=== PATIENT | female | born 1975 | race Caucasian/White ===

== ENCOUNTER → 2016-06-07 | Outpatient (CLI) | payer OTHER ==
[2016-06-07 11:27] LABS: ALBUMIN 3.3 GM/DL (3.2-5.2); ALBUMIN/GLOBULIN RATIO 1.03 (1.00-1.93); ALKALINE PHOSPHATASE 63 U/L (45-117); ALT/SGPT 15 U/L (12-78); ANION GAP 10 MEQ/L (8-16); AST/SGOT 20 U/L (15-37); BILIRUBIN,TOTAL 0.4 MG/DL (0.2-1.0); BLOOD UREA NITROGEN 15 MG/DL (7-18); CALCIUM LEVEL 8.7 MG/DL (8.5-10.1); CARBON DIOXIDE LEVEL 22 MEQ/L (21-32); CHLORIDE LEVEL 110 MEQ/L (98-107); CHOLESTEROL LEVEL 212 MG/DL (<200); CREATININE FOR GFR 0.92 MG/DL (0.55-1.02); GLOMERULAR FILTRATION RATE > 60.0 (>58); GLUCOSE, FASTING 99 MG/DL (70-105); POTASSIUM SERUM 4.9 MEQ/L (3.5-5.1); SODIUM LEVEL 142 MEQ/L (136-145); TOTAL PROTEIN 6.5 GM/DL (6.4-8.2); TRIGLYCERIDES LEVEL 185 MG/DL (<150)
== END ==
LOC: M LAB 10:14
PROVIDERS: ATTEND Physician Assistant Medical
DX: E78.00 Pure hypercholesterolemia, unspecified (principal)

== ENCOUNTER → 2016-08-30 | Outpatient (CLI) | payer MEDICAID, OTHER ==
[2016-08-30 10:00] LABS: BASO % 0.4 % (0.0-1.0); EOS # 0.3 K/mm3 (0.0-0.50); LYMPH % 39.4 % (24.0-44.0); MEAN CORPUSCULAR HEMOGLOBIN 29.1 pg (27.0-33.0); MEAN CORPUSCULAR HGB CONC 32.1 g/dl (32.0-36.5); MEAN CORPUSCULAR VOLUME 90.8 fl (80.0-96.0); MONO # 0.5 K/mm3 (0.0-0.8); MONO % 5.5 % (0.0-5.0); NEUTROPHILS # 4.9 K/mm3 (1.8-7.7); NEUTROPHILS % 50.3 % (36.0-66.0); RED CELL DISTRIBUTION WIDTH 13.4 % (11.5-14.5); WHITE BLOOD COUNT 9.7 K/mm3 (4.0-10.0)
[2016-08-30 10:20] LABS: ALBUMIN 3.7 GM/DL (3.2-5.2); ALBUMIN/GLOBULIN RATIO 1.19 (1.00-1.93); ALKALINE PHOSPHATASE 60 U/L (45-117); ALT/SGPT 12 U/L (12-78); ANION GAP 7 MEQ/L (8-16); AST/SGOT 7 U/L (15-37); BILIRUBIN,TOTAL 0.2 MG/DL (0.2-1.0); BLOOD UREA NITROGEN 12 MG/DL (7-18); CARBON DIOXIDE LEVEL 25 MEQ/L (21-32); CHLORIDE LEVEL 108 MEQ/L (98-107); CHOLESTEROL LEVEL 163 MG/DL (<200); CREATININE FOR GFR 0.95 MG/DL (0.55-1.02); GLOMERULAR FILTRATION RATE > 60.0 (>58); GLUCOSE, FASTING 94 MG/DL (70-105); SODIUM LEVEL 140 MEQ/L (136-145); TOTAL PROTEIN 6.8 GM/DL (6.4-8.2); TRIGLYCERIDES LEVEL 74 MG/DL (<150)
== END ==
LOC: M LAB 09:17
PROVIDERS: ATTEND Physician Assistant Medical
DX: E78.2 Mixed hyperlipidemia (principal); E55.9 Vitamin D deficiency, unspecified

== ENCOUNTER → 2016-11-30 | Outpatient (CLI) | payer OTHER ==
[~2016-11-30] MED LIST: DRIS50002 PO; NAPR500T3 PO; NORCOTAB PO; OXYB10TA PO; ROBA500T PO; ROSU40TA PO
[2016-11-30 12:37] LABS: ALBUMIN 3.8 GM/DL (3.2-5.2); ALBUMIN/GLOBULIN RATIO 1.03 (1.00-1.93); ALKALINE PHOSPHATASE 68 U/L (45-117); ALT/SGPT 17 U/L (12-78); ANION GAP 6 MEQ/L (8-16); AST/SGOT 12 U/L (15-37); BILIRUBIN,TOTAL 0.4 MG/DL (0.2-1.0); BLOOD UREA NITROGEN 12 MG/DL (7-18); CALCIUM LEVEL 9.2 MG/DL (8.5-10.1); CARBON DIOXIDE LEVEL 28 MEQ/L (21-32); CHLORIDE LEVEL 109 MEQ/L (98-107); CHOLESTEROL LEVEL 192 MG/DL (<200); CREATININE FOR GFR 0.97 MG/DL (0.55-1.02); GLOMERULAR FILTRATION RATE > 60.0 (>58); GLUCOSE, FASTING 65 MG/DL (70-105); POTASSIUM SERUM 4.2 MEQ/L (3.5-5.1); SODIUM LEVEL 143 MEQ/L (136-145); TOTAL PROTEIN 7.5 GM/DL (6.4-8.2); TRIGLYCERIDES LEVEL 206 MG/DL (<150)
== END ==
LOC: M LAB 11:05
PROVIDERS: ATTEND Physician Assistant Medical
DX: E78.2 Mixed hyperlipidemia (principal)

== ENCOUNTER → 2016-12-31 | Outpatient (CLI) | payer OTHER ==
[2016-12-31 15:50] LABS: MEAN CORPUSCULAR HEMOGLOBIN 30.8 pg (27.0-33.0); MEAN CORPUSCULAR HGB CONC 33.2 g/dl (32.0-36.5); MEAN CORPUSCULAR VOLUME 92.6 fl (80.0-96.0); RED CELL DISTRIBUTION WIDTH 13.3 % (11.5-14.5); WHITE BLOOD COUNT 8.6 K/mm3 (4.0-10.0)
[2016-12-31 16:16] LABS: ALBUMIN 3.9 GM/DL (3.2-5.2); ALBUMIN/GLOBULIN RATIO 1.22 (1.00-1.93); ALKALINE PHOSPHATASE 66 U/L (45-117); ALT/SGPT 15 U/L (12-78); ANION GAP 11 MEQ/L (8-16); AST/SGOT 10 U/L (15-37); BILIRUBIN,TOTAL 0.4 MG/DL (0.2-1.0); BLOOD UREA NITROGEN 10 MG/DL (7-18); CALCIUM LEVEL 8.7 MG/DL (8.5-10.1); CARBON DIOXIDE LEVEL 22 MEQ/L (21-32); CHLORIDE LEVEL 108 MEQ/L (98-107); CREATININE FOR GFR 0.96 MG/DL (0.55-1.02); GLOMERULAR FILTRATION RATE > 60.0 (>58); GLUCOSE, FASTING 99 MG/DL (70-105); POTASSIUM SERUM 4.2 MEQ/L (3.5-5.1); SODIUM LEVEL 141 MEQ/L (136-145); TOTAL PROTEIN 7.1 GM/DL (6.4-8.2)
== END ==
LOC: M LAB 15:03
PROVIDERS: ATTEND Specialist
DX: Z01.818 Encounter for other preprocedural examination (principal); N39.3 Stress incontinence (female) (male)

== ENCOUNTER 2017-01-05 06:11 | Day surgery (SDC) | payer OTHER ==
[~2017-01-05] VITALS: Ht 160 cm; Wt 65.8 kg
[~2017-01-05 06:11] MED LIST changes: -NORCOTAB PO; -ROBA500T PO
[2017-01-05] MEDS ORDERED: BOTULINUM INJ 100 UNITS (J0585) INJ ONE (07:00)
[2017-01-05] MEDS ORDERED: fentaNYL 100 MCG/2 ML INJECTION (J3010) As Ordered ONE ×2 (07:06→07:48)
[2017-01-05] MEDS ORDERED: MIDAZOLAM INJ 2 MG/2 ML VIAL (J2250) As Ordered ONE (07:06)
[2017-01-05] MEDS ORDERED: ONDANSETRON 4MG/2ML VIAL (J2405) As Ordered ONE (07:11)
[2017-01-05] MEDS ORDERED: PROPOFOL 200 MG/20 ML VIAL As Ordered ONE (07:11)
[2017-01-05] MEDS ORDERED: KETOROLAC 60 MG/2 ML VIAL (J1885) As Ordered ONE (07:11)
[2017-01-05] MEDS ORDERED: LIDOCAINE 2% INJ 100 MG/5 ML SDV (FOR ANES.) As Ordered ONE (07:11)
[2017-01-05] MEDS ORDERED: dexameTHASONE 4 MG/ML 1ML VIAL (J1100) As Ordered ONE (07:11)
[2017-01-05] MEDS ORDERED: BOTULINUM INJ 100 UNITS (J0585) As Ordered ONE (07:22)
[2017-01-05] MEDS ORDERED: LR 1,000 ML IV SCH ×2 (07:30→08:30)
[2017-01-05] MEDS ORDERED: ePHEDrine SULFATE 25 MG/5 ML(5MG/ML) SYRINGE As Ordered ONE (07:57)
[2017-01-05] MEDS ORDERED: LIDOCAINE 2% 5ML JELLY UROJET As Ordered ONE (08:03)
[2017-01-05] MEDS ORDERED: ONDANSETRON 4MG/2ML VIAL (J2405) IV PRN (08:30)
[2017-01-05] MEDS ORDERED: fentaNYL 100 MCG/2 ML INJECTION (J3010) IV PRN (08:30)
[2017-01-05 10:09] VITALS: BP 108/58
--- NOTE | 2017-01-05 21:29 | RO ---
DATE OF PROCEDURE: 01/05/2017 PREOPERATIVE DIAGNOSIS: Urinary urgency, frequency, urge incontinence, and mixed urinary incontinence. POSTOPERATIVE DIAGNOSIS: Urinary urgency, frequency, urge incontinence, and mixed urinary incontinence. PROCEDURE: Cystoscopy, hydrodistention, random bladder biopsies, and intravesical Botox with 100 units. SURGEON: Dr. Lizbeth Hanley [employer] INSTALLER: ANESTHESIA: General. MEDICATIONS: Ancef 2 grams preoperatively. SPECIMENS: Random bladder biopsies. COMPLICATIONS: None. DESCRIPTION OF PROCEDURE: Junie is bothered by significant urinary urgency, urge incontinence, and mixed urinary incontinence despite treatment with both Enablex and oxybutynin extended release 10 mg, which she felt did not work well at all. Both urodynamic studies and cystoscopy were done. Urodynamic study (UDS) on 06/13/2016 showed her first sensation at only 50 mL with urgency at 222 mL. We discussed placement of the mid urethral sling for her stress component, but she said she was more bothered by the urge component, so it was decided to try to address this first. After discussing all different options, alternatives, risks, and benefits, it was decided to bring the patient to the operating room for cystoscopy, hydrodistention, possible random bladder biopsies, and intravesical Botox. Informed consent was obtained in both verbal and written form. DESCRIPTION OF PROCEDURE: The patient was brought into the operating room. Sequential compression devices were in place and preoperative antibiotics had been given. General anesthesia was induced. The patient was then placed in the lithotomy position and careful attention was paid that her pressure points were well padded and protected. She was next prepped and draped in the usual fashion. A #21-Romanian cystoscope was inserted and the bladder was emptied. Then, it was refilled using normal saline under gravity drainage. There was no evidence of stones, erythematous patches, lesions, or abnormalities. The patient's bladder was filled to a little less than 1 liter and left distended for a total of 10 minutes. Upon emptying the bladder, there were glomerulations throughout but no evidence of ulcerations and the glomerulations were minimal. Random biopsies were taken. Next, 100 units of Botox was injected in 10 different sites throughout the bladder after being reconstituted with 10 mL of injectable saline. I did place 10 units at the base of the bladder and the trigone and the rest were randomly throughout the bladder. The water source was then changed to sterile water, then the Bugbee was used for areas that appeared that they may bleed post procedurally. The patient tolerated the procedure well and was returned to the recovery room in stable condition.
== END 2017-01-05 10:42 | disposition home or self-care (01) ==
LOC: M SDC 06:11
PROVIDERS: ATTEND Specialist
DX: N39.41 Urge incontinence (principal); R35.0 Frequency of micturition; R39.15 Urgency of urination; E78.5 Hyperlipidemia, unspecified; Z79.899 Other long term (current) drug therapy; Z88.8 Allergy status to other drugs, medicaments and biological substances
CPT/HCPCS: 52204; 52260; 52287; 88305; L8606

== ENCOUNTER 2017-02-13 14:45 | Emergency (ER) | payer OTHER ==
[~2017-02-13] VITALS: Ht 157.5 cm; Wt 59.1 kg
[2017-02-13] MEDS ORDERED: ROBA500T PO (19:11)
[2017-02-13] MEDS ORDERED: NORCOTAB PO (19:11)
[2017-02-13] MEDS ORDERED: METHOCARBAMOL 500 MG TAB PO ONE (19:15)
[2017-02-13] MEDS ORDERED: KETOROLAC 60 MG/2 ML VIAL (J1885) IM ONE (19:15)
[2017-02-13 19:18] VITALS: BP 128/72
== END 2017-02-13 19:19 | disposition home or self-care (01) ==
LOC: M ED 14:45
DX: S39.012A Strain of muscle, fascia and tendon of lower back, initial encounter (principal); X50.9XXA Other and unspecified overexertion or strenuous movements or postures, initial encounter; Y92.89 Other specified places as the place of occurrence of the external cause; Y93.89 Activity, other specified; Y99.8 Other external cause status; M62.830 Muscle spasm of back; F17.210 Nicotine dependence, cigarettes, uncomplicated; Z79.899 Other long term (current) drug therapy; Z88.8 Allergy status to other drugs, medicaments and biological substances
CPT/HCPCS: 96372; 99282; J1885

== ENCOUNTER → 2017-02-15 | Outpatient (CLI) | payer OTHER ==
[~2017-02-15] MED LIST changes: +NORCOTAB PO; +ROBA500T PO
[2017-02-15 15:39] LABS: ALBUMIN 3.7 GM/DL (3.2-5.2); ALBUMIN/GLOBULIN RATIO 1.23 (1.00-1.93); ALKALINE PHOSPHATASE 61 U/L (45-117); ALT/SGPT 14 U/L (12-78); ANION GAP 8 MEQ/L (8-16); AST/SGOT 8 U/L (15-37); BILIRUBIN,TOTAL 0.5 MG/DL (0.2-1.0); BLOOD UREA NITROGEN 11 MG/DL (7-18); CALCIUM LEVEL 8.9 MG/DL (8.5-10.1); CARBON DIOXIDE LEVEL 24 MEQ/L (21-32); CHLORIDE LEVEL 112 MEQ/L (98-107); CHOLESTEROL LEVEL 165 MG/DL (<200); GLOMERULAR FILTRATION RATE > 60.0 (>58); GLUCOSE, FASTING 76 MG/DL (70-105); POTASSIUM SERUM 4.5 MEQ/L (3.5-5.1); SODIUM LEVEL 144 MEQ/L (136-145); TOTAL PROTEIN 6.7 GM/DL (6.4-8.2); TRIGLYCERIDES LEVEL 155 MG/DL (<150)
== END ==
LOC: M LAB 12:08
PROVIDERS: ATTEND Physician Assistant Medical
DX: E78.2 Mixed hyperlipidemia (principal); E55.9 Vitamin D deficiency, unspecified

== ENCOUNTER 2017-06-25 19:27 | Emergency (ER) | payer OTHER ==
[2017-06-25 19:56] LABS: HEMATOCRIT 47.6 % (36.0-47.0); HEMOGLOBIN 15.5 g/dl (12.0-16.0); MEAN CORPUSCULAR HEMOGLOBIN 29.4 pg (27.0-33.0); MEAN CORPUSCULAR HGB CONC 32.6 g/dl (32.0-36.5); MEAN CORPUSCULAR VOLUME 90.3 fl (80.0-96.0); PLATELET COUNT, AUTOMATED 305 10^3/uL (150-450); RED BLOOD COUNT 5.27 10^6/uL (4.00-5.40); RED CELL DISTRIBUTION WIDTH 14.3 % (11.5-14.5); WHITE BLOOD COUNT 10.9 10^3/uL (4.0-10.0)
[2017-06-25 20:07] LABS: ANION GAP 7 MEQ/L (8-16); BLOOD UREA NITROGEN 15 MG/DL (7-18); CALCIUM LEVEL 9.4 MG/DL (8.5-10.1); CARBON DIOXIDE LEVEL 25 MEQ/L (21-32); CHLORIDE LEVEL 108 MEQ/L (98-107); CREATININE FOR GFR 0.88 MG/DL (0.55-1.02); ETHYL ALCOHOL (ETHANOL) < 0.003 % (0.000-0.010); GLOMERULAR FILTRATION RATE > 60.0 (>58); GLUCOSE, FASTING 87 MG/DL (70-100); POTASSIUM SERUM 4.1 MEQ/L (3.5-5.1); SODIUM LEVEL 140 MEQ/L (136-145)
[2017-06-25 20:10] LABS: ADD MANUAL DIFFER YES; DIFF SLIDE NUMBER 147; POSITIVE DIFF POS FLAG
[2017-06-25 20:32] LABS: AMPHETAMINES LEVEL URINE NEGATIVE (NEGATIVE); BARBITURATES URINE NEGATIVE (NEGATIVE); BENZODIAZEPINES URINE NEGATIVE (NEGATIVE); CANNABINOIDS URINE NEGATIVE (NEGATIVE); COCAINE METABOLITE URINE NEGATIVE (NEGATIVE); METHADONE URINE NEGATIVE (NEGATIVE); OPIATES URINE NEGATIVE (NEGATIVE); PHENCYCLIDINE URINE NEGATIVE (NEGATIVE)
[2017-06-25 20:36] LABS: ATYPICAL LYMPH 2 % (0-5); EOSINOPHILS 2 % (0-5); LYMPHOCYTES 36 % (16-52); MONOCYTES 10 % (0-8); NEUTROPHILS 50 % (35-75); PLATELET ESTIMATE NORMAL (NORMAL)
== END 2017-06-25 20:52 | disposition home or self-care (01) ==
LOC: M ED 19:27
DX: F10.10 Alcohol abuse, uncomplicated (principal); E78.5 Hyperlipidemia, unspecified; F17.200 Nicotine dependence, unspecified, uncomplicated; Z79.899 Other long term (current) drug therapy; Z88.8 Allergy status to other drugs, medicaments and biological substances
CPT/HCPCS: 80320

== ENCOUNTER → 2018-02-12 | Outpatient (CLI) | payer OTHER | LOC: M CARPUL 12:32 | DX: R06.00 Dyspnea, unspecified (principal) | CPT/HCPCS: 94060 ==

== ENCOUNTER 2018-05-31 23:51 | Emergency (ER) | payer SELFPAY ==
[~2018-05-31] VITALS: Ht 157.5 cm; Wt 64.1 kg
[~2018-05-31 23:51] MED LIST changes: -DRIS50002 PO; +DRIS50003 PO; +FLUT11IN INH; +NAPR-885 PO; -NAPR500T3 PO; +PRED20TA PO; +PROAAER10 INH; -ROSU40TA PO; +ROSU40TA3 PO
[2018-06-01 00:21] LABS: BASO % 0.4 % (0.0-1.0); EOS # 0.2 10^3/uL (0.0-0.50); EOS % 2.9 % (0.0-3.0); HEMATOCRIT 42.3 % (36.0-47.0); LYMPH # 3.7 10^3/uL (1.5-4.5); LYMPH % 44.8 % (24.0-44.0); MEAN CORPUSCULAR HEMOGLOBIN 29.3 pg (27.0-33.0); MEAN CORPUSCULAR HGB CONC 33.1 g/dl (32.0-36.5); MEAN CORPUSCULAR VOLUME 88.5 fl (80.0-96.0); MONO # 0.7 10^3/uL (0.0-0.8); MONO % 8.4 % (0.0-5.0); NEUTROPHILS # 3.6 10^3/uL (1.8-7.7); NEUTROPHILS % 43.3 % (36.0-66.0); PLATELET COUNT, AUTOMATED 233 10^3/uL (150-450); RED BLOOD COUNT 4.78 10^6/uL (4.00-5.40); WHITE BLOOD COUNT 8.3 10^3/uL (4.0-10.0)
[2018-06-01 00:50] LABS: BLOOD UREA NITROGEN 15 MG/DL (7-18); CALCIUM LEVEL 8.9 MG/DL (8.5-10.1); CARBON DIOXIDE LEVEL 22 MEQ/L (21-32); CHLORIDE LEVEL 105 MEQ/L (98-107); CK-MB VALUE MASS < 1.0 NG/ML (<3.6); CPK CREATINE PHOSPHOKINASE 69 U/L (26-192); CREATININE FOR GFR 1.13 MG/DL (0.55-1.30); GLOMERULAR FILTRATION RATE 55.4 (>58); GLUCOSE, FASTING 93 MG/DL (70-100); MB/CK RELATIVE INDEX 1.45 (< OR =4); POTASSIUM SERUM 3.4 MEQ/L (3.5-5.1); SODIUM LEVEL 138 MEQ/L (136-145); TROPONIN I < 0.02 NG/ML (< 0.10)
[2018-06-01] MEDS ORDERED: IPRATROPIUM 0.5MG/ALBUTEROL 2.5MG INH SOL UD 3ML (DUONEB)(J7620) NEB ONE (02:00)
[2018-06-01 02:52] LABS: INFLUENZA A AMPLIFICATION NEGATIVE (NEGATIVE); INFLUENZA B AMPLIFICATION NEGATIVE (NEGATIVE)
[2018-06-01 03:30] VITALS: BP 97/56
--- NOTE | 2018-06-01 07:24 | REP ---
Clinical: Acute chest pain . Comparison: 05/25/2018 . Findings: The mediastinum and cardiac silhouette are stable and within normal limits for portable technique. The lung mejia are clear without acute consolidation, effusion, or pneumothorax. Skeletal structures are intact. Impression: No acute cardiopulmonary process appreciated. Electronically Signed by Jordon Bertrand MD 06/01/2018 07:15 A
--- NOTE | 2018-06-01 09:26 | ECGEPIP ---
Stationary ECG Study [facility] - ED Test Date: 2018-06-01 Pat Name: EMERSON BOYER Department: Room: - Gender: F Medical Secretary: gt : 1975 Requested By: K[facility] Bro Order Number: [id number] Reading MD: Iman Bishop Measurements Intervals [place] Rate: 74 P: 47 WA: 117 QRS: 37 QRSD: 96 T: 43 QT: 403 QTc: 448 Interpretive Statements SINUS RHYTHM WITH SHORT WA INTERVAL POSSIBLE RIGHT VENTRICULAR CONDUCTION DELAY NO PRIOR FOR COMPARISON Electronically Signed On 06-01-2018 9:26:33 EST by Iman Bishop
== END 2018-06-01 03:45 | disposition home or self-care (01) ==
LOC: EDBD 23:51 → M ED 23:51
DX: J44.9 Chronic obstructive pulmonary disease, unspecified (principal); Z87.891 Personal history of nicotine dependence; Z79.899 Other long term (current) drug therapy; Z88.8 Allergy status to other drugs, medicaments and biological substances

== ENCOUNTER → 2018-10-02 | Outpatient (CLI) | payer OTHER ==
[~2018-10-02] MED LIST changes: +HYDR-3715 PO; -NORCOTAB PO
--- NOTE | 2018-10-02 17:45 | REP ---
Left elbow series: Four views. History: Left elbow pain. Findings: Four views of the left elbow show normal bones, joints, and soft tissues. No fracture or subluxation is seen. Impression: Negative left elbow radiographs. Electronically Signed by Cleveland Valdez MD 10/02/2018 05:37 P
== END ==
LOC: M RAD 16:59
PROVIDERS: ATTEND Physician Assistant Medical
DX: M25.522 Pain in left elbow (principal)

== ENCOUNTER → 2019-02-20 | Outpatient (CLI) | payer OTHER ==
[~2019-02-20] MED LIST changes: -OXYB10TA PO; +OXYB10TA2 PO; -ROSU40TA3 PO; +ROSU40TA4 PO
--- NOTE | 2019-02-21 05:22 | REP ---
Clinical: Follow up abnormal findings. Technique: Axial noncontrast images from the thoracic inlet to the upper abdomen with coronal and sagittal re-formations. Comparison: 05/17/2018. Findings: Stable moderate emphysematous changes are again appreciated along with scattered bullae and bronchiectasis. No acute consolidation, significant nodule or mass lesion appreciated. No pleural effusion. No pneumothorax. Tracheobronchial tree appears patent. No obvious adenopathy. Mediastinum appears normal for noncontrast evaluation. Surrounding musculoskeletal structures are intact without focal osseous abnormality. Impression: 1. Stable mild/moderate emphysematous changes with bronchiectasis and scattered bullae. 2. No acute mediastinal or pleuroparenchymal process appreciated. Electronically Signed by Jordon Bertrand MD 02/21/2019 05:13 A
== END ==
LOC: M RAD 15:44
PROVIDERS: ATTEND Nurse Practitioner Family
DX: R91.8 Other nonspecific abnormal finding of lung field (principal); J43.9 Emphysema, unspecified

== ENCOUNTER → 2019-02-28 | Outpatient (CLI) | payer OTHER ==
--- NOTE | 2019-02-28 15:32 | PFTRPT ---
Height: 63.00 Inches Weight: 145.00 Lbs BSA: 1.69 Diagnosis: R05 DATE OF PROCEDURE: 02/28/2019 ORDERED BY: SIMEON Anguiano Spirometry: Pre and post bronchodilator study of excellent technical quality. Forced vital capacity normal. FEV1 out of proportion. Obstructive index is, therefore, reduced. Flow Volume Loop: Expiratory limb of the flow volume loop consistent with flow rate limitation. Favorable bronchodilator response is identified. Lung Volumes: Total lung capacity elevated. Residual volume consistent with air trapping. Diffusing Capacity: Diffusing capacity is reduced and does not correct for alveolar volume. Hemoglobin: Hemoglobin acceptable at 12.7. Airway Mechanics: Airway resistance and conductance are normal. IMPRESSION: Moderate obstructive ventilatory impairment with underlying air trapping and diffusing capacity impairment. Favorable bronchodilator response. MTDD
== END ==
LOC: M CARPUL 14:51
PROVIDERS: ATTEND Nurse Practitioner Family
DX: R05 Cough (principal)

== ENCOUNTER → 2019-06-06 | Outpatient (CLI) | payer OTHER ==
[2019-06-06 13:15] LABS: BLOOD UREA NITROGEN 13 MG/DL (7-18); CALCIUM LEVEL 9.6 MG/DL (8.5-10.1); CARBON DIOXIDE LEVEL 26 MEQ/L (21-32); CHLORIDE LEVEL 106 MEQ/L (98-107); GLOMERULAR FILTRATION RATE > 60.0 (>58); GLUCOSE, FASTING 74 MG/DL (70-100); POTASSIUM SERUM 4.3 MEQ/L (3.5-5.1); SODIUM LEVEL 138 MEQ/L (136-145)
== END ==
LOC: M LAB 11:28
PROVIDERS: ATTEND Internal Medicine Pulmonary Disease
DX: R06.00 Dyspnea, unspecified (principal)

== ENCOUNTER → 2019-06-07 | Outpatient (CLI) | payer OTHER ==
[~2019-06-07] MED LIST changes: -OXYB10TA2 PO; +OXYB10TA23 PO
--- NOTE | 2019-06-07 10:21 | REP ---
CT ANGIOGRAM CHEST: COMPARISON: 05/17/2018 and 02/20/2019. Once again there are mild scattered interstitial fibrotic changes as well as scattered emphysematous changes. These are stable. Mild bullous changes are seen medially in the left upper lobe as well as medial right upper lobe, unchanged. No new infiltrate or suspicious parenchymal opacities are seen. There is no evidence of mediastinal, hilar or chest wall lymphadenopathy. There is no pleural or pericardial effusion. Heart is normal in size. Thoracic aorta is normal in caliber with no aneurysm or dissection. In the visualized upper abdomen note is again made of a stable left adrenal adenoma measuring approximately 1.8 cm in diameter. There are mild degenerative changes of the spine. IMPRESSION: Stable chronic findings. No acute abnormalities as discussed in detail above. Electronically Signed by Kelvin Torres MD 06/08/2019 03:12 P
== END ==
LOC: M RAD 07:50
PROVIDERS: ATTEND Nurse Practitioner Family
DX: R91.8 Other nonspecific abnormal finding of lung field (principal)

== ENCOUNTER 2019-08-01 18:00 | Emergency (ER) | payer OTHER ==
[~2019-08-01] VITALS: Ht 160 cm; Wt 66.3 kg
[2019-08-01] MEDS ORDERED: methocarbamoL 750 MG TAB PO ONE (21:45)
[2019-08-01] MEDS ORDERED: LIDOCAINE 5% (LIDODERM) PATCH TD ONE (21:45)
[2019-08-01] MEDS ORDERED: KETOROLAC 60 MG/2 ML VIAL (J1885) IM ONE (21:45)
[2019-08-01 22:25] VITALS: BP 141/72
--- NOTE | 2019-08-01 22:25 | REPVR ---
PROCEDURE INFORMATION: Exam: CT Lumbar Spine Without Contrast Exam date and time: 08/01/2019 10:01 PM Age: 44 years old Clinical indication: Low back pain; Additional info: PT tender, R low back pain, 1 mo, no kirstin TECHNIQUE: Imaging protocol: Computed tomography images of the lumbar spine without contrast. Radiation optimization: All CT scans at this facility use at least one of these dose optimization techniques: automated exposure control; mA and/or kV adjustment per patient size (includes targeted exams where dose is matched to clinical indication); or iterative reconstruction. COMPARISON: No relevant prior studies available. FINDINGS: Vertebrae: No acute fracture. Normal alignment. Discs/Spinal canal/Neural foramina: No disc herniations. No spinal canal stenosis. No neural foraminal narrowing. Vasculature: The aorta demonstrates mild atherosclerotic calcification. Soft tissues: There is a focal hypodense mass in the left adrenal gland measuring 1.4 x 2.3 cm., and on the right measuring 1 x 1.6 cm both consistent in appearance and density with a benign adrenal adenomas. IMPRESSION: 1. Bilateral adrenal adenomas. 2. Unremarkable CT lumbar spine. COMMENTS: Consistent with the [employer]'s Incidental Findings Committee white paper (J Am Alcides Radiol 2017): For any incidental adrenal lesion greater than 1.0 cm but less than 4.0 cm classified in this report as benign or likely benign (including classification as an adenoma or myelolipoma), no follow-up imaging is recommended per consensus recommendations based on imaging criteria. Further lab evaluation could be pursued if warranted based on clinical findings. Electronically signed by: Ryan Jarquin On 08/01/2019 22:24:49 PM
[2019-08-01] MEDS ORDERED: ROBA750T4 PO (22:35)
[2019-08-01] MEDS ORDERED: NAPR-837 PO (22:35)
--- NOTE | 2019-08-02 14:33 | ED PDOC ---
Post-Departure Follow-Up dayan parmar faxed formal report of ct ls spine for fu Reggie Cedillo MD Aug 02, 2019 14:33
[2019-08-02] MEDS ORDERED: **NOTE PATIENT COMMENT** MISC XX SCH (21:00)
== END 2019-08-01 22:42 | disposition home or self-care (01) ==
LOC: M ED 18:00
DX: M54.5 Low back pain (principal); D35.00 Benign neoplasm of unspecified adrenal gland; R56.9 Unspecified convulsions; J44.9 Chronic obstructive pulmonary disease, unspecified; F17.210 Nicotine dependence, cigarettes, uncomplicated; Z88.8 Allergy status to other drugs, medicaments and biological substances; Z79.51 Long term (current) use of inhaled steroids; Z79.899 Other long term (current) drug therapy
CPT/HCPCS: 72131; 96372; 99283; J1885

== ENCOUNTER 2021-05-01 21:05 | Emergency (ER) | payer OTHER ==
[~2021-05-01] VITALS: Ht 160 cm; Wt 65.9 kg
[~2021-05-01 21:05] MED LIST changes: +NAPR-837 PO; +ROBA750T4 PO
--- OUTSIDE RECORDS SUMMARY | 2021-05-01 21:09 | CCD | Summary of Care ---
Author Author [facility] Organization [facility] Address Unknown Phone Unavailable Care Team Providers Care Field Spec Name Role Phone Lexi Luna H[employer] GR[employer]ER PCP Reason for Visit * Reason Comments Procedure Encounter Details Care Team Description Date Type Department Ritchie Hicks MD [facility] [place] [address] [email or web address] MS (multiple sclerosis) (Primary Dx) 04/01/2021 Procedure visit [facility] Neurology a [facility] [address], [address] [place] [address] Allergies Comments Active Allergy Reactions Severity Noted Date Carbamazepine Anaphylaxis High 05/11/2020 documented as of this encounter (statuses as of 04/27/2021) Medications End Date Status Medication Sig Dispensed Refills Start Date Active Baclofen 10 MG Oral Take 10 mg by 0 Tablet (LIORESAL) mouth Three times daily Active HYDROcodone-Acetaminophen Take 1 tablet 0 5-325 MG Oral Tablet by mouth (LORTAB) every 6 (six) hours as needed for Pain Active Naproxen 500 MG Oral Take 500 mg 0 Tablet (NAPROSYN) by mouth as needed Active Cholecalciferol 125 MCG Take 5,000 90 tablet 2 (5000 UT) Oral Tablet Int'l Units 1 by mouth daily Active Vitamin D Take 1 12 capsule 1 (Ergocalciferol) 1.25 MG capsule by 1 (55891 UT) Oral Capsule mouth every 7 (ERGOCALCIFEROL)Indicatio (seven) days ns: Vitamin D deficiency 09/22/2021 Active Gilenya 0.5 MG Oral TAKE 1 30 capsule 5 Capsule CAPSULE BY 1 (fingolimod)Indications: MOUTH EVERY Multiple sclerosis DAY documented as of this encounter (statuses as of 04/27/2021) Active Problems Problem Noted Date Vitamin D deficiency 07/16/2020 Tobacco use 05/13/2020 Multiple sclerosis 05/11/2020 Asthma 05/11/2020 COPD (chronic obstructive pulmonary disease) 020 Depression 05/11/2020 documented as of this encounter (statuses as of 04/27/2021) Social History Date Tobacco Use Types Packs/Day Years Used Current Every Day Smoker 0.5 Smokeless Tobacco: Never Used Comments: In the process of quitting Comments Alcohol Use Standard Drinks/Week Not Currently 0 (1 standard drink = 0.6 o z pure alcohol) Sex Assigned at Date Recorded Not on file Date Recorded COVID-19 Exposure Response 03/31/2021 3:47 PM EDT In the last month, have you been in contact with No / Unsure someone who was confirmed or suspected to have Coronavirus / COVID-19? documented as of this encounter Last Filed Vital Signs Not on filedocumented in this encounter Progress Notes * Ritchie Hicks MD - 03/31/2021 4:20 PM EDT Neuro-Ophthalmology Procedure Note Pertinent History: Junie Noland a 46 y.o. female with history of multiple scl erosis, who came in for diagnostic testing as ordered by Lizbeth Sweet NP. Optical coherence tomography (OCT) was performed in both eyes using the [employer]. The retinal nerve fiber layer (RNFL) thickness analysis revealed that in the OD there was normal thickness in all quadrants with a normal average thickn ess of 88. In the OS, there was normal thickness in all quadrants with a normal average thickness of 83. The signal strength was 8/10 OD and 8/10 OS. The retina l ganglion cell layer (RGC) analysis in the OD was normal in all sectors with av erage thickness of 75, and in the OS was normal thickness in most sectors with a couple with borderline thinning with average thickness of 73. The signal streng th was 8 OD and 7 OS. The macular thickness analysis revealed that in the OD the re was normal thickness in all sectors and a normal cube average thickness of 28 2; and in the OS there was normal thickness in all sectors and a normal cube ave rage thickness of 281. The signal strength was 8/10 OD and 7/10 OS. A 5-line shree ter through both macular areas appeared unremarkable. Impression: Junie Ayoub has normal thickness of the RNFL, RGC and macular area s by OCT in the setting of multiple sclerosis. When compared to the previous joelle dy from 11/06/20 there is no interval change. Clinical correlation is advice. She will return to Lizbeth Sweet NP for further care. documented in this encounter Plan of Treatment Care Team Description Date Type Specialty Lizbeth Sweet NP [address] [place] [address] [address] [place] [address] [email or web address] 08/06/2021 Office Visit Neurology Health Maintenance Due Date Last Done Comments MMR Vaccines (1 of 1 - 1974 Standard series) Varicella Vaccines (1 of 1974 2 - 2-dose childhood series) COVID-19 Vaccine (1) 1978 Pneumococcal Vaccine: 1979 Pediatrics (0 to 5 Years) and At-Risk Patients (6 to 64 Years) (1 of 2 - PPSV23) DTaP,Tdap,and Td Vaccines 1980 (1 - Tdap) Cervical Cancer Screening 1994 5 years Influenza Vaccine 02/26/2021 03/01/2019 HIV Screening Completed 05/14/2020 HIB Vaccines Aged Out No longer eligible based on patient's age to complete this topic Hepatitis A Vaccines Aged Out No longer eligibl e based on patient's age to complete this topic Hepatitis B Vaccines Aged Out No longer eligibl e based on patient's age to complete this topic IPV Vaccines Aged Out No longer eligible based on patient's age to complete this topic documented as of this encounter Results Not on filedocumented in this encounter Visit Diagnoses Diagnosis MS (multiple sclerosis) - Primary Multiple sclerosis documented in this encounter Care Teams Start Date End Date Field Spec Relationship Specialty 05/13/20 Lexi Luna NP PCP - General [address] [id number] documented as of this encounter
--- OUTSIDE RECORDS SUMMARY | 2021-05-01 21:10 | CCD ---
Author Author [facility] Organization [facility] Address Unknown Phone Unavailable Care Team Providers Care Mixing Machine Operator Name Role Phone Anirudh FRIEDMAN MD Unavailable Unavailable Anirudh FRIEDMAN MD Unavailable Unavailable Anirudh FRIEDMAN MD Unavailable Unavailable Anirudh FRIEDMAN MD Unavailable Unavailable Anirudh FRIEDMAN MD Unavailable Unavailable Anirudh FRIEDMAN MD Unavailable Unavailable Anirudh FRIEDMAN MD Unavailable Unavailable Ocsar GARCIA Unavailable Unavailable AVERSHansa, A NEENA Unavailable Unavailable Lucy Anand MD Unavailable Unavailable Lucy Anand MD Unavailable Unavailable Lucy Anand MD Unavailable Unavailable Hansa Singer MD Unavailable Shahrzad MD, A Alvarez Unavailable Shahrzad MD, A Alvarez Unavailable Shahrzad MD, A Alvarez Unavailable Shahrzad MD, A Alvarez Unavailable Shahrzad MD, A Alvarez Unavailable Shahrzad MD, A Alvarez Unavailable Shahrzad MD, A Alvarez Unavailable Shahrzad MD, A Alvarez Unavailable Shahrzad MD, A Alvarez Unavailable Shahrzad MD, A Alvarez Unavailable Shahrzad MD, A Alvarez Unavailable Shahrzad MD, A Alvarez Unavailable Shahrzad MD, A Alvarez Unavailable Shahrzad MD, A Alvarez Unavailable Shahrzad MD, A Alvarez Unavailable Shahrzad MD, A Alvarez Unavailable Shahrzad MD, A Alvarez Unavailable Shahrzad MD, A Alvarez Unavailable Shahrzad MD, A Alvarez Unavailable Shahrzad MD, A Alvarez Unavailable Shahrzad MD, A Alvarez Unavailable Shahrzad MD, A Alvarez Unavailable Shahrzad MD, A Alvarez Unavailable Shahrzad MD, A Alvarez Unavailable Shahrzad MD, A Alvarez Unavailable Shahrzad MD, A Alvarez Unavailable Shahrzad MD, A Alvarez Unavailable Shahrzad LYNN, A Alvarez Unavailable Shahrzad MD, A Alvarez Unavailable Shahrzad MD, A Alvarez Unavailable Shahrzad MD, A Alvarez Unavailable Shahrzad MD, A Alvarez Unavailable Shahrzad MD, A Alvarez Unavailable Shahrzad MD, A Alvarez Unavailable Shahrzad MD, A Alvarez Unavailable Shahrzad MD, A Alvarez Unavailable Shahrzad MD, A Alvarez Unavailable Shahrzad MD, A Alvarez Unavailable Shahrzad MD, A Alvarez Unavailable Shahrzad MD, A Alvarez Unavailable Shahrzad MD, A Alvarez Unavailable Shahrzad MD, A Alvarez Unavailable Shahrzad MD, A Alvarez Unavailable Shahrzad MD, A Alvarez Unavailable Shahrzad MD, A Alvarez Unavailable Shahrzad MD, A Alvarez Unavailable Shahrzad MD, A Alvarez Unavailable Hemant Buckley DO Unavailable Unavailable KAILA YANG Unavailable Unavailable Jackie ESPINOZA JR, MD Unavailable Unavailable Jackie ESPINOZA JR, MD Unavailable Unavailable Jackie ESPINOZA JR, MD Unavailable Unavailable Jackie ESPINOZA JR, MD Unavailable Unavailable Jackie ESPINOZA JR, MD Unavailable Unavailable Jackie ESPINOZA JR, MD Unavailable Unavailable Jackie ESPINOZA JR, MD Unavailable Unavailable Jackie ESPINOZA JR, MD Unavailable Unavailable Jackie ESPINOZA JR, MD Unavailable Unavailable CARSTEPHYT Jackie GROVE MD Unavailable Unavailable CARSTEPHYT Jackie GROVE MD Unavailable Unavailable CARHART Jackie GROVE MD Unavailable Unavailable CARHART Jackie GROVE MD Unavailable Unavailable CARHART Jackie GROVE MD Unavailable Unavailable CARHART Jackie GROVE MD Unavailable Unavailable CARHART Jackie GROVE MD Unavailable Unavailable CARSTEPHYT Jackie GROVE MD Unavailable Unavailable CARSTEPHYT Jackie GROVE MD Unavailable Unavailable CARSTEPHYT Jackie GROVE MD Unavailable Unavailable CARSTEPHYT Jackie GROVE MD Unavailable Unavailable CARSTEPHYT Jackie GROVE MD Unavailable Unavailable CARSTEPHYT Jackie GROVE MD Unavailable Unavailable CARJackie BLACK JR, MD Unavailable Unavailable CARJackie BLACK JR, MD Unavailable Unavailable CARJackie BLACK JR, MD Unavailable Unavailable CARJackie BLACK JR, MD Unavailable Unavailable CARJackie BLACK JR, MD Unavailable Unavailable CARJackie BLACK JR, MD Unavailable Unavailable CARJackie BLACK JR, MD Unavailable Unavailable CARJackie BLACK JR, MD Unavailable Unavailable CARJackie BLACK JR, MD Unavailable Unavailable CARJackie BLACK JR, MD Unavailable Unavailable CARJackie BLACK JR, MD Unavailable Unavailable CARJackie BLACK JR, MD Unavailable Unavailable CARJackie BLACK JR, MD Unavailable Unavailable CARJackie BLACK JR, MD Unavailable Unavailable CARJackie BLACK JR, MD Unavailable Unavailable CARJackie BLACK JR, MD Unavailable Unavailable CARJackie BLACK JR, MD Unavailable Unavailable CARJackie BLACK JR, MD Unavailable Unavailable CARJackie BLACK JR, MD Unavailable Unavailable CARJackie BLACK JR, MD Unavailable Unavailable CARJackie BLACK JR, MD Unavailable Unavailable CARJackie BLACK JR, MD Unavailable Unavailable CARJackie BLACK JR, MD Unavailable Unavailable CARJackie BLACK JR, MD Unavailable Unavailable CARJackie BLACK JR, MD Unavailable Unavailable CARJackie BLACK JR, MD Unavailable Unavailable CARJackie BLACK JR, MD Unavailable Unavailable CARJackie BLACK JR, MD Unavailable Unavailable CARJackie BLACK JR, MD Unavailable Unavailable CARSTEPHYT Jackie GROVE MD Unavailable Unavailable CARJackie BLACK JR, MD Unavailable Unavailable CARJackie BLACK JR, MD Unavailable Unavailable CARJackie BLACK JR, MD Unavailable Unavailable CARJackie BLACK JR, MD Unavailable Unavailable CARJackie BLACK JR, MD Unavailable Unavailable CARJackie BLACK JR, MD Unavailable Unavailable CARJackie BLACK JR, MD Unavailable Unavailable CARHART JRJackie MD Unavailable Unavailable CARHART Jackie GROVE MD Unavailable Unavailable CARHART JRJackie MD Unavailable Unavailable CARHART JRJackie MD Unavailable Unavailable CARHART JRJackie MD Unavailable Unavailable CARHART JRJackie MD Unavailable Unavailable CARHART JRJackie MD Unavailable Unavailable CARHART JRJackie MD Unavailable Unavailable CARHART JR, Jackie MADRIGAL MD Unavailable Unavailable CARHART JRJackie MD Unavailable Unavailable CARHART JRJackie MD Unavailable Unavailable CARHART JRJackie MD Unavailable Unavailable CARHART JRJackie MD Unavailable Unavailable CARHART JRJackie MD Unavailable Unavailable CARHART JR, Jackie MADRIGAL MD Unavailable Unavailable CARHART JR, Jackie MADRIGAL MD Unavailable Unavailable CARHART JRJackie MD Unavailable Unavailable CARHART Jackie GROVE MD Unavailable Unavailable CARHART Jackie GROVE MD Unavailable Unavailable CARHART Jackie GROVE MD Unavailable Unavailable CARHART Jackie GROVE MD Unavailable Unavailable CARHART Jackie GROVE MD Unavailable Unavailable CARHART Jackie GROVE MD Unavailable Unavailable CARHART Jackie GROVE MD Unavailable Unavailable CARHART Jackie GROVE MD Unavailable Unavailable CARHART Jackie GROVE MD Unavailable Unavailable CARHART Jackie GROVE MD Unavailable Unavailable CARHART Jackie GROVE MD Unavailable Unavailable CARHART Jackie GROVE MD Unavailable Unavailable SAWANT, Hansa HINDS MD Unavailable Unavailable SAWANT, Hansa HINDS MD Unavailable Unavailable SAWANT, Hansa CAMILOLIZET Unavailable Unavailable SAWANT, Hansa HINDS MD Unavailable Unavailable SAWANT, Hansa HINDS MD Unavailable Unavailable SAWANT, Hansa HINDS MD Unavailable Unavailable SAWANT, Hansa HINDS MD Unavailable Unavailable SAWANT, Hansa HINDS MD Unavailable Unavailable SAWANT, Hansa HINDS MD Unavailable Unavailable SAWANT, Hansa LIZET MD Unavailable Unavailable SAWANT, Hansa HINDS MD Unavailable Unavailable SAWANT, Hansa LIZET Unavailable Unavailable SAWANT, Hansa LIZET Unavailable Unavailable SAWANT, Hansa HINDS MD Unavailable Unavailable SAWANT, Hansa LIZET Unavailable Unavailable SAWANT, Hansa HINDS MD Unavailable Unavailable SAWANT, Hansa HINDS MD Unavailable Unavailable SAWANT, Hansa HINDS MD Unavailable Unavailable SAWANT, Hansa HINDS MD Unavailable Unavailable SAWANT, Hansa HINDS MD Unavailable Unavailable SAWANT, Hansa HINDS MD Unavailable Unavailable SAWANT, Hansa HINDS MD Unavailable Unavailable SAWANT, Hansa LIZET Unavailable Unavailable SAWANT, Hansa LIZET Unavailable Unavailable Hansa SAWANT MD Unavailable Unavailable Hansa SAWANT MD Unavailable Unavailable Hansa SAWANT MD Unavailable Unavailable Hansa SAWANT MD Unavailable Unavailable Hansa SAWANT MD Unavailable Unavailable Hansa SAWANT MD Unavailable Unavailable [place], Lizbeth AUTO BODY TECHNICIAN Unavailable Unavailable Kee, Lizbeth AUTO BODY TECHNICIAN Unavailable Unavailable [place], Lizbeth AUTO BODY TECHNICIAN Unavailable Unavailable [place], Lizbeth AUTO BODY TECHNICIAN Unavailable Unavailable [place], Lizbeth AUTO BODY TECHNICIAN Unavailable Unavailable [place], Lizbeth AUTO BODY TECHNICIAN Unavailable Unavailable [place], Lizbeth AUTO BODY TECHNICIAN Unavailable Unavailable Kee, Lizbeth AUTO BODY TECHNICIAN Unavailable Unavailable [place], Lizbeth AUTO BODY TECHNICIAN Unavailable Unavailable Kee, Lizbeth AUTO BODY TECHNICIAN Unavailable Unavailable Kee, Lizbeth AUTO BODY TECHNICIAN Unavailable Unavailable [place], Lizbeth AUTO BODY TECHNICIAN Unavailable Unavailable [place], Lizbeth AUTO BODY TECHNICIAN Unavailable Unavailable Kee, Lizbeth AUTO BODY TECHNICIAN Unavailable Unavailable [place], Lizbeth AUTO BODY TECHNICIAN Unavailable Unavailable [place], Lizbeth AUTO BODY TECHNICIAN Unavailable Unavailable [place], Lizbeth AUTO BODY TECHNICIAN Unavailable Unavailable [place], Lizbeth AUTO BODY TECHNICIAN Unavailable Unavailable [place], Lizbeth AUTO BODY TECHNICIAN Unavailable Unavailable [place], Lizbeth AUTO BODY TECHNICIAN Unavailable Unavailable Kee, Lizbeth AUTO BODY TECHNICIAN Unavailable Unavailable Kee, Lizbeth AUTO BODY TECHNICIAN Unavailable Unavailable [place], Lizbeth AUTO BODY TECHNICIAN Unavailable Unavailable Kee, Lizbeth AUTO BODY TECHNICIAN Unavailable Unavailable Kee, Lizbeth AUTO BODY TECHNICIAN Unavailable Unavailable [place], Lizbeth AUTO BODY TECHNICIAN Unavailable Unavailable [place], Lizbeth AUTO BODY TECHNICIAN Unavailable Unavailable Kee, Lizbeth AUTO BODY TECHNICIAN Unavailable Unavailable Kee, Lizbeth AUTO BODY TECHNICIAN Unavailable Unavailable [place], Lizbeth AUTO BODY TECHNICIAN Unavailable Unavailable Kee, Lizbeth AUTO BODY TECHNICIAN Unavailable Unavailable [place], Lizbeth AUTO BODY TECHNICIAN Unavailable Unavailable [place], Lizbeth AUTO BODY TECHNICIAN Unavailable Unavailable Kee, Lizbeth AUTO BODY TECHNICIAN Unavailable Unavailable Kee, Lizbeth AUTO BODY TECHNICIAN Unavailable Unavailable Anirudh RIBEIRO MD Unavailable Unavailable Anirudh RIBEIRO MD Unavailable Unavailable Anirudh RIBEIRO MD Unavailable Unavailable Anirudh RIBEIRO MD Unavailable Unavailable Anirudh RIBEIRO MD Unavailable Unavailable Anirudh RIBEIRO MD Unavailable Unavailable Anirudh RIBEIRO MD Unavailable Unavailable Anirudh RIBEIRO MD Unavailable Unavailable Anirudh RIBEIRO MD Unavailable Unavailable MEAnirudh MARTINEZ MD Unavailable Unavailable MEAnirudh MARTINEZ MD Unavailable Unavailable MEAnirudh MARTINEZ MD Unavailable Unavailable MEAnirudh MARTINEZ MD Unavailable Unavailable MEJIAnirudh PHELAN MD Unavailable Unavailable MEAnirudh MARTINEZ MD Unavailable Unavailable MEJIAnirudh PHELAN MD Unavailable Unavailable MEAnirudh MARTINEZ MD Unavailable Unavailable MEJIAnirudh PHELAN MD Unavailable Unavailable MEAnirudh MARTINEZ MD Unavailable Unavailable MEJIAnirudh PHELAN MD Unavailable Unavailable MEJIAnirudh PHELAN MD Unavailable Unavailable MEJIAnirudh PHELAN MD Unavailable Unavailable MEAnirudh MARTINEZ MD Unavailable Unavailable MEAnirudh MARTINEZ MD Unavailable Unavailable MEAnirudh MARTINEZ MD Unavailable Unavailable MEAnirudh MARTINEZ MD Unavailable Unavailable MEAnirudh MARTINEZ MD Unavailable Unavailable MEAnirudh MARTINEZ MD Unavailable Unavailable MEAnirudh MARTINEZ MD Unavailable Unavailable MEAnirudh MARTINEZ MD Unavailable Unavailable MEAnirudh MARTINEZ MD Unavailable Unavailable MEAnirudh MARTINEZ MD Unavailable Unavailable MEAnirudh MARTINEZ MD Unavailable Unavailable MEAnirudh MARTINEZ MD Unavailable Unavailable MEAnirudh MARTINEZ MD Unavailable Unavailable MEAnirudh MARTINEZ MD Unavailable Unavailable MEAinrudh MARTINEZ MD Unavailable Unavailable MEAnirudh MARTINEZ MD Unavailable Unavailable MEAnirudh MARTINEZ MD Unavailable Unavailable MEAnirudh MARTINEZ MD Unavailable Unavailable MEAnirudh MARTINEZ MD Unavailable Unavailable MEAnirudh MARTINEZ MD Unavailable Unavailable MEAnirudh MARTINEZ MD Unavailable Unavailable Anirudh RIBEIRO MD Unavailable Unavailable Anirudh RIBEIRO MD Unavailable Unavailable MEAnirudh MARTINEZ MD Unavailable Unavailable MEAnirudh MARTINEZ MD Unavailable Unavailable MEAnirudh MARTINEZ MD Unavailable Unavailable MEAnirudh MARTINEZ MD Unavailable Unavailable Anirudh RIBEIRO MD Unavailable Unavailable Anirudh RIBEIRO MD Unavailable Unavailable MEAnirudh MARTINEZ MD Unavailable Unavailable MEAnirudh MARTINEZ MD Unavailable Unavailable MEAnirudh MARTINEZ MD Unavailable Unavailable MEAnirudh MARTINEZ MD Unavailable Unavailable MEAnirudh MARTINEZ MD Unavailable Unavailable MEAnirudh MARTINEZ MD Unavailable Unavailable MEAnirudh MARTINEZ MD Unavailable Unavailable MEAnirudh MARTINEZ MD Unavailable Unavailable MEJICO, Anirudh MELO MD Unavailable Unavailable MEJICO, Anirudh MELO MD Unavailable Unavailable MEJICO, Anirudh MELO MD Unavailable Unavailable MEJICO, Anirudh MELO MD Unavailable Unavailable MEJICO, Anirudh MELO MD Unavailable Unavailable MEJICO, Anirudh MELO MD Unavailable Unavailable MEJICO, Anirudh MELO MD Unavailable Unavailable MEJICO, Anirudh MELO MD Unavailable Unavailable MEJICO, Anirudh MELO MD Unavailable Unavailable MEJICO, Anirudh MELO MD Unavailable Unavailable MEJICO, Anirudh MELO MD Unavailable Unavailable MEJICO, Anirudh MELO MD Unavailable Unavailable Shahrzad LYNN, A Alvarez Unavailable Shahrzad LYNN, A Alvarez Unavailable Shahrzad LYNN, A Alvarez Unavailable Shahrazd LYNN, A Alvarez Unavailable Shahrzad LYNN, A Alvarez Unavailable Shahrzad LYNN, A Alvarez Unavailable Shahrzad LYNN, A Alvarez Unavailable Shahrzad MD, A Alvarez Unavailable Shahrzad MD, A Alvarez Unavailable Shahrzad LYNN, A Alvarez Unavailable Shahrzad MD, A Alvarez Unavailable Shahrzad LYNN, A Alvarez Unavailable Shahrzad LYNN, A Alvarez Unavailable Shahrzad LYNN, A Alvarez Unavailable Shahrzad LYNN, A Alvarez Unavailable Shahrzad LYNN, A Alvarez Unavailable Shahrzad LYNN, A Alvarez Unavailable Shahrzad LYNN, A Alvarez Unavailable Shahrzad LYNN, A Alvarez Unavailable Shahrzad LYNN, A Alvarez Unavailable Shahrzad MD, A Alvarez Unavailable Shahrzad MD, A Lavarez Unavailable Shahrzad MD, A Alvarez Unavailable Shahrzad MD, A Alvarez Unavailable Shahrzad MD, A Alvarez Unavailable Shahrzad MD, A Alvarez Unavailable Shahrzad MD, A Alvarez Unavailable Shahrzad MD, A Alvarez Unavailable Shahrzad MD, A Alvarez Unavailable Shahrzad MD, A Alvarez Unavailable Shahrzad MD, A Alvarez Unavailable Shahrzad MD, A Alvarez Unavailable Shahrzad MD, A Alvarez Unavailable Shahrzad MD, A Alvarez Unavailable Shahrzad MD, A Alvarez Unavailable Shahrzad MD, A Alvarez Unavailable Shahrzad MD, A Alvarez Unavailable Shahrzad MD, A Alvarez Unavailable Shahrzad MD, A Alvarez Unavailable Shahrzad MD, A Alvarez Unavailable Shahrzad MD, A Alvarez Unavailable Shahrzad MD, A Alvarez Unavailable Shahrzad MD, A Alvarez Unavailable Shahrzad MD, A Alvarez Unavailable Shahrzad MD, A Alvarez Unavailable Shahrzad MD, A Alvarez Unavailable Shahrzad MD, A Alvarez Unavailable Shahrzad LYNN, A Alvarez Unavailable Hansa FORD Unavailable Unavailable DiBella, P Ray LYNN Unavailable Unavailable DiBella, P Ray LYNN Unavailable Unavailable DiBella, P Ray LYNN Unavailable Unavailable DiBella, P Ray LYNN Unavailable Unavailable DiBella, P Ray LYNN Unavailable Unavailable DiBella, P Ray LYNN Unavailable Unavailable DiBella, P Ray LYNN Unavailable Unavailable DiBella, P Ray LYNN Unavailable Unavailable Almazan, M Wild PA-C Unavailable Unavailable Almazan, M Wild PA-C Unavailable Unavailable Seigers, A Sandor MD Unavailable Unavailable Seigers, A Sandor MD Unavailable Unavailable Seigers, A Sandor MD Unavailable Unavailable Seigers, A Sandor MD Unavailable Unavailable Seigers, A Sandor MD Unavailable Unavailable Seigers, A Sandor MD Unavailable Unavailable Seigers, A Sandor MD Unavailable Unavailable Seigers, A Sandor MD Unavailable Unavailable Seigers, A Sandor MD Unavailable Unavailable Seigers, A Sandor MD Unavailable Unavailable Seigers, A Sandor MD Unavailable Unavailable Seigers, A Sandor MD Unavailable Unavailable Seigers, A Sandor MD Unavailable Unavailable Seigers, A Sandor MD Unavailable Unavailable Seigers, A Sandor MD Unavailable Unavailable Seigers, A Sandor MD Unavailable Unavailable Seigers, A Sandor MD Unavailable Unavailable Seigers, A Sandor MD Unavailable Unavailable Seigers, A Sandor MD Unavailable Unavailable Seigers, A Sandor MD Unavailable Unavailable Seigers, A Sandor MD Unavailable Unavailable Seigers, A Sandor MD Unavailable Unavailable Seigers, A Sandor MD Unavailable Unavailable Seigers, A Sandor MD Unavailable Unavailable Seigers, A Sandor MD Unavailable Unavailable Seigers, A Sandor MD Unavailable Unavailable Seigers, A Sandor MD Unavailable Unavailable Seigers, A Sandor MD Unavailable Unavailable Seigers, A Sandor MD Unavailable Unavailable Seigers, A Sandor MD Unavailable Unavailable Seigers, A Sandor MD Unavailable Unavailable Seigers, A Sandor MD Unavailable Unavailable Seigers, A Sandor MD Unavailable Unavailable Seigers, A Sandor MD Unavailable Unavailable Seigers, A Sandor MD Unavailable Unavailable Seigers, A Sandor MD Unavailable Unavailable Seigers, A Sandor MD Unavailable Unavailable Seigers, A Sandor MD Unavailable Unavailable Seigers, A Sandor MD Unavailable Unavailable Seigers, A Sandor MD Unavailable Unavailable Seigers, A Sandor MD Unavailable Unavailable Seigers, A Sandor MD Unavailable Unavailable Seigers, A Sandor MD Unavailable Unavailable Seigers, A Sandor MD Unavailable Unavailable Seigers, A Sandor MD Unavailable Unavailable Seigers, A Sandor MD Unavailable Unavailable Seigers, A Sandor MD Unavailable Unavailable Seigers, A Sandor MD Unavailable Unavailable Seigers, A Sandor MD Unavailable Unavailable Seigers, A Sandor MD Unavailable Unavailable Seigers, A Sandor MD Unavailable Unavailable Seigers, A Sandor MD Unavailable Unavailable Seigers, A Sandor MD Unavailable Unavailable Seigers, A Sandor MD Unavailable Unavailable Seigers, A Sandor MD Unavailable Unavailable Seigers, A Sandor MD Unavailable Unavailable Seigers, A Sandor MD Unavailable Unavailable Seigers, A Sandor MD Unavailable Unavailable Seigers, A Sandor MD Unavailable Unavailable Seigers, A Sandor MD Unavailable Unavailable Seigers, A Sandor MD Unavailable Unavailable Seigers, A Sandor MD Unavailable Unavailable Seigers, A Sandor MD Unavailable Unavailable Seigers, A Sandor MD Unavailable Unavailable Seigers, A Sandor MD Unavailable Unavailable Seigers, A Sandor MD Unavailable Unavailable Seigers, A Sandor MD Unavailable Unavailable Seigers, A Sandor MD Unavailable Unavailable Seigers, A Sadnor MD Unavailable Unavailable Seigers, A Sandor MD Unavailable Unavailable Leuenberger, R Power DO Unavailable Unavailable Leuenberger, R Power DO Unavailable Unavailable Leuenberger, R Pwoer DO Unavailable Unavailable Leuenberger, R Power DO Unavailable Unavailable Leuenberger, R Power DO Unavailable Unavailable Leuenberger, R Power DO Unavailable Unavailable Leuenberger, R Power DO Unavailable Unavailable Leuenberger, R Power DO Unavailable Unavailable Leuenberger, R Opwer DO Unavailable Unavailable Leuenberger, R Power DO Unavailable Unavailable Leuenberger, R Power DO Unavailable Unavailable Leuenberger, R Power DO Unavailable Unavailable Leuenberger, R Power DO Unavailable Unavailable Leuenberger, R Power DO Unavailable Unavailable Leuenberger, R Power DO Unavailable Unavailable Leuenberger, R Power DO Unavailable Unavailable Leuenberger, R Power DO Unavailable Unavailable Leuenberger, R Power DO Unavailable Unavailable Leuenberger, R Power DO Unavailable Unavailable Leuenberger, R Power DO Unavailable Unavailable Leuenberger, R Power DO Unavailable Unavailable Leuenberger, R Power DO Unavailable Unavailable Leuenberger, R Power DO Unavailable Unavailable Leuenberger, R Power DO Unavailable Unavailable Leuenberger, R Power DO Unavailable Unavailable Leuenberger, R Power DO Unavailable Unavailable Leuenberger, R Power DO Unavailable Unavailable Leuenberger, R Power DO Unavailable Unavailable Leuenberger, R Power DO Unavailable Unavailable Leuenberger, R Power DO Unavailable Unavailable Leuenberger, R Power DO Unavailable Unavailable Leuenberger, R Power DO Unavailable Unavailable Leuenberger, R Power DO Unavailable Unavailable Leuenberger, R Power DO Unavailable Unavailable Leuenberger, R Power DO Unavailable Unavailable Leuenberger, R Power DO Unavailable Unavailable Leuenberger, R Power DO Unavailable Unavailable Leuenberger, R Power DO Unavailable Unavailable Leuenberger, R Power DO Unavailable Unavailable Leuenberger, R Power DO Unavailable Unavailable Leuenberger, R Power DO Unavailable Unavailable Leuenberger, R Power DO Unavailable Unavailable Leuenberger, R Power DO Unavailable Unavailable Leuenberger, R Power DO Unavailable Unavailable Leuenberger, R Power DO Unavailable Unavailable Leuenberger, R Power DO Unavailable Unavailable Leuenberger, R Power DO Unavailable Unavailable Leuenberger, R Power DO Unavailable Unavailable Leuenberger, R Power DO Unavailable Unavailable Leuenberger, R Power DO Unavailable Unavailable Leuenberger, R Power DO Unavailable Unavailable Leuenberger, R Power DO Unavailable Unavailable Leuenberger, R Power DO Unavailable Unavailable Leuenberger, R Power DO Unavailable Unavailable Leuenberger, R Power DO Unavailable Unavailable Leuenberger, R Power DO Unavailable Unavailable Leuenberger, R Power DO Unavailable Unavailable Leuenberger, R Power DO Unavailable Unavailable Leuenberger, R Power DO Unavailable Unavailable Leuenberger, R Power DO Unavailable Unavailable Leuenberger, R Power DO Unavailable Unavailable Leuenberger, R Power DO Unavailable Unavailable Leuenberger, R Power DO Unavailable Unavailable Leuenberger, R Power DO Unavailable Unavailable Leuenberger, R Power DO Unavailable Unavailable Leuenberger, R Power DO Unavailable Unavailable Leuenberger, R Power DO Unavailable Unavailable Leuenberger, R Power DO Unavailable Unavailable Leuenberger, R Power DO Unavailable Unavailable Leuenberger, R Power DO Unavailable Unavailable Leuenberger, R Power DO Unavailable Unavailable Leuenberger, R Power DO Unavailable Unavailable VIVEKTOLew MCKEON Unavailable Unavailable Jeremy, Lexi TRACTION POWER ENGINEER Unavailable Unavailable Re-disclosure Warning The records that you are about to access may contain information from federally-assisted alcohol or drug abuse programs. If such information is present, then the following federally mandated warning applies: This information has been disclosed to you from records protected by federal confidentiality rules (42 CFR part 2). The federal rules prohibit you from making any further disclosure of this information unless further disclosure is expressly permitted by the written consent of the person to whom it pertains or as otherwise permitted by 42 CFR part 2. A general authorization for the release of medical or other information is NOT sufficient for this purpose. The Federal rules restrict any use of the information to criminally investigate or prosecute any alcohol or drug abuse patient.The records that you are about to access may contain highly sensitive health information, the redisclosure of which is protected by Article 27-F of the [facility] Public Health law. If you continue you may have access to information: Regarding HIV / AIDS; Provided by facilities licensed or operated by the [facility] Office of Mental Health; or Provided by the [facility] Office for People With Developmental Disabilities. If such information is present, then the following [facility] mandated warning applies: This information has been disclosed to you from confidential records which are protected by state law. State law prohibits you from making any further disclosure of this information without the specific written consent of the person to whom it pertains, or as otherwise permitted by law. Any unauthorized further disclosure in violation of state law may result in a fine or [place] [facility] [place] sentence or both. A general authorization for the release of medical or other information is NOT sufficient authorization for further disc losure. Allergies and Adverse Reactions Type Description Substance Reaction Status Data Source(s ) Drug allergy carbamazepine carbamazepine Anaphylaxis SV L [facility] Propensity to adverse reactions CARBAMAZEPINE CARBAMAZEPINE Anaphylax is [facility] Family History Family Member Name Family Member Gender Family Member Status Date o f Status Description Data Source(s) Unknown Male Problem MEDENT ([facility]) Unknown Female Problem MEDENT ([facility]) Unknown Female Problem MEDENT ([facility]) Encounters Encounter Providers Location Date Indications Data Source(s ) Outpatient Attender: Lizbeth HENDRIX 08/06/2021 12:00: [address] [facility] Outpatient Attender: LORIE RIBEIRO MD [id number] 03/31/2021 12:00:[address] [facility] Outpatient Attender: KAILA YANG 07/2020 12:00:00 AM [facility] 03/31/2021 04:02:[address] [facility] Outpatient Attender: Lizbeth HENDRIX [id number] 12:00:00 AM EDT - 03/31/2021 03:20:50 PM EDT [facility] Emergency Attender: Wild Almazan PA-C 05/2020 07:14:00 PM EDT - 03/29/2021 10:32:00 PM EDT [facility] Patient discharged. Outpatient Attender: Lizbeth Kee GUTIERREZP 03/29/2021 12:00: 00 AM EDT [facility] Outpatient Attender: Lizbethferoz Galvangerman GUTIERREZP 03/22/2021 12:00: 00 AM EDT [facility] Outpatient Attender: Sandor Obando MDReferrer: Lexi bryant TRACTION POWER ENGINEER 02/24/2021 03:11:00 PM EDT - 02/24/2021 03:53:00 PM EDT [facility] Outpatient Attender: Lizbeth Galvanford AUTO BODY TECHNICIAN 02/18/2021 12:00: 00 AM EDT [facility] Outpatient Attender: Lizbeth Kee GUTIERREZP 02/12/2021 12:00: 00 AM EDT [facility] Outpatient Attender: Lexi Luna NPReferrer: Lexi mahan TRACTION POWER ENGINEER 01/12/2021 12:35:00 PM EDT - 01/12/2021 01:32:00 PM EDT [facility] Outpatient Attender: Lexi Luna NP 12/29/2020 05 :09:00 PM EDT NECK PAIN,HEADACHES [facility] NECK PAIN,HEADACHES Outpatient Attender: Lizbeth Sweet FNPReferrer: Ron Sweet [facility] [id number] 12/20/2020 09:57:34 PM EDT [facility] Outpatient Attender: Lexi Luna NP 12/18/2020 01 :34:00 PM EDT SHORTNESS OF BREATH; CERVICAL DISC DISEASE [facility] SHORTNESS OF BREATH; CERVICAL DISC DISEA SE Outpatient Attender: Lizbeth Kee FNPReferrer: Anirudh Viramontes DO [id number] 12/17/2020 12:00:00 AM EDT - 12/17/2020 02:27:[address] [facility] Outpatient Attender: NEENA Mellorer: KAITLIN Soares 12/17/2020 12:00:[address] [facility] Outpatient Attender: Lexi Luna NPReferrer: Lexi mahan TRACTION POWER ENGINEER 12/03/2020 01:14:00 PM EDT - 12/03/2020 01:57:00 PM EDT [facility] Outpatient 12/03/2020 12:00:[address] [facility] Outpatient Attender: Lizbeth Sweet AUTO BODY TECHNICIAN 12/03/2020 12:00: [address] [facility] Outpatient Attender: Lexi Luna TRACTION POWER ENGINEER 11/19/2020 04:30:00 PM EDT R35.0 [facility] R35.0 Outpatient Attender: Lexi Luna NPReferrer: Lexi mahan TRACTION POWER ENGINEER 11/19/2020 11:17:00 AM EDT - 11/19/2020 12:02:00 PM EDT [facility] Outpatient Attender: Lizbeth GUTIERREZ PAttender: Alvarez Singer MDReferrer: Power Viramontes DO [id number] 11/06/2020 01:26:26 PM EDT - 11/06/2020 02:45:37 PM EDT [facility] Multiple sclerosis Outpatient Attender: KAILA YANG 10/27 12:00:00 AM EDT - 11/06/2020 03:47:28 PM EDT [facility] Multiple sclerosis Outpatient Attender: LORIE RIBEIRO MD [id number] 11/06/2020 12:00:[address] [facility] Outpatient Attender: WILLIAN FORD 11/07/19 12:00:00 AM EDT - 11/06/2020 03:08:52 PM EDT [facility] Multiple sclerosis Outpatient Attender: Lexi Luna NPReferrer: Lexi mahan TRACTION POWER ENGINEER 10/13/2020 03:04:00 PM EDT - 10/13/2020 04:26:00 PM EDT [facility] Outpatient Attender: Lexi Luna NP 10/13/2020 02:59:00 PM EDT M54.9 [facility] M54.9 Outpatient Attender: Lexi Luna NPReferrer: Lexi mahan NP 09/24/2020 08:56:00 AM EDT - 09/24/2020 09:34:00 AM EDT [facility] Emergency Attender: LIZET SAWANT MD 08/27 02:12:00 PM EDT - 09/12/2020 05:01:00 PM EDT SHOULDER PAIN,SWELLING [facility] SHOULDER PAIN,SWELLING Patient discharged. Outpatient Attender: Alvarez Singer MD [id number] 2020 12:00:00 AM EST - 07/16/2020 11:23:41 AM EST [facility] Multiple sclerosis Emergency Attender: Lucy Anand MD 07/04 12:54:00 AM EST - 07/04/2020 06:47:00 AM EST LEG PAIN [facility] LEG PAIN Patient discharged. Outpatient Attender: Alvarez Singer MD 06/23/2020 09:51:00 A [facility] MS [facility] MS Outpatient Attender: LEBRON REYES [id number] 05/20/2020 10:44:[address] [facility] Outpatient Attender: Lexi Luna NP 05/15/2020 10:35:00 AM EST [facility] Outpatient Attender: Lexi Luna NPReferrer: Lexi mahan NP 05/15/2020 09:40:00 AM EST - 05/15/2020 10:50:00 AM EST [facility] Outpatient Attender: Alvarez Singer MDReferrer: Alvarez Singer MD [id number] 05/14/2020 07:28:33 AM EST - 05/14/2020 10:47:09 AM EST [facility] Multiple sclerosis Outpatient Attender: LORIE RIBEIRO MD [id number] 05/14/2020 12:00:00 A [facility] Outpatient Attender: Alvarez Singer MDReferrer: Alvarez Singer MD 05/14/2020 12:00:00 AM EST - 05/15/2020 12:00:00 AM [facility] sclerosis [facility] Multiple sclerosis Outpatient 05/14/2020 12:00:[address] [facility] Outpatient Attender: GAURAV Thompson: Alvarez Singer MD 05/14/2020 12:00:[address] [facility] Emergency Attender: RAY FRIEDMAN MDAttender: Hemant Buckley DO 03/13/2020 06:08:00 PM EDT - 03/13/2020 08:34:00 PM EDT EYE RE-CHECK [facility] EYE RE-CHECK Patient discharged. Emergency Attender: Ray Osorio MD 07:58:00 PM EDT - 03/11/2020 08:56:00 PM EDT SWELLING ABOVE EYE [facility] SWELLING ABOVE EYE Patient discharged. Medications Medication Brand Name Start Date Product Form Dose Route Admi nistrative Instructions Pharmacy Instructions Status Indications Reaction Description Data Source(s) fingolimod 0.5 MG Oral Capsule [Gilenya] Gilenya 0.5 MG Oral Capsule (fingolimod) Gilenya 0.5 MG Oral Capsule (fingolimod) 03/26/2021 12 :00:00 AM EDT active Multiple sclerosis TAKE 1 CAPSULE BY MOUTH EVERY DAY [facility] Multiple sclerosis tramadol hydrochloride 50 MG Oral Tablet Tramadol Tramadol 11/19/2020 02:44:00 PM EDT 50 MG [facility] fingolimod 0.5 MG Oral Capsule Fingolimod (Gilenya) 0. 5 mg capsule Fingolimod (Gilenya) 0.5 mg capsule 11/19/2020 11:38:48 AM EDT 0.5 MG [facility] Ergocalciferol 91687 UNT Oral Capsule Ergocalciferol ( Vitamin D2) Ergocalciferol (Vitamin D2) 11/19/2020 11:36:07 AM EDT 1250 MCG [facility] 50 mg 11/19/2020 12:00:00 AM EDT tablet 14 TAKE ONE TABLET BY MOUTH TWICE A DAY FOR 15 DAYS NEEDED FOR PAIN MAXIMUM DAILY DOSE = 2 TABLETS TAKE ONE TABLET BY MOUTH TWICE A DAY FOR 15 DAYS NEEDED FOR PAIN MAXIMUM DAILY DOSE = 2 TABLETS SOLD: 11/19/2020 [facility] 50 mg 11/19/2020 12:00:00 AM EDT tablet 14 TAKE ONE TABLET BY MOUTH TWICE A DAY FOR 15 DAYS NEEDED FOR PAIN MAXIMUM DAILY DOSE = 2 TABLETS TAKE ONE TABLET BY MOUTH TWICE A DAY FOR 15 DAYS NEEDED FOR PAIN MAXIMUM DAILY DOSE = 2 TABLETS SOLD: 12/28/2020 [facility] Ergocalciferol 44273 UNT Oral Capsule Vi tamin D (Ergocalciferol) 1.25 MG (35230 UT) Oral Capsule (ERGOCALCIFEROL) Vitamin D (Ergocalciferol) 1.25 MG (5000 0 UT) Oral Capsule (ERGOCALCIFEROL) 11/06/2020 12:00:00 AM EDT 61345 U Ora l active Vitamin D deficiency Take 1 capsule by mouth kennedy ry 7 (seven) days [facility] Vitamin D deficiency NITROFURANTOIN, MACROCRYSTALS 100 MG Oral Capsule Nitr ofurantoin Macrocrystal Nitrofurantoin Macrocrystal 10/15/2020 07:37:27 AM EDT 100 MG completed [facility] Prednisone 10 MG Oral Tablet Prednisone 09/24/2020 12:24:39 PM EDT 10 MG completed [facility] Prednisone 20 MG Oral Tablet Prednisone 09/12/2020 04:31:31 PM EDT 20 MG completed [facility] Prednisone 20 MG Oral Tablet Prednisone 09/12/2020 04:31:31 PM EDT 20 MG active [facility] Cholecalciferol 5000 UNT Oral Tablet Cho lecalciferol 125 MCG (5000 UT) Oral Tablet Cholecalciferol 125 MCG (5000 UT) Oral Tablet 07/16/2020 12: 00:00 AM EST 5000 [iU] Oral active Take 5,000 Int 'l Units by mouth daily [facility] fingolimod 0.5 MG Oral Capsule [Gilenya] Gilenya 0.5 MG Oral Capsule (fingolimod) Gilenya 0.5 MG Oral Capsule (fingolimod) 07/16/2020 12 :00:00 AM EST 0.5 mg Oral active Take 1 c apsule by mouth daily Please do not dispense until cleared by [facility] 24 HR Nicotine 0.875 MG/HR Transdermal Patch Nicotine 05/15/2020 10:06:37 AM EST 1 PATCH active [facility] 24 HR Nicotine 0.875 MG/HR Transdermal Patch Nicotine 05/15/2020 10:06:37 AM EST 1 PATCH completed [facility] 24 HR Nicotine 0.875 MG/HR Transdermal Patch Nicotine 05/15/2020 10:06:37 AM EST 1 PATCH completed [facility] 24 HR Nicotine 0.875 MG/HR Transdermal Patch Nicotine 05/15/2020 10:06:37 AM EST 1 PATCH completed [facility] 21 mg/24 hr 05/15/2020 12:00:00 AM EST patch 24 hour 28 APPLY ONE PATCH TO THE SKIN EVERY 24 HOURS APPLY ONE PATCH TO THE SKIN EVERY 24 HOURS SOLD: 06/01/2020 [facility] 24 HR Nicotine 0.875 MG/HR Transdermal P atch Nicotine 21 MG/24HR Transdermal Patch 24 Hour (NICODERM CQ) Nicotine 21 MG/24HR Transdermal Patch 24 Hour (NICODERM CQ) 05/14/2020 12:00:00 AM EST 1 {patch} Transdermal active Place 1 patch onto the skin every 24 (twenty-four) hours [facility] Nicotine 21-14-7 MG/24HR Transdermal Kit 19228-764-59 05/14/2020 12:00:00 AM EST active Use as instructed [facility] Sulfamethoxazole 800 MG / Trimethoprim 1 60 MG Oral Tablet Sulfamethoxazole- Trimethoprim (Bactrim Ds) 800-160 mg tablet Sulfamethoxazole-Trimethoprim (Bactrim Ds) 800-160 mg tablet 03/11/2020 08:36:48 PM EDT 1 TAB completed [facility] Sulfamethoxazole 800 MG / Trimethoprim 1 60 MG Oral Tablet Sulfamethoxazole- Trimethoprim (Bactrim Ds) 800-160 mg tablet Sulfamethoxazole-Trimethoprim (Bactrim Ds) 800-160 mg tablet 03/11/2020 08:36:48 PM EDT 1 TAB completed [facility] Sulfamethoxazole 800 MG / Trimethoprim 1 60 MG Oral Tablet Sulfamethoxazole- Trimethoprim (Bactrim Ds) 800-160 mg tablet Sulfamethoxazole-Trimethoprim (Bactrim Ds) 800-160 mg tablet 03/11/2020 08:36:48 PM EDT 1 TAB active [facility] Sulfamethoxazole 800 MG / Trimethoprim 1 60 MG Oral Tablet Sulfamethoxazole- Trimethoprim (Bactrim Ds) 800-160 mg tablet Sulfamethoxazole-Trimethoprim (Bactrim Ds) 800-160 mg tablet 03/11/2020 08:36:48 PM EDT 1 TAB active [facility] Sulfamethoxazole 800 MG / Trimethoprim 1 60 MG Oral Tablet Sulfamethoxazole- Trimethoprim (Bactrim Ds) 800-160 mg tablet Sulfamethoxazole-Trimethoprim (Bactrim Ds) 800-160 mg tablet 03/11/2020 08:36:48 PM EDT 1 TAB completed [facility] Sulfamethoxazole 800 MG / Trimethoprim 1 60 MG Oral Tablet Sulfamethoxazole- Trimethoprim (Bactrim Ds) 800-160 mg tablet Sulfamethoxazole-Trimethoprim (Bactrim Ds) 800-160 mg tablet 03/11/2020 08:36:48 PM EDT 1 TAB completed [facility] Acetaminophen 325 MG / Hydrocodone Lesli trate 7.5 MG Oral Tablet Hydrocodone- Acetaminophen (Dolliver) 7.5-325 mg tablet Hydrocodone-Acetaminophen (Dolliver) 7.5- 325 mg tablet 01/28/2020 02:09:32 AM EDT 1 TAB completed [facility] Acetaminophen 325 MG / Hydrocodone Lesli trate 7.5 MG Oral Tablet Hydrocodone- Acetaminophen (Dolliver) 7.5-325 mg tablet Hydrocodone-Acetaminophen (Dolliver) 7.5- 325 mg tablet 01/28/2020 02:09:32 AM EDT 1 TAB completed [facility] 1 ML glatiramer acetate 40 MG/ML Prefilled Syringe Glatirame r Glatiramer 01/27/2020 10:53:33 PM EDT 0 completed [facility] Insurance Providers Payer name Policy type / Coverage type Policy ID Covered constitution party ID Covered constitution party's relationship to mandujano Policy Mandujano Plan Information [employer] [facility] [id number] SELF [id number] [facility] COMMUNITY PLAN [id number] SELF [id number] i FHP-(DO Not Use) Medigap Part B [id number] Self [facility] Community Plan Commercial [id number] Self Managed Care - [facility] P [id number] S [id number] Medicaid S [id number] S [id number] Managed Care - [facility] P [id number] S [id number] [facility] Comm Plan Medicaid F [id number] SELF [id number] [place] () Workers Compensation [id number] Self [facility] COMMUNITY PLAN MCDO [id number] SP [id number] Managed Care - [facility] P [id number] S [id number] [facility] COMMUNITY PLAN [facility] [id number] SP [id number] Medicaid S [id number] S [id number] [place] Medig[place] Part B [id number] Self [id number] [place] B [id number] Self [id number] [facility] Commercial [id number] Self [id number] [facility] Commercial [id number] Self [id number] [facility] COMMUNITY PLAN [facility] [id number] SP [id number] Managed Care - [facility] P [id number] S [id number] Medicaid S [id number] S [id number] [facility] [id number] Self [id number] [facility] [id number] xxxxxxxxx [id number] [facility] [id number] Self [id number] Managed Care - [facility] P [id number] S [id number] Managed Care - [facility] Community Plan P [id number] S [id number] [facility] MEDICAID [id number] Self [id number] Medicaid S [id number] S [id number] [facility] I [id number] Self [id number] [facility] I [id number] Self [id number] UNITED [id number] Self [id number] [facility](MCAID) O [id number] S [id number] [facility]-Community Plan-[facility] Commercial [id number] Self [id number] [facility]-Community Plan-[facility] Commercial [id number] Self [id number] Self Pay P [id number] S [id number] SELF PAY ONLY [id number] SP [id number] O UNAVAILABLE UNAVAILA BLE Managed Care - [facility] P [id number] S [id number] [employer]HC COMMUNITY PLAN XIX [id number] 18 [id number] UNHC COMMUNITY PLAN MCDHMO [id number] SP [id number] MEDICAID [id number] SP [id number] [facility] Hmo Commercial [id number] Self Managed Care - [facility] P [id number] S [id number] [place] [id number] [place] Part B [id number] Self HMO BLUE [id number] SP [id number] [facility](MCAID) P [id number] S [id number] HMO BLUE [id number] SP [id number] UN COMMUNITY PLAN [facility] [id number] SP [id number] Problems, Conditions, and Diagnoses Code Display Name Description Problem Type Effective Dates Data Source(s) R32 Unspecified urinary incontinence Unspecified urinary i ncontinence Diagnosis 11/06/2020 01:26:26 PM EDT [facility] E55.9 Vitamin D deficiency, unspecified Vitamin D defi ciency, unspecified Diagnosis 07/16/2020 11:17:[address] [facility] Z72.0 Tobacco use Tobacco use Diagnosis 05/13/2020 08:46:[address] [facility] G35 Multiple sclerosis Multiple sclerosis Diagnosis 0 10:44:[address] [facility] Surgeries/Procedures Procedure Description Date Indications Data Source(s) MRI Cervical without contrast 12/29/2020 05:40:00 PM E DT [facility] Echocardiography (procedure) 12/18/2020 02:02:00 PM ED T [facility] EKG 12-LEAD <td>EKG 12-LEAD</td><td>Rout ine</td><td>11/06/2020 3:04 PM EDT</td><td></td><td></td> 11/06/2020 03:04:43 PM EDT [facility] EKG 12-LEAD - CMAXX REPORT <td>EKG 12-LEAD - CMAXX REPORT</td><td></td><td>11/06/2020 3:04 PM EDT</td><td></td><td></td> 11/06/2020 03:04:[address] [facility] Urine culture (procedure) 10/13/2020 12:00:00 AM [facility] Xray Shoulder complete LT [facility]12[facility] 09/12/2020 03:31:00 PM [facility] Plain chest X-ray (procedure) 09/12/2020 03:30:00 PM E [facility] CT C-Spine without contrast 09/12[facility]2020 [facility] 09/12/2020 03:30:00 PM E [facility] CT C-Spine without contrast 09/12/2020 03:30:00 PM [facility] Ultrasound scan of lower limb veins (procedure) 2020 03:53:00 AM [facility] Ultrasound scan of lower limb veins (procedure) 2020 03:53:00 AM [facility] Ultrasound scan of lower limb veins (procedure) 2020 03:53:00 AM [facility] Magnetic resonance imaging of thoracic spine (procedure) 06/23/2020 12:51:00 PM [facility] Magnetic resonance imaging of cervical spine with contrast ( procedure) 06/23/2020 12:51:00 PM [facility] Magnetic resonance imaging of thoracic spine (procedure) 06/23/2020 12:51:00 PM [facility] Magnetic resonance imaging of cervical spine with contrast ( procedure) 06/23/2020 12:51:00 PM [facility] Magnetic resonance imaging of thoracic spine (procedure) 06/23/2020 12:51:00 PM [facility] Magnetic resonance imaging of cervical spine with contrast ( procedure) 06/23/2020 12:51:00 PM [facility] Wet Prep 05/15/2020 12:00:[address] [facility] Wet Prep 05/15/2020 12:00:[address] [facility] Wet Prep 05/15/2020 12:00:00 AM EST L [facility] SYPHILIS IGG/IGM SCREEN W/REFLEX TO RPR <td>SYPHILIS I GG/IGM SCREEN W/REFLEX TO RPR</td><td>Routine</td><td>05/14/2020 12:10 PM EST</td><td> Multiple sclerosis</td><td> </td> 05/14/2020 12:10:00 PM EST [facility] Multiple sclerosis GAMMAGLOBULIN IGA IGD IGG IGM EACH <td>IMMUNOGLOBULIN ASSAY</td><td>Routine</td><td>05/14/2020 12:10 PM EST</td><td> Multiple sclerosis</td><td> </td> 05/14/2020 12:10:00 PM EST [facility] Multiple sclerosis THROMBOPLASTIN TIME PARTIAL PLASMA/WHOLE BLOOD <td>PAR TIAL THROMBOPLASTIN TIME (PTT)</td><td>Routine</td><td>05/14/2020 12:10 PM EST</td><td> Multiple sclerosis</td><td> </td> 05/14/2020 12:10:00 PM EST [facility] Multiple sclerosis BETA 2 GLYCOPROTEIN I ANTIBODY EACH <td>B2 GLYCOPROTEI N IGG/IGM</td><td>Routine</td><td>05/14/2020 12:10 PM EST</td><td> Multiple sclerosis</td><td> </td> 05/14/2020 12:10:00 PM EST [facility] Multiple sclerosis IAAD EIA HIV-1 AG W/HIV-1&HIV-2 ANTBDY SINGLE <td>HIV AG AB COMBO SCREEN</td><td>Routine</td><td>05/14/2020 12:10 PM EST</td><td> Multiple sclerosis</td><td> </td> 05/14/2020 12:10:00 PM EST [facility] Multiple sclerosis ACUTE HEPATITIS PANEL <td>HEPATITIS PANEL, ACUTE</td><td>Routine</td><td>05/14/2020 12:10 PM EST</td><td> Multiple sclerosis</td><td> </td> 05/14/2020 12:10:00 PM EST [facility] Multiple sclerosis 25 HYDROXY INCLUDES FRACTIONS IF PERFORMED <td>VITAMIN D 25 HYDROXY, TOTAL</td><td>Routine</td><td>05/14/2020 12:10 PM EST</td><td> Multiple sclerosis</td><td> </td> 05/14/2020 12:10:00 PM EST [facility] Multiple sclerosis HEPATITIS B SURF ANTIBODY HBSAB <td>HEPATITIS B SURFAC E ANTIBODY</td><td>Routine</td><td>05/14/2020 12:10 PM EST</td><td> Multiple sclerosis</td><td> </td> 05/14/2020 12:10:00 PM EST [facility] Multiple sclerosis CARDIOLIPIN ANTIBODY EACH IG CLASS <td>CARDIOLIPIN IGG /IGM AB</td><td>Routine</td><td>05/14/2020 12:10 PM EST</td><td> Multiple sclerosis</td><td> </td> 05/14/2020 12:10:00 PM EST [facility] Multiple sclerosis SEDIMENTATION RATE RBC AUTOMATED <td>SEDIMENTATION RAT E, AUTOMATED</td><td>Routine</td><td>05/14/2020 12:10 PM EST</td><td> Multiple sclerosis</td><td> </td> 05/14/2020 12:10:00 PM EST [facility] Multiple sclerosis PROTHROMBIN TIME <td>PROTIME INR</td><td>Rout ine</td><td>05/14/2020 12:10 PM EST</td><td> Multiple sclerosis</td><td> </td> 05/14/2020 12:10:00 PM EST [facility] Multiple sclerosis BLOOD COUNT COMPLETE AUTO&AUTO DIFRNTL WBC COUNT <td>C BC AND DIFFERENTIAL</td><td>Routine</td><td>05/14/2020 12:10 PM EST</td><td> Multiple sclerosis</td><td> </td> 05/14/2020 12:10:00 PM EST [facility] Multiple sclerosis RHEUMATOID FACTOR QUANTITATIVE <td>RHEUMATOID FACTOR</td><td>Routine</td><td>05/14/2020 12:10 PM EST</td><td> Multiple sclerosis</td><td> </td> 05/14/2020 12:10:00 PM EST [facility] Multiple sclerosis THYROID STIMULATING HORMONE TSH <td>TSH</td><td>Routin e</td><td>05/14/2020 12:10 PM EST</td><td> Multiple sclerosis</td><td> </td> 05/14/2020 12:10:00 PM EST [facility] Multiple sclerosis HOMOCYSTEINE <td>HOMOCYSTEINE, SERUM</td> <td>Routine</td><td>05/14/2020 12:10 PM EST</td><td> Multiple sclerosis</td><td> </td> 05/14/2020 12:10:00 PM EST [facility] Multiple sclerosis HEMOGLOBIN GLYCOSYLATED A1C <td>HEMOGLOBIN A1C</td><td>Routine</td><td>05/14/2020 12:10 PM EST</td><td> Multiple sclerosis</td><td> </td> 05/14/2020 12:10:00 PM EST [facility] Multiple sclerosis FOLIC ACID SERUM <td>FOLATE</td><td>Routine</ td><td>05/14/2020 12:10 PM EST</td><td> Multiple sclerosis</td><td> </td> 05/14/2020 12:10:00 PM EST [facility] Multiple sclerosis CYANOCOBALAMIN VITAMIN B-12 <td>VITAMIN B12</td><td>Ro utine</td><td>05/14/2020 12:10 PM EST</td><td> Multiple sclerosis</td><td> </td> 05/14/2020 12:10:00 PM EST [facility] Multiple sclerosis HEPATIC FUNCTION PANEL <td>HEPATIC FUNCTION PANEL A</td><td>Routine</td><td>05/14/2020 12:10 PM EST</td><td> Multiple sclerosis</td><td> </td> 05/14/2020 12:10:00 PM EST [facility] Multiple sclerosis BASIC METABOLIC PANEL CALCIUM TOTAL <td>BASIC METABOLI C PANEL</td><td>Routine</td><td>05/14/2020 12:10 PM EST</td><td> Multiple sclerosis</td><td> </td> 05/14/2020 12:10:00 PM EST [facility] Multiple sclerosis PROTEIN XCPT REFRACTOMETRY SERUM PLASMA/WHL BLD <td>RI OTEIN ELECTROPHORESIS WITH SERUM TOTAL PROTEIN</td><td>Routine</td><td>05/14/2020 11:53 AM EST</td><td> Multiple sclerosis</td><td></td> 05/14/2020 11:53:00 AM EST [facility] Multiple sclerosis EKG 12-LEAD <td>EKG 12-LEAD</td><td>Rout ine</td><td>05/14/2020 11:42 AM EST</td><td></td><td></td> 05/14/2020 11:42:09 AM EST [facility] Results ID Date Data Source [id number] 04/27/2021 08:50:30 AM EST [facility] Name Value Range Interpretation Code Description Data Mary rce(s) Supporting Document(s) Progress Note [facility] [id number]/VVOikXMAde2XfJGzaTEr7PJhlEIGbH2PoCPN7tK1lNRB2HBoIAxUgHzVvDXPd lbm [file] [id number]= ID Date Data Source [id number] 03/31/2021 07:33:31 PM EDT [facility] Name Value Range Interpretation Code Description Data Mary rce(s) Supporting Document(s) Albumin [Mass/volume] in Serum or Plasma by Bromocresol green (BCG) dye binding method 4.3 g/dL 3.5-5.2 [facility] al Bilirubin.total [Mass/volume] in Serum or Plasma 0.3 mg/dL <1.2 [facility] Bilirubin.direct [Mass/volume] in Serum or Plasma <0.3 [facility] Alkaline phosphatase [Enzymatic activity/volume] in Serum or Plasma 60 U/L 35-104 [facility] Aspartate aminotransferase [Enzymatic activity/volume] in Serum or Plasma 12 U/L <32 [facility] Alanine aminotransferase [Enzymatic activity/volume] in Seru m or Plasma 9 U/L <33 [facility] Protein [Mass/volume] in Serum or Plasma 7.2 g/dL 6.4-8.3 [facility] ID Date Data Source [id number] 03/31/2021 07:35:01 PM EDT [facility] Name Value Range Interpretation Code Description Data Mary rce(s) Supporting Document(s) Leukocytes [#/volume] in Blood by Automated count 5.0 10*3/uL 4-10 [facility] Erythrocytes [#/volume] in Blood by Automated count 4.79 10*6/uL 4.1- 5.3 [facility] Hemoglobin [Mass/volume] in Blood 14.2 g/dL 11.5-15.5 [facility] Hematocrit [Volume Fraction] of Blood by Automated count 43.2 % 3 6-45 [facility] Erythrocyte mean corpuscular volume [Entitic volume] by Auto mated count 90.1 fL 80-96 [facility] Erythrocyte mean corpuscular hemoglobin [Entitic mass] by Automated count 29.7 pg 27-33 [facility] Erythrocyte mean corpuscular hemoglobin concentration [Mass/volume] by Automated count 33.0 g/dL 32.0-36.0 [facility] E[facility]th[facility] distribution width [Ratio] by Automated count 14.3 % 11.5-14.5 [facility] Platelets [#/volume] in Blood by Automated count 266 10*3/uL 150-400 [facility] Differential cell count method - Blood [facility] Neutrophils/100 leukocytes in Blood by Automated count 66 % [facility] Lymphocytes/100 leukocytes in Blood by Automated count 21 % [facility] Monocytes/100 leukocytes in Blood by Automated count 10 % [facility] Eosinophils/100 leukocytes in Blood by Automated count 3 % [facility] Basophils/100 leukocytes in Blood by Automated count 0 % [facility] Neutrophils [#/volume] in Blood by Automated count 3.30 10*3/uL 1.8-7 .0 [facility] Lymphocytes [#/volume] in Blood by Automated count 1.05 10*3/uL 1.2-4 .0 L [facility] Monocytes [#/volume] in Blood by Automated count 0.52 10*3/uL 0-0.8 [facility] Eosinophils [#/volume] in Blood by Automated count 0.15 10*3/uL 0-0.5 [facility] Basophils [#/volume] in Blood by Automated count 0.02 10*3/uL 0-0.2 [facility] Nucleated erythrocytes/100 leukocytes [Ratio] in Blood by Automated count 0 /100{WBCs} 0-0 [facility] ID Date Data Source [id number] 03/31/2021 03:20:19 PM EDT [facility] Name Value Range Interpretation Code Description Data Mary rce(s) Supporting Document(s) Progress Note [facility] VDOLEv2mAoGCIsRu54/GFPisKTKfa1VyWHyyVNn1ZIpmQMIvP1IvKRX8jU8fVLE7GCpYSaPdDqZcJJFt [facility] [file] Carmella/q7CwLIb5xldcLBJ0YxDnrIDf4ULqxvABCX1kSeePXvJUO+TavEGDOaJyP0uLBxiBhPHcRtjrLEIF N+qZeXmDt6e4R1IhuxMfavBpQQ/NwEHOEOPFEPAEsILgJwoJ8VUh1HV2MkDzeuCeBO6MpQ4/nQjCI3Tl X8XeN2EcgHGDgeRW757pBbliptAggeLkn8ZlP2RvzS sUDMJGxFwCMRl3HKtQyeodG7LOmRcKB30DR6QKx3Z5XadM7FEfDjCHE6ziWwqJ9KYG5em9PrQFdtBPYf ID2nfg1GSWO9VY5PNMDqAV9WuKMmP0NeV4AKAcSqPQUuGCZyMA73RATlDSMYEInqVTLoM3Bwn194twEn roTqFJFpFw5NXESrLC9VEWUbQQLxiZLnJRUiFUTeJy H2CGSpZFpzQODrX6JwcmLdatPdVWFjJLXzMf9YISQmZU3Xwb47uCS3YMZdMeCnKOSpmyScJRAmcpG9XT 2TJsDpSCW6lGWjGakFLJ2HKXWoxTXmKU7JIMLzsNBkDJ3+DQogID4+PGblbdZjPvlBDnUfFWKrr9DlOX pbYIb2A9HqjGSuimYeJvktqATNYGMtSAHuS2axvjc4 gAN2SGc3On1BEiBla1IjXMZbCOyCeiToi0IlgoU75co+Q22jV2WWhC30ldz6OkvIwA0tKZpnax2CXtrt G27BZo3vy2++NC1rXdE7VnzCdDUfHuBwuFgBQjy2KnWzLUhrV/+EWamELHrR42//I0Vn5gPv+utfouGw LO0PG/60Dhr+5zx46tjUU9qv9Oyy918nJcSo9/lJ9K +9o9XVv/eObq/ty34hF5lV2Bbuyzp6bDiu3w6Kc/nsZL7+4qla0HwznXY3ynDQsp2+gold layer/7/hJIqH2Ly [file] AgICAgICAgICAgICAgICAgICAgICAgICAgICAgICAg ICAgICAgICAgICAgICAgICAgICAgICAgICAgICAgICAgICAgICAgICAgICAgICAgICAgICAgICAgICAg ICANCiAgICAgICAgICAgICAgICAgICAgICAgICAgICAgICAgICAgICAgICAgICAgICAgICAgICAgICAg ICAgICAgICAgICAgICAgICAgICAgICAgICAgICAgIC AgICAgICAgICAgICANCiAgICAgICAgICAgICAgICAgICAgICAgICAgICAgICAgICAgICAgICAgICAgIC AgICAgICAgICAgICAgICAgICAgICAgICAgICAgICAgICAgICAgICAgICAgICAgICAgICAgICANCiAgIC AgICAgICAgICAgICAgICAgICAgICAgICAgICAgICAg ICAgICAgICAgICAgICAgICAgICAgICAgICAgICAgICAgICAgICAgICAgICAgICAgICAgICAgICAgICAg ICAgICANCiAgICAgICAgICAgICAgICAgICAgICAgICAgICAgICAgICAgICAgICAgICAgICAgICAgICAg ICAgICAgICAgICAgICAgICAgICAgICAgICAgICAgIC AgICAgICAgICAgICAgICANCiAgICAgICAgICAgICAgICAgICAgICAgICAgICAgICAgICAgICAgICAgIC AgICAgICAgICAgICAgICAgICAgICAgICAgICAgICAgICAgICAgICAgICAgICAgICAgICAgICAgICANCi AgICAgICAgICAgICAgICAgICAgICAgICAgICAgICAg ICAgICAgICAgICAgICAgICAgICAgICAgICAgICAgICAgICAgICAgICAgICAgICAgICAgICAgICAgICAg ICAgICAgICANCiAgICAgICAgICAgICAgICAgICAgICAgICAgICAgICAgICAgICAgICAgICAgICAgICAg ICAgICAgICAgICAgICAgICAgICAgICAgICAgICAgIC AgICAgICAgICAgICAgICAgICANCiAgICAgICAgICAgICAgICAgICAgICAgICAgICAgICAgICAgICAgIC AgICAgICAgICAgICAgICAgICAgICAgICAgICAgICAgICAgICAgICAgICAgICAgICAgICAgICAgICAgIC ANCiAgICAgICAgICAgICAgICAgICAgICAgICAgICAg ICAgICAgICAgICAgICAgICAgICAgICAgICAgICAgICAgICAgICAgICAgICAgICAgICAgICAgICAgICAg ICAgICAgICAgICANCjw/eHBkX3xghOSdmwD8X9czGj7JYc8UYY8vd4UbGTMxHZflwqElBsdAWjLsVQYs EfhVGkf0BCkfYL5XyOZkZ0DbL3MjLNoxNN4GFFAfXC YltEDvZEFuQVYeCwY0NWJhMGirTB6WvHQsZJpgBABtUIJqFhNfJPLyLSKoLBJcKBKpMSRVEZNeWDTwRy RjQSXyNMHzHAnvFBVOURU8TUOnRiWyALBuCSHvDpGcCUBXCUQ4WNKpClAyJjVdNNHaGK8NIBGmS100cy QgMTINCj4+IAamkrDyOmnOPcF8ALCzi9IzRKv9PM8T MNPoYbnrh3KjEPYoFFJKCLrrFQ9DDDA9KPW2YLGdRh2MOCAuE656qdYzZD1UMv7RYmJgWB3hdw6FADBi IBLpQpkZEca6YNxaPP0IeVHmXUxAdq2uwnPkzrJXt4LrnmEylOLGKXIldfGkJCfxEtTaAq5gGOwrYuHj ZFYvYSHrBj5yFFJbXMCdMmUyPWELNJ4WMLEdJZLhrR NvCYVaGZNHJS6RSAbaUDV4RHSpvoPwdFPmAWmsTU7FJLBwxeVuXVRkXOQRISa+Ix9MLD6kd9OqBUp5Ho IoMJ2uab9XKPnNUqOmB1Q4nDTqG0P4MMneGn1CMYVkDISpBFUvRTPDVBhqPH6DWN4hswS5NR6LuVMaAR UcGJCmbBWcLFu7N66hwOCdYOaxWK1KSGA+Izabella+Pg0K GRZjGIDkMMSfLhKnLAPNQbGuI2SqC0BGh9CiJ5WwFR84mVcedtNqZFucPD8LBR5lIDOyWMMIOL7KsQAg eI0gedN0ZVYmFGSHMuFkY36zwZNnNPVqKXQgOVKxGk9YYOZnV2EallKwfTofpmHdDTPpKYWSHE8RKWij hgTxwRCmuIzdBL58rZghQC5NIg8REiFiTX2tif4EbJ SlPd6YRWK6Vh1VLSMgHMOyIPVqTVT3PSXbUaEsNRyjZJCvIPRnIYM5ZYOlTRHqSN9FJdAxKHAsFMY9XP nfHNUvMKObdx9JMZJrGND4SkA5TjJcVNMbLGGjNWdsFHIqEMPmHUY5XQIwGLKuIQ1OXdDhDDEoWJY3MY AyVIGbTMHosb6PRVQyKSWcKCOrGjDmTXNwWFIgRZvo YVZbHKH9XkQ4FMQnMTXhHV1NZoDyECGtBUw6DIttAUPnQJNppo1TIMVwXJTuBIG6SmIzGXEjJYVtEUtn WNJjSFO9HyIdKURmQQWsLZ5KIiQiEIRcEUL6OANnZICjDJGjxx6MGVSlLKZuTrQfItLgSWDmFZDiKTtt HAXrUEK7AAE9RDDsKXOyBY2ADeYtTUKiTIRuRDMiFW KbTWJgpq5SQJRtLUSpVyV1TcEbCRNvIKMdIZlfLYSaVQT8JeQiHQRdPICzBI9JNuYfYOLfSMi1TsbySB DiGFCeyo3JVXVaXORoRMbeIZBnLROqVSXqUQgcOPZuHAGmRWU1QRSmHUDaWG9GKiZvDXCgRcAbGGFeKZ LiYOWumc6HOMFcTABlYSQ0VuDrCOKgRZDrWHbxTEGb MBP2JEIpJAFjGDJiAQ6ZKtXnEHKfAfi7GIFfHWLrHHFnvi8VUIMkMPVdIGk9QfTlXVFnMXEnNWelKPSj QQWyLAenQTIkCNOcCM4YZnUqTDUtDjYvFkkwVKZcHIVuuc2QANRcPPBoCCOsSSTvVKSkJRBuVZnxDDUx GJM4CqM5JCJbYZVsBT4NHgNkSOEqEdErHQsoMEYxOC Tyar2SHQFeIYBxDcE4PYXbZDZoTZApIUjeXYYrWDX4LpV2YRBhPOEfAN4RFmEiJMCxIka6PnCtYPBhLD Taxk8MCUYqKDWjChqlJXRxYZRyYLBsJVvgIUDqGIJ7MEQ2VHPyLJUpNE3TWxHuVGIkXSf6PEVuNERvVO Rcsh3FIXNmAJH8IYl1RGZyAEJyYZYkMWfoJARvSLN4 UQrnKSOxTNZnQJ0HMeLdYYQpYCGhWrZdHQAtISCzww7UONKtDAG6DNM3UiVdQTPbHCNcWChyPYRnQPYt EzVyEYPiIUEwUW4CNmWkDOJkTHY1NLmmSGDiGSAeqi4DWJDsVKW7DEL1DjWnVDEfMPSrOXwuDFUnCHQg GHZlRPJjKBRcKQ2MTpIeXMVyTEV5YUyfSOYeYICmfa 3OZMCcHPC9ZfW4SUXeWIBrZKCwBLenKVAuIJQdTXKcHOQzSUQbNA6CDzKyUQyhZOYSGnm8PUyxC8h0AS U7Cx7NX8Noq2NuUBFtEYCDGZbyLA8ogaEuALSwHy6WL9jQVct9CUU3UDB3XPLsNhJhXJt3ZMH1YKMgCn Z4X6V5TNN6PD9oDZg1Xfb6WfG4LfYbUoDjQZJ5Tnmh IsMoAqSuWDu4CNQjNzHiHA6SAt6PIlC6EVR1aZLdUf4RECQfTAWWGdPcWI2AWDu= ID Date Data Source [id number] 03/29/2021 10:18:00 PM EDT [facility] ED Physician Documentation NAME: EMERSON BOYER : 1975 AGE: 46 MR#: [id number] SERVICE DATE: 03/29/[address]: Wild Almazan MD PRIMARY CARE DR: No Family PHYS Provided ROOM#: Musculoskeletal General Chief Complaint: Musculoskeletal Stated Complaint: LOWER BACK PAIN Time Seen by Provider: 03/29/21 19:59 History of present illness HPI Narrative:: 46-year-old white female history of MS now with few day history of acute on chronic low back pain with some radiation down her right greater than left leg all increased with any movement. No recent falls or reason traumatically speaking why this has occurred currently. No fevers chills orgeneral illness or urinary frequency burning or flank pain. Patient has had some low back pain and issues over the years and past CAT scans for the LS spine as noted. Has no new focal weakness or sensory disturbance or any bowel or bladder control loss ROS otherwise acutely noncontributory at this time PMH is extensive and is appreciated via EMR data , , Location of complaint:: lower back Mechanism of injury:: History of MS Redness?: No Deformity?: No Swelling?: No Ecchymosis?: No Shortening of limb?: No Distal CMS intact?: Yes Open Fracture?: No Ambulation Assistive Devices: Cane Gait steady?: Yes Weight Bearing Status: Full Weight Bearing Limited ROM?: No Numbness or tingling?: Yes Allergies/Home Meds Allergies Allergy/AdvReac Type Severity Reaction Status Date / Time carbamazepine [From Tegretol] Allergy Severe Anaphylaxis Verified 01/12/21 13:43 Home Medications Medication Instructions Recorded Confirmed Last Taken Type naproxen 500 mg tablet 500 mg PO QMWF tab 09/30/19 01/12/21 09/12/20 History baclofen 10 mg tablet 10 mg PO TID PRN #14 tab 01/28/20 01/12/21 09/12/20 Rx ergocalciferol (vitamin D2) 1,250 1,250 mcg PO QWEEK 11/19/20 01/12/21 Unknown History mcg (50,000 unit) capsule fingolimod 0.5 mg capsule (Gilenya) 0.5 mg PO QDAY 11/19/20 01/12/21 Unknown History tramadol 50 mg tablet 50 mg PO BID PRN 15 Days #30 tab 11/19/20 01/12/21 Unknown Rx MDD two cane #1 ea 02/09/21 Unknown Rx oxycodone-acetaminophen 5 mg-325 1 tab PO Q6HR PRN #10 tab 03/29/21 Unknown Rx mg tablet (Percocet) PMH (from Triage) Patient Medical History PMH Reviewed/Updated as Needed: Yes PMH/PSH from Triage: Medical History (Updated 12/03/20 @ 16:06 by Lexi Luna NP) Annual physical exam (Medical) Z00.00 Anxiety (Medical) F41.9 Asthma (Medical) J45.909 Cervical spinal stenosis (Medical) M48.02 COPD (chronic obstructive pulmonary disease) (Medical) J44.9 Depression (Medical) F32.9 Exertional shortness of breath (Medical) R06.02 Headache (Medical) R51.9 Hx of bladder repair surgery (Medical) Z98.890 Hx of tubal ligation (Medical) Z98.51 Multiple sclerosis (Medical) G35 Routine gynecological examination (Medical) Z01.419 Tobacco abuse (Medical) Z72.0 Urge incontinence (Medical) N39.41 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 White matter changes (Medical) Surgical History (Updated 07/17/19 @ 10:49 by Courtney Sutherland RN) Hx of bladder repair surgery (Surgical) Z98.890 Hx of tubal ligation (Surgical) Z98.51 Female History : No Hx Drug Resistant Infections Hx Other Resistant Infection?: No Isolation: Standard precautions Hx Recent Travel Out of the country within 10 days (where): No Hx Fever with a rash?: No Nurse screening for coronavirus: Recent Travel outside the No country (where) Has patient experienced No coronavirus symptoms Social History Are you in a relationship with/Does anyone hit you, yell/swear at you, steal from you?: No Substance Use Second Hand Smoke Exposure: Yes Smoking Status: Current every day smoker Tobacco Use Tobacco Products:: Cigarettes 1/2 PPD Years smoked:: 27 Hx Chewing Tobacco Use: No Vaccination History Hx/Date of Tetanus, Diphtheria Vaccination: Yes Hx/Date of Influenza Vaccination: Yes Hx/Date of Pneumococcal Vaccination: No ROS Review of Systems ROS Narrative: ROS data limited to that of the pertinent data of the HPI section only. Otherwise acutely noncontributory and/or negative at this time in its entirety [facility] Medical History Annual physical exam Anxiety Asthma Cervical spinal stenosis COPD (chronic obstructive pulmonary disease) Depression Exertional shortness of breath Headache Multiple sclerosis Routine gynecological examination Tobacco abuse Urge incontinence Vitreous floaters of both eyes White matter changes Surgical History Hx of bladder repair surgery Hx of tubal ligation Social History (Updated 03/29/21 @ 19:51 by Kandy Starks RN) Does the Patient have a Healthcare Proxy: No Does Patient have a DNR?: No Does Patient have a Living Will?: No caregiver/support person: Yes (Jessica Rodriguez) Hx Recent Travel (where): No sexually active: Yes caffeine: Yes Type: coffee Smoking Status: Current every day smoker tobacco type: cigarettes passive smoking exposure: Yes Smoking risk assessment performed?: Yes counseling given: provider counseling, support medications,support program, counseling >3 minutes and patient declined Physical Exam General Limitations: no limitations General appearance: alert, anxious and in distress Head Head exam: Present atraumatic, normocephalic and normal inspection Eye Eye exam: Present normal apperance, PERRL and EOMI; Absent scleral icterus or conjunctival injection Pupils: Present normal accommodation ENT ENT exam: Present normal exam, normal orophraynx, mucous membranes moist and normal external ear exam Neck Neck exam: Present normal inspection, tenderness, full ROM and supple; Absent meningismus or lymphadenopathy Respiratory Respiratory exam: Present normal lung sounds bilaterally and chest wall tenderness; Absent respiratory distress, accessory muscle use, decreased breath sounds or prolonged expiratory Cardiovascular Cardiovascular Exam: Present regular rate, normal rhythm, normal heart sounds and no murmur; Absent rubs, gallop, clicks, JVD, S3 or S4 GI/Abdominal GI/Abdominal exam: Present Abd soft, bowel sounds present all quadrents, soft and normal bowel sounds; Absent distended, tenderness, guarding, rebound, rigid, organomegaly or hernia Rectal Rectal exam: Present deferred and normal rectal tone (per pt) Extremities Exam Extremities exam: Absent tenderness, pedal edema, joint swelling or calf tenderness Back Exam Back exam: Present tenderness (PtT L1-S4 R > L SIJ + R SLR 35* L at 50*) Neurological Exam Neurological exam: Present alert, oriented X3, CN II- XII intact and reflexes normal; Absent motor sensory deficit Psychiatric Psychiatric exam: Present normal affect, normal mood and anxious Skin Skin exam: Present warm, dry and intact; Absent rash or petechiae Vital Signs Vital Signs: Vital Signs 03/29/21 19:14 Temperature 97.6 F Pulse Rate 79 Respiratory Rate 20 Blood Pressure 138/78 O2 Sat by Pulse Oximetry 99 MDM (comprehensive) Radiology Data Radiology impressions: CT L/S = wnl NO injury seen Medical Decision Making Free Text/Narative:: + improved s/p toradol vss Plan Plan Plan: per above DC data Visit Medication s Administered ED medications:: Medications Discontinued Medications Generic Name Dose Route Start Last Admin Trade Name Freq PRN Reason Stop Dose Admin Ketorolac Tromethamine 60 mg 03/29/21 20:10 03/29/21 20:27 Ketorolac Tromethamine 60 Mg/2 Ml Sdv IM 03/29/21 20:11 60 mg 1T ONE Administration Oxycodone/Acetaminophen 4 tab 03/29/21 22:11 03/29/21 22:27 Oxycodone/Acetaminophen (5/325) 1 Tab PO 03/29/21 22:12 4 tab TO GO ONE Administration Discharge Plan Admission/Discharge Dx Primary DC Diagnosis: A/C LBP HX MS ED Provider: Wild Almazan ED Status: Discharged Time Seen by Provider: 03/29/21 19:59 Triaged At: 03/29/21 19:14 Condition Condition: Improved Discharge Detail Disposition: Home, Self-Care Med Rec New Prescriptions: New oxycodone-acetaminophen [Percocet] 5-325 mg tablet 1 tab PO Q6HR PRN (Reason: pain) Qty: 10 0RF No Action naproxen 500 mg tablet 500 mg PO QMWF 0RF Label Comments: TAKE 1 TABLET BY MOUTH TWO TIMES A DAY FOR PAIN ergocalciferol (vitamin D2) 1,250 mcg (50,000 unit) capsule 1,250 mcg PO QWEEK 0RF Gilenya 0.5 mg capsule 0.5 mg PO QDAY 0RF tramadol 50 mg tablet 50 mg PO BID MDD two PRN (Reason: pain) 15 Days Qty: 30 0RF baclofen 10 mg tablet 10 mg PO TID PRN (Reason: back pain) Qty: 14 0RF (DME) cane Device See Rx Instructions .Route Qty: 1 0RF Rx Instructions: Use daily Follow Up Visit/Referrals: Adryan Royal MD [PHYSICIAN] - Medications Medication reconciliation performed by provider at discharge: Yes Follow Up Care/Instructions Diet/Activity/Wound Care..: see DX see RX ( pt not using Ultram anymore) see pcp in 3 d see ortho md in 3 d RTED if sx increase or any new ssx or weakness or loss of control of bowel or bladder function , , , *Discharge Patient* Discharge Orders: Discharge Order (Routine); Ordered 03/29/21 Ordered By: Wild Almazan Discharge Date/Time: 03/29/21 22:32 Interventions Interventions: ED Discharge Instructions Last Done: 03/29/21 22:33 ED Musculoskeletal Last Done: 03/29/21 19:19 Report Signers: <Electronically signed by Wild Almazan MD> Wild Almazan MD 03/30/21 0046 Wild Almazan MD SIGNATURE DA Report Cosigners: D: TARIQ 03/29/212217 T: TARIQ 03/29/212217 CC: No Family PHYS Provided Name Value Range Interpretation Code Description Data Mary rce(s) Supporting Document(s) ID Date Data Source [id number] 03/29/2021 09:21:00 PM EDT [facility] [address] [place] [id number] [phone] NAME SEX PT STATUS ACCOUNT NUMBER EMERSON BOYER REG ER [id number] ORDERING PHYSICIAN LOCATION MEDICAL RECORD NO. Wild Almazan MD ER [id number] ATTENDING PHYSICIAN DATE OF DATE OF EXAM/TIME Doctor Provided,No Family 1975 03/29/212009 TYPE / EXAM CT L-Spine without contrast REASON FOR EXAM LBP x 2 d Hx MS Clinical History/Indication for Exam: LBP x [address] LUMBAR SPINE WITHOUT INTRAVENOUS CONTRAST INDICATION: LBP x 2 d Hx MS TECHNIQUE: Axial computed tomography images of the lumbar spine without intravenous co ntrast. Sagittal and coronal reformatted images were created and reviewed. This CT exam was performed usingone or more of the following dose reduction techniques: automated exposure control, adjustment of the mA and/or kV according to patient size, and/or use of iterative reconstruction technique. COMPARISON: No relevant prior studies available. FINDINGS: Vertebrae: Unremarkable. No acute fracture. Discs/spinal canal/neural foramina: No acute findings. No spinal canal stenosis. Soft tissues: Unremarkable. IMPRESSION: Normal lumbar spine CT. Au tomatic exposure control was used as a dose lowering technique. REPORT SIGNATURE ON FILE 03/29/2021 (: Time ) Signed by: Kelvin Saldaña M.D. Reported By Kelvin Saldaña MD on 03/29/212120 Signed By Kelvin Saldaña MD on 03/29/212120 Date Time CC: Kelvin Saldaña MD; No Family PHYS Provided Techn: BAIAB Trans Dt/Tm: Trans by: DT Prt Dt/Tm: 1101- 0011: Total DLP = 390.00 mGy-cm 0464-1237: Total Radiation Dose = 5.8500 mSv Lifetime Dose: 16.3839 mSv Name Value Range Interpretation Code Description Data Mary rce(s) Supporting Document(s) ID Date Data Source [id number] 02/24/2021 03:10:00 PM EDT [facility] Patient Name: EMERSON BOYER : 1975 Sex: F Pt Unit #: [id number] Location:[facility] Provider: Visit Date/Time: 02/24/21 Primary Insurance: [facility] Secondary Insurance: Self Pay Intake Vital Signs 02/24/21 15:10 Current Height 5 ft 3 in Current Weight 148 lb Weight Measurement Method Standing Scale BMI 26.2 BP 132/80 Blood Pressure Location Lt brachial Position Sitting Respiration 16 Pulse 92 Pulse Strength Normal Pulse Source Palpation Temp 97.8 F Temp Source Tympanic Pulse Oximetry (%) 97 Oxygen Delivery Method room air Intake Visit Reasons: Multiple sclerosis Nurse Note: Pt here for disability paperwork to be filled out. Health Center Assistant Required: No Is patient in pain?: Yes Allergies carbamazepine [From Tegretol] Allergy (Severe, Verified 01/12/21 13:43) Anaphylaxis Fall Risk History of falls: No Ambulatory Aid:: None Gait/Transferring:: Normal HIV Testing Offer - ages 13-64 HIV testing Offer: Yes Requirement for HIV testing offer been met?: Patient reports past refusal SBIRT Annual Questionnaire Are you currently in recovery for alcohol or substance use?: No Coronavirus Screening Screening Are you currently positive or on isolation for COVID ?: No Do you have any NEW signs of one or more of the following?: no symptoms Do you have NEW signs of at least two of the following?: no symptoms HPI Additional HPI HPI Details: 45-year-old here today for the diagnosis of multiple sclerosis. She reports that she has disabilitypaperwork completed. She is applying for disability times third time. The first time she was declined. Her disability form is upcoming. She did contact her neurologist and asked them to complete the paperwork but they declined. Otherwise, patient generally otherwise feels in her usualstate of health. Time spent in discussion of the disability paperwork process. Questions answered regarding this and as it applies to her multiple sclerosis. Total time spent 30 minutes. [facility] Medical History Annual physical exam Anxiety Asthma Cervical spinal stenosis COPD (chronic obstructive pulmonary disease) Depression Exertional shortness of breath Headache Multiple sclerosis Routine gynecological examination Tobacco abuse Urge incontinence Vitreous floaters of both eyes White matter changes Surgical History Hx of bladder repair surgery Hx of tubal ligation Social History Does the Patient have a Healthcare Proxy: No Does Patient have a DNR?: No Does Patient have a Living Will?: No Hx Recent Travel (where): No sexually act jaziel: Yes Smoking Status: Never smoker Smoking risk assessment performed?: Yes counseling given: provider counseling, support medications,support program, counseling >3 minutes and patient declined Review of Systems Const All systems reviewed are unremarkable except as noted in HPI and below Assessment Plan Assessment Plan (1) Multiple sclerosis: Status: Acute Code(s): G35 - Multiple sclerosis SNOMED Code(s): 23058816 Category: Medical Plan: Patient not reexamined today. Paperwork process discussed. She is walking with a cane today. Recommended further discussion with neurology. Coding Level of Care Code 91227 Est Pt Extended Comp Diagnoses Multiple sclerosis G35 Additional Codes Intake - Is patient in pain?: Yes (1125F) <Electronically signed by Zach Obando MD> 02/24/21 1554 Name Value Range Interpretation Code Description Data Mary rce(s) Supporting Document(s) ID Date Data Source [id number] 01/12/2021 01:01:00 PM EDT [facility] Patient Name: EMERSON BOYER : 1975 Sex: F Pt Unit #: [id number] Location:[facility] Provider: Visit Date/Time: 01/12/21 Primary Insurance: [facility] Secondary Insurance: Self Pay Intake Vital Signs 01/12/21 13:01 Current Height 5 ft 3 in Current Weight 148 lb Weight Measurement Method Standing Scale BMI 26.2 BP 124/80 Blood Pressure Location Lt brachial Position Sitting Respiration 16 Pulse 72 Pulse Strength Normal Pulse Source Palpation Temp 96.0 F L Temp Source Tympanic Intake Visit Reasons: Neck pain Nurse Note: Pt states that she is here to f/u on MRI of neck. Health Center Assistant Required: No Accompanied by: Is patient in pain?: Yes (neck) Allergies carbamazepine [From Tegretol] Allergy (Severe, Verified 01/12/21 13:43) Anaphylaxis Me dications - Last Reconciled 01/12/21 by Lexi Luna NP baclofen 10 mg PO TID PRN ergocalciferol (vitamin D2) 1,250 mcg PO QWEEK fingolimod (Gilenya) 0.5 mg PO QDAY naproxen 500 mg PO QMWF tramadol 50 mg PO BID 15 days PRN MDD two Vision Wearing glasses?: No Fall Risk History of falls: No Ambulatory Aid:: Crutches Cane or Walker (Uses cane) Gait/Transferring:: Normal HIV Testing Offer - ages 13-64 HIV testing Offer: Yes Requirement for HIV testing offer been met?: Patient reports past refusal SBIRT Annual Questionnaire Are you currently in recovery for alcohol or substance use?: No Do you need a note to return Do you need a note to return to daycare/school/sports/work: No Coronavirus Screening Screening Are you currently positive or on isolation for COVID ?: No Do you have any NEW signs of one or more of the following?: no symptoms Do you have NEW signs of at least two of the following?: no symptoms HPI Additional HPI HPI Details: 45 year old female presents for follow up. Emerson has MS and follows with neurology in [place] and started Gilenya on 12/17/2020. In regards to her MS, her symptoms are about the same. She is finding it hard to do most things and has lost some strength in her legs and on her right side in general. She is still trying to get out and try to do things. She did a lot of walking over the weekend and felt pretty good which I think is an improvement because last month she had reportedthat she could not wash dishes or mop the floors. She is now ambulating with a cane all the time because her balance seems to be worsening. Her ne urologist is hopeful the new medication will help. She is using naproxen as needed for pain, this helps. I did give her tramadol to help with her more severe pain she gets occasionally. She thinks this seems to be helping as well. She completed echocardiogram which was normal. She states her breathing has been much better in the past few weeks. She was told she has COPD but has never completed PFTs. She denies wheezing, cough, fevers. She denies chest pain, palpitations, dizziness. She also mentions that she is having posterior neck pain that starts in the middle, base of the neck and radiates up the left side of her neck and into the back of her head, this causes headaches. She did tell her neurologist about this a few weeks ago and they told her it was part of the MS. She does still get some mild pain and numbness in her upper extremities. She completed an MRI of the neck last week which showed DDD in the neck, mild disc protrusion, andnarrowing. She does not want to do PT. No other concerns today. [facility] Medical History Annual physical exam Anxiety Asthma Cervical spinal stenosis COPD (chronic obstructive pulmonary disease) Depression Exertional shortness of breath Headache Multiple sclerosis Routine gynecological examination Tobacco abuse Urge incontinence Vitreous floaters of both eyes White matter changes Surgical History Hx of bladder repair surgery Hx of tubal ligation Social History Does the Patient have a Healthcare Proxy: No Does Patient have a DNR?: No Does Patient have a Living Will?: No Hx Recent Travel (where): No sexually active: Yes Smoking Status: Never smoker Smoking risk assessment performed?: Yes counseling given: provider counseling, support medications,support program, counseling >3 minutes and patient declined Review of Systems Const All systems reviewed are unremarkable except as noted in HPI and below ENT Reports neck pain Musc Reports neck pain Exam Const General: cooperative, healthy appearing, comfortable, no acute distress, well developed and well [facility] Nutritional Appearance: average body habitus Orientation: alert, awake and oriented x3 Resp Effort Inspection: normal respiratory effort GI Inspection: Yes normal to inspection Palpation: soft and nontender Auscultation: normal bowel sounds General: No CVA tenderness Skin Lesions: no lesions Rashes: no rashes Neuro General: patient alert, patient awake and patient oriented x3 Gait: gait assisted (cane ) Extrem General: no clubbing, cyanosis or edema Psych Appearance: grossly normal Quality Reporting Adult ([facility] 138/2/22/69/61/64/165) Smoking risk assessment performe d?: Yes Counseling given: provider counseling, support medications, support program, counseling >3 minutes and patient declined Assessment Plan Assessment Plan (1) Neck pain: Code(s): M54.2 - Cervicalgia Plan: Reviewed results of MRI. Encouraged her to get in to physical therapy, but she declines. She tells me she will think about it. Suggest supportive care including rest, ice/heat, and NSAIDs as needed. (2) Multiple sclerosis: Status: Acute Code(s): G35 - Multiple sclerosis SNOMED Code(s): 04881037 Category: Medical (3) Tobacco abuse: Status: Acute Code(s): Z72.0 - Tobacco use SNOMED Code(s): 831457111 Category: Medical Plan: I counseled the patient on the dangers of tobacco use for at least 3 minutes. The patient was advised to quit tobacco use altogether. I reviewed the various strategies to maximize success with the patient. These include removing cigarettes and smoking materials from the environment. I also reviewed stress management and support of family/friends. I advised the patient of the various health risks of smoking as well as its financial impact. Orders Follow Up: 4 Months (MS, neck pain) Counseling Smoking risk assessment performed?: Yes Counseling Given: provider counseling, support medications, support program, counseling >3 minutes and patient declined Time spent Total time spent on medical discussion: 30 C[place] [address] Est Pt Extended Comp Patient Type Established Diagnoses Neck pain M54.2 Multiple sclerosis G35 Tobacco abuse Z72.0 Time Spent (min) 30 <Electronically signed by Lexi Luna NP> 01/12/21 1349 Name Value Range Interpretation Code Description Data Mary rce(s) Supporting Document(s) ID Date Data Source [id number] 01/04/2021 09:53:00 AM EDT [facility] [address] [place] [address] [phone] NAME SEX PT STATUS ACCOUNT NUMBER EMERSON BOYER REG REF [id number] ORDERING PHYSICIAN LOCATION MEDICAL RECORD NO. Lexi Luna MRI [id number] ATTENDING PHYSICIAN DATE OF DATE OF EXAM/TIME Lexi Luna NP 1975 12/29/201739 TYPE / EXAM MRI Cervical without contrast REASON FOR EXAM neck pain, headaches Clinical History/Indication for Exam: neck pain, headaches MR CERVICAL SPINE WITHOUT INTRAVENOUS CONTRAST INDICATION: neck pain, headaches TECHNIQUE: Magnetic resonance images of the cervical spine without intravenous contrast in multiple planes. COMPARISON: CT cervical spine dated September 12, 2020. FINDINGS: Vertebrae: The cervical vertebral column is well aligned. Atlantoaxial relationship is unremarkable. The facets of the cervical spine demonstrate mild arthritis bilaterally. No acute fracture. Marrow: The bone marrow signal is normal. Spinal cord: The signal of the cervical cord is normal. Soft tissues: Unremarkable. DISCS/SPINAL CANAL/NEURAL FORAMINA: C2- C3: Unremarkable. No significant disc disease. No stenosis. C3-C4: Unremarkable. No significant disc disease. No stenosis. C4-C5: C4-C5 disc level shows 2 mm central dorsal annular bulge. No stenosis. C5-C6: C5-C6 disc level shows moderate loss of height. 3 mm diffuse dorsal annular bulging with osteophyte complex. Mild central canal stenosis. Mild stenosis of the bilateral neural foramina. C6-C7: Unremarkable. No significant disc disease. No stenosis. C7-T1: Unremarkable. No significant disc disease. No stenosis. IMPRESSION: 1. C5-C6 disc level shows moderate loss of height. 3 mm diffuse dorsal annular bulging with osteophyte complex. Mild central canal stenosis. Mild stenosis of the bilateral neural foramina. 2. No MRI evidence of cervical cord myelopathy. No mass. REPORT SIGNATURE ON FILE 01/04/2021 (09:53 Eastern Time ) Signed by: Jeanette Hurt M.D. Reported By Jeanette Hurt MD on 01/04/21952 Signed By Jeanette Hurt MD on 01/04/21952 Date Time CC: Jeanette Hurt MD; Lexi Luna Techn: SYDNEY Trans Dt/Tm: Trans by: DT Prt Dt/Tm: : Total DLP = 0.00 mGy-cm : Total Radiation Dose = 0.0000 mSv Lifetime Dose: 10.5339 mSv Name Value Range Interpretation Code Description Data Mary rce(s) Supporting Document(s) ID Date Data Source [id number] 12/20/2020 09:57:34 PM [facility] Name Value Range Interpretation Code Description Data Mary rce(s) Supporting Document(s) [facility] [id number]tz1N6Z0wYJmK9UemKEdn7jbB3CjK0ZjDEBlCWKZTF8YiCKt jb2 [file] [id number] ID Date Data Source [id number] 12/18/2020 03:38:00 PM EDT [address] [id number] [phone] NAME SEX PT STATUS ACCOUNT NUMBER EMERSON BOYER REG REF [id number] ORDERING PHYSICIAN LOCATION MEDICAL RECORD NO. Lexi Luna [id number] ATTENDING PHYSICIAN DATE OF DATE OF EXAM/TIME Lexi Luna NP 1975 12/18/201401 TYPE / EXAM US Echo complete REASON FOR EXAM exertional sob, smoker DIAGNOSIS: Shortness of breath. MEASUREMENTS: Left atrium 2.4, aortic root 2.8, left ventricle in diastole 3.1 and systole 2.1. FINDINGS: 1. Normal aortic root size. Normal left atrial and ventricular size. 2. Normal mitral, aortic and tricuspid valves. 3. Normal left ventricular systolic function, ejection fraction 60%. IVC 1.0 cm. 4. No pericardial effusion noted. 5. Color flow and spectral Doppler examination reveals no significant abnormality. Diastolic function was normal. CONCLUSION: 1. Normal left ventricular systolic function. 2. No significant Doppler abnormality. Reported By Tobi Cannon MD on 12/18/20 1538 Signed By Tobi Cannon MD on 12/23/20 1400 <<Signature on File>> Date Time CC: Lexi Luna; Tobi Cannon M.D. Techn: FREST Trans Dt/Tm: 12/19/20 0939 Trans by: MB Prt Dt/Tm: : Total DLP = 0.00 mGy-cm : Total Radiation Dose = 0.0000 mSv Lifetime Dose: 10.5339 mSv Name Value Range Interpretation Code Description Data Mary rce(s) Supporting Document(s) ID Date Data Source [id number] 12/17/2020 02:27:20 PM [facility] Name Value Range Interpretation Code Description Data Mary rce(s) Supporting Document(s) Progress Note [facility] CDNCPi7yIjBNNuCb40/KMPzwNFDmy6RjAYtkBKs1RPgaDWKbM1SlIYL2hO2mWWY5NIiGTiGnSnZzMxGp lbm JbBgaHDqLkQLUoTqjTBiOxCQlvWefzwTQhWK2OuRF7IEUhB60eUFBjIJNyF0MgGBL0TWy+Tr2PYJMnrG PoEU7UEksQ6M5mp2t9XZ6nOS1NItqC5acqCoC0xzHH+TV8cCPR7iJSQq2wuPFAck4B1nPk7s3hryU0ny iWk04DHCr2LzCS5LafRj7GWXYsQA1uN8UEbBGlipD/ 3wkgagY3Bg30Q4ISx5K3qQaAYQLDJHf9spkJ1abG/vKBFxNx+TRSNLJvmSy4f0Amr+S0DCytHf9m+VRM /h2tsrf1spvgdxcU8CabnjzDamensK6acsIOpbumMzMtpdXg9GFu33TNs3YAxXslJluPoEQ0uSOejZaY ysHeqXhslalbsgwe6kHIEMrO4fZFr/Pcjtwwuyrb9c [file] [id number] ID Date Data Source [id number] 12/03/2020 01:19:00 PM EDT [facility] Patient Name: EMERSON BOYRE : 1975 Sex: F Pt Unit #: [id number] Location:[facility] Provider: Visit Date/Time: 12/03/20 Primary Insurance: [facility] Secondary Insurance: Self Pay Intake Vital Signs 12/03/20 13:19 Current Height 5 ft 3 in Current Weight 146 lb Weight Measurement Method Standing Scale BMI 25.8 BP 124/70 Blood Pressure Location Lt brachial Position Sitting Respiration 16 Pulse 72 Pulse Strength Normal Pulse Source Palpation Temp 97.9 F Temp Source Tympanic Pulse Oximetry (%) 98 Oxygen Delivery Method room air Intake Visit Reasons: COPD Nurse Note: PT here for routine f/u. She c/o increase in breathing difficulty with humidity the past3-4 days. She also c/o pain in her right leg from hip to toes, and the left side of her neck. Health Center Assistant Required: No Accompanied by: Life Partner Is patient in pain?: Yes (right leg) Pain scale (1-10): 9 Allergies carbamazepine [From Tegretol] Allergy (Severe, Verified 12/04/20 08:44) Anaphylaxis Medications - Last Reconciled 12/04/20 by Lexi Luna NP baclofen 10 mg PO TID PRN ergocalciferol (vitamin D2) 1,250 mcg PO QWEEK fingolimod (Gilenya) 0.5 mg PO QDAY naproxen 500 mg PO QMWF tramadol 50 mg PO BID 15 days PRN MDD two Is last menstrual period known: Yes Last menstrual period: 11/04/20 Post menopausal: No Patient : No Vision Wearing glasses?: No Fall Risk History of falls: No Ambulatory Aid:: Crutches Cane or Walker Gait/Transferring:: Normal PHQ-2/9 Over the last 2 weeks, how often have you been bothered by any of the following problems? 1. Little interest or pleasure in doing things: several days 2. Feeling down, depressed, or hopeless: several days Total score: 2 HIV Testing Offer - ages 13-64 HIV testing Offer: Yes Requirement for HIV testing offer been met?: Patient reports past refusal SBIRT Annual Questionnaire Are you currently in recovery for alcohol or substance use?: No Do you need a note to return Do you need a note to return to daycare/school/sports/work: No Coronavirus Screening Screening Are you currently positive or on isolation for COVID ?: No Do you have any NEW signs of one or more of the following?: no symptoms Do you have NEW signs of at least two of the following?: no symptoms HPI Additional HPI HPI Details: 45 year old female presents for follow up. She was supposed to start Gilenya for her MS in [place] yesterday, but her car broke down so this has been rescheduled for 12/17/2020. In regards toher MS, her symptoms are about the same. She is finding it hard to do most things and has lost some strength in her legs and on her right side in general. She is still trying to get out and try things. She cannot wash dishes or mop the floors. She plans to get next month. She is now ambulating with a cane all the time because her balance seems to be worsening. Her neurologist is hopeful the new medication will help. She is using naproxen as needed for pain, this helps. I did give her tramadol to help with her more severe pain she gets occasionally. She thinks this seems to be helping. She wants to get a dog and has brought paperwork for companionship pet for her housing. She does mention that she is still having some difficulty on and off with her breathing. She was told she has COPD but has never completed PFTs. She did get prescribed inhalers in the past- she thinks Advair- and this did not help. She states she cannot do much activity without feeling short of breath and tired. It was worse this week and she thinks because of the humidity. She denies wheezing, cough, fevers. She denies chest pain, palpitations, dizziness. She also mentions that she is having posterior neck pain that starts in the middle, base of the neck and radiates up the left side of her neck and into the back of her head, this causes headaches. She did tell her neurologist about this a few weeks ago and they told her it was part of the MS. She does still get some mild pain and numbness in her upper extremities. No other concerns today. COPD Pulmonary Results: No Data to Display [facility] Medical History Annual physical exam Anxiety Asthma Cervical spinal stenosis COPD (chronic obstructive pulmonary disease) Depression Exertional shortness of breath Headache Multiple sclerosis Routine gynecological examination Tobacco abuse Urge incontinence Vitreous floaters of both eyes White matter changes Surgical History Hx of bladder repair surgery Hx of tubal ligation Social History Does the Patient have a Healthcare Proxy: No Does Patient have a DNR?: No Does Patient have a Living Will?: No Hx Recent Travel (where): No sexually active: Yes Smoking Status: Never smoker Smoking risk assessment performed?: Yes counseling given: provider counseling, support medications,support program, counseling >3 minutes and patient declined Female Reproductive History Menstrual Date of last menstrual period: 11/04/20 Review of Systems Const All systems reviewed are unremarkable except as noted in HPI and below Exam Const General: cooperative, healthy appearing, comfortable, no acute distress, well developed and well groomed Nutritional Appearance: average body habitus Orientation: alert, awake and oriented x3 Resp Effort Inspection: normal respiratory effort GI Inspection: Yes normal to inspection Palpation: soft and nontender Auscultation: normal bowel sounds General: No CVA tenderness Skin Lesions: no lesions Rashes: no rashes Neuro General: patient alert, patient awake and patient oriented x3 Gait: gait assisted (cane ) Extrem General: no clubbing, cyanosis or edema Psych Appearance: grossly normal Assessment Plan Assessment Plan (1) COPD (chronic obstructive pulmonary disease): Status: Acute Code(s): J44.9 - Chronic obstructive pulmonary disease, unspecified SNOMED Code(s): 38297531 Category: Medical Plan: Smoking cessation recommended, consider PFTs. Recommend using rescue inhaler as needed. (2) Multiple sclerosis: Status: Acute Code(s): G35 - Multiple sclerosis SNOMED Code(s): 63352432 Category: Medical Plan: Continued follow ups with neurolgy as scheduled and plan to start Gilyena as scheduled later this month. She can continue tramadol as needed for severe pain, otherwise use naproxen. I recommend she consider physical therapy for strength and mobility. I ordered an MRI of the c-spine to evaluate her neck pain and headaches. (3) Exertional shortness of breath: Status: Acute Code(s): R06.02 - Shortness of breath SNOMED Code(s): 12185002 Category: Medical Plan: Will get echocardiogram and stress test. (4) Tobacco abuse: Status: Acute Code(s): Z72.0 - Tobacco use SNOMED Code(s): 111969202 Category: Medical Plan: I counseled the patient on the dangers of t obacco use for at least 3 minutes. The patient was advised to quit tobacco use altogether. I reviewed the various strategies to maximize success with thepatient. These include removing cigarettes and smoking materials from the environment. I also reviewed stress management and support of family/friends. I advised the patient of the various health risks of smoking as well as its financial impact. Orders: Orders Stress Test 12/03/20 R06.02 - Shortness of breath, Z72.0 - Tobacco use MRI Cervical without contrast 12/03/20 G35 - Multiple sclerosis, M48.02 - Spinal stenosis, cervical region, M50.90 - Cervical disc disorder, unspecified, unspecified cervical region, R51.9 - Headache,unspecified US Echo complete 12/03/20 R06.02 - Shortness of breath, Z72.0 - Tobacco use Orders Follow Up: 1 Month (SOB, MS ) Time spent Total time spent on medical discussion: 30 Coding [place] [address] Est Pt Extended Comp Patient Type Established Exam Problem Focused Diagnoses COPD (chronic obstructive pulmonary disease) J44.9 Multiple sclerosis G35 Exertional shortness of breath R06.02 Tobacco abuse Z72.0 Time Spent (min) 30 <Electronically signed by Lexi Luna TRACTION POWER ENGINEER> 12/04/20 0847 Name Value Range Interpretation Code Description Data Mary rce(s) Supporting Document(s) ID Date Data Source [id number] 11/19/2020 04:55:00 PM [facility] Name Value Range Interpretation Code Description Data Mary rce(s) Supporting Document(s) Color of Urine [facility] Appearance of Urine CLEAR [facility] pH of Urine by Test strip 6.5 5-8 [facility] Specific gravity of Urine by Refractometry 1.015 1.005-1.030 [facility] Leukocyte esterase [Presence] in Urine by Test strip NEGAT JAZIEL [facility] Nitrite [Presence] in Urine by Test strip NEGATIVE [facility] Protein [Presence] in Urine by Test strip NEGATIVE [facility] Glucose [Mass/volume] in Urine by Automated test strip NEGATIVE NEG ATIVE [facility] Ketones [Presence] in Urine by Test strip NEGATIVE [facility] Urobilinogen [Presence] in Urine 0.2-1 EU/dl [facility] Bilirubin.total [Presence] in Urine by Automated test strip NEGATIVE [facility] Erythrocytes [#/volume] in Urine by Test strip NEGATIVE NEGATIVE [facility] ID Date Data Source [id number] 11/19/2020 11:30:00 AM EDT [facility] Patient Name: EMERSON BOYER : 1975 Sex: F Pt Unit #: [id number] Location:[facility] Provider: Visit Date/Time: 11/19/20 Primary Insurance: [facility] Secondary Insurance: Self Pay Intake Vital Signs 11/19/20 11:30 Current Height 5 ft 3 in Current Weight 147 lb 4 oz Weight Measurement Method Standing Scale BMI 26.1 BP 128/76 Blood Pressure Location Lt brachial Position Sitting Respiration 17 Pulse 68 Pulse Strength Normal Pulse Source Palpation Temp 96.6 F L Temp Source Tympanic Intake Visit Reasons: COPD Health Center Assistant Required: No Accompanied by: Self / Same as Patient Is patient in pain?: Yes (8.5) Pain scale (1-10): 8 Allergies carbamazepine [From Tegretol] Allergy (Severe, Verified 11/19/20 14:36) Anaphylaxis Medications - Last Reconciled 11/19/20 by Lexi Luna NP baclofen 10 mg PO TID PRN ergocalciferol (vitamin D2) 1,250 mcg PO QWEEK fingolimod (Gilenya) 0.5 mg PO QDAY naproxen 500 mg PO QMWF nitrofurantoin macrocrystal 100 mg PO BID 7 days Is last menstrual period known: Yes Last menstrual period: 11/11/20 Vision Wearing glasses?: No Fall Risk History of falls: No Ambulatory Aid:: Crutches Cane or Walker (uses cane) Gait/Transferring:: Weak PHQ-2/9 Over the last 2 weeks, how often have you been bothered by any of the following problems? 1. Little interest or pleasure in doing things: not at all 2. Feeling down, depressed, or hopeless: not at all Total score: 0 HIV Testing Offer - ages 13-64 HIV testing Offer: Yes Requirement for HIV testing offer been met?: Patient reports past refusal SBIRT Annual Questionnaire Are you currently in recovery for alcohol or substance use?: No Do you need a note to return Do you need a note to return to daycare/school/sports/work: No Coronavirus Screening Screening Are you currently positive or on isolation for COVID ?: No Do you have any NEW signs of one or more of the following?: no symptoms Do you have NEW signs of at least two of the following?: no symptoms HPI Additional HPI HPI Details: 45 year old female with MS presents for follow up. She recently saw her neurologist in [place] who recommended starting her on Gilenya daily for break through disease. She has an appointment there on 12/03/2020 to start therapy and will have a 6-hour FDO. She already completed eyeexamination, LFTs/CBC, and EKG. She is wondering about the side effects of the medication. She did have a urinary tract infection last visit and was treated but did not complete follow up urine sample. She thinks her symptoms are about the same. She is finding it hard to do most things and haslost some strength in her legs and on her right side in general. She is still trying to get out and try things. She cannot wash dishes or mop the floors. She plans to get next month. She is now ambulating with a cane all the time because her balance seems to be worsening. Her neurologist is hopeful the new medication will help. She is using naproxen as needed for pain, this helps. Sometimes she gets more intense pains and it does not help completely, she is wondering if she couldget something for times of more severe pain. No other concerns today. COPD Pulmonary Results: No Data to Display [facility] Medical History Annual physical exam Anxiety Asthma Cervical spinal stenosis COPD (chronic obstructive pulmonary disease) Depression Multiple sclerosis Routine gynecological examination Tobacco abuse Urge incontinence Vitreous floaters of both eyes White matter changes Surgical History ( Reviewed 11/19/20 @ 14:36 by Lexi Luna NP) Hx of bladder repair surgery Hx of tubal ligation Social History Does the Patient have a Healthcare Proxy: No Does Patient have a DNR?: No Does Patient have a Living Will?: No Hx Recent Travel (where): No sexually active: Yes Smoking Status: Never smoker Smoking risk assessment performed?: Yes counseling given: provider counseling, support medications,support program, counseling >3 minutes and patient declined Female Reproductive History Menstrual Date of last menstrual period: 11/11/20 Review of Systems Const All systems reviewed are unremarkable except as noted in HPI and below Exam Const General: cooperative, healthy appearing, comfortable, no acute distress, well developed and well groomed Nutritional Appearance: average body habitus Orientation: alert, awake and oriented x3 Resp Effort Inspection: normal respiratory effort GI Inspection: Yes normal to inspection Palpation: soft and nontender Auscultation: normal bowel sounds General: No CVA tenderness Skin Lesions: no lesions Rashes: no rashes Neuro General: patient alert, patient awake and patient oriented x3 Gait: gait assisted (cane ) Extrem General: no clubbing, cyanosis or edema Psych Appearance: grossly normal Quality Reporting Adult ([facility] 138/2/22/69/61/64/165) Smoking risk assessment performed?: Yes Counseling given: provider counseling, support medications, support program, counseling >3 minutes and patient declined Assessment Plan Assessment Plan (1) Multiple sclerosis: Status: Acute Code(s): G35 - Multiple sclerosis SNOMED Code(s): 54124103 Category: Medical Plan: We reviewed [place] in detail together and discussed side effects. I have strongly encouraged her togive the medication a try. She is aware that if she does not do some type of therapy her condition will continue to decline. I have suggested we recheck her urine today to ensure the urinary tract infection she had a month ago did resolve because the [place] can suppress the immune system and shewould not want to start it with an active infection. Urine was sent to the lab. I did send her some tramadol to help with more severe pain, otherwise she will continue naproxen as needed. I recommend she consider physical therapy for strength and mobility. (2) Tobacco abuse: Status: Acute Code(s): Z72.0 - Tobacco use SNOMED Code(s): 281031056 Category: Medical Plan: I counseled the patient on the dangers of tobacco use for at least 3 minutes. The patient was advised to quit tobacco use altogether. I reviewed the various strategies to maximize success with the patient. These include removing cigarettes and smoking materials from the environment. I also reviewed stress management and support of family/friends. I advised the patient of the various health risks of smoking as well as its financial impact. Medications: New tramadol 50 mg PO BID 15 days PRN 30 tabs 0RF pain MDD two Discontinued nitrofurantoin macrocrystal must administer with a meal/food Discontinued Reason: Order already completed 100 mg PO BID 7 days 14 caps 0RF Orders Follow Up: 1 Month (MS ) Counseling Smoking risk assessment performed?: Yes Counseling Given: provider counseling, support medications, support program, counseling >3 minutes and patient declined [place] [address] Est Pt Extended Comp Patient Type Established Diagnoses Multiple sclerosis G35 Tobacco abuse Z72.0 Time Spent (min) 30 <Electronically signed by Lexi Luna TRACTION POWER ENGINEER> 11/19/20 1445 Name Value Range Interpretation Code Description Data Mary rce(s) Supporting Document(s) ID Date Data Source [id number] 11/11/2020 08:23:42 AM EDT [facility] Name Value Range Interpretation Code Description Data Mary rce(s) Supporting Document(s) Progress Note [facility] [id number] lbm [file] YNCg== ID Date Data Source [id number] 11/09/2020 07:58:59 AM EDT [facility] Name Value Range Interpretation Code Description Data Mary rce(s) Supporting Document(s) [facility] [id number] jb2 [file] [id number]== ID Date Data Source [id number] 11/06/2020 07:04:44 PM EDT [facility] Name Value Range Interpretation Code Description Data Mary rce(s) Supporting Document(s) Calcidiol [Mass/volume] in Serum or Plasma 21 ng/mL >30 L [facility] ID Date Data Source [id number] 11/06/2020 06:28:01 PM EDT [facility] Name Value Range Interpretation Code Description Data Mary rce(s) Supporting Document(s) Leukocytes [#/volume] in Blood by Automated count 10.9 10*3/uL 4-10 H [facility] Erythrocytes [#/volume] in Blood by Automated count 4.75 10*6/uL 4.1- 5.3 [facility] Hemoglobin [Mass/volume] in Blood 14.5 g/dL 11.5-15.5 [facility] Hematocrit [Volume Fraction] of Blood by Automated count 42.2 % 3 6-45 [facility] Erythrocyte mean corpuscular volume [Entitic volume] by Auto mated count 88.9 fL 80-96 [facility] Erythrocyte mean corpuscular hemoglobin [Entitic mass] by Automated count 30.6 pg 27-33 [facility] Erythrocyte mean corpuscular hemoglobin concentration [Mass/volume] by Automated count 34.5 g/dL 32.0-36.0 [facility] E[facility] distribution width [Ratio] by Automated count 14.5 % 11.5-14.5 [facility] Platelets [#/volume] in Blood by Automated count 282 10*3/uL 150-400 [facility] Differential cell count method - Blood [facility] Neutrophils/100 leukocytes in Blood by Automated count 57 % [facility] Lymphocytes/100 leukocytes in Blood by Automated count 35 % [facility] Monocytes/100 leukocytes in Blood by Automated count 7 % [facility] Eosinophils/100 leukocytes in Blood by Automated count 1 % [facility] Basophils/100 leukocytes in Blood by Automated count 0 % [facility] Neutrophils [#/volume] in Blood by Automated count 6.12 10*3/uL 1.8-7 .0 [facility] Lymphocytes [#/volume] in Blood by Automated count 3.87 10*3/uL 1.2-4 .0 [facility] Monocytes [#/volume] in Blood by Automated count 0.75 10*3/uL 0-0.8 [facility] Eosinophils [#/volume] in Blood by Automated count 0.15 10*3/uL 0-0.5 [facility] Basophils [#/volume] in Blood by Automated count 0.03 10*3/uL 0-0.2 [facility] Nucleated erythrocytes/100 leukocytes [Ratio] in Blood by Automated count 0 /100{WBCs} 0-0 [facility] ID Date Data Source [id number] 11/06/2020 06:45:47 PM T [facility] Name Value Range Interpretation Code Description Data Mary rce(s) Supporting Document(s) Albumin [Mass/volume] in Serum or Plasma by Bromocresol green (BCG) dye binding method 4.2 g/dL 3.5-5.2 [facility] Bilirubin.total [Mass/volume] in Serum or Plasma 0.5 mg/dL <1.2 [facility] Bilirubin.direct [Mass/volume] in Serum or Plasma <0.3 [facility] Alkaline phosphatase [Enzymatic activity/volume] in Serum or Plasma 64 U/L 35-104 [facility] Aspartate aminotransferase [Enzymatic activity/volume] in Serum or Plasma 12 U/L <32 [facility] Alanine aminotransferase [Enzymatic activity/volume] in Seru m or Plasma 9 U/L <33 [facility] Protein [Mass/volume] in Serum or Plasma 7.4 g/dL 6.4-8.3 [facility] ID Date Data Source [id number] 11/06/2020 02:49:28 PM EDT [facility] Name Value Range Interpretation Code Description Data Mary rce(s) Supporting Document(s) Progress Note [facility] [id number] lbm [file] AgICAgICAgICAgICAgICAgICAgICAgICAgICAgICAgICAgICAgICAgICAgICAgICAgICAgICAgICAgIC AgICAgICAgICAgICAgICAgICAgICAgICAgICAgICAgDQogICAgICAgICAgICAgICAgICAgICAgICAgIC AgICAgICAgICAgICAgICAgICAgICAgICAgICAgICAg ICAgICAgICAgICAgICAgICAgICAgICAgICAgICAgICAgICAgICAgICAgDQogICAgICAgICAgICAgICAg ICAgICAgICAgICAgICAgICAgICAgICAgICAgICAgICAgICAgICAgICAgICAgICAgICAgICAgICAgICAg ICAgICAgICAgICAgICAgICAgICAgICAgDQogICAgIC AgICAgICAgICAgICAgICAgICAgICAgICAgICAgICAgICAgICAgICAgICAgICAgICAgICAgICAgICAgIC AgICAgICAgICAgICAgICAgICAgICAgICAgICAgICAgICAgDQogICAgICAgICAgICAgICAgICAgICAgIC AgICAgICAgICAgICAgICAgICAgICAgICAgICAgICAg ICAgICAgICAgICAgICAgICAgICAgICAgICAgICAgICAgICAgICAgICAgICAgDQogICAgICAgICAgICAg ICAgICAgICAgICAgICAgICAgICAgICAgICAgICAgICAgICAgICAgICAgICAgICAgICAgICAgICAgICAg ICAgICAgICAgICAgICAgICAgICAgICAgICAgDQogIC AgICAgICAgICAgICAgICAgICAgICAgICAgICAgICAgICAgICAgICAgICAgICAgICAgICAgICAgICAgIC AgICAgICAgICAgICAgICAgICAgICAgICAgICAgICAgICAgICAgDQogICAgICAgICAgICAgICAgICAgIC AgICAgICAgICAgICAgICAgICAgICAgICAgICAgICAg ICAgICAgICAgICAgICAgICAgICAgICAgICAgICAgICAgICAgICAgICAgICAgICAgDQogICAgICAgICAg ICAgICAgICAgICAgICAgICAgICAgICAgICAgICAgICAgICAgICAgICAgICAgICAgICAgICAgICAgICAg ICAgICAgICAgICAgICAgICAgICAgICAgICAgICAgDQ ogICAgICAgICAgICAgICAgICAgICAgICAgICAgICAgICAgICAgICAgICAgICAgICAgICAgICAgICAgIC BxXQSmDCVkGVZzTKZcEZQxUCWgYKFeOHLfDMCcBTXeYWReQRFsWCRkPJs8F4hlIPKkCYXuIF0sFRc8Rb 8+PXjVUnPyRRL1keDibD0VQV4bt7VkYRytETIhm9Hv RFa7LN3JLWZzXVrlVT3QXFzzuy1ITCTkQXSiaJHCa9asUjLyWSP7CMOuDlliVI8OASYtS8tqavAwKCJo WESRQLufRFOHBHmoECNVURToLGBbHkDkSoPnMWJvAGWsZQWNROI0GSEvElAyPLVaQZCjFuVqYTNCIVAz WWLsRaXfEIMbYMQnPT0TXPWsC211gdXxHXHIKq2+DQ jigpNrQauCXwSqAXWni8TvWSi1XB1YHUKwGfzrd8FkESHjXTQEQCvfBV3EYXY2ATTjPPPuUj5HJNJcX0 27mlWnCK6EBy2XUpLyLC5qut7RSQXxEPIlCreQQkb1FZfrZX1McXGcMFxNrv9fuuFgcgZBc5JpssFeqL IKVTKhgeFsBPwtWoWtBt6oUJtrVkQmARIjMs1kME7q UIEzEWFdKoFkAQTZDF0OGRBsBVThaKDhCOSxCCKSJX1IBSrdGBZ8CKRtopGfeIBfYOfsJE5GPNTmktQk NDIgMCBSDQo+Eq0IAF3aa6SkQVo9JMExOD0omf5KSVbCIjYjB4G9dHLgE9E7WDcqQt0UCTXzFIWcSVMn SIHYEZtxUJ6HGC7zreQ4IS2JwVKfDYYiXSRrkPCwBA f9F89kqTYeOXaeLU2BBRL+Izabella+Qv6TLTGaFEHsKCKnFwFcXCWBWpYjV0HdP1CZb4MpX6DhGZ09wIdecx ZyDZwjNB1KHX6nMBPiQZZPFO5RpSRqzJ4ddlM7BmUnQVMFQhDhD60ghSFkJKQoRCNwIDVhJw3JNHClO9 CskfKvnWeowzWsYSOpGNUYLU8GTTewguOnmNBsoXpw NT96vShyDA5UIh7GMvJtSZ3fsr8UwHRrWx0ZUZD2DT2QCEWoORDdKPDiLPM3BCEuNiJyDOhmICUhUNHs MXG9ETXnNPZpGA1FTuKjWKUoJOgeOgCiFFZoMVGusw8IKDOqGUF6DDe3XcBrGCEwDLMfFKzmAEAbHDDc DHT1LFYlTOCuZC7MAsLnEVGuXLL8KBfmKIRkJZWgpz 7RTXGrPRWfNgsoLGYwDUYeFLFnMOypCQTfNZP9FYC1EHTyQJHtCW2YPmTqOQXfLKrzBoEpNIEqMNVamu 0JZKStPBQbNUd9FKExMKXcHSEvASnuPBPiHYY7OPQgRXTgGJGoNH1PCvNcUANnKAPzUIGlZSMpGRMhdm 2KTVCdTWZaVRCkShCpEQBfHPNfWPgzDIGnMRLeAlt3 NGMgFVHyDR4SErWuESTpGFW2REXkPYYkSYCzfi3TJWSpYLVzOfJnSMWwLXLxJJCjTUlbKOMyGGH7EcCf CCImSRHdXA4DFfAwNJBeRUjeHQEtQXJwYZIdik4DWYDnSAAzMKJ9NUTsOOUwTDWjESawLEXlBDWqOiQ7 ADCrRMAfTV7QQrKxFUWdCtT9QARsILDySWXvkj0FOJ InHQTiEsw8NEZxTZNeDPDkUNmnBWWfLKR5JRa8PCIyRSGpSC8DQzBlMCQyVtZnYpGoRFZrGHJzwz4KMS JiVSHxZSFaWPDoFGXcIYAjSOanBKWnHJHrXKq4RDSmBPSiCB1XOnNjKMRyMpV0HQKgSJGsTJVpxs3BGB GcYJKuGip6OPApBCYsNYMeJSptIERxIBNaHPJ1ZXUb ETWtIA9JCpQlHSPpQmRfHiJdHKNkAYInxt2UIYBgCUPlKRQ1MWZwRPUdWNMtDCrzTNUpGRI2ClllHDJp UIKlIZ1NHzFdIFCeMbW8FoHwEMJqPHXaor9DZXFuWNV1XjhjFSPyLLEpGYFhJVglOYDpMDU1OoM3CNWj HEXuHH6AMrCiLEIvEXh0KgMbOQQmZGKjlc6ROOHeDN L7McZ9NQWpCJBoNQLyVIhlESLoDCT0BQPnRLJyGBWcWA7NOiYpZFSbZKe9CcBuLMBbNXGgsw6XKSEmDQ Z9LAy5VaYiRBGuQBRtRXcmBORrYOX1SAVzTDLyODAkZL8XSvZoOMTuDMk3QWiqOYSdUWLorh3XOLDqDN G4NEA3BFXbLOEfIFKvTDeyANVcSGDiQYD3TSMzWVMd CE2GXzJcPPOzGPTlBZiuPRGhCRGgks3GoURohXsqts7HYOhQDj1OaWvnLBP3BXqoZc8xrPZ0POAjFVSJ Uf0FdyBgIPBdVWTSYFcqBUTvDFSsEOliTdDiBaAgBGZsPZZyMOguM2XyELKpKTW1TVziGtQ4FfJpOLBx W7B5I1TzDUQfYJWdYEB5STX6WIYeEOh6RnP+IF0g DQo+Xd3Zr1UpcjN2enVhPAr0NFPhYU9YQBALG0QYYd== ID Date Data Source [id number] 10/13/2020 03:43:00 PM EDT [facility] Patient Name: EMERSON BOYER : 1975 Sex: F Pt Unit #: [id number] Location:[facility] Provider: Visit Date/Time: 10/13/20 Primary Insurance: [facility] Secondary Insurance: Self Pay Intake Vital Signs 10/13/20 15:43 Current Height 5 ft 3 in Current Weight 147 lb 8 oz Weight Measurement Method Standing Scale BMI 26.1 BP 120/80 Blood Pressure Location Lt brachial Position Sitting Respiration 17 Pulse 80 Pulse Strength Normal Pulse Source Palpation Temp 96.7 F L Temp Source Tympanic Intake Visit Reasons: Leg Pain/injury Nurse Note: Pt presents for paper work for parking permits. Health Center Assistant Required: No Accompanied by: Is patient in pain?: Yes Pain scale (1-10): 7 Allergies carbamazepine [From Tegretol] Allergy (Severe, Verified 09/24/20 12:18) Anaphylaxis Medications - Last Reconciled 10/14/20 by Lexi Luna NP baclofen 10 mg PO TID PRN glatiramer 40 mg subcutaneously 3 times a week. naproxen 500 mg PO QMWF Vision Wearing glasses?: No Fall Risk History of falls: No Ambulatory Aid:: Crutches Cane or Walker (uses cane) Gait/Transferring:: Impaired PHQ-2/9 Over the last 2 weeks, how often have you been bothered by any of the following problems? 1. Little interest or pleasure in doing things: not at all 2. Feeling down, depressed, or hopeless: not at all Total score: 0 HIV Testing Offer - ages 13-64 HIV testing Offer: Yes Requirement for HIV testing offer been met?: Patient reports past refusal SBIRT Annual Questionnaire Are you currently in recovery for alcohol or substance use?: No Do you need a note to return Do you need a note to return to daycare/school/sports/work: No Coronavirus Screening Screening Are you currently positive or on isolation for COVID ?: No Do you have any NEW signs of one or more of the following?: no symptoms Do you have NEW signs of at least two of the following?: no symptoms HPI Additional HPI HPI Details: 45 year old female with multiple sclerosis presents requesting paperwork for housing and handicap parking. She states that she lives in a housing complex/apartment complex and often she hasto park several yards away from her door because other people take the front parking spots. There are no designated handicap parking spots near her apartment door. She has discussed this with her manager scheduling and has brought paperwork for me to complete today to ensure she can park closer as walking long distances is difficult for her. She uses a cane to ambulate. She is also requesting a handicap placard. She mentions also that for the past two months she is noticing increased urinary frequency and urgency. She states that usually she has such urgency that she leaks some urine before she gets to the bathroom. She denies complete incontinence. She has frequency during the day but does not get upat night to urinate. She denies any burning or pain with urination. She is voiding small amounts butfeels that she empties out. She denies any back or flank pain. She denies abdominal pain, n/v/d/c. She denies fevers or chills. She denies vaginal symptoms. She has history of bladder mesh/sling. Sheis not currently following with urology. No additional co mplaints today. [facility] Medical History (Updated 10/14/20 @ 06:57 by Lexi Luna NP) Annual physical exam Anxiety Asthma Cervical spinal stenosis COPD (chronic obstructive pulmonary disease) Depression Multiple sclerosis Routine gynecological examination Tobacco abuse Urge incontinence Vitreous floaters of both eyes White matter changes Surgical History Hx of bladder repair surgery Hx of tubal ligation Social History Does the Patient have a Healthcare Proxy: No Does Patient have a DNR?: No Does Patient have a Living Will?: No Hx Recent Travel (where): No sexually active: Yes Smoking Status: Never smoker Smoking risk assessment performed?: Yes counseling given: provider counseling, support medications,support program, counseling >3 minutes and patient declined Review of Systems Const All systems reviewed are unremarkable except as noted in HPI and below Exam Const General: cooperative, healthy appearing, comfortable, no acute distress, well developed and well groomed Nutritional Appearance: average body habitus Orientation: alert, awake and oriented x3 Resp Effort Inspection: normal respiratory effort GI Inspection: Yes normal to inspection Palpation: soft and nontender Auscultation: normal bowel sounds General: No CVA tenderness Skin Lesions: no lesions Rashes: no rashes Neuro General: patient alert, patient awake and patient oriented x3 Gait: gait assisted (cane ) Extrem General: no clubbing, cyanosis or edema Psych Appearance: grossly normal Results Urinalysis (DipStick) Urine Specific [place] 1.020 Last Edit by Cecilia Shah on 10/13/20 16:35 Urine PH 5 Last Edit by Cecilia Shah on 10/13/20 16:35 Urine Leukocytes LARGE Last Edit by Cecilia Shah on 10/13/20 16:35 Urine Nitrates NEGATIVE Last Edit by Cecilia Shah on 10/13/20 16:35 Urine Protein NEGATIVE Last Edit by Cecilia Shah on 10/13/20 16:35 Urine Ketones NEG mg/dl Last Edit by Cecilia Shah on 10/13/20 16:35 Urine Urobilinogen NORMAL Last Edit by Cecilia Shah on 10/13/20 16:35 Urine Blood about 50 [place]/ul Last Edit by Cecilia Shah on 10/13/20 16:35 Urine Hemoglobin NEGATIVE Last Edit by Cecilia Shah on 10/13/20 16:35 Urine Glucose NORMAL Last Edit by Cecilia Shah on 10/13/20 16:35 Urine Bilirubin NORMAL Last Edit by Cecilia Shah on 10/13/20 16:35 Ua sent for culture Assessment Plan Assessment Plan (1) Multiple sclerosis: Status: Acute Code(s): G35 - Multiple sclerosis SNOMED Code(s): 03457712 Category: Medical Plan: Paperwork completed, I agree that she needs a closer parking spot to ensure that she maintains her functional capability, she will continue to use her cane. Handicap sticker application completed andgiven to patient. She will continue follow ups with neurology. (2) Tobacco abuse: Status: Acute Code(s): Z72.0 - Tobacco use SNOMED Code(s): 820789253 Category: Medical (3) Urge incontinence: Status: Acute Code(s): N39.41 - Urge incontinence SNOMED Code(s): 55971953 Category: Medical Plan: Udip in the office today shows leuks and blood, I have requested a culture on this. I will let her know if the culture indicates need for treatment for urinary tract infection. I did encourage her tomention her urinary symptoms to her neurologist at her upcoming. Encouraged plenty of water. Orders: Orders URINALYSIS W/O MICROSCOPIC 10/13/20 M54.9 - Dorsalgia, unspecified UA W/ CULTURE IF ABNORMAL 10/13/20 M54.9 - Dorsalgia, unspecified Orders Follow Up: PRN Coding [place] [address] Est Pt Extended Comp Patient Type Established Diagnoses Multiple sclerosis G35 Tobacco abuse Z72.0 Urge incontinence N39.41 Time Spent (min) 30 <Electronically signed by Lexi Luna TRACTION POWER ENGINEER> 10/14/20 0703 Name Value Range Interpretation Code Description Data Mary rce(s) Supporting Document(s) ID Date Data Source [id number] 09/24/2020 09:09:00 AM EDT [facility] Patient Name: EMERSON BOYER : 1975 Sex: F Pt Unit #: [id number] Location:[facility] Provider: Visit Date/Time: 09/24/20 Primary Insurance: [facility] Secondary Insurance: Self Pay Intake Vital Signs 09/24/20 09:09 Current Height 5 ft 3 in Current Weight 150 lb 4 oz Weight Measurement Method Standing Scale BMI 26.6 BP 138/78 Blood Pressure Location Lt brachial Position Sitting Respiration 16 Pulse 100 Pulse Strength Normal Pulse Source Palpation Temp 96.5 F L Temp Source Tympanic Intake Visit Reasons: ER Follow-up (Adult) Nurse Note: Pt was seen in ER for left arm/neck pain. Dx'd with spinal stenosis, given Prednisone, Pt states that she feels better. C/O bladder leakage, has started wearing depends. Health Center Assistant Required: No Accompanied by: Self / Same as Patient Is patient in pain?: Yes Pain scale (1-10): 8 Allergies carbamazepine [From Tegretol] Allergy (Severe, Verified 09/24/20 12:18) Anaphylaxis Medications - Last Reconciled 09/24/20 by Lexi Luna NP baclofen 10 mg PO TID PRN glatiramer 40 mg subcutaneously 3 times a week. naproxen 500 mg PO QMWF prednisone 20 mg PO BID Is last menstrual period known: Yes Last menstrual period: 09/21/20 Vision Wearing glasses?: No Fall Risk History of falls: No Ambulatory Aid:: Crutches Cane or Walker (uses cane) Gait/Transferring:: Normal HIV Testing Offer - ages 13-64 HIV testing Offer: Yes Requirement for HIV testing offer been met?: Patient reports past refusal SBIRT Annual Questionnaire Are you currently in recovery for alcohol or substance use?: No Do you need a note to return Do you need a note to return to daycare/school/sports/work: No Coronavirus Screening Screening Are you currently positive or on isolation for COVID ?: No Do you have any NEW signs of one or more of the following?: no symptoms Do you have NEW signs of at least two of the following?: no symptoms HPI Additional HPI HPI Details: 45 year old female presents for [facility] ER follow up from 09/12/2020 for left shoulder pain. She states she had some mild pain in her left shoulder for a couple of days, but woke up a couple ofweeks ago and had severe pain and her hand and arm were swollen and tingling. Her boyfriend took herto the ED and she had a cervical spine CT that showed spinal stenosis and she was treated with prednisone. Her symptoms have improved but she is still experiencing achiness and limited range of motion secondary to pain. The swelling resolved and the tingling is almost completely gone. She is not sure if it was related to her MS. She has an appointment with neurology in a couple of weeks. She denies any recent falls or injuries. No additional concerns. [facility] Medical History (Updated 09/24/20 @ 12:22 by Lexi Luna NP) Annual physical exam Anxiety Asthma Cervical spinal stenosis COPD (chronic obstructive pulmonary disease) Depression Multiple sclerosis Routine gynecological examination Tobacco abuse Vitreous floaters of both eyes White matter changes Surgical History Hx of bladder repair surgery Hx of tubal ligation Social History Does the Patient have a Healthcare Proxy: No Does Patient have a DNR?: No Does Patient have a Living Will?: No Hx Recent Travel (where): No sexually active: Yes Smoking Status: Never smoker Smoking risk assessment performed?: Yes counseling given: provider counseling, support medications,support program, counseling >3 minutes and patient declined Female Reproductive History Menstrual Date of last menstrual period: 09/21/20 Review of Systems Const All systems reviewed are unremarkable except as noted in HPI and below Musc Reports other (Has MS, hurts all the time) Exam Const General: cooperative, healthy appearing, comfortable and no acute distress Eyes Conjunctivae: conjunctivae normal Sclera: sclerae normal Pupils: PERRL EOM: EOM intact bilaterally Neck Neck: full ROM and no lymphadenopathy Neck mass: No Resp Effort Inspection: normal respiratory effort Auscultation: clear to auscultation bilaterally Cardio Rate: regular rate Rhythm: regular rhythm Heart Sounds: S1 normal and S2 normal [facility] [place] Cervical Spine: normal cervical lordosis, cervical ROM normal, cervical muscular tenderness (left) and no cervical spinal tenderness Extrem General: normal to inspection, capillary refill normal and no clubbing, cyanosis or edema Other: Negative can test right arm. Slight limitation in overhead motion of the left arm just above height of the shoulder. No obvious deformity, swelling, ecchymosis, warmth, or erythema. No AC tenderness. Neurovascular examination is intact. Assessment Plan Assessment Plan (1) Cervical spinal stenosis: Status: Acute Code(s): M48.02 - Spinal stenosis, cervical region SNOMED Code(s): 57952112 Category: Medical Plan - Lexi Luna NP: Recommend follow up with neurology as scheduled in a couple of weeks. May consider MRI or EMG if neurology agrees. I have prescribed her a low dose of prednisone to take daily until she can be seenby neurology and she can use her baclofen as needed. She will return here if she has increased symptoms or any additional concerns. Orders Other Med ications: New: prednisone 10 mg PO QDAY 14 tabs 0RF Discontinued: prednisone Discontinued Reason: Order 20 mg PO BID 10 tabs 0RF Follow Up: PRN Coding [place] [address] Est Pt Extended Comp Patient Type Established Exam Expanded Problem Focused Diagnoses Cervical spinal stenosis M48.02 CPT Codes TRANS CARE MGMT 14 DAY DISCH - 87034 (34900) Time Spent (min) 20 <Electronically signed by Lexi Luna TRACTION POWER ENGINEER> 09/24/20 1225 Name Value Range Interpretation Code Description Data Mary rce(s) Supporting Document(s) ID Date Data Source [id number] 09/12/2020 04:19:00 PM EDT [facility] [address] [place] [address] [phone] NAME SEX PT STATUS ACCOUNT NUMBER EMERSON BOYER [facility] ER [id number] ORDERING PHYSICIAN LOCATION MEDICAL RECORD NO. Lizet Sawant MD ER [id number] ATTENDING PHYSICIAN DATE OF DATE OF EXAM/TIME Lexi Luna NP 1975 09/12/20 / 0 TYPE / EXAM CT C-Spine without contrast REASON FOR EXAM r/o c5 significant nerve impingement left Clinical History/Indication for Exam: r/o c5 significant nerve impingement left CT CERVICAL SPINE WITHOUT INTRAVENOUS CONTRAST INDICATION: r/o c5 significant nerve impingement left TECHNIQUE: Axial computed tomography images of the cervical spine without intravenous contrast. Sagittal and coronal reformatted images were created and reviewed. This CT exam was performed using one or more of the following dose reduction techniques: automated exposure control, adjustment of the mA and/or kV according to patient size, and/or use of iterative reconstruction technique. COMPARISON: June 23, 2020 MRI. FINDINGS: Vertebrae: Straightening of cervical lordosis. Cervical spine is normal in height and alignment. Moderate spondylosis at C5-C6. Discs/spinal canal/neural foramina: Mild spinal canal stenosis at C5-C6. Moderate right and mild left neuroforaminal stenosis at C5-C6. Soft tissues: No prevertebral soft tissue thickening. Paraspinous soft tissues ar e unremarkable. Lung apices: Clear. IMPRESSION: Spondylosis with spinal canal and neural foraminal stenosis at C5-C6 as above. Stable compared to recent MRI from May 2020. Automatic exposure control was used as a dose lowering technique. REPORT SIGNATURE ON FILE 09/12/2020 (16:19 Eastern Time ) Signed by: Zack Flores MD, PhD. Reported By Zack Flores MD on 09/12/201618 Signed By Zack Flores MD on 09/12/201618 Date Time CC: Lexi Luna; Zack Flores MD Techn: MORSA Trans Dt/Tm: Trans by: DT Prt Dt/Tm: : Total DLP = 343.00 mGy-cm : Total Radiation Dose = 0.0000 mSv Lifetime Dose: 10.5339 mSv Name Value Range Interpretation Code Description Data Mary rce(s) Supporting Document(s) ID Date Data Source [id number] 09/12/2020 04:15:00 PM EDT [facility] ED Physician Documentation NAME: EMERSON BOYER : 1975 AGE: 45 MR#: [id number] SERVICE DATE: 09/12/[address]: Lizet Sawant MD PRIMARY CARE DR: Lexi Luna NP ROOM#: Musculoskeletal General Chief Complaint: Musculoskeletal Stated Complaint: SHOULDER PAIN,SWELLING Time Seen by Provider: 09/12/20 14:13 Source: patient History of present illness HPI Narrative:: Patient presents here with a chief complaint of left shoulder pain and swollen fingers. She has no idea what the inciting agent is. She has multiple sclerosis and family membersdo not allow her to do much lifting. She apparently woke up this way. She does not know what provoked it. When she states her whole arm is numb she cannot really tell me which fingers are morenumb than others. She is holding her wrist with her contralateral side. She can turn her head right and left without any discomfort. She has minimal tender to palpation over the deltoid muscle and symptoms do get better with better posturing but not enough to say that this is thoracic outlet syndrome. She has never had anything like this before. She is a former smoker. She admits to having had neck problems in the past. Location of complaint:: LUE Mechanism of injury:: no known Redness?: No Deformity?: No Swelling?: Yes Ecchymosis?: No Shortening of limb?: No Distal Rotation:: No rotation Distal CMS intact?: Yes Open Fracture?: No Ambulation Assistive Devices: None Gait steady?: Yes Weight Bearing Status: Full Weight Bearing Limited ROM?: Yes Numbness or tingling?: Yes (tingling in fingers) Allergies/Home Meds Allergies Allergy/AdvReac Type Severity Reaction Status Date / Time carbamazepine [From Tegretol] Allergy Severe Anaphylaxis Verified 09/12/20 14:24 Home Medications Medication Instructions Recorded Confirmed Last Taken Type naproxen 500 mg tablet 500 mg PO QMWF tab 09/30/19 09/12/20 09/12/20 History glatiramer See Rx Instructions .ROUTE .COMPLEX 01/27/20 09/12/20 09/12/20 History baclofen 10 mg PO TID PRN #14 tab 01/28/20 09/12/20 09/12/20 Rx prednisone 20 mg PO BID #10 tab 09/12/20 Unknown Rx PMH (from Triage) Patient Medical History PMH Reviewed/Updated as Needed: Yes PMH/PSH from Triage: Medical History (Updated 05/15/20 @ 11:36 by Lexi Luna NP) Annual physical exam (Medical) Z00.00 Anxiety (Medical) F41.9 Asthma (Medical) J45.909 COPD (chronic obstructive pulmonary disease) (Medical) J44.9 Depression (Medical) F32.9 Multiple sclerosis (Medical) G35 Routine gynecological examination (Medical) Z01.419 Tobacco abuse (Medical) Z72.0 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 White matter changes (Medical) Surgical History (Updated 07/17/19 @ 10:49 by Courtney Sutherland RN) Hx of bladder repair surgery (Surgical) Z98.890 Hx of tubal ligation (Surgical) Z98.51 Female History LMP:: 1 week ago : No Hx Drug Resistant Infections Hx Other Resistant Infection?: No Isolation: Standard precautions Hx Recent Travel Out of the country within 10 days (where): No Hx Fever with a rash?: No Nurse screening for coronavirus: Recent Travel outside the No country (where) Has patient experienced No coronavirus symptoms Social History Are you in a relationship with/Does anyone hit you, yell/swear at you, steal from you?: No Substance Use Second Hand Smoke Exposure: No Smoking Status: Never smoker Tobacco Use Hx Chewing Tobacco Use: No Vaccination History Hx/Date of Tetanus, Diphtheria Vaccination: Yes Hx/Date of Influenza Vaccination: Yes Hx/Date of Pneumococcal Vaccination: No Immunizations Up to Date: Yes ROS Review of Systems Constitutional: Denies fever and chills Eyes: Denies vision change and eye discharge/drng ENT: Denies mouth pain and mouth swelling Respiratory: Denies cough and sputum Cardiovascular: Denies dyspnea on exertion Gastrointestinal: Reports No Symptoms/Complaints Genitourinary-Female: Denies dysuria Musculoskeletal: Reports neck pain and shoulder pain; Denies muscle weakness Skin/Breasts: Denies rash Neurologic: Reports numbness; Denies weakness Psychiatric: Reports No Symptoms/Complaints Endocrine: Reports No Sy mptoms/Complaints Allergic/Immunologic: Reports No Symptoms/Complaints [facility] Medical History Annual physical exam Anxiety Asthma COPD (chronic obstructive pulmonary disease) Depression Multiple sclerosis Routine gynecological examination Tobacco abuse Vitreous floaters of both eyes White matter changes Surgical History Hx of bladder repair surgery Hx of tubal ligation Social History Does the Patient have a Healthcare Proxy: No Does Patient have a DNR?: No Does Patient have a Living Will?: No Hx Recent Travel (where): No sexually active: Yes Smoking Status: Never smoker Smoking risk assessment performed?: Yes counseling given: provider counseling, support medications,support program, counseling >3 minutes and patient declined Physical Exam General Physical Exam Narrative: Patient has pain out of proportion to exam. She has some tenderness over the lateral deltoid subacromial space but not enough to say she has bursitis. Biceps tendon palpates to be normal. Pulses do abolish at extreme abduction but her symptoms do not go away completely with maneuvers to open the thoracic outlet. They do somewhat worsen with compression of the thoracic outlet but again not to allow the diagnosis definitively. She does have some numbness on palpation and compression of the pectoralis minor tendon. No Tinel's sign at the elbow or the wrist. Pulses are intact otherwise. Limitations: no limit ations Head Head exam: Present atraumatic, normocephalic and normal inspection Eye Eye exam: Present normal apperance, PERRL and EOMI; Absent scleral icterus ENT ENT exam: Present normal exam and normal orophraynx Neck Neck exam: Present normal inspection; Absent tenderness Respiratory Respiratory exam: Present normal lung sounds bilaterally and respiratory distress Cardiovascular Cardiovascular Exam: Present regular rate, normal rhythm and no murmur GI/Abdominal GI/Abdominal exam: Present Abd soft, bowel sounds present all quadrents and distended Rectal Rectal exam: Absent deferred Extremities Exam Extremities exam: Present normal inspection, Full ROM without tenderness, capillary refill brisk andtenderness (Tenderness over the lateral deltoid but not enough to make the diagnosis of bursitis. Biceps tendon palpates normally. Notes as above.) Back Exam Back exam: Present normal inspection Neurological Exam Neurological exam: Present alert, oriented X3 and motor sensory deficit (Minor subjective numbness probably in the distribution of C5-6 although the patient cannot be exact.) Skin Skin exam: Present warm and other (No evidence for shingles or other herpetic lesions.) Vital Signs Vital Signs: Vital Signs 09/12/20 14:13 Temperature 97.3 F L Pulse Rate 74 Respiratory Rate 16 Blood Pressure 129/75 O2 Sat by Pulse Oximetry 99 MDM (comprehensive) Lab Data Labs: 09/12/20 15:15 09/12/20 15:15 Laboratory Results Last 24 hours 09/12/20 15:15: WBC 8.8, RBC 4.67, Hgb 13.7, Hct 41.9, MCV 90, MCH 29, MCHC 33, RDW 15, Plt Count 281, MPV 9.1, Immature Gran % (Auto) 0.3, Neut % (Auto) 47.8, Lymph % (Auto) 41.7, [place] % (Auto) 7.3, Eos % (Auto) 2.3, Baso % (Auto) 0.6, Lymph # (Auto) 3.7, Abs Immat Gran (auto) 0.0, Add Manual Diff No, Absolute Neutrophils 4.2, Monocytes # 0.6, Absolute Eosinophils 0.2, Absolute Basophils 0.1 09/12/20 15:15: D-Dimer 0.24 09/12/20 15:15: Sodium 139, Potassium 4.1, Chloride 110 H, Carbon Dioxide 24, Anion Gap 9, BUN 13, Creatinine 0.8, GFR Calculation Greater than 60, Glucose 85, Calcium 9.0, Total Bilirubin 0.5, AST 7, ALT 13, Alkaline Phosphatase 67, Serum Total Protein 7.7, Albumin 3.7 Medical Decision Making Free Text/Narative:: She has multiple sclerosis. I do not think this is a manifestation of that. Also I do not think there is enough evidence to say that this is thoracic outlet syndrome or subacromial bursitis. CT scan of her neck demonstrates C5-6 foraminal stenosis which was expected. Her D-dimer is negative. I think she can be safely managed with a course of steroids for cervical radiculopathy. The likely etiology of this is she slept wrong and has some edema at the foramina that is causing her radiculopathy. Differential Diagnosis Differential Diagnosis: Coast tumor cervical stenosis thoracic outlet syndrome subacromial bursitis Plan Visit Medications Administered ED medications:: Medications Discontinued Medications Generic Name Dose Route Start Last Admin Trade Name Freq PRN Reason Stop Dose Admin Prednisone 40 mg 09/12/20 16:30 09/12/20 16:33 Prednisone 20 Mg Tablet PO 09/12/20 16:31 40 mg 1T ONE Administration Other Medications: New: prednisone 20 mg PO BID 10 tabs 0RF Discontinued: hydrocodone-acetaminophen 7.5-325 mg Discontinued Reason: Patient Reported 1 tab PO Q6HR PRN 6 tabs 0RF pain Discharge Plan Admission/Discharge Dx Primary DC Diagnosis: Cervical radiculopathy ED Provider: Lizet Sawant ED Status: Ready for Discharge Time Seen by Provider: 09/12/20 14:13 Triaged At: 09/12/20 14:13 Discharge Detail Disposition: Home, Self-Care Med Rec New Prescriptions: New prednisone 20 mg tablet 20 mg PO BID Qty: 10 RF: 0 No Action naproxen 500 mg tablet 500 mg PO QMWF RF: 0 glatiramer 40 mg/mL syringe See Rx Instructions .ROUTE .COMPLEX RF: 0 baclofen 10 mg tablet 10 mg PO TID PRN (Reason: back pain) Qty: 14 RF: 0 Discharge Education Printouts: Cervical Spinal Stenosis (ED), Cervical Radiculopathy (ED) Follow Up Care/Instructions Diet/Activity/Wound Care..: Your CT scan shows some spinal stenosis that is affecting one of the nerves to goes to your hand. We will treat you with prednisone 20 mg twice a day for 5 days. This should relieve some of the swelling. I recommend you use a cervical collar especially during sleep. Heat or ice as you pleasemay also help. Follow-up as needed. *Discharge Patient* Discharge Orders: Discharge Order (Routine); Ordered 09/12/20 Ordered By: Lizet Sawant Interventions Interventions: ED Musculoskeletal Last Done: 09/12/20 14:22 Report Signers: <Electronically signed by Lizet Sawant MD> Lizet Sawant MD 09/12/20 1659 Lizet Sawant MD SIGNATURE DA Report Cosigners: D: GLENROY 09/12/20 161 T: GLENROY 09/12/20 161 CC: Lexi Luna Name Value Range Interpretation Code Description Data Mary rce(s) Supporting Document(s) ID Date Data Source [id number] 09/12/2020 03:57:00 PM EDT [facility] [address] [id number] [phone] NAME SEX PT STATUS ACCOUNT NUMBER EMERSON BOYER [facility] ER [id number] ORDERING PHYSICIAN LOCATION MEDICAL RECORD NO. Lizet aSwant MD ER [id number] ATTENDING PHYSICIAN DATE OF DATE OF EXAM/TIME Lexi Luna NP 1975 09/12/201530 TYPE / EXAM Xray Shoulder complete LT REASON FOR EXAM severe left sholder pain Clinical History/Indication for Exam: severe left sholder pain RADIOGRAPHS OF THE LEFT SHOULDER COMPLETE 2 OR MORE VIEWS INDICATION: severe left sholder pain COMPARISON: No relevant prior studies available. FINDINGS: Bones/joints: Unremarkable. No acute fracture. No dislocation. Soft tissues: Unremarkable. IMPRESSION: Normal left shoulder radiographs. No bony abnormality. I would recommend follow-up MRI examination. REPORT SIGNATURE ON FILE 09/12/2020 (15:57 Eastern Time ) Signed by: Deonte Malin M.D. Reported By Deonte Malin MD on 09/12/201556 Signed By Deonte Malin MD on 09/12/201556 Date Time CC: Lexi Luna; Deonte Malin MD Techn: MORSA Trans Dt/Tm: Trans by: DT Prt Dt/Tm: 2854-1146: Total DLP = 0.00 mGy-cm Fluoroscopy Time (in secs): Name Value Range Interpretation Code Description Data Mary rce(s) Supporting Document(s) ID Date Data Source [id number] 09/12/2020 03:56:00 PM EDT [facility] [address] [place] [address] [phone] NAME SEX PT STATUS ACCOUNT NUMBER EMERSON BOYER [facility] ER [id number] ORDERING PHYSICIAN LOCATION MEDICAL RECORD NO. Lizet Sawant MD ER [id number] ATTENDING PHYSICIAN DATE OF DATE OF EXAM/TIME Lexi Luna NP 1975 09/12/201529 TYPE / EXAM Xray Chest One View REASON FOR EXAM left shoulder pain Clinical History/Indication for Exam: left shoulder pain RADIOGRAPH OF THE CHEST 1 VIEW INDICATION: left shoulder pain COMPARISON: 07/17/2019. FINDINGS: Lungs: Unremarkable. No consolidation. Pleural space: Unremarkable. No pneumothorax. Heart: Unremarkable. No cardiomegaly. Mediastinum: Unremarkable. Bones/joints: Unremarkable. IMPRESSION: No acute cardiopulmonary disease. REPORT SIGNATURE ON FILE 09/12/2020 (15:56 Eastern Time ) Signed by: Tj Ni M.D. Reported By Tj Ni MD on 09/12/201555 Signed By Tj Ni MD on 09/12/201555 Date Time CC: Lexi Luna; Tj Ni MD Techn: BECKI Trans Dt/Tm: Trans by: DT Prt Dt/Tm: 5001-8313: Total DLP = 0.00 mGy-cm Fluoroscopy Time (in secs): Name Value Range Interpretation Code Description Data Mary rce(s) Supporting Document(s) ID Date Data Source [id number] 09/12/2020 03:19:00 PM EDT [facility] Is test to R/O PE, DVT or VTE? Y Name Value Range Interpretation Code Description Data Mray rce(s) Supporting Document(s) Leukocytes [#/volume] in Blood by Automated count 8.8 10*3/uL 4.45-10 .71 N [facility] Erythrocytes [#/volume] in Blood by Automated count 4.67 10*6/uL 4.20 -5.40 N [facility] Hemoglobin [Moles/volume] in Blood 13.7 g/dL 10.7-15.4 N [facility] Hematocrit [Volume Fraction] of Blood by Automated count 41.9 % 3 7-47 N [facility] Erythrocyte mean corpuscular volume [Ent itic volume] in Cord blood by Automated count 90 fL 80-96 N [facility] ital Erythrocyte mean corpuscular hemoglobin [Entitic mass] by Au tomated count 29 pg 27-31 N [facility] Erythrocyte mean corpuscular hemoglobin concentration [Mass/volume] in Cord blood 33 g/dL 33-37 N [facility] ital Erythrocyte distribution width [Entitic volume] by Automated count 15 % 11-15 N [facility] Platelets [#/volume] in Blood by Automated count 281 10*3/uL 130-472 N [facility] Platelet mean volume [Entitic volume] in Blood 9.1 fL 9.1-13.1 N [facility] Neutrophils/100 leukocytes in Blood by Automated count 47.8 % 41- 77 N [facility] Neutrophils [#/volume] in Blood by Automated count 4.2 U 1.7-7.6 N [facility] Lymphocytes/100 leukocytes in Blood by Automated count 41.7 % 14- 46 N [facility] Lymphocytes [#/volume] in Blood by Automated count 3.7 U 0.6-4.6 N [facility] Monocytes/100 leukocytes in Blood by Automated count 7.3 % 4-12 N [facility] Monocytes [#/volume] in Blood by Automated count 0.6 U 0.2-1.2 N [facility] Eosinophils/100 leukocytes in Blood by Automated count 2.3 % 0-7 N [facility] Eosinophils [#/volume] in Blood by Automated count 0.2 U 0.0-0.5 N [facility] Basophils/100 leukocytes in Blood by Automated count 0.6 % 0.4-1 .3 N [facility] Basophils [#/volume] in Blood by Automated count 0.1 U 0.0-0.2 N [facility] NUCLEATED RED BLOOD CELL 0 % [facility] NUCLEATED RED BLOOD CELL# 0 U [facility] Immature granulocytes [Presence] in Blood by Automated count 0-2 N [facility] Immature granulocytes [#/volume] in Blood by Automated count 0.0 U 0-0.1 N [facility] Manual Differential panel - Blood NO [facility] ID Date Data Source [id number] 09/12/2020 03:38:00 PM EDT [facility] Is test to R/O PE, DVT or VTE? Y Name Value Range Interpretation Code Description Data Mary rce(s) Supporting Document(s) Fibrin D-dimer [Units/volume] in Platelet poor plasma 0.24 mg/L 0.0- 0.50 [facility] @ Has QC been run for this test today? YES AT 1510 TKHPLEASE NOTE: THIS TEST WAS PERFORMED USING A PARTICLE-ENHANCED, IMMUNOTURBIDIMETRIC ASSAY AND HAS A SINGLE,CLINICALLY DERIVED CUTOFF OF 0.50 MG/L. ID Date Data Source [id number] 09/12/2020 03:37:00 PM EDT [facility] Name Value Range Interpretation Code Description Data Mary rce(s) Supporting Document(s) Urea nitrogen [Mass/volume] in Serum or Plasma 13 mg/dL 9-23 N [facility] Sodium [Moles/volume] in Serum or Plasma 139 mmol/L 132-146 N [facility] Potassium [Moles/volume] in Serum or Plasma 4.1 mmol/L 3.5-5.5 N [facility] Chloride [Moles/volume] in Serum or Plasma 110 mmol/L 99-109 Above high normal [facility] Carbon dioxide, total [Moles/volume] in Serum or Plasma 24 mmol/L 20 -31 N [facility] Anion gap in Serum or Plasma 9 mmol/L 8-16 N [facility] Glucose [Mass/volume] in Serum or Plasma 85 mg/dL 74-106 N [facility] Creatinine 0.8 mg/dL 0.5-1.1 N [facility] Glomerular filtration rate/1.73 sq M.pre dicted [Volume Rate/Area] in Serum or Plasma Greater Than 60 ABOVE 60 [facility] Alanine aminotransferase [Enzymatic acti vity/volume] in Serum or Plasma by With P-5'-P 13 U/L 10-49 N [facility] ital Aspartate aminotransferase [Enzymatic ac tivity/volume] in Serum or Plasma by With P-5'-P 7 U/L 0-33 N [facility] pital Alkaline phosphatase [Enzymatic activity/volume] in Serum or Plasma 67 U/L 45-129 N [facility] Calcium [Mass/volume] in Serum or Plasma 9.0 mg/dL 8.5-10.1 [facility] Bilirubin.total [Mass/volume] in Serum or Plasma 0.5 mg/dL 0.3-1.2 [facility] Albumin [Mass/volume] in Serum or Plasma by Bromocresol purple (BCP) dye binding method 3.7 g/dL 3.2-4.8 [facility] ital Protein [Mass/volume] in Serum or Plasma 7.7 g/dL 5.7-8.2 [facility] ID Date Data Source [id number] 07/16/2020 11:17:13 AM [facility] Name Value Range Interpretation Code Description Data Mary rce(s) Supporting Document(s) Progress Note [facility] LLAVBf6vLfKUFwJg73/ZZAasSEYuw0DjSSdgQVz4ZWngWPVuV0TyXJF9jZ2aYCH4AJyDMuTaMfAbOoE9 lbm [file] ICAgICAgICAgICAgICAgICAgICAgICAgICAgICAgIC AgICAgICAgICAgICAgICAgICAgICAgICAgICAgICAgICAgICAgICAgICAgICAgICAgICAgICAgICAgIC AgICAgDQogICAgICAgICAgICAgICAgICAgICAgICAgICAgICAgICAgICAgICAgICAgICAgICAgICAgIC AgICAgICAgICAgICAgICAgICAgICAgICAgICAgICAg ICAgICAgICAgICAgICAgDQogICAgICAgICAgICAgICAgICAgICAgICAgICAgICAgICAgICAgICAgICAg ICAgICAgICAgICAgICAgICAgICAgICAgICAgICAgICAgICAgICAgICAgICAgICAgICAgICAgICAgDQog ICAgICAgICAgICAgICAgICAgICAgICAgICAgICAgIC AgICAgICAgICAgICAgICAgICAgICAgICAgICAgICAgICAgICAgICAgICAgICAgICAgICAgICAgICAgIC AgICAgICAgDQogICAgICAgICAgICAgICAgICAgICAgICAgICAgICAgICAgICAgICAgICAgICAgICAgIC AgICAgICAgICAgICAgICAgICAgICAgICAgICAgICAg ICAgICAgICAgICAgICAgICAgDQogICAgICAgICAgICAgICAgICAgICAgICAgICAgICAgICAgICAgICAg ICAgICAgICAgICAgICAgICAgICAgICAgICAgICAgICAgICAgICAgICAgICAgICAgICAgICAgICAgICAg DQogICAgICAgICAgICAgICAgICAgICAgICAgICAgIC AgICAgICAgICAgICAgICAgICAgICAgICAgICAgICAgICAgICAgICAgICAgICAgICAgICAgICAgICAgIC AgICAgICAgICAgDQogICAgICAgICAgICAgICAgICAgICAgICAgICAgICAgICAgICAgICAgICAgICAgIC AgICAgICAgICAgICAgICAgICAgICAgICAgICAgICAg ICAgICAgICAgICAgICAgICAgICAgDQogICAgICAgICAgICAgICAgICAgICAgICAgICAgICAgICAgICAg ICAgICAgICAgICAgICAgICAgICAgICAgICAgICAgICAgICAgICAgICAgICAgICAgICAgICAgICAgICAg ICAgDQogICAgICAgICAgICAgICAgICAgICAgICAgIC AgICAgICAgICAgICAgICAgICAgICAgICAgICAgICAgICAgICAgICAgICAgICAgICAgICAgICAgICAgIC TkBWXuBHYdTHFuCBBgZJm4E7jjLAJiYWQgLK0xZLf0Bn4+XRnSGjJlYNQ2emEnbR7HHI9dy8IkRFrpVV Ixf9QkABc3VP2DIMJsDWbaNG2EDVdtgn1REUItTSVf sLGHs8riUwJqZDS8BBYiMwerLC0QFKNxI9teehFtBOGbSBASGQnzWXFEDPdrKKWDTRPvAZEkZhNkYgDm UOFqBPXjWVLFURE5JPGlDbKyCUXrLTApUlWwGHVVLRZuYVOmIdPcNLaiAF9Eo7ZtqKKbWR7GKt2FToDy XB5mzd3YXRQrDXTuKneFJgk6TZmpUQ9QlNLhxUC6HH AkEGDMGjXmE5wbq5YqVGPbNTTNGIozRD4Li0TzaJBlMXx+Pk1IPF8yu4KzVUj4EKDeBJ4pbp7CEQgACb QtH7ZcdIpcZDQme4hqUMGfES8moSAmKIY5PRMrviE1BXSaQSPYzvJ5AEBMSFWtbDYjVuO8OhDxHqSuPF K7PfPdVA5rTWcyER8RWXZ2BIcqPOFuWKRmA6lARhJv WQHmXgVlpUiePM1FYbVxO3RcgaLhxFG2SIEzYZJQMd4+TZciixWkFykGAkLnIRVaq2EwINo6WC8JNBHv BUkfSF3EEFQqxD0qBLltKK8ZEgBqFKEiPAQVIxKaU80txRCrGVv2S7NaToZyVDSwBylvNMWmHAaeCcAc ZXMgWyBdDQogID4+ID4+YKqtGU9TQKeqzkLaBHTqFn 4BWVSoGDWmJS8zIURxZRTeL2C5vDhpGCDPEtTkY0moswomXA2cSREnM534vSvkpuJgKHGxFWQhZb5HKT DoYJE4CYXvwUUmYzfpWAOKTCvtMO1OuQRgPWO3lF8wESuyTGRbOYUvO8nUOiAfqZjlBT19dTekoqLkiB BdDQo+Bn0DMJ1fm8RmZXz9iaCiZLczWTYtHCxpTGMc UFTvVIIpHNE7HTF3SRJMIeRuGSHjIYRvMCtoHXOsUCWnhj2ELPUmDGF8HNy7DkCwMFLxEOQeSZprIUFd CAPcSDe6WRTzFDMtQE4FKxNlLUHxMJLsWEwwQIUdGIGnce4OPERvEKJaJzPzLSBlNDEoNLNiYFwuXVSd TVXkXiJ4QYLxDVXaXW8PXlIaETCnNWR0KYplDSFlOL Pnjf0VCHMoANFmKjU7NqMhNHFlICKtHKdyOTMiYWV7PQIyKHQgUGCeMR1DFnCaZVHuYFk9TynrTWVhYT Mtij0OXRKpPCMfSRkmDMEvHNTpYODoFNrwTUCyFBFvOEEaRZHkQYRzOM6RTxYoKGAoFKLjDQAdUEIwIB Nfzu1SVUFiUEVoEzC6QFInSLRcVJFmOLwnPMEfTKC7 WMv0YHKqKXDrCG1KWlDsKVTrOYL1EJLtWFGiWMGnhc7BHKSbIAGfBvh9JfHdHXXyKCPmMNrrJBUpRXG2 QHyhIEPyYTVoCC3KAvUsAHTuPlN8ZVYjUFXhLLBlgk6LLBDuXXFbFVu3CzLrXXOhDGUdPGyhSBDuGOGu ZVNnAEIiRDKfIH8GHjZnAYVnCkVhMCPtEYSaUBTjhi 9RJAToLMYiMBR1LpCxAAQoXDOiDIhyOOMtINY9UMxvBFLbYVJuFY4XLuEuSIRjHlU8SJJyMJWkVBXnjp 1XIVVfMQCaMiQoCYZoPGYjYRIlYDllXMPmEGG2BGKgNNWgVQFwVY7EFdWaYDMtEkq5IOCaVGRvWKMoff 1REXMwHQFlWqs5OrBdYQKuBZJdACduIBTmMVH3GVfb KXGqPVYcJJ5PJtKvJGKxIxy7VNVvNZHjZUDrem3ECEXwUEMpYGxdJmDzYXIcVFHfKDieGHFpMLJxBNA7 QDZqQTPiFP0XRoYiJWFdPWBxLWGvAJUjCFCzlf3MQHRqWFD3XSUzVYZjGVHyMPXwCGloBKAiTKBjNQc3 HJThLXLvMR3MQdZzHSPpNUU3MuGvYADgTVWyii7NAR BzGMT6AIp2OGRpOSQtNYWkAYinJHDrBAOiAoW4UCNrGLHtID8FPfWkFLMvYSP3MHmbRQVzGQHpwl5NNF FsNYY9AfbgWQJhNSGkTDYqGYcxLHXwXSHxCJg6YHAyNHBkWT0IXwAhVLutABYKQvn0EOmuW0t1VOZ5Ce 5FK7Lpm6DlWINfEZYEIIrhQL6tkvMbOBUfWx6ZL0tP Egh9OPIiAXVfQUTrOQO5QTGoDgYxJAP0PsAtX2G5CGNyXE3jFWIhAyH2LKC6AIL4NzU4RySlDdNdWBBk KVJfFuVnKsR8LsWcTT0KBl5KIcB0TME2yVMiTt7SXSGcZaJQQkIdHJ8YUEj= ID Date Data Source [id number] 07/04/2020 03:34:00 AM EST [facility] [address] [place] [address] [phone] NAME SEX PT STATUS ACCOUNT NUMBER EMERSON BOYER [facility] ER [id number] ORDERING PHYSICIAN LOCATION MEDICAL RECORD NO. Bennett Anand MD ER [id number] ATTENDING PHYSICIAN DATE OF DATE OF EXAM/TIME Lexi Luna NP 1975 07/04/20352 TYPE / EXAM US VENOUS LEG RIGHT REASON FOR EXAM R calf pain Clinical History/Indication for Exam: R calf pain US DUPLEX RIGHT LOWER EXTREMITY VEINS INDICATION: Right calf pain TECHNIQUE: Real-time duplex ultrasound scan of the right lower extremity veins integrating B-mode two-dimensional vascular structure, Doppler spectral analysis, color flow Doppler imaging and compression. COMPARISON: No relevant prior studies available. FINDINGS: Deep veins: Unremarkable. No DVT in the visualized common femoral, femoral, proximal deep femoral or popliteal veins. The veins demonstrate normal color flow, are normally compressible, with normal phasic flow and/or augmentation response. Superficial veins: Unremarkable. No thrombus in the visualized great saphenous vein. Soft tissues: No acute findings. No popliteal cyst. IMPRESSION: Normal right lower extremity duplex venous ultrasound. REPORT SIGNATURE ON FILE 07/04/2020 (03:34 Eastern Time ) Signed by: Fransisco Reeves M.D. Reported By Fransisco Reeves MD on 07/04/20333 Signed By Fransisco Reeves MD on 07/04/20333 Date Time CC: Lexi Luna; Fransisco Reeves MD Techn: TABSA Trans Dt/Tm: Trans by: DT Prt Dt/Tm: : Total DLP = 0.00 mGy-cm 4918-8214: Total Radiation Dose = 0.0000 mSv Lifetime Dose: 10.5339 mSv Name Value Range Interpretation Code Description Data Mary rce(s) Supporting Document(s) ID Date Data Source [id number] 07/04/2020 02:24:00 AM [facility] Is test to R/O PE, DVT or VTE? Y Name Value Range Interpretation Code Description Data Mary rce(s) Supporting Document(s) Leukocytes [#/volume] in Blood by Automated count 13.3 10*3/uL 4.45-10.71 Above high normal [facility] Erythrocytes [#/volume] in Blood by Automated count 4.74 10*6/uL 4.20 -5.40 N [facility] Hemoglobin [Moles/volume] in Blood 13.8 g/dL 10.7-15.4 N [facility] Hematocrit [Volume Fraction] of Blood by Automated count 43.1 % 3 7-47 N [facility] Erythrocyte mean corpuscular volume [Ent itic volume] in Cord blood by Automated count 90.9 fL 80-[address] [facility] Erythrocyte mean corpuscular hemoglobin [Entitic mass] by Automated count 29.1 pg 27-31 N [facility] Erythrocyte mean corpuscular hemoglobin concentration [Mass/volume] in Cord blood 32.0 g/dL 33-37 Below low normal [facility] Erythrocyte distribution width [Entitic volume] by Automated count 14 % 11-15 N [facility] Platelets [#/volume] in Blood by Automated count 246 10*3/uL 130-472 [facility] Platelet mean volume [Entitic volume] in Blood 9.2 fL 9.1-13.1 N [facility] Neutrophils/100 leukocytes in Blood by Automated count 61.6 % 41- 77 [facility] Neutrophils [#/volume] in Blood by Automated count 8.2 U 1.7-7.6 Above high normal [facility] Lymphocytes/100 leukocytes in Blood by Automated count 30.1 % 14- 46 N [facility] Lymphocytes [#/volume] in Blood by Automated count 4.0 U 0.6-4.6 N [facility] Monocytes/100 leukocytes in Blood by Automated count 5.9 % 4-12 N [facility] Monocytes [#/volume] in Blood by Automated count 0.8 U 0.2-1.2 N [facility] Eosinophils/100 leukocytes in Blood by Automated count 1.7 % 0-7 N [facility] Eosinophils [#/volume] in Blood by Automated count 0.2 U 0.0-0.5 N [facility] Basophils/100 leukocytes in Blood by Automated count 0.4 % 0.4-1 .3 N [facility] Basophils [#/volume] in Blood by Automated count 0.1 U 0.0-0.2 N [facility] NUCLEATED RED BLOOD CELL 0 % [facility] NUCLEATED RED BLOOD CELL# 0 U [facility] Immature granulocytes [Presence] in Blood by Automated count 0-2 N [facility] Immature granulocytes [#/volume] in Blood by Automated count 0.0 U 0-0.1 N [facility] Manual Differential panel - Blood NO [facility] ID Date Data Source [id number] 07/04/2020 02:48:00 AM EST [facility] Is test to R/O PE, DVT or VTE? Y Name Value Range Interpretation Code Description Data Mary rce(s) Supporting Document(s) Urea nitrogen [Mass/volume] in Serum or Plasma 20 mg/dL 9-23 N [facility] Sodium [Moles/volume] in Serum or Plasma 140 mmol/L 132-146 [facility] Potassium [Moles/volume] in Serum or Plasma 3.8 mmol/L 3.5-5.5 [facility] Chloride [Moles/volume] in Serum or Plasma 109 mmol/L 99-109 [facility] Carbon dioxide, total [Moles/volume] in Serum or Plasma 26 mmol/L 20 -31 N [facility] Anion gap in Serum or Plasma 9 mmol/L 8-16 N [facility] Glucose [Mass/volume] in Serum or Plasma 92 mg/dL 74-106 N [facility] Creatinine 0.8 mg/dL 0.5-1.1 [facility] Glomerular filtration rate/1.73 sq M.pre dicted [Volume Rate/Area] in Serum or Plasma Greater Than 60 ABOVE 60 [facility] Alanine aminotransferase [Enzymatic acti vity/volume] in Serum or Plasma by With P-5'-P 17 U/L 10-49 N [facility] ital Aspartate aminotransferase [Enzymatic ac tivity/volume] in Serum or Plasma by With P-5'-P 7 U/L 0-33 N [facility] pital Alkaline phosphatase [Enzymatic activity/volume] in Serum or Plasma 64 U/L 45-129 [facility] Calcium [Mass/volume] in Serum or Plasma 9.0 mg/dL 8.5-10.1 [facility] Bilirubin.total [Mass/volume] in Serum or Plasma 0.2 mg/dL 0.3-1.2 Below low normal [facility] Albumin [Mass/volume] in Serum or Plasma by Bromocresol purple (BCP) dye binding method 3.7 g/dL 3.2-4.8 [facility] ital Protein [Mass/volume] in Serum or Plasma 7.5 g/dL 5.7-8.2 [facility] ID Date Data Source [id number] 07/04/2020 02:48:00 AM [facility] Is test to R/O PE, DVT or VTE? Y Name Value Range Interpretation Code Description Data Mary rce(s) Supporting Document(s) Fibrin D-dimer [Units/volume] in Platelet poor plasma 0.31 mg/L 0.0- 0.50 [facility] @ Has QC been run for this test today?PL EASE NOTE: THIS TEST WAS PERFORMED USING A PARTICLE-ENHANCED, IMMUNOTURBIDIMETRIC ASSAY AND HAS A SINGLE,CLINICALLY DERIVED CUTOFF OF 0.50 MG/L. ID Date Data Source [id number] 07/04/2020 01:59:00 AM [facility] ED Physician Documentation NAME: EMERSON BOYER : 1975 AGE: 45 MR#: [id number] SERVICE DATE: 07/04/[address]: Bennett Anand MD PRIMARY CARE DR: Lexi Luna NP ROOM#: HPI (Adult, General) General Chief Complaint: Musculoskeletal Stated Complaint: LEG PAIN Time Seen by Provider: 07/04/20 01:49 History of Present Illness Narrative: 1:45AM: C : R calf pain X 3 days. Patient is a 45-year-old female who states 2019 she developed "numbness" in her extremities and abnormal gait. PMD ordered cranial MRI which was abnormal, pt was [place] to [place]ist [place]. Pt has not yet started treatment for MS. Then, 07/01/2020 patient experienced insidious onset of pain right calf "numb", "sleepy". Right calf pain waxes and wanes but never goes away, and interfered with sleep this morning precipitating this ED visit. Friend drove patient to ED. Patient did not take anything for this right calf pain. Patient denies associated precipitating trauma. Allergies/Home Meds Allergies Allergy/AdvReac Type Severity Reaction Status Date / Time carbamazepine [From Tegretol] Allergy Severe Anaphylaxis Verified 07/04/20 01:33 Home Medications Medication Instructions Recorded Confirmed Last Taken Type naproxen 500 mg tablet 500 mg PO QMWF tab 09/30/19 07/04/20 07/03/20 History glatiramer See Rx Instructions .ROUTE .COMPLEX 01/27/20 07/04/20 07/03/20 History baclofen 10 mg PO TID PRN #14 tab 01/28/20 07/04/20 07/03/20 Rx hydrocodone-acetaminophen [Dolliver] 1 tab PO Q6HR PRN #6 tab 01/28/20 07/04/20 03/12/20 Rx nicotine 21 mg/24 hr daily 1 patch TOPICAL Q24H ea 05/15/20 07/04/20 06/29/20 History transdermal patch PMH (from Triage) Patient Medical History PMH Reviewed/Updated as Needed: Yes PMH/PSH from Triage: Medical History (Updated 05/15/20 @ 11:36 by Lexi Luna NP) Annual physical exam (Medical) Z00.00 Anxiety (Medical) F41.9 Asthma (Medical) J45.909 COPD (chronic obstructive pulmonary disease) (Medical) J44.9 Depression (Medical) F32.9 Multiple sclerosis (Medical) G35 Routine gynecological examination (Medical) Z01.419 Tobacco abuse (Medical) Z72.0 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 White matter changes (Medical) Surgical History (Updated 07/17/19 @ 10:49 by Courtney davalos RN) Hx of bladder repair surgery (Surgical) Z98.890 Hx of tubal ligation (Surgical) Z98.51 Female History LMP:: 2 weeks ago : No Hx Drug Resistant Infections Hx Other Resistant Infection?: No Isolation: Standard precautions Hx Recent Travel Out of the country within 10 days (where): No Hx Fever with a rash?: No Nurse screening for coronavirus: Recent Travel outside the No country (where) Has patient experienced No coronavirus symptoms Social History Are you in a relationship with/Does anyone hit you, yell/swear at you, steal from you?: No Substance Use Smoking Status: Current every day smoker Tobacco Use Tobacco Products:: Cigarettes 1/2 PPD Hx Chewing Tobacco Use: No Vaccination History Hx/Date of Tetanus, Diphtheria Vaccination: Yes Hx/Date of Influenza Vaccination: Yes (2019) Hx/Date of Pneumococcal Vaccination: No PFSH Medical History Annual physical exam Anxiety Asthma COPD (chronic obstructive pulmonary disease) Depression Multiple sclerosis Routine gynecological examination Tobacco abuse Vitreous floaters of both eyes White matter changes Surgical History Hx of bladder repair surgery Hx of tubal ligation Social History Does the Patient have a Healthcare Proxy: No Does Patient have a DNR?: No Does Patient have a Living Will?: No Hx Recent Travel (where): No sexually active: Yes Smoking Status: Current every day smoker tobacco type: cigarettes Smoking risk assessment performed?: Yes counseling given: provider counseling, support medications, support program, counseling >3 minutes and patient declined ROS Review of Systems Constitutional: Reports malaise; Denies fever, chills, sweats and weakness Eyes: Denies vision change, eye discharge/drng, redness and eye pain ENT: Denies nasal pain, nasal discharge, nasal congestion, post nasal drip, epistaxis, throat pain and throat swelling Respiratory: Denies cough and SOB Cardiovascular: Denies chest pain, palpitations, orthopnea, hypertension, paroxysmal noc dyspnea, light headedness, dyspnea on exertion and syncope Gastrointestinal: Denies vomiting, abdominal pain, diarrhea, constipation, black tarry stools and hematochezia Genitourinary-Female: Denies dysuria, frequency and hematuria Musculoskeletal: Reports leg pain (+ R calf pain.); Denies neck pain and back pain Skin/Breasts: Denies rash Neurologic: Reports numbness, abnormal gait, paresthesias and other (+ R calf pain.); Denies weakness, headache, incoordination, change in speech, confusion, dizziness, vertigo, lightheadedness and loss of consciousness Endocrine: Denies Polydipsia and Polyuria Physical Exam General General appearance: other (WDWN middle-aged white female NAD. No pallor, cyanosis, icterus, or diaphoresis. Alert. [place] x3.) Head Head exam: Present atraumatic and normocephalic Eye Eye exam: Present PERRL and EOMI; Absent scleral icterus, conjunctival injection, nystagmus, periorbital swelling and periorbital tenderness ENT ENT exam: Present other (Posterior pharyngeal moyer pink without exudate. Oral mucosa moist without ulcer. Edentulous. Jewelry piercings tongue.) Neck Neck exam: Present supple; Absent tenderness, meningismus, lymphadenopathy and thyromegaly Respiratory Respiratory exam: Present normal lung sounds bilaterally; Absent respiratory distress, wheezes, rales and rhonchi Cardiovascular Cardiovascular Exam: Present regular rate and no murmur; Absent rubs, gallop and JVD GI/Abdominal GI/Abdominal exam: Present Abd soft, bowel sounds present all quadrents and other (Flat. Striae.); Absent tenderness, organomegaly and mass Extremities Exam Extremities exam: Present other (On examination of the left lower extremity there are tattoos left leg. No left lower extremity erythema, ecchymosis, swelling, or tenderness. All 5 toes on the left foot are pink, warm, with good capillary refill. (Continued)) Vital Signs Vital Signs: Vital Signs 07/04/20 01:26 07/04/20 05:56 Temperature 97.7 F 98.1 F Pulse Rate 88 63 Respiratory Rate 16 16 Blood Pressure 138/61 123/68 O2 Sat by Pulse Oximetry 98 98 MDM (comprehensive) Lab Data Labs: 07/04/20 02:10 07/04/20 02:10 Laboratory Results Last 24 hours 07/04/20 02:10: WBC 13.3 H, RBC 4.74, Hgb 13.8, Hct 43.1, MCV 90.9, MCH 29.1, MCHC 32.0 L, RDW 14, Plt Count 246, MPV 9.2, Immature Gran % (Auto) 0.3, Neut % (Auto) 61.6, Lymph % (Auto) 30.1, [place] % (Auto) 5.9, Eos % (Auto) 1.7, Baso % (Auto) 0.4, Lymph # (Auto) 4.0, Abs Immat Gran (auto) 0.0, Add Manual Diff No, Absolute Neutrophils 8.2 H, Monocytes # 0.8, Absolute Eosinophils 0.2, Absolute Basophils 0.1 07/04/20 02:10: D-Dimer 0.31 07/04/20 02:10: Sodium 140, Potassium 3.8, Chloride 109, Carbon Dioxide 26, Anion Gap 9, BUN 20, Creatinine 0.8, GFR Calculation Greater than 60, Glucose 92, Calcium 9.0, Total Bilirubin 0.2 L, AST 7, ALT 17, Alkaline Phosphatase 64, Serum Total Protein 7.5, Albumin 3.7 Medical Decision Making Free Text/Narative:: (Continuation of physical examination) On examination of the right lower extremity there are tattoos over the right leg right thigh. No erythema, ecchymosis, swelling, or tenderness anywhere over the right lower extremity. All 5 toes on the right foot are pink, warm, with good capillary refill. Popliteal, dorsalis pedis, and posterior tibial pulses are +2/4 bilaterally. Neurologic: No ptosis. No facial motor paresis. Tongue midline. No diplopia or tremor. Motor: Power all 4 extre mities +5/5. No arm drift. No leg drift. Sensory: Light touch sensation all 4 extremities WNL except decreased sensation to light touch over both feet R>L. DTRs: Biceps +1/4 bilateral. Triceps absent bilaterally. Patellar +2/4 bilaterally. Achilles +1/4 bilaterally. Babinski's negative bilaterally. This is a 45-year-old female w C: R calf pain. CMP WNL. WBC 13,300 with 61 polys, 30 lymphs, 5 monos. Hemoglobin 13.8. Doppler ultrasound right lower extremity is negative for DVT. D-dimer = 0.31. Gait: No ataxia or foot drag. Right calf pain seems worse when walking. My working diagnosis: Right calf pain. Rx: Patient describes the right calf pain as "numb", "sleepy", which seems more like dysesthesias rather than nociceptive pain. Patient states she has appointment with her Neurologist later this month. Trial ibuprofen or naproxen. If this particular type of calf pain persists unrelieved by rest, NSAID, consider w/u Back, CT /or MRI of lumbar spine. Patient states she feels ready for discharge. Plan Visit Medications Administered ED medications:: Medications Generic Name Dose Route Start Last Admin Trade Name Freq PRN Reason Stop Dose Admin Sodium Chloride 500 mls @ 100 mls/hr 07/04/20 01:59 07/04/20 06:03 Ns 0.9% IV 07/04/20 06:58 Infused .Q5H ONE Infusion Discharge Plan Admission/Discharge Dx Primary DC Diagnosis: Right calf pain ED Provider: Lucy Anand ED Status: Ready for Discharge Time Seen by Provider: 07/04/20 01:49 Triaged At: 07/04/20 00:55 Discharge Detail Disposition: Home, Self-Care Med Rec New Prescriptions: No Action naproxen 500 mg tablet 500 mg PO QMWF RF: 0 nicotine 21 mg/24 hr patch 24 hour 1 patch topical Q24H RF: 0 glatiramer 40 mg/mL syringe See Rx Instructions .ROUTE .COMPLEX RF: 0 baclofen 10 mg tablet 10 mg PO TID PRN (Reason: back pain) Qty: 14 RF: 0 hydrocodone-acetaminophen [Dolliver] 7.5-325 mg tablet 1 tab PO Q6HR PRN (Reason: pain) Qty: 6 RF: 0 Follow Up Care/Instructions Diet/Activity/Wound Care..: Rest. Take ibuprofen 600 mg (3, 200 mg [id number]-klhceyu ibuprofen tablets) with food every 8 hours OR zidt-fhn-dqzbvio Aleve 220 mg with food every 12 hours. Do not take ibuprofen and Aleve within 48 hours of each other. Keep your already scheduled appointment with your neurologist later this month. If any new or worsening interim symptom occurs seek medical attention immediately. *Discharge Patient* Discharge Orders: Discharge Order (Routine); Ordered 07/04/20 Ordered By: Lucy Anand Report Signers: <Electronically signed by Lucy Anand MD> Lucy Anand MD 07/04/20 0638 Lucy Anand MD SIGNATURE DA Report Cosigners: D: XAVIER 07/04/20158 T: XAVIER 07/04/20158 CC: Lexi BARAKAT Jeremy Name Value Range Interpretation Code Description Data Mary rce(s) Supporting Document(s) ID Date Data Source [id number] 06/23/2020 01:34:00 PM [facility] [address] [place] [address] [phone] NAME SEX PT STATUS ACCOUNT NUMBER EMERSON BOYER REG REF [id number] ORDERING PHYSICIAN LOCATION MEDICAL RECORD NO. ALVAREZ SINGER MD MRI [id number] ATTENDING PHYSICIAN DATE OF DATE OF EXAM/TIME Lexi Luna NP 1975 06/23/201250 TYPE / EXAM MRI Thoracic w/ w/o contrast REASON FOR EXAM MULTIPLE SCIEROSIS Clinical History/Indication for Exam: MULTIPLE SCIEROSIS MR THORACIC SPINE WITHOUT AND WITH INTRAVENOUS CONTRAST INDICATION: MULTIPLE SCIEROSIS TECHNIQUE: Magnetic resonance images of the thoracic spine without and with intravenous contrast in multiple planes. COMPARISON: No relevant prior studies available. FINDINGS: Vertebrae: The thoracic vertebral column is well aligned. Marrow: The bone marrow signal of the thoracic spine is within normal limits. Discs/spinal canal/neural foramina: T10-T11 disc level shows small central dorsal annular bulge which causes mild central canal stenosis. Disc degeneration is seen throughout the entire thoracic spine with disc desiccation and trace dorsal annular bulges without central canal stenosis or foraminal stenosis. Spinal cord: The thoracic cord demonstrates no signal alteration. No pathological enhancement of the thoracic cord. Soft tissues: The paraspinal soft tissues demonstrate no significant findings. IMPRESSION: 1. No MRI evidence of thoracic cord myelopathy. No mass. No evidence of demyelination process involving the thoracic cord. 2. Mild degenerative changes are seen. 3. T10-T11 disc level shows small central dorsal annular bulge which causes mild central canal stenosis. Contrast Type: gadavist. Contrast Volume: 7.5 ml REPORT SIGNATURE ON FILE 06/23/2020 (13:34 Eastern Time ) Signed by: Jeanette Hurt M.D. Reported By Jeanette Hurt MD on 06/23/201333 Signed By Jeanette Hurt MD on 06/23/201333 Date Time CC: Jeanette Hurt MD; Lexi Luna Techn: HANJU Trans Dt/Tm: Trans by: DT Prt Dt/Tm: : Total DLP = 0.00 mGy-cm : Total Radiation Dose = 0.0000 mSv Lifetime Dose: 10.5339 mSv Name Value Range Interpretation Code Description Data Mary rce(s) Supporting Document(s) ID Date Data Source [id number] 06/23/2020 01:30:00 PM [facility] [address] [place] [address] [phone] NAME SEX PT STATUS ACCOUNT NUMBER EMERSON BOYER REG REF [id number] ORDERING PHYSICIAN LOCATION MEDICAL RECORD NO. ALVAREZ SINGER MD MRI [id number] ATTENDING PHYSICIAN DATE OF DATE OF EXAM/TIME Lexi Luna NP 1975 06/23/20 / 1250 TYPE / EXAM MRI Cervical w/ w/o contrast REASON FOR EXAM MULTIPLE SCIEROSIS Clinical History/Indication for Exam: MULTIPLE SCIEROSIS MR CERVICAL SPINE WITHOUT AND WITH INTRAVENOUS CONTRAST INDICATION: MULTIPLE SCIEROSIS TECHNIQUE: Magnetic resonance images of the cervical spine without and with i ntravenous contrast in multiple planes. COMPARISON: No relevant prior studies available. FINDINGS: Vertebrae: Mild grade 1 degenerative retrolisthesis of C5 on C6. Atlantoaxial relationship is within normal limits. Mild arthritis of the bilateral facets of the cervical spine. Marrow: The bone marrow of the cervical spine is within normal limits. Spinal cord: The cervical cord demonstrates no signal alteration or mass. Soft tissues: The paraspinal soft issues are unremarkable. DISCS/SPINAL CANAL/NEURAL FORAMINA: C2-C3: Unremarkable. No significant disc disease. No stenosis. C3-C4: Unremarkable. No significant disc disease. No stenosis. C4-C5: C4-C5 level shows mild 2 mm central dorsal annular bulge with small central dorsal annular tear. Borderline central canal stenosis. Patent neural foramina. C5-C6: C5-C6 disc level shows moderate loss of height. 3 mm diffuse dorsal annular bulging causing moderate central canal stenosis. Patent bilateral neural foramina. C6-C7: Unremarkable. No significant disc disease. No stenosis. C7-T1: Unremarkable. No significant disc disease. No stenosis. Other findings: No pathological enhancement is identified following the IV administration of gadolinium. IMPRESSION: 1. C5-C6 disc level shows moderate loss of height. 3 mm diffuse dorsal annular bulging causing moderate central canal stenosis. Patent bilateral neural foramina. 2. Multilevel degenerative changes are seen and described in the body of the report. 3. No MRI evidence of cervical cord myelopathy. No evidence of demyelination plaques involving the cervical cord. No mass. Contrast Type: GADAVIST. Contrast Volume: 7.5ML REPORT SIGNATURE ON FILE 06/23/2020 (13:30 Eastern Time ) Signed by: Jeanette Hurt M.D. Reported By Jeanette Hurt MD on 06/23/201329 Signed By Jeanette Hurt MD on 06/23/201329 Date Time CC: Jeanette Hurt MD; Lexi Luna Techn: SYDNEY Trans Dt/Tm: Trans by: DT Prt Dt/Tm: : Total DLP = 0.00 mGy-cm : Total Radiation Dose = 0.0000 mSv Lifetime Dose: 10.5339 mSv Name Value Range Interpretation Code Description Data Mary rce(s) Supporting Document(s) ID Date Data Source [id number] 06/02/2020 09:57:20 AM [facility] Name Value Range Interpretation Code Description Data Mary rce(s) Supporting Document(s) Progress Note [facility] [id number]NBeC1ZhIFM2mZ7mQES0AYvVPeQfPfVdVME8 lbm [file] [id number] ID Date Data Source [id number] 05/20/2020 12:14:33 PM [facility] Name Value Range Interpretation Code Description Data Mary rce(s) Supporting Document(s) Progress Note [facility] [id number]/QURaxTQJfo7UvNYjaAZo6MMwgBLHpX8MsZUR7pT5wWMU5FMdNFkAvGsPpHlAv lbm [file] IzYzA+[id number]0JHRCPQ3RIDr== ID Date Data Source [id number] 05/20/2020 10:45:11 AM EST [facility] Name Value Range Interpretation Code Description Data Mary rce(s) Supporting Document(s) Progress Note [facility] [id number]/[id number] lbm [file] [id number]+[id number]+nQq6fMIS9Qnh+hotel front desk clerk [file] [facility]/[id number] [file] [id number]= ID Date Data Source [id number] 05/17/2020 05:01:14 PM [facility] Name Value Range Interpretation Code Description Data Mary rce(s) Supporting Document(s) [facility] [id number]RLO6IhVEb jb2 [file] [id number]IJGQ2S= ID Date Data Source [id number] 05/15/2020 03:29:00 PM [facility] Name Value Range Interpretation Code Description Data Mary rce(s) Supporting Document(s) Triglycerides 226 mg/dL 0-150 Above high normal [facility] Cholesterol 248 mg/dL 120-200 Above high normal [facility] HDL Cholesterol 37 mg/dL [facility] HDL Less than 40 mg/dL: Major risk for CHDHDL Greater than 59 mg/dL: Low risk for CHD LDL Cholesterol, Calc 166 mg/dL 0-100 Above high normal [facility] ID Date Data Source [id number] 05/21/2020 07:20:00 AM [facility] [id number] MENSTRUAL PERIOD naCollec tion Technique: BRUSH-ALONEPATIENT INFORMATION: [id number]-GCTSLJUWIYZ CYTOLOGY: NEGATIVEPREVIOUS TREATMENT: NONEBody Site: ENDOCERVIX Name Value Range Interpretation Code Description Data Mary rce(s) Supporting Document(s) Microscopic observation [Identifier] in Vaginal fluid by Cyt o stain.thin prep [facility] ID Date Data Source [id number] 05/15/2020 05:07:00 PM [facility] No yeast like or trichomonas seenLong ro ds notedFEW Squamous cellsNO Short rods seenNO Clue cells presentFEW WBCs seen Name Value Range Interpretation Code Description Data Mary rce(s) Supporting Document(s) Wet mount for Trichomonas Negative for Trichomonas vaginalis [facility] ID Date Data Source [id number] 05/15/2020 10:05:00 AM [facility] Patient Name: EMERSON BOYER : 1975 Sex: F Pt Unit #: [id number] Location[facility] Provider: Visit Date/Time: 05/15/20 Primary Insurance: [facility] Secondary Insurance: Self Pay Intake Vital Signs 05/15/20 10:10 Current Height 5 ft 2 in Current Weight 151 lb Weight Measurement Method Standing Scale BMI 27.6 BP 122/84 Blood Pressure Location Lt brachial Position Sitting Respiration 16 Pulse 64 Pulse Strength Normal Pulse Source Palpation Temp 97.5 F L Temp Source Tympanic Intake Visit Reasons: Multiple sclerosis Nurse Note: Pt. notes that she seen neurologist in [place] yesterday had EKG, eye exam labwk done there. Health Center Assistant Required: No Accompanied by: Life Partner Is patient in pain?: No Allergies carbamazepine [From Tegretol] Allergy (Severe, Verified 03/13/20 18:56) Anaphylaxis Medications - Last Reconciled 05/15/20 by Lexi Luna NP baclofen 10 mg PO TID PRN glatiramer 40 mg subcutaneously 3 times a week. hydrocodone-acetaminophen 7.5- 325 mg (Dolliver) 1 tab PO Q6HR PRN naproxen 500 mg PO BID nicotine 1 patch topical Q24H Is last menstrual period known: Yes Last menstrual period: 05/11/20 Patient : No Vision Wearing glasses?: No Fall Risk History of falls: No Ambulatory Aid:: None Gait/Transferring:: Normal Medications:: No High Risk Medications PHQ-2/9 Over the last 2 weeks, how often have you been bothered by any of the following problems? 1. Little interest or pleasure in doing things: not at all 2. Feeling down, depressed, or hopeless: not at all Total score: 0 HIV Testing Offer - ages 13-64 Requirement for HIV testing offer been met?: Declines today. Pretest education received and acknowledged SBIRT Annual Questionnaire Are you currently in recovery for alcohol or sub stance use?: No Do you need a note to return Do you need a note to return to daycare/school/sports/work: No Coronavirus Screening Screening Have you traveled outside of [facility] or [facility] in the last 14 days.: Yes Has patient experienced coronavirus symptoms: No [facility] Medical History Annual physical exam Anxiety Asthma COPD (chronic obstructive pulmonary disease) Depression Multiple sclerosis Routine gynecological examination Tobacco abuse Vitreous floaters of both eyes White matter changes Surgical History Hx of bladder repair surgery Hx of tubal ligation Social History Does the Patient have a Healthcare Proxy: No Does Patient have a DNR?: No Does Patient have a Living Will?: No Hx Recent Travel (where): No sexually active: Yes Smoking Status: Current every day smoker tobacco type: cigarettes Smoking risk assessment performed?: Yes counseling given: provider counseling, support medications,support program, counseling >3 minutes and patient declined Female Reproductive History Menstrual Date of last menstrual period: 05/11/20 HPI Additional HPI HPI Details: 45 year old female presents for annual physical examination. She denies any recent hospitalizations, ER or urgent care visits, injuries, or MVCs. She is feeling well. She has no concerns today. She did see Dr. Clayton at [facility] yesterday and had labs, eye examination performed. She was told she needs glasses. She does not have an eye doctor currently. Her lab results are pending. She was seeing Dr. Alejandre, but is no longer seeing her. Dr. Alejandre had her on glatiramer injections 3 times per week. She admittedly was missing a lot of doses because she could not tolerate giving herself a shot and her boyfriend could not do it. We did set her up for nurse visits here three times a week to give her the injections, and she never showed up. As far as preventative care, she is overdue for mammogram and PAP smear. She is agreeable to having PAP smear today. She also wants to have a mammogram. She declines any and all age appropriate vaccinations. Review of Systems Const All systems reviewed are unremarkable except as noted in HPI and below Exam Const General: cooperative, no acute distress, well developed and well groomed Nutritional Appearance: average body habitus Orientation: alert, awake and oriented x3 Eyes General: appearance normal, both eyes and all related structures Periorbital: periorbital findings normal Eyelids: eyelids normal Conjunctivae: conjunctivae normal Sclera: sclerae normal Pupils: PERRL EOM: EOM intact bilaterally Direct ophthalmoscopy: normal light reflex Neck Neck: normal visual inspection and no lymphadenopathy Thyroid: thyroid normal Carotids: normal carotid upstroke Resp Effort Inspection: normal respiratory effort Auscultation: clear to auscultation bilaterally Cardio Rate: regular rate Rhythm: regular rhythm Heart Sounds: S1 normal, S2 normal and no murmurs Pulses: normal peripheral pulses Neuro General: patient alert, patient awake, patient oriented x3, gait normal, moves all extremities and deep tendon reflexes 2+ bilaterally Cranial Nerves: PERRL, EOM intact bilaterally and facial strength normal Cognition: normal cognition Speech: speech normal Gait: normal gait Motor: strength abnormal DTR's: Rt Patellar: 2+ and Lt Patellar: 2+ Psych Appearance: grossly normal Quality Reporting Adult ([facility] 138/2/22/69/61/64/165) Smoking risk assessment performed?: Yes Smoking Status: Current every day smoker Counseling given: provider counseling, support medications, support program, counseling >3 minutes and patient declined Cessation counseling not done: No Pharmacotherapy not ordered: Yes Medical reason: other Depression screening performed: Yes Screen Results: Yes Negative screen Recommended changes: lifestyle, weight reduction, dietary, physical activity and alcohol moderation Systolic BP not done?: No Diastolic BP not done?: No BMI Screening: Yes BMI within normal limits LDL testing done: Yes Sexual Activity Screening ([facility] 153) Sexually active?: Yes Immunizations ([facility] 147, 117) Annual Influenza Vaccine: No Flu Vaccine not done: patient reason Assessment Plan Assessment Plan (1) Multiple sclerosis: Status: Acute Code(s): G35 - Multiple sclerosis SNOMED Code(s): 99457324 Category: Medical Plan - Lexi Luna NP: Continued follow ups with [facility] neurology. I did recommend considering PT but she declines for now (2) Annual physical exam: Status: Acute Code(s): Z00.00 - Encounter for general adult medical examination without abnormal findings SNOMED Code(s): 283804640 Category: Medical Plan - Lexi Luna NP: She had a lot of bloodwork done yesterday, I will work on getting those results. We did check a lipid panel today. Preventative care was discussed. I have requested a mammogram. Encouraged monthlyself breast examinations. PAP was performed today. She declines flu and pneumonia vaccinations. Nutrition and exercise counseling completed. Recommend routine eye and dental care. Make eye appointment. (3) Routine gynecological examination: Status: Acute Code(s): Z01.419 - Encounter for gynecological examination (general) (routine) without abnormal findings SNOMED Code(s): 174436079 Category: Medical Plan - Lexi Luna TRACTION POWER ENGINEER: PAP and wet prep obtained today, will call her within the week with all results. (4) Tobacco abuse: Status: Acute Code(s): Z72.0 - Tobacco use SNOMED Code(s): 883289841 Category: Medical Plan - Lexi Luna TRACTION POWER ENGINEER: I counseled the patient on the dangers of tobacco use for at least 3 minutes. The patient was advised to quit tobacco use altogether. I reviewed the various strategies to maximize success with the patient. These include removing cigarettes and smoking materials from the environment. I also reviewed stress management and support of family/friends. I advised the patient of the various health risks of smoking as well as its financial impact. Orders Other Orders: Orders: LIPID PANEL Today Z13.220 3D DIG MAMMO SCREEN BILAT Today Z12.39 Thinprep w/HPV if ASCUS Today Z12.4 Wet Prep Today Z12.4 Counseling Counseling on all vaccine components completed: Yes Smoking risk assessment performed?: Yes Counseling Given: provider counseling, support medications, support program, counseling >3 minutes and patient declined Coding [place] [address] Well 40-64 (Est) Patient Type Established Diagnoses Multiple sclerosis G35 Annual physical exam Z00.00 Routine gynecological examination Z01.419 Tobacco abuse Z72.0 Time Spent (min) 30 <Electronically signed by Lexi Luna TRACTION POWER ENGINEER> 05/15/20 1144 Name Value Range Interpretation Code Description Data Mary rce(s) Supporting Document(s) ID Date Data Source [id number] 05/14/2020 04:54:15 PM [facility] Name Value Range Interpretation Code Description Data Mary rce(s) Supporting Document(s) Progress Note [facility] [id number] lbm [file] [id number] ID Date Data Source [id number] 05/15/2020 02:07:38 PM [facility] Name Value Range Interpretation Code Description Data Mary rce(s) Supporting Document(s) Angiotensin converting enzyme [Enzymatic activity/volu me] in Serum or Plasma 39 U/L 14-82 [facility] (NOTE)Performed At: RN [facility] [address] [id number] Bro MD Ph:[phone] ID Date Data Source [id number] 05/19/2020 05:07:34 AM [facility] Name Value Range Interpretation Code Description Data Mary rce(s) Supporting Document(s) Aquaporin 4 receptor IgG Ab [Presence] in Serum or Plasma Negative [facility] (NOTE)Recommend repeat testing in 6 ruben hs if clinical suspicion is high. Negative result can occur in the setting of immunosuppression. ADDITIONAL INFORMATION This test was developed and its performance characteristics determined by [facility] in a manner consistent with CLIA requirements. This test has not been cleared or approved by the U.S. Food and Drug Administration.Test Performed by:[address] [address]Rri Director: Steve Elena M.D. Ph.D.; CLIA# [id number] ID Date Data Source [id number] 05/20/2020 07:34:24 AM [facility] Name Value Range Interpretation Code Description Data Mary rce(s) Supporting Document(s) Myelin Oligod Glycoprot Negative [facility] (NOTE)No informative autoantibodies were detected in this evaluation. A negative result does not preclude a diagnosis of an inflammatory TRACK REPAIR WORKER demyelinating disorder. ADDITIONAL INFORMATION This test was developed and its performance characteristics determined by [facility] in a manner consistent with CLIA requirements. This test has not been cleared or approved by the U.S. Food and Drug Administration.Test Performed by:[address] [address]Phe Director: Steve Elena M.D. Ph.D.; CLIA# [id number] ID Date Data Source [id number] 05/27/2020 08:08:29 AM [facility] Value Range Interpretation Code Description Data Mary rce(s) Supporting Document(s) Index Value 1.84 [facility] Positive(NOTE)Index interpretive criteri a: <0.20 negative 0.20-0.40 indeterminate >0.40 positiveTesting not performedComment(NOTE)Positive: Antibodies to MIGUELITO virus (JCV) detected indicating the patient has been exposed to JCV at an undetermined timeNegative: Antibodies to JCV not detectedPerformed At: NI [facility] [place] [id number] UJAREZ Sorto [id number] Jon M MD Ph:[phone] At: CHRISTINA [facility] [address] [place], [place] [id number] Bro MD Ph:[phone](NOTE)Negative: Antibodies to JCV not detected.Inde terminate: Low level reactivity detected, see Inhibition Assay result to follow for the final antibody result.Positive: Antibodies to MIGUELITO virus (JCV) detected indicating the patient has been exposed to JCV at an undetermined time.The STRATIFY JCV Antibody Test is an enzyme- linkedimmunosorbent assay (MARK) designed to detect JCV antibodiesto help identify individuals who have been exposed to thevirus. Samples with low level reactivity in the detectionassay are retested in a confirmation (inhibition) assay toconfirm presence or absence of JCV-specific antibodies.Retrospective analyses of post marketing data from varioussources, including observational studies and spontaneousreports obtained worldwide, suggest that the risk ofdeveloping PML may be associated with relative levels ofserum anti-JCV antibody as measured by anti-JCV antibodyindex.1 .1TYSABRI (natalizumab) [place] Prescribing Information. ID Date Data Source 05/14/2020 01:33:05 PM [facility] Name Value Range Interpretation Code Description Data Mary rce(s) Supporting Document(s) Folate [Mass/volume] in Serum or Plasma 9.21 ng/mL >4.77 [facility] ID Date Data Source 05/14/2020 01:33:05 PM [facility] Value Range Interpretation Code Description Data Mary rce(s) Supporting Document(s) Calcidiol [Mass/volume] in Serum or Plasma 17 ng/mL >30 L [facility] ID Date Data Source 05/14/2020 01:36:54 PM [facility] Value Range Interpretation Code Description Data Mary rce(s) Supporting Document(s) Hepatitis B virus surface Ab [Units/volume] in Serum or Plas ma by Immunoassay >11.4 L [facility] Non ReactiveNo active or previous infect ion. Susceptible to infection. ID Date Data Source 05/14/2020 03:04:16 PM [facility] Value Range Interpretation Code Description Data Mary rce(s) Supporting Document(s) Cardiolipin IgM Ab [Interpretation] in Serum 4.0 U/mL <20.0 [facility] Negative results do not rule out Antipho spholipid syndrome. Additional APL testing should be considered. Cardiolipin IgG Ab [Interpretation] in Serum 3.5 U/mL <20.0 [facility] Negative results do not rule out Antipho spholipid syndrome. Additional APL testing should be considered. ID Date Data Source [id number] 05/14/2020 03:04:16 PM [facility] Value Range Interpretation Code Description Data Mary rce(s) Supporting Document(s) Beta 2 glycoprotein 1 IgM Ab [Units/volume] in Serum 1.9 U/mL <20.0 [facility] Negative results do not rule out Antipho spholipid syndrome. Other APL testing should be considered. Beta 2 glycoprotein 1 IgG Ab [Units/volume] in Serum <20.0 [facility] Negative results do not rule out Antipho spholipid syndrome. Other APL testing should be considered. ID Date Data Source [id number] 05/14/2020 03:46:52 PM [facility] Value Range Interpretation Code Description Data Mary rce(s) Supporting Document(s) Treponema pallidum Ab [Presence] in Serum Non Reactive [facility] ID Date Data Source [id number] 05/14/2020 03:46:52 PM [facility] Value Range Interpretation Code Description Data Mary rce(s) Supporting Document(s) Hepatitis A virus IgM Ab [Presence] in Serum or Plasma by Im munoassay Non Reactive [facility] No acute infection, susceptible to infec tion. Hepatitis B virus core IgM Ab [Presence] in Serum or Plasma by Immunoassay [facility] Reactive [facility] IgM antibodies to HBc were not detected, does not exclude the possibility of exposure to HBV. Hepatitis C virus Ab [Presence] in Serum or Plasma by Immuno assay Non Reactive [facility] No serological evidence of active infect ion. If recent exposure is suspected, test for HCV RNA. Hepatitis B virus surface Ag [Presence] in Serum or Plasma b y Immunoassay Non Reactive [facility] No active or previous infection. Suscept ible to infection. ID Date Data Source [id number] 05/15/2020 11:07:36 AM [facility] Value Range Interpretation Code Description Data Mary rce(s) Supporting Document(s) Sjogrens syndrome-A extractable nuclear Ab [Units/volume] in Serum by Immunofluorescence 19 [AU]/mL 0-99 [facility] Sjogrens syndrome-B extractable nuclear Ab [Units/volume] in Serum by Immunofluorescence 10 [AU]/mL 0-99 [facility] Boyer extractable nuclear Ab [Units/volume] in Serum b y Immunofluorescence 12 [AU]/mL [address] [place] [address] Ribonucleoprotein extractable nuclear Ab [Units/volume] in Serum by Immunofluorescence 20 U/ML [address] [place] [address] SCL-70 extractable nuclear Ab [Units/volume] in Serum 11 [AU]/mL [address] [place] [address] Manjula-1 extractable nuclear Ab [Units/volume] in Serum by Immunofluorescence 38 [AU]/mL [address] [place] [address] DNA double strand Ab [Units/volume] in Serum by Immunofluore scence 10 [IU]/mL [address] [place] [address] Centromere Ab [Units/volume] in Serum 23 [AU]/mL [address] [place] [address] Histone IgG Ab [Units/volume] in Serum 16 [AU]/mL [address] [place] [address] ID Date Data Source [id number] 05/15/2020 12:07:58 PM [facility] Name Value Range Interpretation Code Description Data Mary rce(s) Supporting Document(s) Nuclear Ab Pattern Homogenous [Titer] in Serum <80 [facility] Nuclear Ab pattern.speckled [Titer] in Serum <80 [facility] Nuclear Ab pattern.rim [Titer] in Serum <80 [facility] Nuclear Ab pattern.nucleolar [Titer] in Serum <80 [facility] ID Date Data Source [id number] 05/18/2020 02:50:36 PM [facility] Name Value Range Interpretation Code Description Data Mary rce(s) Supporting Document(s) Varicella zoster virus IgG Ab [Presence] in Serum by Immunoassay 6. 21 {ISR} [facility] PositiveIndicates presence of detectable IgGantibody to Varicella-Zoster Virus bythe MARK test. Indicative of current orprevious infection. ID Date Data Source [id number] 05/14/2020 12:58:03 PM [facility] Name Value Range Interpretation Code Description Data Mary rce(s) Supporting Document(s) Leukocytes [#/volume] in Blood by Automated count 12.0 10*3/uL 4-10 H [facility] Erythrocytes [#/volume] in Blood by Automated count 4.75 10*6/uL 4.1- 5.3 [facility] Hemoglobin [Mass/volume] in Blood 14.0 g/dL 11.5-15.5 [facility] Hematocrit [Volume Fraction] of Blood by Automated count 42.2 % 3 6-45 [facility] Erythrocyte mean corpuscular volume [Entitic volume] by Auto mated count 88.9 fL 80-96 [facility] Erythrocyte mean corpuscular hemoglobin [Entitic mass] by Automated count 29.4 pg 27-33 [facility] Erythrocyte mean corpuscular hemoglobin concentration [Mass/volume] by Automated count 33.1 g/dL 32.0-36.0 [facility] distribution width [Ratio] by Automated count 13.6 % 11.5-14.5 [facility] Platelets [#/volume] in Blood by Automated count 313 10*3/uL 150-400 [facility] Differential cell count method - Blood [facility] Neutrophils/100 leukocytes in Blood by Automated count 60 % [facility] Lymphocytes/100 leukocytes in Blood by Automated count 31 % [facility] Monocytes/100 leukocytes in Blood by Automated count 6 % [facility] Eosinophils/100 leukocytes in Blood by Automated count 3 % [facility] Basophils/100 leukocytes in Blood by Automated count 0 % [facility] Neutrophils [#/volume] in Blood by Automated count 7.22 10*3/uL 1.8-7 .0 H [facility] Lymphocytes [#/volume] in Blood by Automated count 3.68 10*3/uL 1.2-4 .0 [facility] Monocytes [#/volume] in Blood by Automated count 0.70 10*3/uL 0-0.8 [facility] Eosinophils [#/volume] in Blood by Automated count 0.42 10*3/uL 0-0.5 [facility] Basophils [#/volume] in Blood by Automated count 0.03 10*3/uL 0-0.2 [facility] Nucleated erythrocytes/100 leukocytes [Ratio] in Blood by Automated count 0 /100{WBCs} 0-0 [facility] ID Date Data Source [id number] 05/14/2020 01:03:14 PM [facility] Name Value Range Interpretation Code Description Data Mary rce(s) Supporting Document(s) Prothrombin time (PT) 13.6 s 12.5-14.9 [facility] INR in Platelet poor plasma by Coagulation assay 1.03 [facility] Routine intensity oral anticoagulation I NR is typically 2.0-3.0. Target INR must be clinically individualized. ID Date Data Source [id number] 05/14/2020 01:03:14 PM [facility] Value Range Interpretation Code Description Data Mary rce(s) Supporting Document(s) aPTT in Platelet poor plasma by Coagulation assay 33.3 s 24.0-33. 0 H [facility] ID Date Data Source [id number] 05/14/2020 01:30:35 PM [facility] Value Range Interpretation Code Description Data Mary rce(s) Supporting Document(s) Cobalamin (Vitamin B12) [Mass/volume] in Serum or Plasma 378 pg/ml 2 11-946 [facility] ID Date Data Source [id number] 05/14/2020 01:30:35 PM [facility] Value Range Interpretation Code Description Data Mary rce(s) Supporting Document(s) Albumin [Mass/volume] in Serum or Plasma by Bromocresol green (BCG) dye binding method 4.3 g/dL 3.5-5.2 [facility] al Bilirubin.total [Mass/volume] in Serum or Plasma 0.3 mg/dL <1.2 [facility] Bilirubin.direct [Mass/volume] in Serum or Plasma <0.3 [facility] Alkaline phosphatase [Enzymatic activity/volume] in Serum or Plasma 63 U/L 35-104 [facility] Aspartate aminotransferase [Enzymatic activity/volume] in Serum or Plasma 10 U/L <32 [facility] Alanine aminotransferase [Enzymatic activity/volume] in Seru m or Plasma 9 U/L <33 [facility] Protein [Mass/volume] in Serum or Plasma 7.6 g/dL 6.4-8.3 [facility] ID Date Data Source [id number] 05/14/2020 01:30:35 PM [facility] Value Range Interpretation Code Description Data Mary rce(s) Supporting Document(s) IgG [Mass/volume] in Serum or Plasma 1076 mg/dL 700-1600 [facility] IgA [Mass/volume] in Serum or Plasma 245 mg/dL 70-400 [facility] IgM [Mass/volume] in Serum or Plasma 118 mg/dL 30-230 [facility] ID Date Data Source [id number] 05/14/2020 01:30:35 PM [facility] Value Range Interpretation Code Description Data Mary rce(s) Supporting Document(s) Rheumatoid factor [Units/volume] in Serum or Plasma <14 [facility] ID Date Data Source [id number] 05/14/2020 01:30:35 PM [facility] Name Value Range Interpretation Code Description Data Mary rce(s) Supporting Document(s) Bicarbonate [Moles/volume] in Serum 23 mmol/L 22-29 [facility] Chloride [Moles/volume] in Serum or Plasma 105 mmol/L 98-107 [facility] Creatinine [Mass/volume] in Serum or Plasma 0.83 mg/dL 0.50-0.90 [facility] Glucose [Mass/volume] in Serum or Plasma 86 mg/dL 70-140 [facility] Potassium [Moles/volume] in Serum or Plasma 3.8 mmol/L 3.4-5.1 [facility] Sodium [Moles/volume] in Serum or Plasma 139 mmol/L 136-145 [facility] Urea nitrogen [Mass/volume] in Serum or Plasma 11 mg/dL 6-20 [facility] Anion gap 3 in Serum or Plasma 11 mmol/L 8-15 [facility] Osmolality of Serum or Plasma by calculation 287 mosm/kg 275-300 [facility] Creatinine/Urea nitrogen [Mass Ratio] in Serum or Plasma 13 [facility] Calcium [Mass/volume] in Serum or Plasma 9.3 mg/dL 8.6-10.0 [facility] Glomerular filtration rate/1.73 sq M pre dicted among non-blacks [Volume Rate/Area] in Serum or Plasma by Creatinine-based formula (MDRD) 83 mL/min/1.73m2 >60 [facility] Glomerular filtration rate/1.73 sq M pre dicted among blacks [Volume Rate/Area] in Serum or Plasma by Creatinine-based formula (MDRD) >60 [facility] ID Date Data Source [id number] 05/14/2020 01:30:35 PM [facility] Name Value Range Interpretation Code Description Data Mary rce(s) Supporting Document(s) Thyrotropin [Units/volume] in Serum or Plasma 1.000 u[IU]/mL 0.270-4. 200 [facility] ID Date Data Source [id number] 05/14/2020 01:32:17 PM [facility] Value Range Interpretation Code Description Data Mary rce(s) Supporting Document(s) Erythrocyte sedimentation rate 20 mm/hr <20 H [facility] ID Date Data Source [id number] 05/15/2020 10:39:14 AM [facility] Name Value Range Interpretation Code Description Data Mary rce(s) Supporting Document(s) Lupus anticoagulant neutralization plate let [Time] in Platelet poor plasma by Coagulation assay 9.2 sec <8.0 H [facility] ID Date Data Source [id number] 05/14/2020 01:42:44 PM [facility] Value Range Interpretation Code Description Data Mary rce(s) Supporting Document(s) HIV 1+2 Ab+HIV1 p24 Ag [Presence] in Serum or Plasma by Immu noassay Non Reactive [facility] Negative for HIV-1 p24 antigenand HIV-1/ HIV-2 antibodies. Nolaboratory evidence of HIVinfection. ID Date Data Source [id number] 05/14/2020 01:30:55 PM [facility] Value Range Interpretation Code Description Data Mary rce(s) Supporting Document(s) Hemoglobin A1c/Hemoglobin.total in Blood by HPLC 5.3 % 4.0-6.0 [facility] (NOTE)<5.7% Average risk of diabetes (ADA)5.7-6.4% Increased risk of diabetes(ADA)>/= 6.5% Diagnostic for diabetes(ADA) Glucose mean value [Mass/volume] in Blood Estimated fr om glycated hemoglobin 106 mg/dL <126 [facility] ID Date Data Source [id number] 05/14/2020 01:10:04 PM [facility] Value Range Interpretation Code Description Data Mary rce(s) Supporting Document(s) Homocysteine [Moles/volume] in Serum or Plasma 13.2 umol/L <15.0 [facility] ID Date Data Source [id number] 05/15/2020 01:23:52 PM [facility] Value Range Interpretation Code Description Data Mary rce(s) Supporting Document(s) Protein [Mass/volume] in Serum or Plasma 7.3 g/dL 6.4-8.3 [facility] Albumin [Mass/volume] in Serum or Plasma by Electrophoresis 4.61 g/dL 3.80-5.78 [facility] Alpha 1 globulin [Mass/volume] in Serum or Plasma by Electro phoresis 0.22 g/dL 0.08-0.23 [facility] Alpha 2 globulin [Mass/volume] in Serum or Plasma by Electro phoresis 0.78 g/dL 0.45-0.92 [facility] Beta globulin [Mass/volume] in Serum or Plasma by Electropho resis 0.85 g/dL 0.50-1.03 [facility] Gamma globulin [Mass/volume] in Serum or Plasma by Electroph oresis 0.85 g/dL 0.54-1.30 [facility] Protein.monoclonal [Mass/volume] in Serum or Plasma by Electrophoresi s 0 [facility] Normally migrating serum proteins. Pathologist name [facility] ID Date Data Source [id number] 03/13/2020 08:03:00 PM EDT [facility] ED Physician Documentation NAME: EMERSON BOYER : 1975 AGE: 44 MR#: [id number] SERVICE DATE: 03/13/[address]: Hemant Buckley DO PRIMARY CARE DR: Lexi Luna [employer] ROOM#: HPI (Adult, General) General Chief Complaint: Skin/integument Stated Complaint: EYE RE-CHECK Time Seen by Provider: 03/13/20 18:55 History of Present Illness Narrative: 44 yo F w/ CC of superior L eyelid swelling over last few daysseen here in ER started on bactrim and was supposed to call eye doc but did not, states she feels the redness and swelling surrounding affected area is somewhat better but the local lesion itself isnot shrinking. cristhian fever chills or change in vision. Allergies/Home Meds Allergies Allergy/AdvReac Type Severity Reaction Status Date / Time carbamazepine [From Tegretol] Allergy Severe Anaphylaxis Verified 03/13/20 18:56 Home Medications Medication Instructions Recorded Confirmed Last Taken Type naproxen 500 mg tablet 500 mg PO BID tab 09/30/19 03/13/20 03/12/20 History glatiramer See Rx Instructions .ROUTE .COMPLEX 01/27/20 03/13/20 03/12/20 History baclofen 10 mg PO TID PRN #14 tab 01/28/20 03/13/20 03/12/20 Rx hydrocodone- acetaminophen [Dolliver] 1 tab PO Q6HR PRN #6 tab 01/28/20 03/13/20 03/12/20 Rx sulfamethoxazole-trimethoprim 1 tab PO BID 7 Days #14 tab 03/11/20 03/13/20 03/12/20 Rx [Bactrim DS] PMH (from Triage) Patient Medical History PMH Reviewed/Updated as Needed: Yes PMH/PSH from Triage: Medical History (Updated 02/14/20 @ 12:51 by Lexi Luna NP) Anxiety (Medical) F41.9 Asthma (Medical) J45.909 COPD (chronic obstructive pulmonary disease) (Medical) J44.9 Depression (Medical) F32.9 Multiple sclerosis (Medical) G35 Tobacco abuse (Medical) Z72.0 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 White matter changes (Medical) Surgical History (Updated 07/17/19 @ 10:49 by Courtney Sutherland RN) Hx of bladder repair surgery ([facility]) Z98.890 Hx of tubal ligation (Surgical) Z98.51 Female History LMP:: 3 weeks ago : No Lactating mother:: No Hx Drug Resistant Infections Hx Other Resistant Infection?: No Isolation: Standard precautions Hx Recent Travel Out of the country within 10 days (where): No Hx Fever with a rash?: No Nurse screening for coronavirus: Recent Travel outside the No country (where) Social History Are you in a relationship with/Does anyone hit you, yell/swear at you, steal from you?: No Substance Use Second Hand Smoke Exposure: No Smoking Status: Current every day smoker Tobacco Use Hx Chewing Tobacco Use: No Vaccination History Hx/Date of Tetanus, Diphtheria Vaccination: Yes Hx/Date of Influenza Vaccination: Yes (2018) Hx/Date of Pneumococcal Vaccination: No Immunizations Up to Date: No PFSH Medical History A nxiety Asthma COPD (chronic obstructive pulmonary disease) Depression Multiple sclerosis Tobacco abuse Vitreous floaters of both eyes White matter changes Surgical History Hx of bladder repair surgery Hx of tubal ligation Social History Does the Patient have a Healthcare Proxy: No Does Patient have a DNR?: No Does Patient have a Living Will?: No Hx Recent Travel (where): No sexually active: Yes Smoking Status: Current every day smoker tobacco type: cigarettes Smoking risk assessment performed?: Yes counseling given: provider counseling, support medications,support program, counseling >3 minutes and patient declined ROS Review of Systems ROS Narrative: General: Denies fever, chills. Head: Denies headache, scalp tenderness. Eyes: Denies blurry vision, double vision. Ears: Denies earache, discharge. Nose: Denies nosebleeds, discharge. Neck: Denies pain, masses. Heart: Denies chest pain, palpitations. Lungs: Denies shortness of breath, orthopnea, cough. GI: Denies nausea, vomiting, diarrhea, constipation : Denies dysuria, hematuria. MUSK: Denies weakness, atrophy. Skin: Denies rash, itching. endorses lesion. Neurologic: Denies numbness, tingling. Psychiatric: Denies depression, anxiety. Physical Exam General Physical Exam Narrative: General: Patient is alert and oriented to person, place, and time. Appears in no acute distress. Head: Normocephalic and atraumatic. Eyes: Pupils equally round and react to light. Extraocular movements intact. Left superior eyelid notable for a 3 x 3 mm erythematous area w/ a central area of thinned skin w/ obvoius pus behind butnot leaking w/ a 8 x8 mm area of indurartion and mild fluctuance. no warmth and minimally tender. Ears: Gross hearing intact. External ears within normal limits. Nose: No septal deviation. Nasal passages clear. Throat: Moist oral mucosa. No erythema or exudate of the pharynx. Neck: Supple. Trachea midline. Heart: Regular, rate, and rhythm. Lungs: Clear to auscultation bilateral. Abd omen: Soft, non-tender, non-distended, and bowel sounds are present. Genitourinary: Deferred. Rectal: Deferred. Extremities: No cyanosis, clubbing, or edema. Skin: Warm and dry. as abive, Musculoskeletal: Deferred. Neurologic: Cranial nerves II through XII are grossly intact. Sensation to light touch is intact. Psychiatric: Judgment and insight are seemingly intact. Mood and affect are appropriate for the situation. Vital Signs Vital Signs: Vital Signs 03/13/20 18:43 03/13/20 20:39 Temperature 97.8 F 98 F Pulse Rate 95 72 Respiratory Rate 18 18 Blood Pressure 118/80 114/69 O2 Sat by Pulse Oximetry 98 97 [facility] (comprehensive) Medical Decision Making Free Text/Narative:: 44 yo F here for follow up on eyelid abscess for which she started bactrim a couple days ago, exam reassuring but notable for an abscess that was ready to incise, performed procedure without complications, obtained 2 ml of pus and thick white material w/. no bleeding afterwards, recommend she continue her abx and follow up with eye doc on monday if not continuing toimprove. if worse over wknd recommended she go to ER with ophtho food and nutrition services supervisor ([facility]?) procedure: injected 1 % lido into lesion , 2 ml with subsequent immediate rupture of the lesion and drainage of the lido + pus through the punctum, used 18 gauge needle to make hole in the tip of the area and manulally expressed pus, bandaged, left for 10 min, bleeding stopped, felt no more retainedfluctuance, band aid and f/u prn. Procedures (comprehensive) I D Site: L upper eyelid Betadine Prep: No (alcohol) Blade Size: 18 gauge needle Sterile Dressing Applied: Yes Sterile Drapes: No Wick Placed: No Discharge Plan Admission/Discharge Dx Primary DC Diagnosis: abscess of the left upper eyelid ED Provider: eHmant Buckley ED Status: Discharged Time Seen by Provider: 03/13/20 18:55 Triaged At: 03/13/20 18:11 Discharge Detail Disposition: Home, Self-Care Med Rec New Prescriptions: No Action naproxen 500 mg tablet 500 mg PO BID RF: 0 glatiramer 40 mg/mL syringe See Rx Instructions .ROUTE .COMPLEX RF: 0 baclofen 10 mg tablet 10 mg PO TID PRN (Reason: back pain) Qty: 14 RF: 0 hydrocodone-acetaminophen [Dolliver] 7.5-325 mg tablet 1 tab PO Q6HR PRN (Reason: pain) Qty: 6 RF: 0 sulfamethoxazole-trimethoprim [Bactrim DS] 800- 160 mg tablet 1 tab PO BID 7 Days Qty: 14 RF: 0 Follow Up Care/Instructions Diet/Activity/Wound Care..: if yo notice any worsening of your redness/swelling or any fevers develop return to a hospital that has food and nutrition services supervisor ophthalmology, such as [facility] or [facility]. if mild symptoms persist into next week follow up with a eye dr in their office. take abx until complete. *Discharge Patient* Discharge Orders: Discharge Order (Routine); Ordered 03/13/20 Ordered By: Hemant Buckley Discharge Date/Time: 03/13/20 20:34 Interventions Interventions: ED Discharge Instructions Last Done: 03/13/20 20:35 Report Signers: <Electronically signed by Heamnt Buckley DO> Hemant Buckley DO 03/13/20 2131 Hemant Buckley DO SIGNATURE DA Report Cosigners: D: RAVI 03/13/202002 T: RAVI 03/13/202002 CC: Lexi Luna Name Value Range Interpretation Code Description Data Mary rce(s) Supporting Document(s) ID Date Data Source [id number] 03/11/2020 08:31:00 PM EDT [facility] ED Physician Documentation NAME: EMERSON BOYER : 1975 AGE: 45 MR#: [id number] SERVICE DATE: 03/11/[address]: Ray Osorio MD PRIMARY CARE DR: Lexi Luna NP ROOM#: ADDENDUM Discharge Plan Admission/Discharge Dx Primary DC Diagnosis: Mass right upper eyelid ED Provider: Ray Osorio ED Status: Discharged Time Seen by Provider: 03/11/20 20:14 Triaged At: 03/11/20 19:59 Condition Condition: Stable Discharge Detail Disposition: Home, Self-Care Med Rec New Prescriptions: New sulfamethoxazole-trimethoprim [Bactrim DS] 800-160 mg tablet 1 tab PO BID 7 Days Qty: 14 RF: 0 No Action naproxen 500 mg tablet 500 mg PO BID RF: 0 glatiramer 40 mg/mL syringe See Rx Instructions .ROUTE .COMPLEX RF: 0 baclofen 10 mg tablet 10 mg PO TID PRN (Reason: back pain) Qty: 14 RF: 0 hydrocodone-acetaminophen [Dolliver] 7.5- 325 mg tablet 1 tab PO Q6HR PRN (Reason: pain) Qty: 6 RF: 0 Discharge Education Printouts: Cyst (ED) Medications Medication reconciliation perf ormed by provider at discharge: Yes Follow Up Care/Instructions Diet/Activity/Wound Care..: As we discussed you most likely have a cyst of your upper eyelid that is either inflamed or infected At this time is not mature enough to open Recommend warm compress every several hours for 5 minutes Take Bactrim 1 tablet every 12 hours as directed Call red leader tomorrow for evaluation and removal May take either Tylenol Advil as directed for pain *Discharge Patient* Discharge Orders: Discharge Order (Routine); Ordered 03/11/20 Ordered By: Ray Osorio Discharge Date/Time: 03/11/20 20:56 Interventions Interventions: ED Discharge Instructions Last Done: 03/11/20 20:56 Addendum Addendum Note: Addendum Eyelid is left upper eyelid Addended by: <Electronically signed by Ray Osorio MD> 04/08/20932 Addendum Cosigners: D: SARAH 04/08/20932 T: SARAH 04/08/20932 CC: Lexi Luna [facility] (Adult, General) General Chief Complaint: Skin/integument Stated Complaint: SWELLING ABOVE EYE Resident LT, travel outisde home, exposure to hot tubs:: No Time Seen by Provider: 03/11/20 20:14 Source: patient Exam Limitations: no limitations History of Present Illness Initial Comments: 44-year-old white female complaining of swelling above left eyelid for several days no drainage, pain on palpation. No history of fall or injury. No similar problems in the past. Denies any nausea ,vomiting , fever no chills. No change in vision. Does not wear glasses or contact lenses Past Medical History Past Medical History: Nursing Past Medical History Has Been Reviewed Allergies/Home Meds Allergies Allergy/AdvReac Type Severity Reaction Status Date / Time carbamazepine [From Tegretol] Allergy Severe Anaphylaxis Verified 03/11/20 20:29 Home Medications Medication Instructions Recorded Confirmed Last Taken Type naproxen 500 mg tablet 500 mg PO BID tab 09/30/19 02/14/20 11/07/19 History glatiramer See Rx Instructions .ROUTE .COMPLEX 01/27/20 02/14/20 01/27/20 History baclofen 10 mg PO TID PRN #14 tab 01/28/20 02/14/20 Unknown Rx hydrocodone-acetaminophen [Dolliver] 1 tab PO Q6HR PRN #6 tab 01/28/20 02/14/20 Unknown Rx sulfamethoxazole-trimethoprim 1 tab PO BID 7 Days #14 tab 03/11/20 Unknown Rx [Bactrim DS] Medication list updated and reviewed:: Yes Pain Assessment Pain Location: Above right eye lid Pain Description: Dull and Acute Pain Intensity: 3 Pain Scale Used: Numeric Scale Pain Radiation Location: None ER plan Plan of care and ER treatment: An ER treatment plan was discussed with patient and family, Patient encouraged to ask questions about plan and ER treatments and Patient agrees with ER plan of care PMH (from Triage) Patient Medical History PMH Reviewed/Updated as Needed: Yes PMH/PSH from Triage: Medical History (Updated 02/14/20 @ 12:51 by Lexi Luna NP) Anxiety (Medical) F41.9 Asthma (Medical) J45.909 COPD (chronic obstructive pulmonary disease) (Medical) J44.9 Depression (Medical) F32.9 Multiple sclerosis (Medical) G35 Tobacco abuse (Medical) Z72.0 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 White matter changes (Medical) Surgical History (Updated 07/17/19 @ 10:49 by Courtney Sutherland RN) Hx of bladder repair surgery (Surgical) Z98.890 Hx of tubal ligation (Surgical) Z98.51 Female History : No Lactating mother:: No Hx Drug Resistant Infections Hx Other Resistant Infection?: No Isolation: Standard precautions Hx Recent Travel Out of the country within 10 days (where): No Hx Fever with a rash?: No Nurse screening for coronavirus: Recent Travel outside the No country (where) Social History Are you in a relationship with/Does anyone hit you, yell/swear at you, steal from you?: No Substance Use Second Hand Smoke Exposure: Yes Smoking Status: Current every day smoker Tobacco Use Hx Chewing Tobacco Use: No Vaccination History Hx/Date of Tetanus, Diphtheria Vaccination: No Hx/Date of Influenza Vacci nation: No Hx/Date of Pneumococcal Vaccination: No PFSH Medical History Anxiety Asthma COPD (chronic obstructive pulmonary disease) Depression Multiple sclerosis Tobacco abuse Vitreous floaters of both eyes White matter changes Surgical History Hx of bladder repair surgery Hx of tubal ligation Social History Does the Patient have a Healthcare Proxy: No Does Patient have a DNR?: No Does Patient have a Living Will?: No Hx Recent Travel (where): No sexually active: Yes Smoking Status: Current every day smoker tobacco type: cigarettes Smoking risk assessment performed?: Yes counseling given: provider counseling, support medications,support program, counseling >3 minutes and patient declined ROS Review of Systems Constitutional: Denies fever and chills Eyes: Reports eyelid issues; Denies foreign body, r/t accident, contact lens user and wears glasses Gastrointestinal: Denies nausea and vomiting Neurologic: Denies headache Physical Exam General Physical Exam Narrative: White female no acute distress Limitations: no limitations General appearance: alert and in no apparent distress Head Head exam: Present atraumatic, normocephalic and normal inspection Eye Eye exam: Present PERRL, EOMI and other (Above right eyelid below right eyebrow is a raised mass about 4 mm , it is hard tender freely mobile nonfluctuant no drainage) Pupils: Present normal accommodation Neck Neck exam: Present normal inspection, full ROM and supple Respiratory Respiratory exam: Absent respiratory distress Neurological Exam Neurological exam: Present alert and oriented X3 Psychiatric Psychiatric exam: Present normal affect and normal mood Skin Skin exam: Present normal color Vital Signs Vital Signs: Vital Signs 03/11/20 20:01 Temperature 97.8 F Pulse Rate 80 Respiratory Rate 16 Blood Pressure 127/74 O2 Sat by Pulse Oximetry 99 [facility] (comprehensive) Medical Decision Making Free Text/Narative:: 44-year-old white female present with mass between upper eyelid and eyebrow appears to be cystic structure tender freely mobile no increased warmth no drainage nonfluctuant Explained to patient would call red leader for evaluation and removal will place on Bactrim Discharge Plan Admission/Discharge Dx Primary DC Diagnosis: Mass right upper eyelid ED Provider: Ray Osorio ED Status: Registered Time Seen by Provider: 03/11/20 20:14 Triaged At: 03/11/20 19:59 Condition Condition: Stable Discharge Detail Disposition: Home, Self-Care Med Rec New Prescriptions: New sulfamethoxazole- trimethoprim [Bactrim DS] 800-160 mg tablet 1 tab PO BID 7 Days Qty: 14 RF: 0 No Action naproxen 500 mg tablet 500 mg PO BID RF: 0 glatiramer 40 mg/mL syringe See Rx Instructions .ROUTE .COMPLEX RF: 0 baclofen 10 mg tablet 10 mg PO TID PRN (Reason: back pain) Qty: 14 RF: 0 hydrocodone-acetaminophen [Dolliver] 7.5-325 mg tablet 1 tab PO Q6HR PRN (Reason: pain) Qty: 6 RF: 0 Discharge Education Printouts: Cyst (ED) Medications Medication reconciliation performed by provider at discharge: Yes Follow Up Care/Instructions Diet/Activity/Wound Care..: As we discussed you most likely have a cyst of your upper eyelid that is either inflamed or infected At this time is not mature enough to open Recommend warm compress every several hours for 5 minutes Take Bactrim 1 tablet every 12 hours as directed Call red leader tomorrow for evaluation and removal May take either Tylenol Advil as directed for pain *Discharge Patient* Discharge Orders: Discharge Order (Routine); Ordered 03/11/20 Ordered By: Ray Osorio Report Signers: <Electronically signed by Ray Osorio MD> Ray Osorio MD 03/11/202047 Ray Osorio MD SIGNATURE DA Report Cosigners: D: DIBGLENDA 03/11/202030 T: LUDINMI 03/11/202030 CC: Lexi Luna Name Value Range Interpretation Code Description Data Mary rce(s) Supporting Document(s) Procedure Social History Code Duration Value Status Description Data Source(s ) Alcohol intake 03/31/2021 12:00:00 AM EDT Ex-drinker (finding) comp leted Ex- drinker (finding) [facility] Alcohol intake 12/17/2020 12:00:00 AM EDT Ex-drinker (finding) comp leted Ex- drinker (finding) [facility] 11/19/2020 12:03:00 PM EDT Never smoker completed Never s [facility] Smoking 11/19/2020 12:03:00 PM EDT Never smoker completed Never s [facility] 11/19/2020 12:03:00 PM EDT Never smoker completed Never [facility] Alcohol intake 11/06/2020 12:00:00 AM EDT Ex-drinker (finding) comp leted Ex- drinker (finding) [facility] 10/12/2020 11:09:00 AM EDT Never smoker completed Never [facility] Smoking 10/12/2020 11:09:00 AM EDT Never smoker completed Never [facility] 10/12/2020 11:09:00 AM EDT Never smoker completed Never [facility] 09/24/2020 08:55:00 AM EDT Never smoker completed Never [facility] Smoking 09/24/2020 08:55:00 AM EDT Never smoker completed Never [facility] 09/12/2020 04:19:18 PM EDT Never smoker completed Never [facility] Smoking 09/12/2020 04:19:00 PM EDT Never smoker completed Never [facility] Alcohol intake 07/16/2020 12:00:00 AM EST Ex-drinker (finding) comp leted Ex- drinker (finding) [facility] 07/04/2020 02:07:32 AM EST Current every day smoker co mpleted Current every day smoker [facility] Smoking 07/04/2020 02:07:00 AM EST Current every day smoker co mpleted Current every day smoker [facility] Tobacco use and exposure 05/14/2020 12:00:00 AM EST Smokeless to bacco non-user completed Smokeless tobacco non-user [facility] Cigarettes smoked current (pack per day) - Reported 05/14/20 12:00:00 AM EST UNK completed 0.5 [facility] Smoking 05/14/2020 12:00:00 AM EST Smokes tobacco daily comple ira Smokes tobacco daily [facility] Alcohol intake 05/14/2020 12:00:00 AM EST Ex-drinker (finding) comp leted Ex- drinker (finding) [facility] Smoking 03/13/2020 09:06:00 PM EDT Current every day smoker co mpleted Current every day smoker [facility] 03/13/2020 08:06:51 PM EDT Current every day smoker co mpleted Current every day smoker [facility] 03/13/2020 08:06:51 PM EDT Current every day smoker co mpleted Current every day smoker [facility] Smoking 03/13/2020 08:06:00 PM EDT Current every day smoker co mpleted Current every day smoker [facility] 03/11/2020 08:35:00 PM EDT Current every day smoker co mpleted Current every day smoker [facility] Smoking 03/11/2020 08:35:00 PM EDT Current every day smoker co mpleted Current every day smoker [facility] Vital Signs ID Date Data Source [id number] 11/09/2020 07:58:59 AM [facility] Name Value Range Interpretation Code Description Data Source(s) WEIGHT RECORDED 145.25 lb 145.25 lb [facility] Body height Measured 63 in 63 in [facility] ID Date Data Source [id number] 07/16/2020 11:23:55 AM [facility] Name Value Range Interpretation Code Description Data Source(s) WEIGHT RECORDED 145 lb 145 lb [facility] Body height Measured 63 in 63 in [facility] ID Date Data Source [id number] 07/03/2020 08:53:21 AM [facility] Name Value Range Interpretation Code Description Data Source(s) WEIGHT RECORDED 150 lb 150 lb [facility] Body height Measured 63 in 63 in [facility] Patient Treatment Plan of Care Planned Activity Planned Date Details Description Data Source (s) fingolimod 0.5 MG Oral Capsule [Gilenya] 03/26/2021 12:00:[address] [facility] Ergocalciferol 22725 UNT Oral Capsule 11/06/2020 12:00:[address] [facility] Cholecalciferol 5000 UNT Oral Tablet 07/16/2020 12:00:[address] [facility] fingolimod 0.5 MG Oral Capsule [Gilenya] 07/16/2020 12:00:[address] [facility] 24 HR Nicotine 0.875 MG/HR Transdermal Patch 05/14/2020 12:00:[address] [facility] Nicotine 21-14-7 MG/24HR Transdermal Kit 05/14/2020 12:00:[address] [facility]
[2021-05-01] MEDS ORDERED: ASPIRIN 81 MG CHEW TABLET PO ONE (21:20)
[2021-05-01 21:27] VITALS: BP 139/85
--- OUTSIDE RECORDS SUMMARY | 2021-05-01 22:04 | CCD ---
Author Author [facility] Organization [facility] Address Unknown Phone Unavailable Care Team Providers Care Crane Operator Name Role Phone Anirudh FRIEDMAN MD Unavailable Unavailable Anirudh FRIEDMAN MD Unavailable Unavailable Anirudh FRIEDMAN MD Unavailable Unavailable Anirudh FRIEDMAN MD Unavailable Unavailable Anirudh FRIEDMAN MD Unavailable Unavailable Anirudh FRIEDMAN MD Unavailable Unavailable Anirudh FRIEDMAN MD Unavailable Unavailable Oscar GARCIA Unavailable Unavailable AVERSA, A NEENA Unavailable Unavailable Lucy Anand MD [...] Alvarez Unavailable Shahrzad MD, A Alvarez Unavailable Sharhzad MD, A Alvarez Unavailable Shahrzad MD, A [...] Jackie ESPINOZA JR, MD Unavailable Unavailable Jackie ESPINZOA JR, MD Unavailable Unavailable CARSTEPHYT Jackie GROVE [...] Unavailable Unavailable Hansa SAWANT MD Unavailable Unavailable Britton, Lizbeth GROUNDS MANAGER Unavailable Unavailable Kee, Lizbeth GROUNDS MANAGER Unavailable Unavailable Britton, Lizbeth GROUNDS MANAGER Unavailable Unavailable Britton, Lizbeth GROUNDS MANAGER Unavailable Unavailable Britton, Lizbeth GROUNDS MANAGER Unavailable Unavailable Britton, Lizbeth GROUNDS MANAGER Unavailable Unavailable Britton, Lizbeth GROUNDS MANAGER Unavailable Unavailable Kee, Lizbeth GROUNDS MANAGER Unavailable Unavailable Britton, Lizbeth GROUNDS MANAGER Unavailable Unavailable Kee, Lizbeth GROUNDS MANAGER Unavailable Unavailable Kee, Lizbeth GROUNDS MANAGER Unavailable Unavailable Britton, Lizbeth GROUNDS MANAGER Unavailable Unavailable Britton, Lizbeth GROUNDS MANAGER Unavailable Unavailable Kee, Lizbeth GROUNDS MANAGER Unavailable Unavailable Britton, Lizbeth GROUNDS MANAGER Unavailable Unavailable Britton, Lizbeth GROUNDS MANAGER Unavailable Unavailable Britton, Lizbeth GROUNDS MANAGER Unavailable Unavailable Britton, Lizbeth GROUNDS MANAGER Unavailable Unavailable Britton, Lizbeth GROUNDS MANAGER Unavailable Unavailable Britton, Lizbeth GROUNDS MANAGER Unavailable Unavailable Kee, Lizbeth GROUNDS MANAGER Unavailable Unavailable Kee, Lizbeth GROUNDS MANAGER Unavailable Unavailable Britton, Lizbeth GROUNDS MANAGER Unavailable Unavailable Kee, Lizbeth GROUNDS MANAGER Unavailable Unavailable Kee, Lizbeth GROUNDS MANAGER Unavailable Unavailable Britton, Lizbeth GROUNDS MANAGER Unavailable Unavailable Britton, Lizbeth GROUNDS MANAGER Unavailable Unavailable Kee, Lizbeth GROUNDS MANAGER Unavailable Unavailable Kee, Lizbeth GROUNDS MANAGER Unavailable Unavailable Britton, Lizbeth GROUNDS MANAGER Unavailable Unavailable Kee, Lizbeth GROUNDS MANAGER Unavailable Unavailable Britton, Lizbeth GROUNDS MANAGER Unavailable Unavailable Britton, Lizbeth GROUNDS MANAGER Unavailable Unavailable Kee, Lizbeth GROUNDS MANAGER Unavailable Unavailable Kee, Lizbeth GROUNDS MANAGER Unavailable Unavailable Anirudh RIBEIRO MD Unavailable Unavailable [...] Unavailable MEAnirudh MARTINEZ MD Unavailable Unavailable MEJICO, Ainrudh MELO MD Unavailable Unavailable MEJICO, Anirudh MELO [...] Unavailable VIVEKTOLew MCKEON Unavailable Unavailable Jeremy, Lexi JAVA SYSTEMS ANALYST Unavailable Unavailable Re-disclosure Warning The records that [...] is protected by Article 27-F of the [facility] Public Health law. If you continue you may have access to information: Regarding HIV / AIDS; Provided by facilities licensed or operated by the [facility] Office of Mental Health; or Provided by the [facility] Office for People With Developmental Disabilities. If such information is present, then the following [facility] mandated warning applies: This information has been [...] law may result in a fine or detention sentence or both. A general authorization for the release of medical or other information is NOT sufficient authorization for further disc losure. Allergies and Adverse Reactions Type Description Substance Reaction Status Data Source(s ) Drug allergy carbamazepine carbamazepine Anaphylaxis [facility] Propensity to adverse reactions CARBAMAZEPINE CARBAMAZEPINE Anaphylax is [facility] Family History Family Member Name Family Member Gender Family Member Status Date o f Status Description Data Source(s) Unknown Male Problem MEDENT ([facility] Unknown Female Problem MEDENT ([facility]) Unknown Female Problem MEDENT ([facility]) Encounters Encounter Providers Location Date Indications Data Source(s ) Outpatient Attender: Lizbeth HENDRIX 08/06/2021 12:00: 00 AM [facility] Outpatient Attender: LORIE RIBEIRO MD [id number] 03/31/2021 12:00:[address] [facility] Outpatient Attender: KAILA YANG 07/2020 12:00:00 AM [facility] 03/31/2021 04:02:[address] [facility] Outpatient Attender: Lizbeth HENDRIX [id number] 12:00:00 AM EDT - 03/31/2021 03:20:50 PM EDT [facility] Emergency Attender: Wild Almazan PA-C 05/2020 07:14:00 PM EDT - 03/29/2021 10:32:00 PM EDT [facility] Patient discharged. Outpatient Attender: Lizbeth Kee GUTIERREZP 03/29/2021 12:00: 00 AM EDT [facility] Outpatient Attender: Lizbethferoz Galvangerman GUTIERREZP 03/22/2021 12:00: 00 AM EDT [facility] Outpatient Attender: Sandor Obando MDReferrer: Lexi bryant JAVA SYSTEMS ANALYST 02/24/2021 03:11:00 PM EDT - 02/24/2021 03:53:00 PM EDT [facility] Outpatient Attender: Lizbeth Galvanford GROUNDS MANAGER 02/18/2021 12:00: 00 AM EDT [facility] Outpatient Attender: Lizbeth Kee GUTIERREZP 02/12/2021 12:00: 00 AM EDT [facility] Outpatient Attender: Lexi Luna NPReferrer: Lexi mahan JAVA SYSTEMS ANALYST 01/12/2021 12:35:00 PM EDT - 01/12/2021 01:32:00 PM EDT [facility] Outpatient Attender: Lexi Luna NP 12/29/2020 05 :09:00 PM EDT NECK PAIN,HEADACHES [facility] NECK PAIN,HEADACHES Outpatient Attender: Lizbeth Sweet FNPReferrer: Ron Sweet [facility] [id number] 12/20/2020 09:57:34 PM EDT [facility] Outpatient Attender: Lexi Luna NP 12/18/2020 01 :34:00 PM EDT SHORTNESS OF BREATH; CERVICAL DISC DISEASE [facility] SHORTNESS OF BREATH; CERVICAL DISC DISEA SE Outpatient Attender: Lizbeth Kee FNPReferrer: Anirudh Viramontes DO [id number] 12/17/2020 12:00:00 AM EDT - 12/17/2020 02:27:[address] [facility] Outpatient Attender: NEENA Mellorer: KAITLIN Soares 12/17/2020 12:00:[address] [facility] Outpatient Attender: Lexi Luna NPReferrer: Lexi mahan JAVA SYSTEMS ANALYST 12/03/2020 01:14:00 PM EDT - 12/03/2020 01:57:00 PM EDT [facility] Outpatient 12/03/2020 12:00:[address] [facility] Outpatient Attender: Lizbeth Sweet GROUNDS MANAGER 12/03/2020 12:00: [address] [facility] Outpatient Attender: Lexi Luna JAVA SYSTEMS ANALYST 11/19/2020 04:30:00 PM EDT R35.0 [facility] R35.0 Outpatient Attender: Lexi Luna NPReferrer: Lexi mahan JAVA SYSTEMS ANALYST 11/19/2020 11:17:00 AM EDT - 11/19/2020 12:02:00 PM EDT [facility] Outpatient Attender: Lizbeth GUTIERREZ PAttender: Alvarez Singer MDReferrer: Power Viramontes DO [id number] 11/06/2020 01:26:26 PM EDT - 11/06/2020 02:45:37 PM EDT [facility] Multiple sclerosis Outpatient Attender: KAILA YANG 10/27 12:00:00 AM EDT - 11/06/2020 03:47:28 PM EDT [facility] Multiple sclerosis Outpatient Attender: LORIE RIBEIRO MD [id number] 11/06/2020 12:00:[address] [facility] Outpatient Attender: WILLIAN FORD 11/07/19 12:00:00 AM EDT - 11/06/2020 03:08:52 PM EDT [facility] Multiple sclerosis Outpatient Attender: Lexi Luna NPReferrer: Lexi mahan JAVA SYSTEMS ANALYST 10/13/2020 03:04:00 PM EDT - 10/13/2020 04:26:00 PM EDT [facility] Outpatient Attender: Lexi Luna NP 10/13/2020 02:59:00 PM EDT M54.9 [facility] M54.9 Outpatient Attender: Lexi Luna NPReferrer: Lexi mahan NP 09/24/2020 08:56:00 AM EDT - 09/24/2020 09:34:00 AM EDT [facility] Emergency Attender: LIZET SAWANT MD 08/27 02:12:00 PM EDT - 09/12/2020 05:01:00 PM EDT SHOULDER PAIN,SWELLING [facility] l SHOULDER PAIN,SWELLING Patient discharged. Outpatient Attender: Alvarez Singer MD [id number] 2020 12:00:00 AM EST - 07/16/2020 11:23:41 AM EST [facility] Multiple sclerosis Emergency Attender: Lucy Anand MD 07/04 12:54:00 AM EST - 07/04/2020 06:47:00 AM EST LEG PAIN [facility] l LEG PAIN Patient discharged. Outpatient Attender: Alvarez Singer MD 06/23/2020 09:51:00 A M [facility] MS [facility] MS Outpatient Attender: LEBRON REYES [id number] 05/20/2020 10:44:01 A M [facility] Outpatient Attender: Lexi Luna NP 05/15/2020 10:35:00 AM EST [facility] Outpatient Attender: Lexi Luna NPReferrer: Lexi mahan NP 05/15/2020 09:40:00 AM EST - 05/15/2020 10:50:00 AM EST [facility] Outpatient Attender: Alvarez Singer MDReferrer: Alvarez Singer MD [id number] 05/14/2020 07:28:33 AM EST - 05/14/2020 10:47:09 AM EST [facility] Multiple sclerosis Outpatient Attender: LORIE RIBEIRO MD [id number] 05/14/2020 12:00:00 A [facility] Outpatient Attender: Alvarez Singer MDReferrer: Alvarez Singer MD 05/14/2020 12:00:00 AM EST - 05/15/2020 12:00:00 AM [facility] sclerosis [facility] Multiple sclerosis Outpatient 05/14/2020 12:00:00 AM [facility] Outpatient Attender: GAURAV Thompson: Alvarez Singer MD 05/14/2020 12:00:00 AM [facility] Emergency Attender: RAY FRIEDMAN MDAttender: Hemant Buckley DO 03/13/2020 06:08:00 PM EDT - 03/13/2020 08:34:00 PM EDT EYE RE-CHECK [facility] EYE RE-CHECK Patient discharged. Emergency Attender: Ray Osorio MD 07:58:00 PM EDT - 03/11/2020 08:56:00 PM EDT SWELLING ABOVE EYE [facility] l SWELLING ABOVE EYE Patient discharged. Medications Medication Brand Name Start Date Product Form Dose Route Admi nistrative Instructions Pharmacy Instructions Status Indications Reaction Description Data Source(s) fingolimod 0.5 MG Oral Capsule [Gilenya] Gilenya 0.5 MG Oral Capsule (fingolimod) Gilenya 0.5 MG Oral Capsule (fingolimod) 03/26/2021 12 :00:00 AM EDT active Multiple sclerosis TAKE 1 CAPSULE BY MOUTH EVERY DAY [facility] Multiple sclerosis tramadol hydrochloride 50 MG Oral Tablet Tramadol Tramadol 11/19/2020 02:44:00 PM EDT 50 MG [facility] fingolimod 0.5 MG Oral Capsule Fingolimod (Gilenya) 0. 5 mg capsule Fingolimod (Gilenya) 0.5 mg capsule 11/19/2020 11:38:48 AM EDT 0.5 MG [facility] Ergocalciferol 88995 UNT Oral Capsule Ergocalciferol ( Vitamin D2) Ergocalciferol (Vitamin D2) 11/19/2020 11:36:07 AM EDT 1250 MCG [facility] 50 mg 11/19/2020 12:00:00 AM EDT [...] TABLETS SOLD: 12/28/2020 [facility] Ergocalciferol 61164 UNT Oral Capsule Vi tamin D (Ergocalciferol) 1.25 MG (30863 UT) Oral Capsule (ERGOCALCIFEROL) Vitamin D (Ergocalciferol) 1.25 MG (5000 0 UT) Oral Capsule (ERGOCALCIFEROL) 11/06/2020 12:00:00 AM EDT 35585 U Ora l active Vitamin D deficiency Take 1 capsule by mouth kennedy ry 7 (seven) days [facility] Vitamin D deficiency NITROFURANTOIN, MACROCRYSTALS 100 MG Oral Capsule Nitr ofurantoin Macrocrystal Nitrofurantoin Macrocrystal 10/15/2020 07:37:27 AM EDT 100 MG completed [facility] Prednisone 10 MG Oral Tablet Prednisone 09/24/2020 12:24:39 PM EDT 10 MG completed [facility] Prednisone 20 MG Oral Tablet Prednisone 09/12/2020 04:31:31 PM EDT 20 MG completed [facility] Prednisone 20 MG Oral Tablet Prednisone 09/12/2020 04:31:31 PM EDT 20 MG active [facility] Cholecalciferol 5000 UNT Oral Tablet [facility] lecalciferol 125 MCG (5000 UT) Oral Tablet Cholecalciferol 125 MCG (5000 UT) Oral Tablet 07/16/2020 12: 00:00 AM EST 5000 [iU] Oral active Take 5,000 Int 'l Units by mouth daily [facility] fingolimod 0.5 MG Oral Capsule [Gilenya] Gilenya 0.5 MG Oral Capsule (fingolimod) Gilenya 0.5 MG Oral Capsule (fingolimod) 07/16/2020 12 :00:00 AM EST 0.5 mg Oral active Take 1 c apsule by mouth daily Please do not dispense until cleared by [facility] 24 HR Nicotine 0.875 MG/HR Transdermal Patch Nicotine 05/15/2020 10:06:37 AM EST 1 PATCH active [facility] 24 HR Nicotine 0.875 MG/HR Transdermal Patch Nicotine 05/15/2020 10:06:37 AM EST 1 PATCH completed [facility] 24 HR Nicotine 0.875 MG/HR Transdermal Patch Nicotine 05/15/2020 10:06:37 AM EST 1 PATCH completed [facility] 24 HR Nicotine 0.875 MG/HR Transdermal Patch Nicotine 05/15/2020 10:06:37 AM EST 1 PATCH completed [facility] 21 mg/24 hr 05/15/2020 12:00:00 AM EST [...] onto the skin every 24 (twenty-four) hours [facility] Nicotine 21-14-7 MG/24HR Transdermal Kit [id number] 05/14/2020 12:00:00 AM EST active Use as instructed [facility] Sulfamethoxazole 800 MG / Trimethoprim 1 60 MG Oral Tablet Sulfamethoxazole- Trimethoprim (Bactrim Ds) 800-160 mg tablet Sulfamethoxazole-Trimethoprim (Bactrim Ds) 800-160 mg tablet 03/11/2020 08:36:48 PM EDT 1 TAB completed [facility] Sulfamethoxazole 800 MG / Trimethoprim 1 60 MG Oral Tablet Sulfamethoxazole- Trimethoprim (Bactrim Ds) 800-160 mg tablet Sulfamethoxazole-Trimethoprim (Bactrim Ds) 800-160 mg tablet 03/11/2020 08:36:48 PM EDT 1 TAB completed [facility] Sulfamethoxazole 800 MG / Trimethoprim 1 60 MG Oral Tablet Sulfamethoxazole- Trimethoprim (Bactrim Ds) 800-160 mg tablet Sulfamethoxazole-Trimethoprim (Bactrim Ds) 800-160 mg tablet 03/11/2020 08:36:48 PM EDT 1 TAB active [facility] Sulfamethoxazole 800 MG / Trimethoprim 1 60 MG Oral Tablet Sulfamethoxazole- Trimethoprim (Bactrim Ds) 800-160 mg tablet Sulfamethoxazole-Trimethoprim (Bactrim Ds) 800-160 mg tablet 03/11/2020 08:36:48 PM EDT 1 TAB active [facility] Sulfamethoxazole 800 MG / Trimethoprim 1 60 MG Oral Tablet Sulfamethoxazole- Trimethoprim (Bactrim Ds) 800-160 mg tablet Sulfamethoxazole-Trimethoprim (Bactrim Ds) 800-160 mg tablet 03/11/2020 08:36:48 PM EDT 1 TAB completed [facility] Sulfamethoxazole 800 MG / Trimethoprim 1 60 MG Oral Tablet Sulfamethoxazole- Trimethoprim (Bactrim Ds) 800-160 mg tablet Sulfamethoxazole-Trimethoprim (Bactrim Ds) 800-160 mg tablet 03/11/2020 08:36:48 PM EDT 1 TAB completed [facility] Acetaminophen 325 MG / Hydrocodone Lelsi trate 7.5 MG Oral Tablet Hydrocodone- Acetaminophen ([place]) 7.5-325 mg tablet Hydrocodone-Acetaminophen ([place]) 7.5- 325 mg tablet 01/28/2020 02:09:32 AM EDT 1 TAB completed [facility] Acetaminophen 325 MG / Hydrocodone Lesli trate 7.5 MG Oral Tablet Hydrocodone- Acetaminophen ([place]) 7.5-325 mg tablet Hydrocodone-Acetaminophen ([place]) 7.5- 325 mg tablet 01/28/2020 02:09:32 AM EDT 1 TAB completed [facility] 1 ML glatiramer acetate 40 MG/ML Prefilled Syringe Glatirame r Glatiramer 01/27/2020 10:53:33 PM EDT 0 completed [facility] Insurance Providers Payer name Policy type / Coverage type Policy ID Covered alliance party ID Covered alliance party's relationship to mandujano Policy Mandujano Plan Information COMPUTER SCIENCE ISABELA [facility] [id number] SELF [id number] [facility] PLUS [facility] COMMUNITY PLAN [id number] SELF [id number] i FHP-(DO Not Use) Medigap Part B [id number] Self [facility] Commercial [id number] Self Managed Care - [employer] P [id number] S [id number] Medicaid S [id number] S [id number] Managed Care - [employer] P [id number] S [id number] [facility] Comm Plan Medicaid F [id number] SELF [id number] [place] () Workers Compensation [id number] Self [facility] COMMUNITY PLAN MCDO [id number] SP [id number] Managed Care - [employer] P [id number] S [id number] [facility] COMMUNITY PLAN [facility] [id number] SP [id number] Medicaid S [id number] S [id number] [place] Medig[place] Part B [id number] Self [id number] [place] [id number] Self [id number] [facility] Commercial [id number] Self [id number] [facility] Commercial [id number] Self [id number] [facility] COMMUNITY PLAN [facility] [id number] SP [id number] Managed Care - [facility] P [id number] S [id number] Medicaid S [id number] S [id number] [facility] [id number] Self [id number] [facility] [id number] [id number] [facility] [id number] Self [id number] Managed Care - [facility] P [id number] S [id number] Managed Care - [facility] Community Plan P [id number] S [id number] [facility] MEDICAID [id number] Self [id number] Medicaid S [id number] S [id number] [facility] I [id number] Self [id number] [facility] I [id number] Self [id number] UNITED [id number] Self [id number] [facility](MCAID) O [id number] S [id number] [facility] Commercial [id number] Self [id number] [facility] Commercial [id number] Self [id number] Self Pay P [id number] S [id number] SELF PAY ONLY [id number] SP [id number] O UNAVAILABLE UNAVAILA BLE Managed Care - [facility] P [id number] S [id number] UNHC COMMUNITY PLAN XIX [id number] 18 [id number] UNHC COMMUNITY PLAN MCDHMO [id number] SP [id number] MEDICAID [id number] SP [id number] [facility] Hmo Commercial [id number] Self Managed Care - [facility] P [id number] S [id number] [place] B [id number] [place]ig[place] Part B [id number] Self HMO BLUE [id number] SP [id number] [facility](MCAID) P [id number] S [id number] HMO BLUE [id number] SP [id number] [facility]ITY PL[facility] [id number] SP [id number] Problems, Conditions, and Diagnoses Code Display Name Description Problem Type Effective Dates Data Source(s) R32 Unspecified urinary incontinence Unspecified urinary i ncontinence Diagnosis 11/06/2020 01:26:26 PM EDT [facility] E55.9 Vitamin D deficiency, unspecified Vitamin D defi ciency, unspecified Diagnosis 07/16/2020 11:17:29 AM [facility] Z72.0 Tobacco use Tobacco use Diagnosis 05/13/2020 08:46:38 PM [facility] G35 Multiple sclerosis Multiple sclerosis Diagnosis 0 10:44:49 AM [facility] Surgeries/Procedures Procedure Description Date Indications Data Source(s) MRI Cervical without contrast 12/29/2020 05:40:00 PM E DT [facility] Echocardiography (procedure) 12/18/2020 02:02:00 PM ED T [facility] EKG 12-LEAD <td>EKG 12-LEAD</td><td>Rout ine</td><td>11/06/2020 3:04 PM EDT</td><td></td><td></td> 11/06/2020 03:04:43 PM EDT [facility] EKG 12-LEAD - CMAXX REPORT <td>EKG 12-LEAD - CMAXX REPORT</td><td></td><td>11/06/2020 3:04 PM EDT</td><td></td><td></td> 11/06/2020 03:04:[address] [facility] Urine culture (procedure) 10/13/2020 12:00:00 AM [facility] Xray Shoulder [facility] 09/12/2020 03:31:00 PM [facility] Plain chest X-ray (procedure) 09/12/2020 03:30:[address] C-Spine without contrast [facility]/12[facility]procedure) 09/12/2020 03:30:[address] C-Spine without contrast 09/12/2020 03:30:00 PM [facility] Ultrasound scan of lower limb veins (procedure) 2020 03:53:00 AM [facility] Ultrasound scan of lower limb veins (procedure) 2020 03:53:00 AM [facility] Ultrasound scan of lower limb veins (procedure) 2020 03:53:00 AM [facility] Magnetic resonance imaging of thoracic spine (procedure) 06/23/2020 12:51:00 PM [facility] Magnetic resonance imaging of cervical spine with contrast ( procedure) 06/23/2020 12:51:00 PM [facility] Magnetic resonance imaging of thoracic spine (procedure) 06/23/2020 12:51:00 PM [facility] Magnetic resonance imaging of cervical spine with contrast ( procedure) 06/23/2020 12:51:00 PM [facility] Magnetic resonance imaging of thoracic spine (procedure) 06/23/2020 12:51:00 PM [facility] Magnetic resonance imaging of cervical spine with contrast ( procedure) 06/23/2020 12:51:00 PM [facility] Wet Prep 05/15/2020 12:00:00 AM [facility] Wet Prep 05/15/2020 12:00:00 AM [facility] Wet Prep 05/15/2020 12:00:00 AM EST L [facility] SYPHILIS IGG/IGM SCREEN W/REFLEX TO RPR <td>SYPHILIS I GG/IGM SCREEN W/REFLEX TO RPR</td><td>Routine</td><td>05/14/2020 12:10 PM EST</td><td> Multiple sclerosis</td><td> </td> 05/14/2020 12:10:00 PM EST [facility] Multiple sclerosis GAMMAGLOBULIN IGA IGD IGG IGM EACH <td>IMMUNOGLOBULIN ASSAY</td><td>Routine</td><td>05/14/2020 12:10 PM EST</td><td> Multiple sclerosis</td><td> </td> 05/14/2020 12:10:00 PM EST [facility] Multiple sclerosis THROMBOPLASTIN TIME PARTIAL PLASMA/WHOLE BLOOD <td>PAR TIAL THROMBOPLASTIN TIME (PTT)</td><td>Routine</td><td>05/14/2020 12:10 PM EST</td><td> Multiple sclerosis</td><td> </td> 05/14/2020 12:10:00 PM EST [facility] Multiple sclerosis BETA 2 GLYCOPROTEIN I ANTIBODY EACH <td>B2 GLYCOPROTEI N IGG/IGM</td><td>Routine</td><td>05/14/2020 12:10 PM EST</td><td> Multiple sclerosis</td><td> </td> 05/14/2020 12:10:00 PM EST [facility] Multiple sclerosis IAAD EIA HIV-1 AG W/HIV-1&HIV-2 ANTBDY SINGLE <td>HIV AG AB COMBO SCREEN</td><td>Routine</td><td>05/14/2020 12:10 PM EST</td><td> Multiple sclerosis</td><td> </td> 05/14/2020 12:10:00 PM EST [facility] Multiple sclerosis ACUTE HEPATITIS PANEL <td>HEPATITIS PANEL, ACUTE</td><td>Routine</td><td>05/14/2020 12:10 PM EST</td><td> Multiple sclerosis</td><td> </td> 05/14/2020 12:10:00 PM EST [facility] Multiple sclerosis 25 HYDROXY INCLUDES FRACTIONS IF PERFORMED <td>VITAMIN D 25 HYDROXY, TOTAL</td><td>Routine</td><td>05/14/2020 12:10 PM EST</td><td> Multiple sclerosis</td><td> </td> 05/14/2020 12:10:00 PM EST [facility] Multiple sclerosis HEPATITIS B SURF ANTIBODY HBSAB <td>HEPATITIS B SURFAC E ANTIBODY</td><td>Routine</td><td>05/14/2020 12:10 PM EST</td><td> Multiple sclerosis</td><td> </td> 05/14/2020 12:10:00 PM EST [facility] Multiple sclerosis CARDIOLIPIN ANTIBODY EACH IG CLASS <td>CARDIOLIPIN IGG /IGM AB</td><td>Routine</td><td>05/14/2020 12:10 PM EST</td><td> Multiple sclerosis</td><td> </td> 05/14/2020 12:10:00 PM EST [facility] Multiple sclerosis SEDIMENTATION RATE RBC AUTOMATED <td>SEDIMENTATION RAT E, AUTOMATED</td><td>Routine</td><td>05/14/2020 12:10 PM EST</td><td> Multiple sclerosis</td><td> </td> 05/14/2020 12:10:00 PM EST [facility] Multiple sclerosis PROTHROMBIN TIME <td>PROTIME INR</td><td>Rout ine</td><td>05/14/2020 12:10 PM EST</td><td> Multiple sclerosis</td><td> </td> 05/14/2020 12:10:00 PM EST [facility] Multiple sclerosis BLOOD COUNT COMPLETE AUTO&AUTO DIFRNTL WBC COUNT <td>C BC AND DIFFERENTIAL</td><td>Routine</td><td>05/14/2020 12:10 PM EST</td><td> Multiple sclerosis</td><td> </td> 05/14/2020 12:10:00 PM EST [facility] Multiple sclerosis RHEUMATOID FACTOR QUANTITATIVE <td>RHEUMATOID FACTOR</td><td>Routine</td><td>05/14/2020 12:10 PM EST</td><td> Multiple sclerosis</td><td> </td> 05/14/2020 12:10:00 PM EST [facility] Multiple sclerosis THYROID STIMULATING HORMONE TSH <td>TSH</td><td>Routin e</td><td>05/14/2020 12:10 PM EST</td><td> Multiple sclerosis</td><td> </td> 05/14/2020 12:10:00 PM EST [facility] Multiple sclerosis HOMOCYSTEINE <td>HOMOCYSTEINE, SERUM</td> <td>Routine</td><td>05/14/2020 12:10 PM EST</td><td> Multiple sclerosis</td><td> </td> 05/14/2020 12:10:00 PM EST [facility] Multiple sclerosis HEMOGLOBIN GLYCOSYLATED A1C <td>HEMOGLOBIN A1C</td><td>Routine</td><td>05/14/2020 12:10 PM EST</td><td> Multiple sclerosis</td><td> </td> 05/14/2020 12:10:00 PM EST [facility] Multiple sclerosis FOLIC ACID SERUM <td>FOLATE</td><td>Routine</ td><td>05/14/2020 12:10 PM EST</td><td> Multiple sclerosis</td><td> </td> 05/14/2020 12:10:00 PM EST [facility] Multiple sclerosis CYANOCOBALAMIN VITAMIN B-12 <td>VITAMIN B12</td><td>Ro utine</td><td>05/14/2020 12:10 PM EST</td><td> Multiple sclerosis</td><td> </td> 05/14/2020 12:10:00 PM EST [facility] Multiple sclerosis HEPATIC FUNCTION PANEL <td>HEPATIC FUNCTION PANEL A</td><td>Routine</td><td>05/14/2020 12:10 PM EST</td><td> Multiple sclerosis</td><td> </td> 05/14/2020 12:10:00 PM EST [facility] Multiple sclerosis BASIC METABOLIC PANEL CALCIUM TOTAL <td>BASIC METABOLI C PANEL</td><td>Routine</td><td>05/14/2020 12:10 PM EST</td><td> Multiple sclerosis</td><td> </td> 05/14/2020 12:10:00 PM EST [facility] Multiple sclerosis PROTEIN XCPT REFRACTOMETRY SERUM PLASMA/WHL BLD <td>WY OTEIN ELECTROPHORESIS WITH SERUM TOTAL PROTEIN</td><td>Routine</td><td>05/14/2020 11:53 AM EST</td><td> Multiple sclerosis</td><td></td> 05/14/2020 11:53:00 AM EST [facility] Multiple sclerosis EKG 12-LEAD <td>EKG 12-LEAD</td><td>Rout ine</td><td>05/14/2020 11:42 AM EST</td><td></td><td></td> 05/14/2020 11:42:09 AM EST [facility] Results ID Date Data Source [id number] 04/27/2021 08:50:30 AM EST [facility] Name Value Range Interpretation Code Description Data Mary rce(s) Supporting Document(s) Progress Note [facility] QCZQVa5hDiARUxRn52/AGKqmMEZzg9GvXZfaEQf5PReyRYKmB8SrYQI9dJ2aGRD8YUyGZbCfViYnDSBe lbm [file] [id number]= ID Date Data Source [id number] 03/31/2021 07:33:31 PM EDT [facility] Name Value Range Interpretation Code Description Data Mary rce(s) Supporting Document(s) Albumin [Mass/volume] in Serum or Plasma by Bromocresol green (BCG) dye binding method 4.3 g/dL 3.5-5.2 [facility] al Bilirubin.total [Mass/volume] in Serum or Plasma 0.3 mg/dL <1.2 [facility] Bilirubin.direct [Mass/volume] in Serum or Plasma <0.3 [facility] Alkaline phosphatase [Enzymatic activity/volume] in Serum or Plasma 60 U/L 35-104 [facility] Aspartate aminotransferase [Enzymatic activity/volume] in Serum or Plasma 12 U/L <32 [facility] Alanine aminotransferase [Enzymatic activity/volume] in Seru m or Plasma 9 U/L <33 [facility] Protein [Mass/volume] in Serum or Plasma 7.2 g/dL 6.4-8.3 [facility] ID Date Data Source [id number] 03/31/2021 07:35:01 PM EDT [facility] Name Value Range Interpretation Code Description Data Mary rce(s) Supporting Document(s) Leukocytes [#/volume] in Blood by Automated count 5.0 10*3/uL 4-10 [facility] Erythrocytes [#/volume] in Blood by Automated count 4.79 10*6/uL 4.1- 5.3 [facility] Hemoglobin [Mass/volume] in Blood 14.2 g/dL 11.5-15.5 [facility] Hematocrit [Volume Fraction] of Blood by Automated count 43.2 % 3 6-45 [facility] Erythrocyte mean corpuscular volume [Entitic volume] by Auto mated count 90.1 fL 80-96 [facility] Erythrocyte mean corpuscular hemoglobin [Entitic mass] by Automated count 29.7 pg 27-33 [facility] Erythrocyte mean corpuscular hemoglobin concentration [Mass/volume] by Automated count 33.0 g/dL 32.0-36.0 [facility] E[facility]throcyte distribution width [Ratio] by Automated count 14.3 % 11.5-14.5 [facility] Platelets [#/volume] in Blood by Automated count 266 10*3/uL 150-400 [facility] Differential cell count method - Blood [facility] Neutrophils/100 leukocytes in Blood by Automated count 66 % [facility] Lymphocytes/100 leukocytes in Blood by Automated count 21 % [facility] Monocytes/100 leukocytes in Blood by Automated count 10 % [facility] Eosinophils/100 leukocytes in Blood by Automated count 3 % [facility] Basophils/100 leukocytes in Blood by Automated count 0 % [facility] Neutrophils [#/volume] in Blood by Automated count 3.30 10*3/uL 1.8-7 .0 [facility] Lymphocytes [#/volume] in Blood by Automated count 1.05 10*3/uL 1.2-4 .0 L [facility] Monocytes [#/volume] in Blood by Automated count 0.52 10*3/uL 0-0.8 [facility] Eosinophils [#/volume] in Blood by Automated count 0.15 10*3/uL 0-0.5 [facility] Basophils [#/volume] in Blood by Automated count 0.02 10*3/uL 0-0.2 [facility] Nucleated erythrocytes/100 leukocytes [Ratio] in Blood by Automated count 0 /100{WBCs} 0-0 [facility] ID Date Data Source [id number] 03/31/2021 03:20:19 PM EDT [facility] Name Value Range Interpretation Code Description Data Mary rce(s) Supporting Document(s) Progress Note [facility] LSRSCc7eErDZXiFf68/CMUftNKQqw1AyHXioJHi8QYjmFKTxC5ZzXRT9pT9qBQP3KXnKRvFgSxHaOOGa [facility] [file] Carmelal/t0NpCIv6guydWCG0ZiIjjMGk6ETtmlBBBK7kPolTNhAZC+VubPPKVkZyA5fMZsfKuHWtQomfQZVV N+lZqApSa6y0K1GubsIobzIwYH/YkWKPDQIFPJVEuWOvKpeY4XKu7TS8EdNtawUgVW3DuC8/rYvCN5Is C7WuT7JvfPHWmySW040iMlvyovTpzxBbm4HwR3CuyL bJYIJPyCsXMHk6MNkHcfasX5IAmVyDJ07RY3QLk7B5OriP7YCtGoMIU6cvTkdD8HUR7lj7SgIMtaXAPi QW6xbk6UHFX4TU9WWGIqCK4YtRPqB0YuH2IPRoXaHLVrPPFkZG91MDZiSIEAZNyiJQOnF8Dfo415itXp oaFcWGNnFb9HZDLuLI5WEHDaKIOjxQFbDAQrWZCmMp R8ISPjVKyiSBGwS2WfwjWpluXwDGGiTUIaTy1UIFTaDK2Asv48jUA9MOSzDzArAITgkiMqFVTprqQ2KV 5BFfFcTUE8zCWlDerCDY8RTDWedGPwRB5DQCIcnPQzWX3+DQogID4+SPntabKaEgfCKtXeBPPvk0KcJZ haNDf1Z6RsmTCjplKhXahdoMSFRQYfXJHfQ8dyygt6 zRT9BVb0Uk0HNeQod3SfSBKnZSsRmuDun6RbhaO53iu+E00aB5GMfX07bmw0JnyTyK2uTFpjrh7XZwvv D99RFm2yu4++LZ1aZiA0BmoTrRFyQcZrdUbSWet8YnJiFVflL/+UPboWDZqS02//J4Mc8mOp+utfouGw LO0PG/60Dhr+7dp20wwOP6tl1Ijx531kKlSg7/lJ9K +9o9XVv/eObq/gw43jV7gU7Xuqcyk9lOut7g6Pb/nsZL7+8ljj4BnqyFK6ddHCvk8+ground crewman/7/wGPaI4Cw [file] AgICAgICAgICAgICAgICAgICAgICAgICAgICAgICAg ICAgICAgICAgICAgICAgICAgICAgICAgICAgICAgICAgICAgICAgICAgICAgICAgICAgICAgICAgICAg ICANCiAgICAgICAgICAgICAgICAgICAgICAgICAgICAgICAgICAgICAgICAgICAgICAgICAgICAgICAg ICAgICAgICAgICAgICAgICAgICAgICAgICAgICAgIC AgICAgICAgICAgICANCiAgICAgICAgICAgICAgICAgICAgICAgICAgICAgICAgICAgICAgICAgICAgIC AgICAgICAgICAgICAgICAgICAgICAgICAgICAgICAgICAgICAgICAgICAgICAgICAgICAgICANCiAgIC AgICAgICAgICAgICAgICAgICAgICAgICAgICAgICAg ICAgICAgICAgICAgICAgICAgICAgICAgICAgICAgICAgICAgICAgICAgICAgICAgICAgICAgICAgICAg ICAgICANCiAgICAgICAgICAgICAgICAgICAgICAgICAgICAgICAgICAgICAgICAgICAgICAgICAgICAg ICAgICAgICAgICAgICAgICAgICAgICAgICAgICAgIC AgICAgICAgICAgICAgICANCiAgICAgICAgICAgICAgICAgICAgICAgICAgICAgICAgICAgICAgICAgIC AgICAgICAgICAgICAgICAgICAgICAgICAgICAgICAgICAgICAgICAgICAgICAgICAgICAgICAgICANCi AgICAgICAgICAgICAgICAgICAgICAgICAgICAgICAg ICAgICAgICAgICAgICAgICAgICAgICAgICAgICAgICAgICAgICAgICAgICAgICAgICAgICAgICAgICAg ICAgICAgICANCiAgICAgICAgICAgICAgICAgICAgICAgICAgICAgICAgICAgICAgICAgICAgICAgICAg ICAgICAgICAgICAgICAgICAgICAgICAgICAgICAgIC AgICAgICAgICAgICAgICAgICANCiAgICAgICAgICAgICAgICAgICAgICAgICAgICAgICAgICAgICAgIC AgICAgICAgICAgICAgICAgICAgICAgICAgICAgICAgICAgICAgICAgICAgICAgICAgICAgICAgICAgIC ANCiAgICAgICAgICAgICAgICAgICAgICAgICAgICAg ICAgICAgICAgICAgICAgICAgICAgICAgICAgICAgICAgICAgICAgICAgICAgICAgICAgICAgICAgICAg ICAgICAgICAgICANCjw/bRHaH7ovlVMffrF7T6otVc0MDq4HEO3an1GhWGVnBFrteuUtXeiWKbYnSQGl ClsVQxj4YVjtNF9CaCWbR4OxT0EgFCvmAV2MEEWwLL PtuTIwGUOfUZAgQzE9HDSxCSrpPI7WrZXbFYleCUUtBGMvKmDdTQFxMKJePVTzGAQmNDJCEOKuGNFaSy WrSMFrYHPxSNoqRIOHVUE2JUEmJyWtLOUhLCTlZiWcWYQTPCX3HWOnYqJzHoLySMMtPF3XOIMgH576lo QgMTINCj4+FXatgdZyUvvHEuE3UJQqc1HdFVf9WD0L GOFqHrtdh1MxJPKjRZQLRSekDE4OUKO9ZNO0CHEaZd8UJWReE947wxQgRY9QLa8AGbHyNS6dht5KSMRv VEOoGsrSHbe9HMpjFZ0BoEShYTpWnp8znxPsapECl6QpdzSjqGTEGSHimxZgRNopIhBeIs9aRSpkXjWu AEZkSJFuTg5mAAQxWAMbUkVmOTRCRZ8CEPLbSHUcrV TcTNIzKVHULP4VVKqmYOK6BMZsmkPyqJEdRWmaBL7KIBQnnnMpHXFyJPOYPUa+Rd4ZFN8uu0VxJEf8Tt VkHU6eep5TGHjLCnOpU4O6aMMaO6M1TEmhSt2XYPUuBRDnEDJwSNYBSSusDV5HVU0mocB1YE7CeKEkSY HsEPRxcNPrFKa3K95acGKwHJyvPE2ZDDV+Izabella+Pg0K WPBuKZDiWTLiHnOqDGVWWkLrP7XoV1NZm9JuU8UpOE46wDxjcsGuWSbrEA0MLE8tSDCfPSXNZD8CvVRc mN0fmpH1EDPfXIYFEjTgS32crGAwULQrXTQkBJWhMr7VTOLbH0FucqLdbGninvUsVWPyUQWNOO4CSTwg xrAkfITqnTnaJW70bMbuSC3OEz2WYmBkNY4bgi0DhN PvPt7ZHXA7Qn3WZYYfTJEgARFqMHP5URHxKjAeFXkyDGVhCRYqXDL7XWPsNWPoKN6OImIgNTBfHEZ5AQ hmYNRfYNEwgu1ASJVfWXV4RfR9RkMxBJXtSBIxZOykNWZeWWTlYJU5AICqUFUqHG9LByNwJDDgVMW0ZP UnIBYsFRUnct8TYVMmWFRaEQIpSbIzACUyZRObHDkb BAUsDJW0YdO7HRPsRZOlEH2EFdFsGMXqCSl9SBdqDIXrELGzyz0YYYVvXFMeNLX3MfAyDOVqTKRuJGse ZACaNLA6ZqMrEJHkBYUnVC5QDbKkCRZlWYZ0CYGaXEVoZGOokh1FXCVvIGOvYmNrKfPcTYBiPIOuMLoj YMRlUZL7ZIN3ERWtVTSsQY0GTqQiVVEeGWNvVCLzWP QoVFHkiu1HNWWdFQVfOqG1MkTbOACbKIZpUXtdUZUfPFB0BmIfRBAuRNDzJU1HJjMzESMcPKm4WrpkPO CrZNMvtt2CFZCzVRXtNOugRYYlGXJsYKEkEWjiWMSrSBGpVNA9UGWsIOLsUJ6JXcRhBLJuNuIaARDfIU FoGDYsfr7WWRIrMIXrXZS5AfPoTXMbBWNgONvfIQFu EVP2BCYtFBIaYDAyQI8JUbWiGMMhHpz0QNAgGEGlFMKliq2XLYJsROYrYYr3MoHrRAErOAUvXEjkPKJl SUSvNMzqBFRdZSSiEU0XRzNkLCJqJaQxRkhsGUQkRVXrpo1CLEHsYRLrBJQwUWYxVFFvHPVrGQeuKJSm ZOF2KfO0YLWqQTIiNB4JPxIcREDvNaVxRFstJHLsEK Wgvh9RKJQvMAZaHeJ4PCTeTKBpCHOrQDluHFOxJWB3XmD4OOWyDYBoNY5GHbViAIWwEad6LmJnDXGuQS Pmdo1DQVQjIVPeQjeuOEJfBHQbGBEqLQlnFPKhDRD3LWM9BMPlXCNiHH6YYwXdCTEsUBv6QOZxICZeUC Ousv2AKQUbAKG6SPn9IYHzYAQiHDDrMJwaXICfVUW2 QEhfXYYqHESaUR0SZdWnASCqLWTdRiDqNOOqLKYuax1PUYGuXNU8OSD1DbAqYEWwJIRdDQksBPYpYBNf PjLgXSMlNYLiJA8TDdGzTUVeAOY1CRatKELqLOWtyv6RFUJpZOB3BJE1GtMjWZRgKNTzGAxaNRVrZWIg QRIaYVPkCVUlJS2EXxAeDPYkHLS2JAitAITyLHFwty 5JXLBzKTV7BhL5GITeBIWnFSHfNDvqPBKeSCPwXGLrAIWgXJUmHK2LViHaOJslOSXMGjs0DUhxJ0j2NI Y1Ld0YR4Hax2AdELQcHYGPGZqmEP8ffmUsJZGlNw0GU3rWCsq7RJL7LLO1WVOiJnJyTNu7UBZ3KJSwWd A2N9T0HHF4JZ6yYXl4Lox3InP7IfTjWbZbPBZ6Xgre TsGiLqTxOMu1YYKgXdUbMO3LFx4RSlX5RMW1sSYfPu7DPXZbMQFWRgMyKI3QFMw= ID Date Data Source [id number] 03/29/2021 10:18:00 PM EDT [facility] ED Physician Documentation NAME: EMERSON BOYER : 1975 AGE: 46 MR#: [id number] SERVICE DATE: 03/29/[address]: Wild Almazan [...] negative at this time in its entirety [facility] Medical History Annual physical exam Anxiety Asthma [...] rce(s) Supporting Document(s) ID Date Data Source [id number] 03/29/2021 09:21:00 PM EDT [facility] [address] [place] [id number] [phone] NAME SEX PT STATUS ACCOUNT NUMBER EMERSON BOYER REG ER [id number] ORDERING PHYSICIAN LOCATION MEDICAL RECORD NO. Wild Almazan MD ER [id number] ATTENDING PHYSICIAN DATE OF DATE OF EXAM/TIME [...] 1101- 0011: Total DLP = 390.00 mGy-cm 2135-0142: Total Radiation Dose = 5.8500 mSv Lifetime Dose: 16.3839 mSv Name Value Range Interpretation Code Description Data Mary rce(s) Supporting Document(s) ID Date Data Source [id number] 02/24/2021 03:10:00 PM EDT [facility] Patient Name: EMERSON BOYER : 1975 Sex: F Pt Unit #: [id number] Location:[facility] Provider: Visit Date/Time: 02/24/21 Primary Insurance: [facility] Secondary Insurance: Self Pay Intake Vital [...] for disability paperwork to be filled out. Branch Operations Coordinator Required: No Is patient in pain?: Yes [...] multiple sclerosis. Total time spent 30 minutes. [facility] Medical History Annual physical exam Anxiety Asthma [...] Code(s): G35 - Multiple sclerosis SNOMED Code(s): 25691514 Category: Medical Plan: Patient not reexamined today. Paperwork process discussed. She is walking with a cane today. Recommended further discussion with neurology. Coding Level of Care Code 51292 Est Pt Extended Comp Diagnoses Multiple sclerosis G35 Additional Codes Intake - Is patient in pain?: Yes (1125F) <Electronically signed by Zach Obando MD> 02/24/21 1554 Name Value Range Interpretation Code Description Data Mary rce(s) Supporting Document(s) ID Date Data Source [id number] 01/12/2021 01:01:00 PM EDT [facility] Patient Name: EMERSON BOYER : 1975 Sex: F Pt Unit #: [id number] Location:[facility] Provider: Visit Date/Time: 01/12/21 Primary Insurance: [facility] Secondary Insurance: Self Pay Intake Vital [...] here to f/u on MRI of neck. Branch Operations Coordinator Required: No Accompanied by: Is patient in [...] has MS and follows with neurology in [place] and started Gilenya on 12/17/2020. In regards [...] to do PT. No other concerns today. [facility] Medical History Annual physical exam Anxiety Asthma [...] Psych Appearance: grossly normal Quality Reporting Adult ([facility] 138/2/22/69/61/64/165) Smoking risk assessment performe d?: [...] Code(s): G35 - Multiple sclerosis SNOMED Code(s): 80011996 Category: Medical (3) Tobacco abuse: Status: Acute Code(s): Z72.0 - Tobacco use SNOMED Code(s): 522722193 Category: Medical Plan: I counseled the patient [...] Coding [place] [address] Est Pt Extended Comp Patient Type Established Diagnoses Neck pain M54.2 Multiple sclerosis G35 Tobacco abuse Z72.0 Time Spent (min) 30 <Electronically signed by Lexi Luna NP> 01/12/21 1349 Name Value Range Interpretation Code Description Data Mary rce(s) Supporting Document(s) ID Date Data Source [id number] 01/04/2021 09:53:00 AM EDT [facility] [address] [address] [phone] NAME SEX PT STATUS ACCOUNT NUMBER EMERSON BOYER REG REF [id number] ORDERING PHYSICIAN LOCATION MEDICAL RECORD NO. Lexi Luna MRI [id number] ATTENDING PHYSICIAN DATE OF DATE OF EXAM/TIME [...] rce(s) Supporting Document(s) ID Date Data Source [id number] 12/20/2020 09:57:34 PM [facility] Name Value Range Interpretation Code Description Data Mary rce(s) Supporting Document(s) [facility] GLDHKm2lBeQISkYon3JbDlXgBOMjZY8hzay4Z8X8bAZtA3BucGHqf9acO6WrT6OzQAIxJWMZFV4JgTGd jb2 [file] [id number]= ID Date Data Source [id number] 12/18/2020 03:38:00 PM EDT [address] [id number] [phone] NAME SEX PT STATUS ACCOUNT NUMBER EMERSON BOYER REG REF [id number] ORDERING PHYSICIAN LOCATION MEDICAL RECORD NO. Lexi Luna [id number] ATTENDING PHYSICIAN DATE OF DATE OF EXAM/TIME [...] rce(s) Supporting Document(s) ID Date Data Source [id number] 12/17/2020 02:27:20 PM T [facility] Name Value Range Interpretation Code Description Data Mary rce(s) Supporting Document(s) Progress Note [facility] RSRZRk4mVgLKXsQz71/RLFrdFRJbg7AsUIatVKt3XRqyUTGjK6JcPJA8zB7bZYB0CPfQRfJzNdDaYgOq lbm BsFqjOKoHcJEZeKvdDWsAwONvjAxumkKBfNS4SeFU0UTMaH15mYLSdADRkR2RcHVG2ZXb+Aq4DHKEdaD XsPH8HQgaQ3X6ji6t3YZ6nKJ9DVxcO3eevHdW8jyPD+FF4hYGO7yRQEo7vdPIYnk0D4fRq2y6vqbR3pj rNx46UFGx2LcXX4TnkMq1KSLBcVO9rU0DSoSIgjfL/ 1jjpisK2Sl83I2QFs3Q4xXaAPOIBUYf3dxzM3qyL/vKBFxNx+NDDVXWrdMv0n2Hdx+X2FSihJo2n+VRM /h0erdo7vyeutejN4WvwxdjDopfjlI4leaYDaqvbGySpuxHk0EUi86OGe6MUtVgnChqXeKM7tMCgbRnY fmXlmOtiqgconbsa3vBKRQqO9dDEt/Kuoiqjowre6r [file] xNieMQXYQhS9GCQdCMdxZGWPHf6L ID Date Data Source [id number] 12/03/2020 01:19:00 PM EDT [facility] Patient Name: EMERSON BOYER : 1975 Sex: F Pt Unit #: [id number] Location:[facility] Provider: Visit Date/Time: 12/03/20 Primary Insurance: [facility] Secondary Insurance: Self Pay Intake Vital [...] and the left side of her neck. Branch Operations Coordinator Required: No Accompanied by: Life Partner Is [...] to start Gilenya for her MS in [place] yesterday, but her car broke down so [...] COPD Pulmonary Results: No Data to Display [facility] Medical History Annual physical exam Anxiety Asthma [...] Chronic obstructive pulmonary disease, unspecified SNOMED Code(s): 49012106 Category: Medical Plan: Smoking cessation recommended, consider PFTs. Recommend using rescue inhaler as needed. (2) Multiple sclerosis: Status: Acute Code(s): G35 - Multiple sclerosis SNOMED Code(s): 08080738 Category: Medical Plan: Continued follow ups with [...] R06.02 - Shortness of breath SNOMED Code(s): 62193641 Category: Medical Plan: Will get echocardiogram and stress test. (4) Tobacco abuse: Status: Acute Code(s): Z72.0 - Tobacco use SNOMED Code(s): 474791395 Category: Medical Plan: I counseled the patient [...] C[place] [address] Est Pt Extended Comp Patient Type Established Exam Problem Focused Diagnoses COPD (chronic obstructive pulmonary disease) J44.9 Multiple sclerosis G35 Exertional shortness of breath R06.02 Tobacco abuse Z72.0 Time Spent (min) 30 <Electronically signed by Lexi Luna JAVA SYSTEMS ANALYST> 12/04/20 0847 Name Value Range Interpretation Code Description Data Mary rce(s) Supporting Document(s) ID Date Data Source [id number] 11/19/2020 04:55:00 [facility] Name Value Range Interpretation Code Description Data Mary rce(s) Supporting Document(s) Color of Urine [facility] Appearance of Urine CLEAR [facility] pH of Urine by Test strip 6.5 5-8 [facility] Specific gravity of Urine by Refractometry 1.015 1.005-1.030 [facility] Leukocyte esterase [Presence] in Urine by Test strip NEGAT JAZIEL [facility] Nitrite [Presence] in Urine by Test strip NEGATIVE [facility] Protein [Presence] in Urine by Test strip NEGATIVE [facility] Glucose [Mass/volume] in Urine by Automated test strip NEGATIVE NEG ATIVE [facility] Ketones [Presence] in Urine by Test strip NEGATIVE [facility] Urobilinogen [Presence] in Urine 0.2-1 EU/dl [facility] Bilirubin.total [Presence] in Urine by Automated test strip NEGATIVE [facility] Erythrocytes [#/volume] in Urine by Test strip NEGATIVE NEGATIVE [facility] ID Date Data Source [id number] 11/19/2020 11:30:00 AM EDT [facility] Patient Name: EMERSON BOYER : 1975 Sex: F Pt Unit #: [id number] Location:[facility] Provider: Visit Date/Time: 11/19/20 Primary Insurance: [facility] Secondary Insurance: Self Pay Intake Vital Signs 11/19/20 11:30 Current Height 5 ft 3 in Current Weight 147 lb 4 oz Weight Measurement Method Standing Scale BMI 26.1 BP 128/76 Blood Pressure Location Lt brachial Position Sitting Respiration 17 Pulse 68 Pulse Strength Normal Pulse Source Palpation Temp 96.6 F L Temp Source Tympanic Intake Visit Reasons: COPD Branch Operations Coordinator Required: No Accompanied by: Self / Same [...] up. She recently saw her neurologist in [place] who recommended starting her on Gilenya daily [...] COPD Pulmonary Results: No Data to Display [facility] Medical History Annual physical exam Anxiety Asthma [...] Psych Appearance: grossly normal Quality Reporting Adult ([facility] 138/2/22/69/61/64/165) Smoking risk assessment performed?: Yes Counseling given: provider counseling, support medications, support program, counseling >3 minutes and patient declined Assessment Plan Assessment Plan (1) Multiple sclerosis: Status: Acute Code(s): G35 - Multiple sclerosis SNOMED Code(s): 36702529 Category: Medical Plan: We reviewed [place] in [...] Code(s): Z72.0 - Tobacco use SNOMED Code(s): 018552151 Category: Medical Plan: I counseled the patient [...] Coding [place] [address] [place] Pt Extended Comp Patient Type Established Diagnoses Multiple sclerosis G35 Tobacco abuse Z72.0 Time Spent (min) 30 <Electronically signed by Lexi Luna JAVA SYSTEMS ANALYST> 11/19/20 1445 Name Value Range Interpretation Code Description Data Mary rce(s) Supporting Document(s) ID Date Data Source [id number] 11/11/2020 08:23:42 AM EDT [facility] Name Value Range Interpretation Code Description Data Mary rce(s) Supporting Document(s) Progress Note [facility] [id number] lbm [file] YNCg== ID Date Data Source [id number] 11/09/2020 07:58:59 AM EDT [facility] Name Value Range Interpretation Code Description Data Mary rce(s) Supporting Document(s) [facility] [id number] [file] [id number]== ID Date Data Source [id number] 11/06/2020 07:04:44 PM EDT [facility] Name Value Range Interpretation Code Description Data Mary rce(s) Supporting Document(s) Calcidiol [Mass/volume] in Serum or Plasma 21 ng/mL >30 L [facility] ID Date Data Source [id number] 11/06/2020 06:28:01 PM EDT [facility] Name Value Range Interpretation Code Description Data Mary rce(s) Supporting Document(s) Leukocytes [#/volume] in Blood by Automated count 10.9 10*3/uL 4-10 H [facility] Erythrocytes [#/volume] in Blood by Automated count 4.75 10*6/uL 4.1- 5.3 [facility] Hemoglobin [Mass/volume] in Blood 14.5 g/dL 11.5-15.5 [facility] Hematocrit [Volume Fraction] of Blood by Automated count 42.2 % 3 6-45 [facility] Erythrocyte mean corpuscular volume [Entitic volume] by Auto mated count 88.9 fL 80-96 [facility] Erythrocyte mean corpuscular hemoglobin [Entitic mass] by Automated count 30.6 pg 27-33 [facility] Erythrocyte mean corpuscular hemoglobin concentration [Mass/volume] by Automated count 34.5 g/dL 32.0-36.0 [facility]th[facility] distribution width [Ratio] by Automated count 14.5 % 11.5-14.5 [facility] Platelets [#/volume] in Blood by Automated count 282 10*3/uL 150-400 [facility] Differential cell count method - Blood [facility] Neutrophils/100 leukocytes in Blood by Automated count 57 % [facility] Lymphocytes/100 leukocytes in Blood by Automated count 35 % [facility] Monocytes/100 leukocytes in Blood by Automated count 7 % [facility] Eosinophils/100 leukocytes in Blood by Automated count 1 % [facility] Basophils/100 leukocytes in Blood by Automated count 0 % [facility] Neutrophils [#/volume] in Blood by Automated count 6.12 10*3/uL 1.8-7 .0 [facility] Lymphocytes [#/volume] in Blood by Automated count 3.87 10*3/uL 1.2-4 .0 [facility] Monocytes [#/volume] in Blood by Automated count 0.75 10*3/uL 0-0.8 [facility] Eosinophils [#/volume] in Blood by Automated count 0.15 10*3/uL 0-0.5 [facility] Basophils [#/volume] in Blood by Automated count 0.03 10*3/uL 0-0.2 [facility] Nucleated erythrocytes/100 leukocytes [Ratio] in Blood by Automated count 0 /100{WBCs} 0-0 [facility] ID Date Data Source [id number] 11/06/2020 06:45:47 PM T [facility] Name Value Range Interpretation Code Description Data Mary rce(s) Supporting Document(s) Albumin [Mass/volume] in Serum or Plasma by Bromocresol green (BCG) dye binding method 4.2 g/dL 3.5-5.2 [facility] Bilirubin.total [Mass/volume] in Serum or Plasma 0.5 mg/dL <1.2 [facility] Bilirubin.direct [Mass/volume] in Serum or Plasma <0.3 [facility] Alkaline phosphatase [Enzymatic activity/volume] in Serum or Plasma 64 U/L 35-104 [facility] Aspartate aminotransferase [Enzymatic activity/volume] in Serum or Plasma 12 U/L <32 [facility] Alanine aminotransferase [Enzymatic activity/volume] in Seru m or Plasma 9 U/L <33 [facility] Protein [Mass/volume] in Serum or Plasma 7.4 g/dL 6.4-8.3 [facility] ID Date Data Source [id number] 11/06/2020 02:49:28 PM EDT [facility] Name Value Range Interpretation Code Description Data Mary rce(s) Supporting Document(s) Progress Note [facility] VXIFXe0tJdFJXtMo40/DMHlxUMXgm1FwSYvrPZf9EIkdGWFeY0FuDAS9kT7fUEM6JDjHJtLwYwUxOqPz lbm [file] AgICAgICAgICAgICAgICAgICAgICAgICAgICAgICAgICAgICAgICAgICAgICAgICAgICAgICAgICAgIC AgICAgICAgICAgICAgICAgICAgICAgICAgICAgICAgDQogICAgICAgICAgICAgICAgICAgICAgICAgIC AgICAgICAgICAgICAgICAgICAgICAgICAgICAgICAg ICAgICAgICAgICAgICAgICAgICAgICAgICAgICAgICAgICAgICAgICAgDQogICAgICAgICAgICAgICAg ICAgICAgICAgICAgICAgICAgICAgICAgICAgICAgICAgICAgICAgICAgICAgICAgICAgICAgICAgICAg ICAgICAgICAgICAgICAgICAgICAgICAgDQogICAgIC AgICAgICAgICAgICAgICAgICAgICAgICAgICAgICAgICAgICAgICAgICAgICAgICAgICAgICAgICAgIC AgICAgICAgICAgICAgICAgICAgICAgICAgICAgICAgICAgDQogICAgICAgICAgICAgICAgICAgICAgIC AgICAgICAgICAgICAgICAgICAgICAgICAgICAgICAg ICAgICAgICAgICAgICAgICAgICAgICAgICAgICAgICAgICAgICAgICAgICAgDQogICAgICAgICAgICAg ICAgICAgICAgICAgICAgICAgICAgICAgICAgICAgICAgICAgICAgICAgICAgICAgICAgICAgICAgICAg ICAgICAgICAgICAgICAgICAgICAgICAgICAgDQogIC AgICAgICAgICAgICAgICAgICAgICAgICAgICAgICAgICAgICAgICAgICAgICAgICAgICAgICAgICAgIC AgICAgICAgICAgICAgICAgICAgICAgICAgICAgICAgICAgICAgDQogICAgICAgICAgICAgICAgICAgIC AgICAgICAgICAgICAgICAgICAgICAgICAgICAgICAg ICAgICAgICAgICAgICAgICAgICAgICAgICAgICAgICAgICAgICAgICAgICAgICAgDQogICAgICAgICAg ICAgICAgICAgICAgICAgICAgICAgICAgICAgICAgICAgICAgICAgICAgICAgICAgICAgICAgICAgICAg ICAgICAgICAgICAgICAgICAgICAgICAgICAgICAgDQ ogICAgICAgICAgICAgICAgICAgICAgICAgICAgICAgICAgICAgICAgICAgICAgICAgICAgICAgICAgIC MfCAMzPLMeRAOzKRVdNQIgFTWeUDOfUTShOUYwNXEwHWAaTYEtFUGtTDt9K6ncHRPkXDFjZN2oNLz6Jo 8+XCsXJeYvZJK7lxNmkI1YZT1zy5NxNKgsACOkn4Fp RAf7QZ2TFDJwZKesBM6NFHimbw2KXUChXUSsgKMGk5irDsGfWPB0HDCnVmrtCN3QMBQbT7gfviKtLRRk DICTDRkdOBKBRNevSLVJSRWuIIEjJmZwHfAsHSLfDLAwSTOIQJX5MVZiOvTbNIDlXPNnZsCvUMIRDZFw XVJyZbAwJTDtJVToNQ7KHEVgB031sjSqXRHGQg2+DQ iadvByZbxSXyYwCAPjr3IqXVw7OR0ZMLFcMvulu6SwXWNwMSQPBFywZT1AWJP1HYHbOZErTt5DKPCeE3 68koEpZM9WAt6GZdOwFJ8ppo5IFJQhYRIaFtfZRtp0VSsuJS4QqHKoPSjEnq9iyqJmiaQEc8TwspOnoY ELAONgpeSqMEsjPaUdQy9pKMonZoSvUMCqQs0kHN2o PAYaPGHvSxSrFGABPO2XSPMjVHPppIYbFTIrDKLQQP7PLEbdSUG9BFNuviRurOWyOHqsFD0MGMJrniVc NDIgMCBSDQo+Bw8WOT9np8GtGSw5WDVmIL5hov8HPEiIUiBkT7T4aEYdJ3Y9VUfxGl4MZOGiGLEnKCDp RHGMTZnyHP5AJX5dolU1LN3RgXHgJYUiJBYqeCVjXQ y9B19auCCkREngUJ3VLVD+Izabella+Gy3LVQAdJEPeLAKcYbLbGMVVMvKqE3LeN6QWi6BqL1IuCD11sUnxnk LkMCdjHO0WWY6lHRHgSNOWQU4ShJCusZ7frrE1ZaCyUFWNEcUfH43wgXFuEWAtGBZvYQNyXr0ROTToR0 QsmgOlqEcpsqBkUKCkNCPDHN7AGGhyigWpyZPfjOhv YH28xSgxLT4CVs3BYiVlQA5lly6SkYFwFt4TKAF6WN7TEKUyNGVpXAMqZJZ6JAKsTgVdFVgiLTCvOKQm VDX3ANFaXORgUK6KCiTaHITlRHkcEwJbSELyJLCddb8MIJCfHZB7WLg1MaJnLMUyIMPwAIbzYUQkIUWj GVA7QNAaYQDfRQ5DKvKrCPDpSDV6JGmgLEReDFZkug 8SSFPqXEUbGtecLBIeSUIeNXWhVFfrLLMyCZC4JHA4OEHfYMEnRI8AEcVfGOToGZqoDaWzAFPnJCOydj 3MAOZvDPTpMWb2WTZlDLNnHFRbNUogITIlZYW2QXHcUQToJZJxRX0NOoSbXUPdRUXkEYAqPNUzDVYybg 2VZUIzMGKnAVFuYfStLHIeTBFqQWguWFWwESIkMej7 VGLgMQPjDV5JHtYoLNFiZJM1DKBsLNAxJHDqsx1VTHFzMHWmYgWmUSOrKTIcSYOmCEmuPHZzKWX6BrNh ZRLmHBMpJM0VMsDcOBHqMUmrIJNhTQZuAOZlqq6OVWTxTJPwCKM5TRYxTXFzLOBaIVnuOCIgNTOrBpD0 LQNuTFUfOG2KDvYqREMdBsC8JGBgSVGmJEOxoa3JKI GsPUPxHwx7TSLrYAQcCGXqXSoeCFLqDGL3TJg4ISZxHOIyHY0GVkOdVZZlGpOqPsDrFVEdJFSmzr9LCY DjKDPkTYMxLVZzWLRvSYZxHAxpUJZfVZHxVSp3CZGgJVNwJN4RAaDjLLSjZlP5YYCmKZLnTYOahk6IRT VmZOXtTlt8ZNTdFGKsTBFnJCucKIXcVXWtUGT2VNCz DVOmUA6TCuVmXOIuUqCxXvYoDGOeRGIfqp1XCCXxOESqUTV0OQJiKXDmDXHdFNrkZAObTNI3RlobTAFk GKXrZH8IHbMtSTWsLyO8UbOtISWkILZkgp9ZPCIfZBR6JwieSNIvHPIwDGCkDSsoFRKuYMG6VzO3KIDp BBJeCY4XZrJgUEEaCFo3DtUlYCSgZXNjvk2OSHFqXJ Q8IwY0KMJkDMCcONSlJIpcFRJzRAH0ZIPgJNVhOUCkNE2YNdOeLEGvPWh0OtHnBEYmOXLedr0KLJLvSJ P7EYh6BdWfUEHxQHGbEPgwUXTaGFA0ISYgMMWwVSBxHL1OCqTvKSWzVDr5JYjnQTMgPNTioe7BFPVpJX S2BIU9MGQjSTYlFCSeFXleAXOwSXIrWLF1WYVuSSQb BD3RJiLoRCLgQGRlXIqlLKVkICGpzj4FjXUxmTkthw6PNPeISh9CwHiiPPN0XJanYq4rnJN3RQUjLUIX My7WszNkZUEcBORGMQhiWEUwWMQvIKusLxVyMkUhXQQfFDPvBIenG2UsRPGtPCV0KZwfDrS5LdMbYXTj J9N9T1ScOHSoHBQdTIU5CSD5FQMsZGz4PeQ+IF0g DQo+Gf5Qx0KauaB5orXrKUs8CMBhVL1FSZEJD8ACJr== ID Date Data Source [id number] 10/13/2020 03:43:00 PM EDT [facility] Patient Name: EMERSON BOYER : 1975 Sex: F Pt Unit #: [id number] Location:[facility] Provider: Visit Date/Time: 10/13/20 Primary Insurance: [facility] Secondary Insurance: Self Pay Intake Vital [...] presents for paper work for parking permits. Branch Operations Coordinator Required: No Accompanied by: Is patient in [...] She has discussed this with her manager intensive care unit and has brought paperwork for me to [...] with urology. No additional co mplaints today. [facility] Medical History (Updated 10/14/20 @ 06:57 by [...] grossly normal Results Urinalysis (DipStick) Urine Specific [place] 1.020 Last Edit by Cecilia Shah on [...] Code(s): G35 - Multiple sclerosis SNOMED Code(s): 72011667 Category: Medical Plan: Paperwork completed, I agree that she needs a closer parking spot to ensure that she maintains her functional capability, she will continue to use her cane. Handicap sticker application completed andgiven to patient. She will continue follow ups with neurology. (2) Tobacco abuse: Status: Acute Code(s): Z72.0 - Tobacco use SNOMED Code(s): 752861736 Category: Medical (3) Urge incontinence: Status: Acute Code(s): N39.41 - Urge incontinence SNOMED Code(s): 83243449 Category: Medical Plan: Udip in the office [...] [place] [address] Est Pt Extended Comp Patient Type Established Diagnoses Multiple sclerosis G35 Tobacco abuse Z72.0 Urge incontinence N39.41 Time Spent (min) 30 <Electronically signed by Lexi Luna JAVA SYSTEMS ANALYST> 10/14/20 0703 Name Value Range Interpretation Code Description Data Mary rce(s) Supporting Document(s) ID Date Data Source [id number] 09/24/2020 09:09:00 AM EDT [facility] Patient Name: EMERSON BOYER : 1975 Sex: F Pt Unit #: [id number] Location:[facility] Provider: Visit Date/Time: 09/24/20 Primary Insurance: [facility] Secondary Insurance: Self Pay Intake Vital [...] C/O bladder leakage, has started wearing depends. 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 No additional concerns. [facility] Medical History (Updated 09/24/20 @ 12:22 by [...] Heart Sounds: S1 normal and S2 normal [facility] [place]ervical Spine: normal cervical lordosis, cervical ROM [...] - Spinal stenosis, cervical region SNOMED Code(s): 63937545 Category: Medical Plan - Lexi Luna NP: [...] [place] [address] Est Pt Extended Comp Patient Type Established Exam Expanded Problem Focused Diagnoses Cervical spinal stenosis M48.02 CPT Codes TRANS CARE MGMT 14 DAY DISCH - 01774 (61097) Time Spent (min) 20 <Electronically signed by Lexi Luna JAVA SYSTEMS ANALYST> 09/24/20 1225 Name Value Range Interpretation Code Description Data Mary rce(s) Supporting Document(s) ID Date Data Source [id number] 09/12/2020 04:19:00 PM EDT [facility] [address] [place] [address] [phone] NAME SEX PT STATUS ACCOUNT NUMBER EMERSON BOYER [facility] ER [id number] ORDERING PHYSICIAN LOCATION MEDICAL RECORD NO. Lizet Sawant MD ER [id number] ATTENDING PHYSICIAN DATE OF DATE OF EXAM/TIME [...] rce(s) Supporting Document(s) ID Date Data Source [id number] 09/12/2020 04:15:00 PM EDT [facility] ED Physician Documentation NAME: EMERSON BOYER : 1975 AGE: 45 MR#: [id number] SERVICE DATE: 09/12/[address]: Lizet Sawant [...] No Sy mptoms/Complaints Allergic/Immunologic: Reports No Symptoms/Complaints [facility] Medical History Annual physical exam Anxiety Asthma [...] % (Auto) 47.8, Lymph % (Auto) 41.7, Gosper % (Auto) 7.3, Eos % (Auto) 2.3, [...] Lizet Sawant MD> Lizet Sawant MD 09/12/20 1654 Lizet Sawant MD SIGNATURE DA Report Cosigners: D: GLENROY 09/12/20 161 T: GLENROY 09/12/20 161 CC: Lexi Luna Name Value Range Interpretation Code Description Data Mary rce(s) Supporting Document(s) ID Date Data Source [id number] 09/12/2020 03:57:00 PM EDT [facility] [address] [id number] [phone] NAME SEX PT STATUS ACCOUNT NUMBER EMERSON BOYER [facility] ER [id number] ORDERING PHYSICIAN LOCATION MEDICAL RECORD NO. Lizet Sawant MD ER [id number] ATTENDING PHYSICIAN DATE OF DATE OF EXAM/TIME [...] Trans Dt/Tm: Trans by: DT Prt Dt/Tm: 8941-7866: Total DLP = 0.00 mGy-cm Fluoroscopy Time (in secs): Name Value Range Interpretation Code Description Data Mary rce(s) Supporting Document(s) ID Date Data Source [id number] 09/12/2020 03:56:00 PM EDT [facility] [address] [place] [address] [phone] NAME SEX PT STATUS ACCOUNT NUMBER EMERSON BOYER [facility] ER [id number] ORDERING PHYSICIAN LOCATION MEDICAL RECORD NO. Lizet Sawant MD ER [id number] ATTENDING PHYSICIAN DATE OF DATE OF EXAM/TIME [...] Trans Dt/Tm: Trans by: DT Prt Dt/Tm: 5045-8827: Total DLP = 0.00 mGy-cm Fluoroscopy Time (in secs): Name Value Range Interpretation Code Description Data Mary rce(s) Supporting Document(s) ID Date Data Source [id number] 09/12/2020 03:19:00 PM EDT [facility] Is test to R/O PE, DVT or VTE? Y Name Value Range Interpretation Code Description Data Mary rce(s) Supporting Document(s) Leukocytes [#/volume] in Blood by Automated count 8.8 10*3/uL 4.45-10 .71 N [facility] Erythrocytes [#/volume] in Blood by Automated count 4.67 10*6/uL 4.20 -5.40 N [facility] Hemoglobin [Moles/volume] in Blood 13.7 g/dL 10.7-15.4 N [facility] Hematocrit [Volume Fraction] of Blood by Automated count 41.9 % 3 7-47 N [facility] Erythrocyte mean corpuscular volume [Ent itic volume] in Cord blood by Automated count 90 fL 80-96 [facility] ital Erythrocyte mean corpuscular hemoglobin [Entitic mass] by Au tomated count 29 pg 27-31 N [facility] Erythrocyte mean corpuscular hemoglobin concentration [Mass/volume] in Cord blood 33 g/dL 33-37 [facility] ital Erythrocyte distribution width [Entitic volume] by Automated count 15 % 11-15 N [facility] Platelets [#/volume] in Blood by Automated count 281 10*3/uL 130-472 N [facility] Platelet mean volume [Entitic volume] in Blood 9.1 fL 9.1-13.1 N [facility] Neutrophils/100 leukocytes in Blood by Automated count 47.8 % 41- 77 N [facility] Neutrophils [#/volume] in Blood by Automated count 4.2 U 1.7-7.6 N [facility] Lymphocytes/100 leukocytes in Blood by Automated count 41.7 % 14- 46 N [facility] Lymphocytes [#/volume] in Blood by Automated count 3.7 U 0.6-4.6 N [facility] Monocytes/100 leukocytes in Blood by Automated count 7.3 % 4-12 N [facility] Monocytes [#/volume] in Blood by Automated count 0.6 U 0.2-1.2 N [facility] Eosinophils/100 leukocytes in Blood by Automated count 2.3 % 0-7 N [facility] Eosinophils [#/volume] in Blood by Automated count 0.2 U 0.0-0.5 N [facility] Basophils/100 leukocytes in Blood by Automated count 0.6 % 0.4-1 .3 N [facility] Basophils [#/volume] in Blood by Automated count 0.1 U 0.0-0.2 N [facility] NUCLEATED RED BLOOD CELL 0 % [facility] NUCLEATED RED BLOOD CELL# 0 U [facility] Immature granulocytes [Presence] in Blood by Automated count 0-2 N [facility] Immature granulocytes [#/volume] in Blood by Automated count 0.0 U 0-0.1 N [facility] Manual Differential panel - Blood NO [facility] ID Date Data Source [id number] 09/12/2020 03:38:00 PM EDT [facility] Is test to R/O PE, DVT or VTE? Y Name Value Range Interpretation Code Description Data Mary rce(s) Supporting Document(s) Fibrin D-dimer [Units/volume] in Platelet poor plasma 0.24 mg/L 0.0- 0.50 [facility] @ Has QC been run for this test today? YES AT 1510 TKHPLEASE NOTE: THIS TEST WAS PERFORMED USING A PARTICLE-ENHANCED, IMMUNOTURBIDIMETRIC ASSAY AND HAS A SINGLE,CLINICALLY DERIVED CUTOFF OF 0.50 MG/L. ID Date Data Source [id number] 09/12/2020 03:37:00 PM EDT [facility] Name Value Range Interpretation Code Description Data Mary rce(s) Supporting Document(s) Urea nitrogen [Mass/volume] in Serum or Plasma 13 mg/dL 9-23 N [facility] Sodium [Moles/volume] in Serum or Plasma 139 mmol/L 132-146 N [facility] Potassium [Moles/volume] in Serum or Plasma 4.1 mmol/L 3.5-5.5 N [facility] Chloride [Moles/volume] in Serum or Plasma 110 mmol/L 99-109 Above high normal [facility] Carbon dioxide, total [Moles/volume] in Serum or Plasma 24 mmol/L 20 -31 N [facility] Anion gap in Serum or Plasma 9 mmol/L 8-[address] [facility] Glucose [Mass/volume] in Serum or Plasma 85 mg/dL 74-106 N [facility] Creatinine 0.8 mg/dL 0.5-1.1 N [facility] Glomerular filtration rate/1.73 sq M.pre dicted [Volume Rate/Area] in Serum or Plasma Greater Than 60 ABOVE 60 [facility] Alanine aminotransferase [Enzymatic acti vity/volume] in Serum or Plasma by With P-5'-P 13 U/L 10-49 [facility] ital Aspartate aminotransferase [Enzymatic ac tivity/volume] in Serum or Plasma by With P-5'-P 7 U/L 0-[address] [facility] pital Alkaline phosphatase [Enzymatic activity/volume] in Serum or Plasma 67 U/L 45-129 N [facility] Calcium [Mass/volume] in Serum or Plasma 9.0 mg/dL 8.5-10.1 [facility] Bilirubin.total [Mass/volume] in Serum or Plasma 0.5 mg/dL 0.3-1.2 [facility] Albumin [Mass/volume] in Serum or Plasma by Bromocresol purple (BCP) dye binding method 3.7 g/dL 3.2-4.8 [facility] ital Protein [Mass/volume] in Serum or Plasma 7.7 g/dL 5.7-8.2 [facility] ID Date Data Source [id number] 07/16/2020 11:17:13 AM [facility] Name Value Range Interpretation Code Description Data Mary rce(s) Supporting Document(s) Progress Note [facility] RUQOJq6qYrZQZfZc55/KXOfqGXAvb5FeXVosZPe5HQcpYARdH0FrLLQ1nJ7mMVU7WHeGBbKpDsUcTjN0 lbm [file] ICAgICAgICAgICAgICAgICAgICAgICAgICAgICAgIC AgICAgICAgICAgICAgICAgICAgICAgICAgICAgICAgICAgICAgICAgICAgICAgICAgICAgICAgICAgIC AgICAgDQogICAgICAgICAgICAgICAgICAgICAgICAgICAgICAgICAgICAgICAgICAgICAgICAgICAgIC AgICAgICAgICAgICAgICAgICAgICAgICAgICAgICAg ICAgICAgICAgICAgICAgDQogICAgICAgICAgICAgICAgICAgICAgICAgICAgICAgICAgICAgICAgICAg ICAgICAgICAgICAgICAgICAgICAgICAgICAgICAgICAgICAgICAgICAgICAgICAgICAgICAgICAgDQog ICAgICAgICAgICAgICAgICAgICAgICAgICAgICAgIC AgICAgICAgICAgICAgICAgICAgICAgICAgICAgICAgICAgICAgICAgICAgICAgICAgICAgICAgICAgIC AgICAgICAgDQogICAgICAgICAgICAgICAgICAgICAgICAgICAgICAgICAgICAgICAgICAgICAgICAgIC AgICAgICAgICAgICAgICAgICAgICAgICAgICAgICAg ICAgICAgICAgICAgICAgICAgDQogICAgICAgICAgICAgICAgICAgICAgICAgICAgICAgICAgICAgICAg ICAgICAgICAgICAgICAgICAgICAgICAgICAgICAgICAgICAgICAgICAgICAgICAgICAgICAgICAgICAg DQogICAgICAgICAgICAgICAgICAgICAgICAgICAgIC AgICAgICAgICAgICAgICAgICAgICAgICAgICAgICAgICAgICAgICAgICAgICAgICAgICAgICAgICAgIC AgICAgICAgICAgDQogICAgICAgICAgICAgICAgICAgICAgICAgICAgICAgICAgICAgICAgICAgICAgIC AgICAgICAgICAgICAgICAgICAgICAgICAgICAgICAg ICAgICAgICAgICAgICAgICAgICAgDQogICAgICAgICAgICAgICAgICAgICAgICAgICAgICAgICAgICAg ICAgICAgICAgICAgICAgICAgICAgICAgICAgICAgICAgICAgICAgICAgICAgICAgICAgICAgICAgICAg ICAgDQogICAgICAgICAgICAgICAgICAgICAgICAgIC AgICAgICAgICAgICAgICAgICAgICAgICAgICAgICAgICAgICAgICAgICAgICAgICAgICAgICAgICAgIC ZpSULaNURhOLRaQDSpUHe4K5grZHOhWYEnIZ5wDEq0Dh7+CIyXEzMmNVM2auEoxI8YJT7dn0DkLVkyPG Zoi5EsMLz0YI5ENOZlATosMH7NWCtuca3BPWDiWLXa lSAEv4rcEkTxPWI5BNWwYnfhEB0CWYCyV9dcgnVeFJIxVHEPLNsmLKTLOMkuKCQJQJIiTKPlZbSqBaFz PZTjNRQwLBTAXHN1TQNnZbPiEVSoSSRkWbNwCGITRLQzQDEsDrHmLKiuHO1Lg6WnhUSaAM2SZd0DAyWp US7may3PGROxVOSkJqnEHxk5JXgtHM6RwDUkfMG1JP BxOVTUDnAvX5pfs8IuYOOmMIYKCOjtEL1Ag5LfsVDjJUu+Qj3EWC8fv9LoPRg2NBZmVC7bpc8VGCoKIj HsF9CfoDfrVLUqc2gkGERrSN0jwEHwPPR8CQMngrH4QJNsOQIRzjV4DPLYNYVtrECxRqY0CvIkWcDdOJ F4AyHuQR8fWYbaZN5SBGQ9ZCkyIFOgPZByR5lCWeGq FHQtXhBqoGlpGJ9FCrIlU5LvnhXgxPO1CFNaFTFGDm9+BBmofnMfHqiZGaJdMKQwf3TeRNy3IM5ZHNIy MHjjOE9VRUKtcP1jUWxkLW8SVcRzWVWvBWXCNlOwS90hdBLjYLt7A9HgPkXeIECuYaygDPCtXRbzQkGe ZXMgWyBdDQogID4+ID4+MVovGE5OCFtlvzTzEZDeRq 4FVVMvSSCvQJ2zIYSqLFWuI6N6gRjaZXHQFaJgD2nyojwnBP8iXSUaA730hBufltLgFRWeLCHjSt5PYY EaUJY0SGRuuJVxTogfPECZFFgpIB8IzYYbQJI8yH2rCOclWJRgYYAiJ2iUEpRyeJqtDT09nInqecVahG BdDQo+Yt2NWJ1rw7EvVXt4qhTaVOivYIVjSCgbNMPv EGSjWJJiDVG9RGQ6OHHWNtMyWYOxSTGdQTnoRABgSOKknw0UXRBhHUQ9WGm2CoGyDMKjVAQtAHlmLSMz PLOxJVk5DJUbPSEyHC4EPnUfZSIwUEDePCnpPPHmGHJiij5QLKSqJJYtCtGoKISjHWMxHVDbHMkuTVFx LAHhZcP4XCZfKKVbHZ2QAlWvTDWmTHF1SFvpHVIdTC Kfdr1UOWNeBETlKwI2FwEfWAYtRWKdPMxuXVStIII5SXGhQPDyISMpPN6XIbXnICGbIEs4RezbVXRbJU Dvtk6SPJBuZWTkVGsbNBWtSCFfWIViMHqoOVNzQDLcQWOmUGYmYXSkCS8BNhYcPKUgUREgWLDqGIOpKK Psrs2BGXJcWLYyDeO2RMCpDBNzKTQcYKehMXKpMEL7 PPj2PKBqYBPeZE1HYuCaUTAnPYJ3CKDqDTCrOYLfxn4ORVDbXLZxKdg2MeVkXXRqKKPbHKfkFKLpMAC6 HYrxFYLbQOOlJN5YOnSsIVEmHbV6KHAjKQPmJUUquq9KZQJkGVFbQNc7LzPnALAbKJHrJYhtJSEoVTXl CNYaTKWhQXEsQG5OQiGaJAOuAtDuJAObEGXoUJSbvw 3UWEUwRZElOKR5XbWjEBYiKVNaIZijVUWeSUI5MVhoVFKxIXMfWH8RWcEbXUUgPbU4RUCjYZNvUVMbvb 8FFRKaMGYsCiYhWIQoODYrVSNwYOyyKEMoBTG9SALcQGHpXDPxZT7NSpVwEVJeLyx7AWYpAULdQGJuvx 7KIBYuJTQlAep0ShIpLTKjGXKhTEmjUZKtRCF7OOat VVYqMDWbZV3HZnWoDHQyJpq5RVMeIBLrFCXxno8ULIAuGESiPLcsGoMnYWRkLUVjWQcwNOVfYLRjUYJ2 UIJpIQJwBR6OOgTpBHJfXKZaGZHbXSJnJSPvow2IICTqVJA9UUQaAXGlKXFdFMNgWCitRVWeYGLsDWq0 PVIxBARdQQ1EAkOvGPWpVIM9CwIuXCTwSTHnsh1DOH LjVMK5YUk2FRFfAIHnCXDoMXbyTBDxQWVvJwR4VLJdYEBpDN1FDoCtQHRwZZK0IZikEIUvBKUqjt5HHS GzCWN7LpnwTGZhDOPuHAMcTQjgAZRfSLVgSNf6PWUaLFMaMZ0KQgFpZNusQBWOWlw0UWnkK1j3GVF6Wn 7HV9Nuz8QbPKIiJUYTTLbtCY5csgJgFKDmDb7PD9hY Wlg6ATSdZSDlBXXnZTA0IHNwPbCqVEJ3PvKyI0R3HFTrYK0uLKEdNsK7YIH6QCT8QiD7PbOfMcApIVKy EEHxUtKdAlW5KgUgAO9WKb0DJsG9IEU5vXLdRm0RUFSlCbPEVqPhYW3JXQe= ID Date Data Source [id number] 07/04/2020 03:34:00 AM EST [facility] [address] [place] [address] [phone] NAME SEX PT STATUS ACCOUNT NUMBER [facility] ER [id number] ORDERING PHYSICIAN LOCATION MEDICAL RECORD NO. Bennett Anand MD ER [id number] ATTENDING PHYSICIAN DATE OF DATE OF EXAM/TIME [...] Dt/Tm: : Total DLP = 0.00 mGy-cm 9832-1269: Total Radiation Dose = 0.0000 mSv Lifetime Dose: 10.5339 mSv Name Value Range Interpretation Code Description Data Mary rce(s) Supporting Document(s) ID Date Data Source [id number] 07/04/2020 02:24:00 AM [facility] Is test to R/O PE, DVT or VTE? Y Name Value Range Interpretation Code Description Data Mary rce(s) Supporting Document(s) Leukocytes [#/volume] in Blood by Automated count 13.3 10*3/uL 4.45-10.71 Above high normal [facility] Erythrocytes [#/volume] in Blood by Automated count 4.74 10*6/uL 4.20 -5.40 N [facility] Hemoglobin [Moles/volume] in Blood 13.8 g/dL 10.7-15.4 N [facility] Hematocrit [Volume Fraction] of Blood by Automated count 43.1 % 3 7-47 N [facility] Erythrocyte mean corpuscular volume [Ent itic volume] in Cord blood by Automated count 90.9 fL 80-96 N [facility] Erythrocyte mean corpuscular hemoglobin [Entitic mass] by Automated count 29.1 pg 27-31 N [facility] Erythrocyte mean corpuscular hemoglobin concentration [Mass/volume] in Cord blood 32.0 g/dL 33-37 Below low normal [facility] Erythrocyte distribution width [Entitic volume] by Automated count 14 % 11-15 N [facility] Platelets [#/volume] in Blood by Automated count 246 10*3/uL 130-472 [facility] Platelet mean volume [Entitic volume] in Blood 9.2 fL 9.1-13.1 N [facility] Neutrophils/100 leukocytes in Blood by Automated count 61.6 % 41- 77 [facility] Neutrophils [#/volume] in Blood by Automated count 8.2 U 1.7-7.6 Above high normal [facility] Lymphocytes/100 leukocytes in Blood by Automated count 30.1 % 14- 46 N [facility] Lymphocytes [#/volume] in Blood by Automated count 4.0 U 0.6-4.6 N [facility] Monocytes/100 leukocytes in Blood by Automated count 5.9 % 4-12 N [facility] Monocytes [#/volume] in Blood by Automated count 0.8 U 0.2-1.2 N [facility] [facility] Eosinophils/100 leukocytes in Blood by Automated count 1.7 % 0-7 N [facility] Eosinophils [#/volume] in Blood by Automated count 0.2 U 0.0-0.5 N [facility] Basophils/100 leukocytes in Blood by Automated count 0.4 % 0.4-1 .3 N [facility] Basophils [#/volume] in Blood by Automated count 0.1 U 0.0-0.2 N [facility] NUCLEATED RED BLOOD CELL 0 % [facility] NUCLEATED RED BLOOD CELL# 0 U [facility] Immature granulocytes [Presence] in Blood by Automated count 0-2 N [facility] Immature granulocytes [#/volume] in Blood by Automated count 0.0 U 0-0.1 N [facility] Manual Differential panel - Blood NO [facility] ID Date Data Source [id number] 07/04/2020 02:48:00 AM EST [facility] Is test to R/O PE, DVT or VTE? Y Name Value Range Interpretation Code Description Data Mary rce(s) Supporting Document(s) Urea nitrogen [Mass/volume] in Serum or Plasma 20 mg/dL 9-23 N [facility] Sodium [Moles/volume] in Serum or Plasma 140 mmol/L 132-146 [facility] Potassium [Moles/volume] in Serum or Plasma 3.8 mmol/L 3.5-5.5 [facility] Chloride [Moles/volume] in Serum or Plasma 109 mmol/L 99-109 [facility] Carbon dioxide, total [Moles/volume] in Serum or Plasma 26 mmol/L 20 -31 N [facility] Anion gap in Serum or Plasma 9 mmol/L 8-[address] [facility] Glucose [Mass/volume] in Serum or Plasma 92 mg/dL 74-106 N [facility] Creatinine 0.8 mg/dL 0.5-1.1 [facility] Glomerular filtration rate/1.73 sq M.pre dicted [Volume Rate/Area] in Serum or Plasma Greater Than 60 ABOVE 60 [facility] Alanine aminotransferase [Enzymatic acti vity/volume] in Serum or Plasma by With P-5'-P 17 U/L 10-49 N [facility] ital Aspartate aminotransferase [Enzymatic ac tivity/volume] in Serum or Plasma by With P-5'-P 7 U/L 0-[address] [facility] pital Alkaline phosphatase [Enzymatic activity/volume] in Serum or Plasma 64 U/L 45-129 [facility] Calcium [Mass/volume] in Serum or Plasma 9.0 mg/dL 8.5-10.1 [facility] Bilirubin.total [Mass/volume] in Serum or Plasma 0.2 mg/dL 0.3-1.2 Below low normal [facility] Albumin [Mass/volume] in Serum or Plasma by Bromocresol purple (BCP) dye binding method 3.7 g/dL 3.2-4.8 [facility] ital Protein [Mass/volume] in Serum or Plasma 7.5 g/dL 5.7-8.2 [facility] ID Date Data Source [id number] 07/04/2020 02:48:00 AM [facility] Is test to R/O PE, DVT or VTE? Y Name Value Range Interpretation Code Description Data Mary rce(s) Supporting Document(s) Fibrin D-dimer [Units/volume] in Platelet poor plasma 0.31 mg/L 0.0- 0.50 [facility] @ Has QC been run for this test today?PL EASE NOTE: THIS TEST WAS PERFORMED USING A PARTICLE-ENHANCED, IMMUNOTURBIDIMETRIC ASSAY AND HAS A SINGLE,CLINICALLY DERIVED CUTOFF OF 0.50 MG/L. ID Date Data Source [id number] 07/04/2020 01:59:00 AM [facility] ED Physician Documentation NAME: EMERSON BOYER : 1975 AGE: 45 MR#: [id number] SERVICE DATE: 07/04/[address]: Bennett Anand [...] #14 tab 01/28/20 07/04/20 07/03/20 Rx hydrocodone-acetaminophen [[place]] 1 tab PO Q6HR PRN #6 tab [...] No pallor, cyanosis, icterus, or diaphoresis. Alert. [place] x3.) Head Head exam: Present atraumatic and [...] % (Auto) 61.6, Lymph % (Auto) 30.1, [place] % (Auto) 5.9, Eos % (Auto) 1.7, [...] back pain) Qty: 14 RF: 0 hydrocodone-acetaminophen [[place]] 7.5-325 mg tablet 1 tab PO Q6HR PRN (Reason: pain) Qty: 6 RF: 0 Follow Up Care/Instructions Diet/Activity/Wound Care..: Rest. Take ibuprofen 600 mg (3, 200 mg fhru-rkd-ydmmywx ibuprofen tablets) with food every 8 hours OR fscx-xfb-ucbrbou Aleve 220 mg with food every 12 [...] rce(s) Supporting Document(s) ID Date Data Source [id number] 06/23/2020 01:34:00 PM [facility] [address] [place] [address] [phone] NAME SEX PT STATUS ACCOUNT NUMBER EMERSON BOYER REG REF [id number] ORDERING PHYSICIAN LOCATION MEDICAL RECORD NO. ALAVREZ SINGER MD MRI [id number] ATTENDING PHYSICIAN DATE OF DATE OF EXAM/TIME [...] rce(s) Supporting Document(s) ID Date Data Source [id number] 06/23/2020 01:30:00 PM [facility] [address] [place] [address] [phone] NAME SEX PT STATUS ACCOUNT NUMBER EMERSON BOYER REG REF [id number] ORDERING PHYSICIAN LOCATION MEDICAL RECORD NO. ALVAREZ SINGER MD MRI [id number] ATTENDING PHYSICIAN DATE OF DATE OF EXAM/TIME [...] rce(s) Supporting Document(s) ID Date Data Source [id number] 06/02/2020 09:57:20 AM [facility] Name Value Range Interpretation Code Description Data Mary rce(s) Supporting Document(s) Progress Note [facility] LUDNJm2yPpOKTfVi46/ENOpnWURfx6MiTBieRCl2BVgcDYQaK0QeSOF1kP0qTED1ISzPDfSzZwJcTEN8 lbm [file] IZhkMQ0oHAVRDe1+GXsllWNieOaaEXVUDhYcTRX9HImoCOVZAs3H ID Date Data Source [id number] 05/20/2020 12:14:33 PM [facility] Name Value Range Interpretation Code Description Data Mary rce(s) Supporting Document(s) Progress Note [facility] XRLSAv1sShOVDdZc00/BHXvxREMty2PwHBkuHPx1PJslUBQqI9ZyJDF8fY9yBOH8SMfXWvKqTzPgIbAj lbm [file] IzYzA+IE8hPWt+Pg1Gs4YkrzN4zcYoXAgfSAQtUn3YYLQLV0DFWi== ID Date Data Source [id number] 05/20/2020 10:45:11 AM EST [facility] Name Value Range Interpretation Code Description Data Mary rce(s) Supporting Document(s) Progress Note [facility] QRHYEu0wCiEHSuAy95/FVDbbTKNyw4EuCFncTBs9NWhbUQPdM5NpKPP2cN9xJDL2KXdKLlCtRqIdZgRe lbm [file] W09cN/PrrTOieoLK978u8u4E+dLaOcSsHD9Hs248ip5dzkv2WV8F5BwhPRlZWv8o+iWm0wPXZ3Jbo+light equipment operator [file] MAINFRAME SYSTEMS ADMINISTRATOR/Bk9T1pakb2O/JjL4redJudEQjf8b6XPSxgsASX [file] BTR6HskzRISwLkPuSA7JHa8SPmJ8KAR1sGKyGq0UGPn2TFPOThNfGI1ATPj= ID Date Data Source [id number] 05/17/2020 05:01:14 PM [facility] Name Value Range Interpretation Code Description Data Mary rce(s) Supporting Document(s) [facility] WVPWQz3mLhMCVwPht4KwQzPsNTPoUV7pvba7I6Z6mIKsZ6RnlJUmo5arC7HlZ7UtGABaHXUKVL5QsWYq jb2 [file] XXHWTx5Fo800UDUqUQHMDui+MdphwNVjbTajDMPPGpstBoAYUGJKX9Q= ID Date Data Source [id number] 05/15/2020 03:29:00 PM [facility] Name Value Range Interpretation Code Description Data Mary rce(s) Supporting Document(s) Triglycerides 226 mg/dL 0-150 Above high normal [facility] Cholesterol 248 mg/dL 120-200 Above high normal [facility] HDL Cholesterol 37 mg/dL [facility] HDL Less than 40 mg/dL: Major risk for CHDHDL Greater than 59 mg/dL: Low risk for CHD LDL Cholesterol, Calc 166 mg/dL 0-100 Above high normal [facility] ID Date Data Source [id number] 05/21/2020 07:20:00 AM [facility] [id number] MENSTRUAL PERIOD naCollec tion Technique: BRUSH-ALONEPATIENT INFORMATION: ULJ-ILZWZ-VJBWRKZPXDI CYTOLOGY: NEGATIVEPREVIOUS TREATMENT: NONEBody Site: ENDOCERVIX Name Value Range Interpretation Code Description Data Mary rce(s) Supporting Document(s) Microscopic observation [Identifier] in Vaginal fluid by Cyt o stain.thin prep [facility] ID Date Data Source [id number] 05/15/2020 05:07:00 PM [facility] No yeast like or trichomonas seenLong ro ds notedFEW Squamous cellsNO Short rods seenNO Clue cells presentFEW WBCs seen Name Value Range Interpretation Code Description Data Mary rce(s) Supporting Document(s) Wet mount for Trichomonas Negative for Trichomonas vaginalis [facility] ID Date Data Source [id number] 05/15/2020 10:05:00 AM [facility] Patient Name: EMERSON BOYER : 1975 Sex: F Pt Unit #: [id number] Location:[facility] Provider: Visit Date/Time: 05/15/20 Primary Insurance: [facility] Secondary Insurance: Self Pay Intake Vital [...] Pt. notes that she seen neurologist in [place] yesterday had EKG, eye exam labwk done there. Branch Operations Coordinator Required: No Accompanied by: Life Partner Is patient in pain?: No Allergies carbamazepine [From Tegretol] Allergy (Severe, Verified 03/13/20 18:56) Anaphylaxis Medications - Last Reconciled 05/15/20 by Lexi Luna NP baclofen 10 mg PO TID PRN glatiramer 40 mg subcutaneously 3 times a week. hydrocodone-acetaminophen 7.5- 325 mg ([place]) 1 tab PO Q6HR PRN naproxen 500 [...] Screening Screening Have you traveled outside of [facility] or [facility] in the last 14 days.: Yes Has patient experienced coronavirus symptoms: No [facility] Medical History Annual physical exam Anxiety Asthma [...] today. She did see Dr. Clayton at [facility] yesterday and had labs, eye [...] Psych Appearance: grossly normal Quality Reporting Adult ([facility] 138/2/22/69/61/64/165) Smoking risk assessment performed?: Yes [...] LDL testing done: Yes Sexual Activity Screening ([facility] 153) Sexually active?: Yes Immunizations ([facility] 147, 117) Annual Influenza Vaccine: No Flu Vaccine not done: patient reason Assessment Plan Assessment Plan (1) Multiple sclerosis: Status: Acute Code(s): G35 - Multiple sclerosis SNOMED Code(s): 58146295 Category: Medical Plan - Lexi Luna NP: Continued follow ups with [facility] neurology. I did recommend considering PT but she declines for now (2) Annual physical exam: Status: Acute Code(s): Z00.00 - Encounter for general adult medical examination without abnormal findings SNOMED Code(s): 981192337 Category: Medical Plan - Lexi Luna NP: [...] (general) (routine) without abnormal findings SNOMED Code(s): 913311651 Category: Medical Plan - Lexi Luna JAVA SYSTEMS ANALYST: PAP and wet prep obtained today, will call her within the week with all results. (4) Tobacco abuse: Status: Acute Code(s): Z72.0 - Tobacco use SNOMED Code(s): 142360744 Category: Medical Plan - Lexi Luna JAVA SYSTEMS ANALYST: I counseled the patient on the dangers [...] [place] [address] Well 40-64 (Est) Patient Type Established Diagnoses Multiple sclerosis G35 Annual physical exam Z00.00 Routine gynecological examination Z01.419 Tobacco abuse Z72.0 Time Spent (min) 30 <Electronically signed by Lexi Luna JAVA SYSTEMS ANALYST> 05/15/20 1144 Name Value Range Interpretation Code Description Data Mary rce(s) Supporting Document(s) ID Date Data Source [id number] 05/14/2020 04:54:15 PM [facility] Name Value Range Interpretation Code Description Data Mary rce(s) Supporting Document(s) Progress Note [facility] DYAXAw1pNeCDOeRk82/XAXflYYKkh2CyBHseTOb0OWdgFAXiB7AeXRD2bV5vAFC8WVhGLvVtZsPeJuA3 lbm [file] LOVuIVGvSZctCC4mOJZUGe3+ZHimkCGiqInqKDAVTlKkZyq3LWpnYOMUXt3T ID Date Data Source [id number] 05/15/2020 02:07:38 PM [facility] Name Value Range Interpretation Code Description Data Mary rce(s) Supporting Document(s) Angiotensin converting enzyme [Enzymatic activity/volu me] in Serum or Plasma 39 U/L 14-82 [facility] (NOTE)Performed At: RN [facility] [address] [id number] Bro MD Ph:[phone] ID Date Data Source [id number] 05/19/2020 05:07:34 AM [facility] Name Value Range Interpretation Code Description Data Mary rce(s) Supporting Document(s) Aquaporin 4 receptor IgG Ab [Presence] in Serum or Plasma Negative [facility] (NOTE)Recommend repeat testing in 6 ruben hs if clinical suspicion is high. Negative result can occur in the setting of immunosuppression. ADDITIONAL INFORMATION This test was developed and its performance characteristics determined by [facility] in a manner consistent with CLIA requirements. This test has not been cleared or approved by the U.S. Food and Drug Administration.Test Performed by:[address] [address]Ygr Director: Steve Elena M.D. Ph.D.; CLIA# [id number] ID Date Data Source [id number] 05/20/2020 07:34:24 AM [facility] Name Value Range Interpretation Code Description Data Mary rce(s) Supporting Document(s) Myelin Oligod Glycoprot Negative [facility] (NOTE)No informative autoantibodies were detected in this evaluation. A negative result does not preclude a diagnosis of an inflammatory CHLOROBUTADIENE SCRUBBER OPERATOR demyelinating disorder. ADDITIONAL INFORMATION This test was developed and its performance characteristics determined by [facility] in a manner consistent with CLIA requirements. This test has not been cleared or approved by the U.S. Food and Drug Administration.Test Performed by:[address] [id number] Director: Steve Elena M.D. Ph.D.; CLIA# [id number] ID Date Data Source [id number] 05/27/2020 08:08:[address] [facility] Value Range Interpretation Code Description Data Mary rce(s) Supporting Document(s) Index Value 1.84 [facility] Positive(NOTE)Index interpretive criteri a: <0.20 negative 0.20-0.40 indeterminate >0.40 positiveTesting not performedComment(NOTE)Positive: Antibodies to MIGUELITO virus (JCV) detected indicating the patient has been exposed to JCV at an undetermined timeNegative: Antibodies to JCV not detectedPerformed At: [facility] [place] [id number] JUAREZ Sorto [id number] Jon M MD Ph:[phone] At: CHRISTINA [facility] [id number] [place], [place] [id number] Bro MD Ph:[phone](NOTE)Negative: Antibodies to JCV not detected.Inde terminate: Low [...] ID Date Data Source 05/14/2020 01:33:05 PM [facility] Name Value Range Interpretation Code Description Data Mary rce(s) Supporting Document(s) Folate [Mass/volume] in Serum or Plasma 9.21 ng/mL >4.77 [facility] ID Date Data Source 05/14/2020 01:33:[address] [facility] Value Range Interpretation Code Description Data Mary rce(s) Supporting Document(s) Calcidiol [Mass/volume] in Serum or Plasma 17 ng/mL >30 L [facility] ID Date Data Source 05/14/2020 01:36:[address] [facility] Value Range Interpretation Code Description Data Mary rce(s) Supporting Document(s) Hepatitis B virus surface Ab [Units/volume] in Serum or Plas ma by Immunoassay >11.4 L [facility] Non ReactiveNo active or previous infect ion. Susceptible to infection. ID Date Data Source 05/14/2020 03:04:[address] [facility] Value Range Interpretation Code Description Data Mary rce(s) Supporting Document(s) Cardiolipin IgM Ab [Interpretation] in Serum 4.0 U/mL <20.0 [facility] Negative results do not rule out Antipho spholipid syndrome. Additional APL testing should be considered. Cardiolipin IgG Ab [Interpretation] in Serum 3.5 U/mL <20.0 [facility] Negative results do not rule out Antipho spholipid syndrome. Additional APL testing should be considered. ID Date Data Source [id number] 05/14/2020 03:04:[address] [facility] Value Range Interpretation Code Description Data Mary rce(s) Supporting Document(s) Beta 2 glycoprotein 1 IgM Ab [Units/volume] in Serum 1.9 U/mL <20.0 [facility] Negative results do not rule out Antipho spholipid syndrome. Other APL testing should be considered. Beta 2 glycoprotein 1 IgG Ab [Units/volume] in Serum <20.0 [facility] Negative results do not rule out Antipho spholipid syndrome. Other APL testing should be considered. ID Date Data Source [id number] 05/14/2020 03:46:[address] [facility] Value Range Interpretation Code Description Data Mary rce(s) Supporting Document(s) Treponema pallidum Ab [Presence] in Serum Non Reactive [facility] ID Date Data Source [id number] 05/14/2020 03:46:[address] [facility] Value Range Interpretation Code Description Data Mary rce(s) Supporting Document(s) Hepatitis A virus IgM Ab [Presence] in Serum or Plasma by Im munoassay Non Reactive [facility] No acute infection, susceptible to infec tion. Hepatitis B virus core IgM Ab [Presence] in Serum or Plasma by Immunoassay [facility] Reactive [facility] IgM antibodies to HBc were not detected, does not exclude the possibility of exposure to HBV. Hepatitis C virus Ab [Presence] in Serum or Plasma by Immuno assay Non Reactive [facility] No serological evidence of active infect ion. If recent exposure is suspected, test for HCV RNA. Hepatitis B virus surface Ag [Presence] in Serum or Plasma b y Immunoassay Non Reactive [facility] No active or previous infection. Suscept ible to infection. ID Date Data Source [id number] 05/15/2020 11:07:[address] [facility] Value Range Interpretation Code Description Data Mary rce(s) Supporting Document(s) Sjogrens syndrome-A extractable nuclear Ab [Units/volume] in Serum by Immunofluorescence 19 [AU]/mL 0-99 [facility] Sjogrens syndrome-B extractable nuclear Ab [Units/volume] in Serum by Immunofluorescence 10 [AU]/mL 0-99 [facility] [place] extractable nuclear Ab [Units/volume] in Serum b y Immunofluorescence 12 [AU]/mL [address] [place] [address] Ribonucleoprotein extractable nuclear Ab [Units/volume] in Serum by Immunofluorescence 20 U/ML [address] [place] [address] SCL-70 extractable nuclear Ab [Units/volume] in Serum 11 [AU]/mL [address] [place] [address] Manjula-1 extractable nuclear Ab [Units/volume] in Serum by Immunofluorescence 38 [AU]/mL [address] [place] [address] DNA double strand Ab [Units/volume] in Serum by Immunofluore scence 10 [IU]/mL [address] [place] [address] Centromere Ab [Units/volume] in Serum 23 [AU]/mL [address] [place] [address] Histone IgG Ab [Units/volume] in Serum 16 [AU]/mL [address] [place] [address] ID Date Data Source [id number] 05/15/2020 12:07:58 PM [facility] Name Value Range Interpretation Code Description Data Mary rce(s) Supporting Document(s) Nuclear Ab Pattern Homogenous [Titer] in Serum <80 [facility] Nuclear Ab pattern.speckled [Titer] in Serum <80 [facility] Nuclear Ab pattern.rim [Titer] in Serum <80 [facility] Nuclear Ab pattern.nucleolar [Titer] in Serum <80 [facility] ID Date Data Source [id number] 05/18/2020 02:50:36 PM [facility] Name Value Range Interpretation Code Description Data Mary rce(s) Supporting Document(s) Varicella zoster virus IgG Ab [Presence] in Serum by Immunoassay 6. 21 {ISR} [facility] PositiveIndicates presence of detectable IgGantibody to Varicella-Zoster Virus bythe MARK test. Indicative of current orprevious infection. ID Date Data Source [id number] 05/14/2020 12:58:03 PM [facility] Name Value Range Interpretation Code Description Data Mary rce(s) Supporting Document(s) Leukocytes [#/volume] in Blood by Automated count 12.0 10*3/uL 4-10 H [facility] Erythrocytes [#/volume] in Blood by Automated count 4.75 10*6/uL 4.1- 5.3 [facility] Hemoglobin [Mass/volume] in Blood 14.0 g/dL 11.5-15.5 [facility] Hematocrit [Volume Fraction] of Blood by Automated count 42.2 % 3 6-45 [facility] Erythrocyte mean corpuscular volume [Entitic volume] by Auto mated count 88.9 fL 80-96 [facility] Erythrocyte mean corpuscular hemoglobin [Entitic mass] by Automated count 29.4 pg 27-33 [facility] Erythrocyte mean corpuscular hemoglobin concentration [Mass/volume] by Automated count 33.1 g/dL 32.0-36.0 [facility] distribution width [Ratio] by Automated count 13.6 % 11.5-14.5 [facility] Platelets [#/volume] in Blood by Automated count 313 10*3/uL 150-400 [facility] Differential cell count method - Blood [facility] Neutrophils/100 leukocytes in Blood by Automated count 60 % [facility] Lymphocytes/100 leukocytes in Blood by Automated count 31 % [facility] Monocytes/100 leukocytes in Blood by Automated count 6 % [facility] Eosinophils/100 leukocytes in Blood by Automated count 3 % [facility] Basophils/100 leukocytes in Blood by Automated count 0 % [facility] Neutrophils [#/volume] in Blood by Automated count 7.22 10*3/uL 1.8-7 .0 H [facility] Lymphocytes [#/volume] in Blood by Automated count 3.68 10*3/uL 1.2-4 .0 [facility] Monocytes [#/volume] in Blood by Automated count 0.70 10*3/uL 0-0.8 [facility] Eosinophils [#/volume] in Blood by Automated count 0.42 10*3/uL 0-0.5 [facility] Basophils [#/volume] in Blood by Automated count 0.03 10*3/uL 0-0.2 [facility] Nucleated erythrocytes/100 leukocytes [Ratio] in Blood by Automated count 0 /100{WBCs} 0-0 [facility] ID Date Data Source [id number] 05/14/2020 01:03:14 PM [facility] Name Value Range Interpretation Code Description Data Mary rce(s) Supporting Document(s) Prothrombin time (PT) 13.6 s 12.5-14.9 [facility] INR in Platelet poor plasma by Coagulation assay 1.03 [facility] Routine intensity oral anticoagulation I NR is typically 2.0-3.0. Target INR must be clinically individualized. ID Date Data Source [id number] 05/14/2020 01:03:[address] [facility] Value Range Interpretation Code Description Data Mary rce(s) Supporting Document(s) aPTT in Platelet poor plasma by Coagulation assay 33.3 s 24.0-33. 0 H [facility] ID Date Data Source [id number] 05/14/2020 01:30:[address] [facility] Value Range Interpretation Code Description Data Mary rce(s) Supporting Document(s) Cobalamin (Vitamin B12) [Mass/volume] in Serum or Plasma 378 pg/ml 2 11-946 [facility] ID Date Data Source [id number] 05/14/2020 01:30:[address] [facility] Value Range Interpretation Code Description Data Mary rce(s) Supporting Document(s) Albumin [Mass/volume] in Serum or Plasma by Bromocresol green (BCG) dye binding method 4.3 g/dL 3.5-5.2 [facility] al Bilirubin.total [Mass/volume] in Serum or Plasma 0.3 mg/dL <1.2 [facility] Bilirubin.direct [Mass/volume] in Serum or Plasma <0.3 [facility] Alkaline phosphatase [Enzymatic activity/volume] in Serum or Plasma 63 U/L 35-104 [facility] Aspartate aminotransferase [Enzymatic activity/volume] in Serum or Plasma 10 U/L <32 [facility] Alanine aminotransferase [Enzymatic activity/volume] in Seru m or Plasma 9 U/L <33 [facility] Protein [Mass/volume] in Serum or Plasma 7.6 g/dL 6.4-8.3 [facility] [facility] ID Date Data Source [id number] 05/14/2020 01:30:[address] [facility] Value Range Interpretation Code Description Data Mary rce(s) Supporting Document(s) IgG [Mass/volume] in Serum or Plasma 1076 mg/dL 700-1600 [facility] IgA [Mass/volume] in Serum or Plasma 245 mg/dL 70-400 [facility] IgM [Mass/volume] in Serum or Plasma 118 mg/dL 30-230 [facility] ID Date Data Source [id number] 05/14/2020 01:30:[address] [facility] Value Range Interpretation Code Description Data Mary rce(s) Supporting Document(s) Rheumatoid factor [Units/volume] in Serum or Plasma <14 [facility] ID Date Data Source [id number] 05/14/2020 01:30:35 PM [facility] Name Value Range Interpretation Code Description Data Mary rce(s) Supporting Document(s) Bicarbonate [Moles/volume] in Serum 23 mmol/L 22-29 [facility] Chloride [Moles/volume] in Serum or Plasma 105 mmol/L 98-107 [facility] Creatinine [Mass/volume] in Serum or Plasma 0.83 mg/dL 0.50-0.90 [facility] Glucose [Mass/volume] in Serum or Plasma 86 mg/dL 70-140 [facility] Potassium [Moles/volume] in Serum or Plasma 3.8 mmol/L 3.4-5.1 [facility] Sodium [Moles/volume] in Serum or Plasma 139 mmol/L 136-145 [facility] Urea nitrogen [Mass/volume] in Serum or Plasma 11 mg/dL 6-20 [facility] Anion gap 3 in Serum or Plasma 11 mmol/L 8-15 [facility] Osmolality of Serum or Plasma by calculation 287 mosm/kg 275-300 [facility] Creatinine/Urea nitrogen [Mass Ratio] in Serum or Plasma 13 [facility] Calcium [Mass/volume] in Serum or Plasma 9.3 mg/dL 8.6-10.0 [facility] Glomerular filtration rate/1.73 sq M pre dicted among non-blacks [Volume Rate/Area] in Serum or Plasma by Creatinine-based formula (MDRD) 83 mL/min/1.73m2 >60 [facility] Glomerular filtration rate/1.73 sq M pre dicted among blacks [Volume Rate/Area] in Serum or Plasma by Creatinine-based formula (MDRD) >60 [facility] ID Date Data Source [id number] 05/14/2020 01:30:35 PM [facility] Name Value Range Interpretation Code Description Data Mary rce(s) Supporting Document(s) Thyrotropin [Units/volume] in Serum or Plasma 1.000 u[IU]/mL 0.270-4. 200 [facility] ID Date Data Source [id number] 05/14/2020 01:32:[address] [facility] Value Range Interpretation Code Description Data Mary rce(s) Supporting Document(s) Erythrocyte sedimentation rate 20 mm/hr <20 H [facility] ID Date Data Source [id number] 05/15/2020 10:39:14 AM [facility] Name Value Range Interpretation Code Description Data Mary rce(s) Supporting Document(s) Lupus anticoagulant neutralization plate let [Time] in Platelet poor plasma by Coagulation assay 9.2 sec <8.0 H [facility] ID Date Data Source [id number] 05/14/2020 01:42:[address] [facility] Value Range Interpretation Code Description Data Mary rce(s) Supporting Document(s) HIV 1+2 Ab+HIV1 p24 Ag [Presence] in Serum or Plasma by Immu noassay Non Reactive [facility] Negative for HIV-1 p24 antigenand HIV-1/ HIV-2 antibodies. Nolaboratory evidence of HIVinfection. ID Date Data Source [id number] 05/14/2020 01:30:[address] [facility] Value Range Interpretation Code Description Data Mary rce(s) Supporting Document(s) Hemoglobin A1c/Hemoglobin.total in Blood by HPLC 5.3 % 4.0-6.0 [facility] (NOTE)<5.7% Average risk of diabetes (ADA)5.7-6.4% Increased risk of diabetes(ADA)>/= 6.5% Diagnostic for diabetes(ADA) Glucose mean value [Mass/volume] in Blood Estimated fr om glycated hemoglobin 106 mg/dL <126 [facility] ID Date Data Source [id number] 05/14/2020 01:10:[address] [facility] Value Range Interpretation Code Description Data Mary rce(s) Supporting Document(s) Homocysteine [Moles/volume] in Serum or Plasma 13.2 umol/L <15.0 [facility] ID Date Data Source [id number] 05/15/2020 01:23:[address] [facility] Value Range Interpretation Code Description Data Mary rce(s) Supporting Document(s) Protein [Mass/volume] in Serum or Plasma 7.3 g/dL 6.4-8.3 [facility] Albumin [Mass/volume] in Serum or Plasma by Electrophoresis 4.61 g/dL 3.80-5.78 [facility] Alpha 1 globulin [Mass/volume] in Serum or Plasma by Electro phoresis 0.22 g/dL 0.08-0.23 [facility] Alpha 2 globulin [Mass/volume] in Serum or Plasma by Electro phoresis 0.78 g/dL 0.45-0.92 [facility] Beta globulin [Mass/volume] in Serum or Plasma by Electropho resis 0.85 g/dL 0.50-1.03 [facility] Gamma globulin [Mass/volume] in Serum or Plasma by Electroph oresis 0.85 g/dL 0.54-1.30 [facility] Protein.monoclonal [Mass/volume] in Serum or Plasma by Electrophoresi s 0 [facility] Normally migrating serum proteins. Pathologist name [facility] ID Date Data Source [id number] 03/13/2020 08:03:00 PM EDT [facility] ED Physician Documentation NAME: EMERSON BOYER : 1975 AGE: 44 MR#: [id number] SERVICE DATE: 03/13/[address]: Hemant Buckley DO PRIMARY CARE DR: Lexi Luna JAVA SYSTEMS ANALYST ROOM#: HPI (Adult, General) General Chief Complaint: [...] tab 01/28/20 03/13/20 03/12/20 Rx hydrocodone- acetaminophen [[place]] 1 tab PO Q6HR PRN #6 tab [...] O2 Sat by Pulse Oximetry 98 97 [facility] (comprehensive) Medical Decision Making Free Text/Narative:: 44 [...] recommended she go to ER with ophtho engineering inspection assistant (stan/[facility]?) procedure: injected 1 % lido into [...] of the left upper eyelid ED Provider: Hemant Buckley ED Status: Discharged Time Seen by Provider: 03/13/20 18:55 Triaged At: 03/13/20 18:11 Discharge Detail Disposition: Home, Self-Care Med Rec New Prescriptions: No Action naproxen 500 mg tablet 500 mg PO BID RF: 0 glatiramer 40 mg/mL syringe See Rx Instructions .ROUTE .COMPLEX RF: 0 baclofen 10 mg tablet 10 mg PO TID PRN (Reason: back pain) Qty: 14 RF: 0 hydrocodone-acetaminophen [[place]] 7.5-325 mg tablet 1 tab PO Q6HR PRN (Reason: pain) Qty: 6 RF: 0 sulfamethoxazole-trimethoprim [Bactrim DS] 800- 160 mg tablet 1 tab PO BID 7 Days Qty: 14 RF: 0 Follow Up Care/Instructions Diet/Activity/Wound Care..: if yo notice any worsening of your redness/swelling or any fevers develop return to a hospital that has engineering inspection assistant ophthalmology, such as [facility] or stan. if mild symptoms persist into next week follow up with a eye dr in their office. take abx until complete. *Discharge Patient* Discharge Orders: Discharge Order (Routine); Ordered 03/13/20 Ordered By: Hemant Buckley Discharge Date/Time: 03/13/20 20:34 Interventions Interventions: ED Discharge Instructions Last Done: 03/13/20 20:35 Report Signers: <Electronically signed by Hemant Buckley DO> Hemant Buckley DO 03/13/20 2131 Hemant Buckley DO SIGNATURE DA Report Cosigners: D: RAVI 03/13/202002 T: RAVI 03/13/202002 CC: Lexi Luna Name Value Range Interpretation Code Description Data Mary rce(s) Supporting Document(s) ID Date Data Source [id number] 03/11/2020 08:31:00 PM EDT [facility] ED Physician Documentation NAME: EMERSON BOYER : 1975 AGE: 45 MR#: [id number] SERVICE DATE: 03/11/[address]: Ray Osorio [...] back pain) Qty: 14 RF: 0 hydrocodone-acetaminophen [[place]] 7.5- 325 mg tablet 1 tab PO [...] tablet every 12 hours as directed Call table games floor supervisor tomorrow for evaluation and removal May take [...] 04/08/20932 T: SARAH 04/08/20932 CC: Lexi Luna [facility] (Adult, General) General Chief Complaint: Skin/integument Stated [...] #14 tab 01/28/20 02/14/20 Unknown Rx hydrocodone-acetaminophen [[place]] 1 tab PO Q6HR PRN #6 tab [...] drainage nonfluctuant Explained to patient would call table games floor supervisor for evaluation and removal will place on [...] back pain) Qty: 14 RF: 0 hydrocodone-acetaminophen [[place]] 7.5-325 mg tablet 1 tab PO Q6HR [...] tablet every 12 hours as directed Call table games floor supervisor tomorrow for evaluation and removal May take [...] Ex-drinker (finding) comp leted Ex- drinker (finding) [facility] Alcohol intake 12/17/2020 12:00:00 AM EDT Ex-drinker (finding) comp leted Ex- drinker (finding) [facility] 11/19/2020 12:03:00 PM EDT Never smoker completed Never s [facility] Smoking 11/19/2020 12:03:00 PM EDT Never smoker completed Never s [facility] 11/19/2020 12:03:00 PM EDT Never smoker completed Never [facility] Alcohol intake 11/06/2020 12:00:00 AM EDT Ex-drinker (finding) comp leted Ex- drinker (finding) [facility] 10/12/2020 11:09:00 AM EDT Never smoker completed Never [facility] Smoking 10/12/2020 11:09:00 AM EDT Never smoker completed Never [facility] 10/12/2020 11:09:00 AM EDT Never smoker completed Never [facility] 09/24/2020 08:55:00 AM EDT Never smoker completed Never [facility] Smoking 09/24/2020 08:55:00 AM EDT Never smoker completed Never [facility] 09/12/2020 04:19:18 PM EDT Never smoker completed Never [facility] Smoking 09/12/2020 04:19:00 PM EDT Never smoker completed Never [facility] Alcohol intake 07/16/2020 12:00:00 AM EST Ex-drinker (finding) comp leted Ex- drinker (finding) [facility] 07/04/2020 02:07:32 AM EST Current every day smoker co mpleted Current every day smoker [facility] Smoking 07/04/2020 02:07:00 AM EST Current every day smoker co mpleted Current every day smoker [facility] Tobacco use and exposure 05/14/2020 12:00:00 AM EST Smokeless to bacco non-user completed Smokeless tobacco non-user [facility] Cigarettes smoked current (pack per day) - Reported 05/14/20 12:00:00 AM EST UNK completed 0.5 [facility] Smoking 05/14/2020 12:00:00 AM EST Smokes tobacco daily comple ira Smokes tobacco daily [facility] Alcohol intake 05/14/2020 12:00:00 AM EST Ex-drinker (finding) comp leted Ex- drinker (finding) [facility] Smoking 03/13/2020 09:06:00 PM EDT Current every day smoker co mpleted Current every day smoker [facility] 03/13/2020 08:06:51 PM EDT Current every day smoker co mpleted Current every day smoker [facility] 03/13/2020 08:06:51 PM EDT Current every day smoker co mpleted Current every day smoker [facility] Smoking 03/13/2020 08:06:00 PM EDT Current every day smoker co mpleted Current every day smoker [facility] 03/11/2020 08:35:00 PM EDT Current every day smoker co mpleted Current every day smoker [facility] Smoking 03/11/2020 08:35:00 PM EDT Current every day smoker co mpleted Current every day smoker [facility] Vital Signs ID Date Data Source [id number] 11/09/2020 07:58:59 AM [facility] Name Value Range Interpretation Code Description Data Source(s) WEIGHT RECORDED 145.25 lb 145.25 lb [facility] Body height Measured 63 in 63 in [facility] ID Date Data Source [id number] 07/16/2020 11:23:55 AM [facility] Name Value Range Interpretation Code Description Data Source(s) WEIGHT RECORDED 145 lb 145 lb [facility] Body height Measured 63 in 63 in [facility] ID Date Data Source [id number] 07/03/2020 08:53:21 AM [facility] Name Value Range Interpretation Code Description Data Source(s) WEIGHT RECORDED 150 lb 150 lb [facility] Body height Measured 63 in 63 in [facility] Patient Treatment Plan of Care Planned Activity Planned Date Details Description Data Source (s) fingolimod 0.5 MG Oral Capsule [Gilenya] 03/26/2021 12:00:[address] [facility] Ergocalciferol [id number] UNT Oral Capsule 11/06/2020 12:00:[address] [facility] Cholecalciferol 5000 UNT Oral Tablet 07/16/2020 12:00:00 AM [facility] fingolimod 0.5 MG Oral Capsule [Gilenya] 07/16/2020 12:00:00 AM [facility] 24 HR Nicotine 0.875 MG/HR Transdermal Patch 05/14/2020 12:00:00 AM [facility] Nicotine 21-14-7 MG/24HR Transdermal Kit 05/14/2020 12:00:00 AM [facility]
[2021-05-01 22:12] LABS: BASO % 0.1 % (0.0-1.0); EOS # 0.1 10^3/uL (0.0-0.5); EOS % 0.7 % (0.0-3.0); HEMATOCRIT 41.8 % (36.0-47.0); HEMOGLOBIN 13.7 g/dl (12.0-15.5); LYMPH # 0.7 10^3/uL (1.5-5.0); LYMPH % 5.8 % (24.0-44.0); MEAN CORPUSCULAR HEMOGLOBIN 29.3 pg (27.0-33.0); MEAN CORPUSCULAR HGB CONC 32.8 g/dl (32.0-36.5); MEAN CORPUSCULAR VOLUME 89.3 fl (80.0-96.0); MONO # 0.9 10^3/uL (0.0-0.8); MONO % 7.8 % (2.0-8.0); NEUTROPHILS # 9.8 10^3/uL (1.5-8.5); NEUTROPHILS % 85.2 % (36.0-66.0); PLATELET COUNT, AUTOMATED 282 10^3/uL (150-450); RED BLOOD COUNT 4.68 10^6/uL (4.00-5.40); WHITE BLOOD COUNT 11.5 10^3/uL (4.0-10.0)
[2021-05-01 22:32] LABS: CK-MB VALUE MASS < 1.0 NG/ML (<3.6); CPK CREATINE PHOSPHOKINASE 64 U/L (26-192); MB/CK RELATIVE INDEX 1.56 (< OR =4)
[2021-05-01 22:36] LABS: ALBUMIN 3.3 GM/DL (3.2-5.2); BILIRUBIN,DIRECT 0.2 MG/DL (0.0-0.2); BILIRUBIN,TOTAL 0.5 MG/DL (0.2-1.0)
[2021-05-01 23:06] LABS: RSV AMPLIFICATION POSITIVE (NEGATIVE)
--- NOTE | 2021-05-01 23:59 | REPVR ---
PROCEDURE INFORMATION: Exam: XR Chest Exam date and time: 05/01/2021 9:49 PM Age: 46 years old Clinical indication: Chest pain TECHNIQUE: Imaging protocol: XR of the chest. Views: 1 view. COMPARISON: 1. CT Chest without contrast 02/20/2019 3:56 PM 2. CR PORTABLE CHEST X-RAY 06/01/2018 12:16:49 AM 3. CR PORTABLE CHEST X-RAY 05/17/2018 7:05:47 PM FINDINGS: Lungs: There are linear densities in the medial aspect of the right lung base, which may represent prominent pulmonary vessels, atelectasis, or consolidation. Pleural spaces: Unremarkable. No pleural effusion. No pneumothorax. Heart/Mediastinum: Unremarkable. No cardiomegaly. Bones/joints: Unremarkable. IMPRESSION: Linear densities in the medial aspect of the right lung base, which may represent prominent pulmonary vessels, atelectasis, or consolidation. Electronically signed by: Wild Goayl On 05/01/2021 23:58:59 PM
[2021-05-02] MEDS ORDERED: DOXYCYCLINE HYCLATE 100MG TABLET PO ONE (00:25)
[2021-05-02] MEDS ORDERED: DOXY-443 PO (00:27)
--- NOTE | 2021-05-02 08:16 | ECGEPIP ---
[facility] - ED Test Date: 2021-05-01 Pat Name: EMERSON BOYER Department: Room: - Gender: Female In Room Dining Server: HC : 1975 Requested By: JADE Norris Order Number: [id number] Reading MD: Iman Bishop Measurements Intervals [place] Rate: 86 P: 78 IN: 122 QRS: 36 QRSD: 86 T: 47 QT: 360 QTc: 430 Interpretive Statements Normal sinus rhythm NSTTW abnormalities increased rate 06/01/18 Electronically Signed on 05-02-2021 8:16:02 EST by Iman Bishop
--- NOTE | 2021-05-02 08:17 | ECGEPIP ---
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
== END 2021-05-02 01:06 | disposition home or self-care (01) ==
LOC: M ED 21:05
DX: J12.1 Respiratory syncytial virus pneumonia (principal); R07.89 Other chest pain; G35 Multiple sclerosis; R56.9 Unspecified convulsions; Z98.51 Tubal ligation status; Z88.8 Allergy status to other drugs, medicaments and biological substances; Z79.899 Other long term (current) drug therapy

== ENCOUNTER 2021-09-01 22:56 | Emergency (ER) | payer OTHER ==
[~2021-09-01] VITALS: Ht 160 cm; Wt 65.0 kg
[~2021-09-01 22:56] MED LIST changes: +DOXY-443 PO
[2021-09-01 22:58] VITALS: BP 135/89
[2021-09-01] MEDS ORDERED: GILE1CAP PO (23:08)
== END 2021-09-02 02:58 | disposition left against medical advice (07) ==
LOC: M ED 22:56
DX: Z53.21 Procedure and treatment not carried out due to patient leaving prior to being seen by health care provider (principal)

== ENCOUNTER 2021-12-02 14:39 | Emergency (ER) | payer OTHER ==
[~2021-12-02] VITALS: Ht 160 cm; Wt 63.6 kg
[~2021-12-02 14:39] MED LIST changes: +GILE1CAP PO
[2021-12-02 14:42] VITALS: BP 154/89
[2021-12-02] MEDS ORDERED: LIDOCAINE 4% CREAM 5GM (LMX4) TOP ONE (18:45)
[2021-12-02] MEDS ORDERED: KETOROLAC 60MG 2ML VIAL IM ONE (18:45)
[2021-12-02] MEDS ORDERED: LIDO1CRE2 TOP (18:47)
[2021-12-02] MEDS ORDERED: NAPR-837 PO (18:47)
[2021-12-02] MEDS ORDERED: NORCO, ANEXSIA 5/325MG TABLET (HYDROcodone/ACETAMINOPHEN) PO ONE (18:50)
== END 2021-12-02 18:56 | disposition home or self-care (01) ==
LOC: M ED 14:39
DX: M25.522 Pain in left elbow (principal); J44.9 Chronic obstructive pulmonary disease, unspecified; G35 Multiple sclerosis; G40.509 Epileptic seizures related to external causes, not intractable, without status epilepticus; Z88.8 Allergy status to other drugs, medicaments and biological substances; Z79.51 Long term (current) use of inhaled steroids; Z79.899 Other long term (current) drug therapy
CPT/HCPCS: 73070; 96372; 99282; J1885

== ENCOUNTER 2021-12-03 23:11 | Emergency (ER) | payer OTHER ==
[~2021-12-03] VITALS: Ht 160 cm; Wt 65.1 kg
[~2021-12-03 23:11] MED LIST changes: +LIDO1CRE2 TOP
[2021-12-04] MEDS ORDERED: AUGMENTIN 875 MG TAB PO ONE (02:20)
[2021-12-04] MEDS ORDERED: BOOSTRIX/ADACEL VACCINE (DIPHTH/PERTUSS/ACELL/TETANUS) 0.5ML SYR IM ONE (02:20)
[2021-12-04] MEDS ORDERED: AMOX875T2 PO (02:27)
[2021-12-04 03:11] VITALS: BP 144/86
== END 2021-12-04 03:12 | disposition home or self-care (01) ==
LOC: M ED 23:11
DX: S61.232A Puncture wound without foreign body of right middle finger without damage to nail, initial encounter (principal); W54.0XXA Bitten by dog, initial encounter; F41.9 Anxiety disorder, unspecified; F32.A Depression, unspecified; G35 Multiple sclerosis; G40.509 Epileptic seizures related to external causes, not intractable, without status epilepticus; E78.5 Hyperlipidemia, unspecified; Y92.009 Unspecified place in unspecified non-institutional (private) residence as the place of occurrence of the external cause; Y93.9 Activity, unspecified; Y99.9 Unspecified external cause status; Z88.8 Allergy status to other drugs, medicaments and biological substances; Z79.899 Other long term (current) drug therapy; Z23 Encounter for immunization